=== PATIENT | female | born 1945 | race Caucasian/White ===

== ENCOUNTER 2018-04-05 10:51 | Inpatient (IN) | payer MEDICARE ==
[2018-04-05] MEDS ORDERED: IPRATROPIUM 0.5 MG/2.5 ML NEBU INHALATION STA (11:11)
[2018-04-05] MEDS ORDERED: ALBUTEROL NEBULIZED 2.5 MG/3 ML INHALATION STA (11:11)
[2018-04-05] MEDS ORDERED: LORazepam 2 MG/ML INJ IV STA (12:04)
--- NOTE | 2018-04-05 12:05 | ED ---
General Adult HPI - General Chief complaint: Shortness of Breath Stated complaint: fluid on lungs Time Seen by Provider: 04/05/18 11:11 Source: patient, RN notes reviewed, old records reviewed Mode of arrival: wheelchair Limitations: no limitations - History of Present Illness Initial comments: This is a 72-year-old female to the ER for evaluation. This patient does say for evaluation regards to shortness of breath cough and congestion. Patient does have history of COPD mild heart failure. Patient was sent in by family doctor for evaluation of outpatient chest x-ray, per patient she does have fluid on lungs. Patient does admit to being unable to lie flat with significant shortness of breath with activity. No fevers or chest pain - Related Data Home Medications Medication Instructions Recorded Confirmed ALPRAZolam [Xanax] 0.5 mg PO TID PRN 11/04/17 04/05/18 Albuterol Sulfate [Proventil Hfa] 1 - 2 puff INHALATION RT-Q4H PRN 11/04/1709/13 Potassium Chloride [Klor-Con 10] 10 meq PO TID 11/04/17 04/05/18 Tiotropium 18 Mcg/Puff [Spiriva] 1 cap INHALATION RT-DAILY 11/04/17 04/05/18 glyBURIDE/METFORMIN HCL 1 tab PO BID 11/04/17 04/05/18 [glyBURIDE/METFORMIN HCL 5-500 mg] sitaGLIPtin [Januvia] 100 mg PO DAILY 11/04/17 04/05/18 Atenolol/Chlorthalidone 1 tab PO DAILY 04/05/18 04/05/18 [Atenolol-Chlorthalidone 50-25] Atorvastatin [Lipitor] 10 mg PO HS 04/05/18 04/05/18 Ipratropium-Albuterol Nebulize 3 ml INHALATION RT-TID 04/05/18 04/05/18 [Duoneb 0.5 mg-3 mg/3 ml Soln] Previous Rx's Medication Instructions Recorded Apixaban [Eliquis] 5 mg PO BID tab 11/10/17 Diltiazem Oral [Cardizem*] 30 mg PO TID #90 tab 11/10/17 Atenolol [Tenormin] 50 mg PO DAILY #30 tab 11/22/17 FLUoxetine HCL 10 mg PO DAILY #30 tablet 11/22/17 Allergies Allergy/AdvReac Type Severity Reaction Status Date / Time egg Allergy Itching Verified 04/05/18 11:21 Review of Systems ROS Statement: Those systems with pertinent positive or pertinent negative responses have been documented in the HPI. ROS Other: All systems not noted in ROS Statement are negative. Past Medical History Past Medical History: Atrial Fibrillation, Asthma, COPD, Diabetes Mellitus, Eye Disorder, Hypertension, Osteoarthritis (OA), Vascular Disorder Additional Past Medical History / Comment(s): PT RECENTLY ADMITTED 11/07/17 WITH COPD/PURULENT TRACHEOBRONCHITIS. 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, NIDDM type II, past severe shingles, chronic constipation, degenerative arthritis History of Any Multi-Drug Resistant Organisms: None Reported Past Surgical History: Hysterectomy, Orthopedic Surgery, Tonsillectomy Additional Past Surgical History / Comment(s): Right knee arthroplasty, bilateral cataract surgery, hysterectomy, tonsillectomy Past Anesthesia/Blood Transfusion Reactions: No Reported Reaction Past Psychological History: Anxiety Smoking Status: Former smoker Past Alcohol Use History: None Reported Past Drug Use History: None Reported - Past Family History Mother Family Medical History: Dementia Additional Family Medical History / Comment(s): AGE 99 Father Family Medical History: No Reported History Additional Family Medical History / Comment(s): WAS HEALTHY AT ALMOST AGE 99 General Exam Limitations: no limitations General appearance: alert, in no apparent distress, in distress, cachectic Head exam: Present: atraumatic, normocephalic, normal inspection Eye exam: Present: normal appearance, PERRL, EOMI. Absent: scleral icterus, conjunctival injection, periorbital swelling ENT exam: Present: normal exam, mucous membranes moist Neck exam: Present: normal inspection. Absent: tenderness, meningismus, lymphadenopathy Respiratory exam: Present: respiratory distress, wheezes, accessory muscle use, decreased breath sounds, prolonged expiratory. Absent: rales, rhonchi, stridor Cardiovascular Exam: Present: regular rate, normal rhythm, normal heart sounds. Absent: systolic murmur, diastolic murmur, rubs, gallop, clicks GI/Abdominal exam: Present: soft, normal bowel sounds. Absent: distended, tenderness, guarding, rebound, rigid Extremities exam: Present: normal inspection, full ROM, normal capillary refill. Absent: tenderness, pedal edema, joint swelling, calf tenderness Back exam: Present: normal inspection Neurological exam: Present: alert, oriented X3, CN II-XII intact Psychiatric exam: Present: normal affect, normal mood Skin exam: Present: warm, dry, intact, normal color. Absent: rash Course Vital Signs 04/05/18 04/05/18 10:56 10:58 Temperature 98.4 F Pulse Rate 104 H 93 Respiratory 20 18 Rate Blood Pressure 148/63 176/63 O2 Sat by Pulse 96 95 Oximetry - Reevaluation(s) Reevaluation #1: 04/05/18 12:34 Mild improvement with prolonged breathing treatment, still short of breath EKG Findings - EKG Comments: EKG Findings:: EKG shows sinus rhythm rate of 89, ME 160, QRS 128, QTC 508 Medical Decision Making - Medical Decision Making 72 female the ER was significant shortness of breath, COPD exacerbation, with mild heart failure pleural effusions, patient be admitted for mild diuresis, breathing treatments, steroid treatments. Pulmonology evaluation - Lab Data Result diagrams: 04/05/18 12:05 Lab Results 04/05/18 Range/Units 12:05 WBC 7.6 (3.8-10.6) k/uL RBC 4.70 (3.80-5.40) m/uL Hgb 13.4 (11.4-16.0) gm/dL Hct 40.7 (34.0-46.0) % MCV 86.6 (80.0-100.0) fL MCH 28.6 (25.0-35.0) pg MCHC 33.0 (31.0-37.0) g/dL RDW 13.8 (11.5-15.5) % Plt Count 232 (150-450) k/uL Neutrophils % 74 % Lymphocytes % 18 % Monocytes % 4 % Eosinophils % 3 % Basophils % 0 % Neutrophils # 5.6 (1.3-7.7) k/uL Lymphocytes # 1.4 (1.0-4.8) k/uL Monocytes # 0.3 (0-1.0) k/uL Eosinophils # 0.2 (0-0.7) k/uL Basophils # 0.0 (0-0.2) k/uL - Radiology Data Radiology results: report reviewed (Chest x-ray positive for pleural effusion), image reviewed Disposition Clinical Impression: Acute exacerbation of chronic obstructive airways disease, Congestive heart failure Disposition: ADMITTED IP TO THIS HOSP Condition: Fair Is patient prescribed a controlled substance at d/c from ED?: No Referrals: Asa Kang DO [Primary Care Provider] - 1-2 days
[2018-04-05 12:31] LABS: Basophils % (A) 0 %; Eosinophils # (A) 0.2 k/uL (0-0.7); Eosinophils % (A) 3 %; HCT 40.7 % (34.0-46.0); HGB 13.4 gm/dL (11.4-16.0); Lymphocytes # (A) 1.4 k/uL (1.0-4.8); Lymphocytes % (A) 18 %; MCH 28.6 pg (25.0-35.0); MCV 86.6 fL (80.0-100.0); Mean Platelet Volume 6.9; Monocytes # (A) 0.3 k/uL (0-1.0); Monocytes % (A) 4 %; Neutrophils # (A) 5.6 k/uL (1.3-7.7); Neutrophils % (A) 74 %; Platelet Count 232 k/uL (150-450); RDW 13.8 % (11.5-15.5); WBC 7.6 k/uL (3.8-10.6)
[2018-04-05] MEDS ORDERED: methylPREDNISolone SOD SUCCI 125 MG/2 ML VIAL IV STA (12:33)
--- NOTE | 2018-04-05 12:33 | XR ---
EXAMINATION TYPE: XR chest 2V DATE OF EXAM: 04/05/2018 COMPARISON: 11/21/2017 INDICATION: Short of breath asthma TECHNIQUE: Frontal and lateral views of the chest are obtained. FINDINGS: The heart size is normal. The pulmonary vasculature is normal. Small bilateral pleural effusions are present.. IMPRESSION: 1. Small bilateral pleural effusions
[2018-04-05] MEDS ORDERED: FUROSEMIDE 10 MG/ML 4 ML VIAL IV STA (12:35)
[2018-04-05] MEDS ORDERED: LORazepam 2 MG/ML INJ IV PRN (12:35)
[2018-04-05 12:37] LABS: Albumin 4.2 g/dL (3.5-5.0); Calcium 9.7 mg/dL (8.4-10.2); Magnesium 1.3 mg/dL (1.6-2.3); Potassium 3.7 mmol/L (3.5-5.1); Total Bilirubin 0.8 mg/dL (0.2-1.3); Total Protein 6.7 g/dL (6.3-8.2)
[2018-04-05] MEDS: SODIUM CHLORIDE 0.9% 1,000 ML IV SCH (12:42)
[2018-04-05 12:53] LABS: INR 1.2 (<1.2); Partial Thromboplastin Time 25.3 sec (22.0-30.0); Prothrombin Time 11.3 sec (9.0-12.0)
[2018-04-05 13:05] LABS: Creatine Kinase MB 1.4 ng/mL (0.0-2.4)
[2018-04-05 13:09] LABS: Troponin I 0.046 ng/mL (0.000-0.034)
[2018-04-05] MEDS ORDERED: DILTIAZEM 5 MG/1 ML (25ML VIAL) IV STA (14:02)
[2018-04-05] MEDS ORDERED: DILTIAZEM 50 MG in SODIUM CHLORIDE 0.9% 40 ML IV ONE (14:03)
[2018-04-05] MEDS: IPRATROPIUM-ALBUTEROL 3 ML NEB INHALATION SCH ×2 (16:14→19:54)
--- NOTE | 2018-04-05 16:48 | P.CNPUL ---
History of Present Illness Consult date: 04/05/18 Reason for consult: dyspnea, COPD History of present illness: A 72-year-old female patient presented emergency department because of increased shortness of breath, cough and chest congestion. The patient is known to have COPD. The patient was seen by the primary care physician outpatient basis chest x-ray was done and there was a component of fluid overload in addition. For that reason the patient was referred to the emergency department and the patient was admitted for increased shortness of breath. No reported fever or chills. No cough or sputum production. Noted the patient also has history of chronic atrial fibrillation, diabetes mellitus and hypertension peripheral vascular disease. 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 She was recently admitted on 11/07/2017 for an acute COPD exacerbation check a bronchitis. The patient carries a [id number] smoking history and she quit smoking approximately 2 years ago. She is maintained on Spiriva regarding her COPD and she uses Ventolin rescue inhaler last is bases addition to a nebulizer with albuterol and mastoids basis. Typically she is short of breath upon climbing a flight of stairs. CAT scan of the chest that was done in October 2017 did not show any acute abnormalities. Note that her current chest x-ray showing some small better pleural effusion. No airspace disease or pneumonia. Echocardiogram from October 2017 showed a preserved LV function with an ejection fraction of 55-60%. Borderline concentric ventricular hypertrophy. PA pressure was 43. Mild pulmonary hypertension was noted and small pleural effusion was also seen. A recent pulmonary function test was done in the office and the patient has an FEV1 of 73 % of predicted which is consistent with mild obstructive airway limitation. Total lung capacity was already percent of predicted and diffusion capacity was 40% of predicted. Her BNP level is slightly elevated in the 5000 range and the patient also had some minor troponin leak with a 0.04 troponin level 3 and an EKG showing a sinus rhythm with premature atrial complexes and nonspecific intraventricular block. Q waves were seen in the anteroseptal area but wasn't Review of Systems Constitutional: Reports as per HPI Eyes: denies blurred vision, denies bulging eye, denies decreased vision Ears: deny: decreased hearing, ear discharge, earache Ears, nose, mouth and throat: Denies headache, Denies sore throat Cardiovascular: Reports decreased exercise tolerance, Reports dyspnea on exertion, Reports rapid heart beat, Reports shortness of breath Respiratory: Reports cough, Reports dyspnea Gastrointestinal: Reports as per HPI Menstruation: Reports as per HPI Musculoskeletal: absent: ankle pain, ankle stiffness, ankle swelling Integumentary: Denies pruritus, Denies rash Neurological: Denies numbness, Denies weakness Psychiatric: Denies anxiety, Denies depression Endocrine: Denies fatigue, Denies weight change Past Medical History Past Medical History: Atrial Fibrillation, Heart Failure, COPD, Diabetes Mellitus, Eye Disorder, Hypertension, Osteoarthritis (OA), Vascular Disorder Additional Past Medical History / Comment(s): COPD, previous CVA related to carotid artery disease and 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 History of Any Multi-Drug Resistant Organisms: None Reported Past Surgical History: Hysterectomy, Orthopedic Surgery, Tonsillectomy Additional Past Surgical History / Comment(s): Right knee arthroplasty, bilateral cataract surgery, hysterectomy, tonsillectomy Past Anesthesia/Blood Transfusion Reactions: No Reported Reaction Smoking Status: Former smoker - Past Family History Mother Family Medical History: Dementia Additional Family Medical History / Comment(s): AGE 99 Father Family Medical History: No Reported History Additional Family Medical History / Comment(s): WAS HEALTHY AT ALMOST AGE 99 Medications and Allergies Home Medications Medication Instructions Recorded Confirmed Type ALPRAZolam [Xanax] 0.5 mg PO TID PRN 11/04/17 04/05/18 History Albuterol Sulfate [Proventil Hfa] 1 - 2 puff INHALATION RT-Q4H PRN 11/04/1709/13 History Potassium Chloride [Klor-Con 10] 10 meq PO TID 11/04/17 04/05/18 History Tiotropium 18 Mcg/Puff [Spiriva] 1 cap INHALATION RT-DAILY 11/04/17 04/05/18 History glyBURIDE/METFORMIN HCL 1 tab PO BID 11/04/17 04/05/18 History [glyBURIDE/METFORMIN HCL 5-500 mg] sitaGLIPtin [Januvia] 100 mg PO DAILY 11/04/17 04/05/18 History Apixaban [Eliquis] 5 mg PO BID tab 11/10/17 04/05/18 Rx Diltiazem Oral [Cardizem*] 30 mg PO TID #90 tab 11/10/17 04/05/18 Rx Atenolol [Tenormin] 50 mg PO DAILY #30 tab 11/22/17 04/05/18 Rx FLUoxetine HCL 10 mg PO DAILY #30 tablet 11/22/17 04/05/18 Rx Atenolol/Chlorthalidone 1 tab PO DAILY 04/05/18 04/05/18 History [Atenolol-Chlorthalidone 50-25] Atorvastatin [Lipitor] 10 mg PO HS 04/05/18 04/05/18 History Ipratropium-Albuterol Nebulize 3 ml INHALATION RT-TID 04/05/18 04/05/18 History [Duoneb 0.5 mg-3 mg/3 ml Soln] Allergies Allergy/AdvReac Type Severity Reaction Status Date / Time egg Allergy Itching Verified 04/05/18 11:21 Influenza Virus Vaccines Allergy Unknown Verified 04/05/18 15:30 Physical Exam Vitals: Vital Signs Temp Pulse Resp BP Pulse Ox 04/05/18 15:24 108 H 16 125/61 91 L 04/05/18 13:51 122 H 28 H 178/107 95 04/05/18 13:46 124 H 28 H 197/122 04/05/18 13:42 88 04/05/18 13:04 95 04/05/18 12:51 76 04/05/18 12:46 78 16 163/78 99 04/05/18 10:58 93 18 176/63 95 04/05/18 10:56 98.4 F 104 H 20 148/63 96 Intake and Output 04/05/18 04/05/18 04/05/18 06:59 14:59 22:59 Other: Weight 53.524 kg Head exam was generally normal. There was no scleral icterus or corneal arcus. Mucous membranes were moist.Neck was supple and without jugular venous distension, thyromegaly, or carotid bruits. Carotids were easily palpable bilaterally. There was no adenopathy. Lung sounds are diminished bilaterally otherwise clear. No wheezes or rhonchi or any crackles. Minimal amount of external wheezes upon forceful expiratory maneuvers. Heart sounds are irregular , positive S1-S2. Overall heart sounds are distant. No significant murmurs appreciated.Abdominal exam revealed normal bowel sounds. The abdomen was soft, non-tender, and without masses, organomegaly, or appreciable enlargement of the abdominal aorta.Examination of the extremities revealed easily palpable radial, femoral and pedal pulses. There was no cyanosis, clubbing or edema.Examination of the skin revealed no evidence of significant rashes, suspicious appearing nevi or other concerning lesions. Neurologically the patient is awake and alert and there is no focal neurological deficit. Psychiatric to the patient has adequate effect and mood. Results - Laboratory Findings CBC and BMP: 04/05/18 12:05 04/05/18 12:05 PT/INR, D-dimer PT 11.3 sec (9.0-12.0) 04/05/18 12:05 INR 1.2 (<1.2) H 04/05/18 12:05 Abnormal lab findings: Abnormal Labs 04/05/18 04/05/18 04/05/18 12:05 12:05 12:05 INR 1.2 H Carbon Dioxide 21 L Creatinine 1.08 H Glucose 208 H Magnesium 1.3 L Troponin I 0.046 H* - Diagnostic Findings Chest x-ray: image reviewed Assessment and Plan Plan: Assessment 1 dyspnea. The patient has a mild COPD at baseline with an FEV1 of 73% of predicted and the patient has been maintained on Spiriva monotherapy. Her last hospital admission for shortness of breath was in October 2017. It is not clear to me that the patient is having acute COPD exacerbation. I think her shortness of breath is related to A. fib RVR which probably is causing shortness of breath and is putting this patient to a component of CHF. The chest x-ray shows COPD yet there is small bilateral pleural effusion contributing to her shortness of breath. As such I think her shortness of breath essentially related to episodes of A. fib RVR with possibly component of CHF. 2 paroxysmal nature fibrillation atrial fibrillation with rapid ventricular response, treated with Cardizem drip and currently she is back to normal and her shortness of breath has recovered. She is on long-term anticoagulation with Eliquis. 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 On Xanax. 10 nonobstructive right renal calculus 11 troponin leak 12 hypertensive heart disease with a component of diastolic dysfunction and previous echocardiogram from October 2017 13 small better pleural effusion. Plan We'll she continue DuoNeb about treatments around the clock, stop the IV Solu- Medrol. IV Lasix 20 mg every 12 hours. Long-term medical condition with Eliquis will be resumed. We'll consult cardiology. Her COPD is mild at baseline with an FEV1 of 73% of predicted and will continue the patient on Spiriva once ablation a day on outpatient basis. May consider also cardiac catheterization especially with an underlying troponin leak. We'll leave the final decision up to cardiology.
[2018-04-05 16:58] LABS: Glucose,Whole Blood 275 mg/dL (75-99)
[2018-04-05] MEDS ORDERED: methylPREDNISolone SOD SUCCI 125 MG/2 ML VIAL IV SCH (18:00)
[2018-04-05] MEDS: INSULIN ASPART 100 UNIT/ML 1 ML 10 ML VIAL SQ SCH ×2 (18:08→23:26)
[2018-04-05] MEDS: DILTIAZEM ORAL 60 MG TAB PO SCH ×2 (18:47→23:14)
[2018-04-05 21:04] LABS: Glucose,Whole Blood 299 mg/dL (75-99)
[2018-04-05] MEDS: FUROSEMIDE 10 MG/ML 2 ML VIAL IV SCH (21:30)
[2018-04-05] MEDS: ATORVASTATIN 10 MG TAB PO SCH (23:14)
[2018-04-05] MEDS: POTASSIUM CHLORIDE ER 10 MEQ TAB.ER.PRT PO SCH (23:15)
[2018-04-05] MEDS: APIXABAN 5 MG TAB PO SCH (23:15)
--- NOTE | 2018-04-05 23:53 | HP ---
HISTORY AND PHYSICAL DATE OF SERVICE: 04/05/2018 CHIEF COMPLAINT: Shortness of breath. HISTORY OF PRESENT ILLNESS: This 72-year-old woman with a past medical history of atrial ablation, CHF, COPD , diabetes type 2, DJD, history of hysterectomy and anxiety being followed by Dr. Kang in the outpatient setting was complaining of shortness of breath over the past several days. The patient had increasing shortness of breath. The patient also complaining of some cough and congestion also. The outpatient chest x-ray was done, which is suggestive of fluid overload. There is no history of any fever, rigors or chills. No headache, loss of consciousness, seizures at this time. The proBNP is 5500 and troponin 0.046. PAST MEDICAL HISTORY: History of atrial fibrillation, CHF, COPD, diabetes type 2, hypertension, DJD, history of vascular disorder, COPD. MEDICATIONS: Prior to admission include home medications are: 1. Albuterol 1-2 puffs q.4h p.r.n. 2. Januvia 100 mg p.o. daily. 3. Spiriva 1 puff daily. 4. Lipitor 10 mg q.h.s. 5. Xanax 0.5 t.i.d. p.r.n. 6. _ metformin 1 tab p.o. b.i.d. 7. Klor-Con 10 mg p.o. t.i.d. 8. DuoNeb p.o. t.i.d. 9. Fluoxetine 10 mg p.o. daily. 10.Atenolol chlorthalidone 50/25 p.o. daily. 11.Eliquis 5 mg p.o. b.i.d. 12.Tenormin 50 mg p.o. daily. 13.Cardizem 30 mg p.o. t.i.d. ALLERGIES: EGG and INFLUENZA VACCINE. FAMILY HISTORY: History of dementia. SOCIAL HISTORY: No history of smoking. Occasional alcohol intake. REVIEW OF SYSTEMS: ENT: No diminished vision or hearing. CARDIOVASCULAR: No angina. RESPIRATORY: As mentioned earlier. GI: No nausea. : No dysuria. NERVOUS SYSTEM: No numbness or weakness. ALLERGY/IMMUNOLOGY: No asthma. MUSCULOSKELETAL: As mentioned earlier. HEMATOLOGY/ONCOLOGY: No history of anemia. ENDOCRINE: Negative. CONSTITUTIONAL: As mentioned earlier. DERMATOLOGY: Negative. RHEUMATOLOGY: Negative. PSYCHIATRY: As mentioned earlier. PHYSICAL EXAMINATION: Alert and oriented x3. Pulse 103, blood pressure 123/80, respirations 20, temperature 97.2, pulse ox 97% on 2 L. HEENT: Conjunctivae normal. Oral mucosa moist. Neck is no jugular venous distention. No lymph node enlargement. CARDIOVASCULAR: S1 and S2, muffled. RESPIRATORY: Breath sounds diminished at the bases, bilateral scattered rhonchi and expiratory wheezing. ABDOMEN: Soft, nontender. LEGS: No edema, no swelling. NERVOUS SYSTEM: Higher functions as mentioned earlier, moves all 4 limbs. No focal motor deficits. LYMPHATICS: No lymphadenopathy in the neck, axillae, groin. SKIN: No ulcer, rash or bleeding. LAB STUDIES: CBC within normal limits and creatinine is 1.08 and glucose 208. Magnesium 1.3. ASSESSMENT: 1. Shortness of breath, possibly multifactorial, chronic obstructive pulmonary disease acute exacerbation, congestive heart failure acute exacerbation. 2. Troponin 0.046, indeterminate. 3. Diabetes type 2. 4. History of atrial fibrillation. 5. History of hypertension. 6. History of degenerative joint disease. 7. History of vascular disorder. 8. History of carotid artery disease. 9. History of anxiety. 10.Remote history of nicotine dependence. RECOMMENDATION AND DISCUSSION: This 72-year-old woman who presented with multiple complex medical issues, we will monitor the patient closely. Continue the current management and continue symptomatic treatment. Otherwise at this time Cardiology and pulmonology has been consulted. As far as the medications were concerned, we will treat the patient with small dose of diuretics cautiously and mostly with bronchodilators and steroids. Otherwise prognosis guarded because of multiple complex medical problems. We will follow the patient closely with Dr. Tomas. NICK / MESFINN: [id number] / HAILEY
[2018-04-06] MEDS: ALPRAZolam 0.5 MG TAB PO PRN ×2 (06:05→15:16)
[2018-04-06 06:35] LABS: Glucose,Whole Blood 207 mg/dL (75-99)
[2018-04-06 07:02] LABS: Calcium 9.4 mg/dL (8.4-10.2); Potassium 3.4 mmol/L (3.5-5.1)
[2018-04-06] MEDS: INSULIN ASPART 100 UNIT/ML 1 ML 10 ML VIAL SQ SCH ×4 (07:05→21:18)
[2018-04-06] MEDS: APIXABAN 5 MG TAB PO SCH ×2 (08:43→20:41)
[2018-04-06] MEDS: FUROSEMIDE 10 MG/ML 2 ML VIAL IV SCH ×2 (08:43→20:42)
[2018-04-06] MEDS: POTASSIUM CHLORIDE ER 10 MEQ TAB.ER.PRT PO SCH ×3 (08:43→21:19)
[2018-04-06] MEDS: FLUoxetine HCL 10 MG CAP PO SCH (08:43)
[2018-04-06] MEDS: LINAGLIPTIN 5 MG TABLET PO SCH (08:43)
[2018-04-06] MEDS: DILTIAZEM ORAL 60 MG TAB PO SCH ×3 (08:43→21:18)
[2018-04-06] MEDS: ATENOLOL 50 MG TAB PO SCH (08:43)
[2018-04-06] MEDS: IPRATROPIUM-ALBUTEROL 3 ML NEB INHALATION SCH ×4 (09:21→19:34)
[2018-04-06] MEDS ORDERED: SENNOSIDES 8.6 MG TAB PO SCH (11:00)
[2018-04-06] MEDS: LACTULOSE 20 GM/30 ML CUP PO SCH ×3 (11:55→21:19)
[2018-04-06 11:59] LABS: Glucose,Whole Blood 117 mg/dL (75-99)
[2018-04-06 13:26] LABS: Hemoglobin A1C 6.8 % (4.0-6.0)
--- NOTE | 2018-04-06 14:19 | P.PN ---
Subjective Progress Note Date: 04/06/18 A 72-year-old female patient presented emergency department because of increased shortness of breath, cough and chest congestion. The patient is known to have COPD. The patient was seen by the primary care physician outpatient basis chest x-ray was done and there was a component of fluid overload in addition. For that reason the patient was referred to the emergency department and the patient was admitted for increased shortness of breath. No reported fever or chills. No cough or sputum production. Noted the patient also has history of chronic atrial fibrillation, diabetes mellitus and hypertension peripheral vascular disease. 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 She was recently admitted on 11/07/2017 for an acute COPD exacerbation check a bronchitis. The patient carries a [id number] smoking history and she quit smoking approximately 2 years ago. She is maintained on Spiriva regarding her COPD and she uses Ventolin rescue inhaler last is bases addition to a nebulizer with albuterol and mastoids basis. Typically she is short of breath upon climbing a flight of stairs. CAT scan of the chest that was done in October 2017 did not show any acute abnormalities. Note that her current chest x-ray showing some small better pleural effusion. No airspace disease or pneumonia. Echocardiogram from October 2017 showed a preserved LV function with an ejection fraction of 55-60%. Borderline concentric ventricular hypertrophy. PA pressure was 43. Mild pulmonary hypertension was noted and small pleural effusion was also seen. A recent pulmonary function test was done in the office and the patient has an FEV1 of 73 % of predicted which is consistent with mild obstructive airway limitation. Total lung capacity was already percent of predicted and diffusion capacity was 40% of predicted. Her BNP level is slightly elevated in the 5000 range and the patient also had some minor troponin leak with a 0.04 troponin level 3 and an EKG showing a sinus rhythm with premature atrial complexes and nonspecific intraventricular block. Q waves were seen in the anteroseptal area but wasn't On today's evaluation of 04/06/2018, the patient is doing well and the patient has no specific complaints. Cardiac rhythm is sinus. She has been placed on atenolol 50 mg by mouth daily. She is also on Eliquis for long-term anticoagulation. I took the patient off Solu-Medrol as there was no clear-cut exacerbation of her COPD. She is on IV fluids at 20 mL an hour. She is also being diuresed with Lasix regarding a component of CHF and she is currently on 20 mg IV push Lasix every 12 hours. No fever. No chills. No chest pain. Objective - Vital Signs Vital signs: Vital Signs Temp 96.8 F L 04/06/18 11:58 Pulse 64 04/06/18 13:42 Resp 18 04/06/18 11:58 BP 99/47 04/06/18 11:58 Pulse Ox 97 04/06/18 11:58 Intake & Output 04/05/18 04/06/18 04/06/18 18:59 06:59 18:59 Intake Total 222 460 Balance 222 460 Weight 51.7 kg 50.7 kg Intake: Intake, IV Titration 100 Amount Sodium Chloride 0.9% 1, 100 000 ml @ 20 mls/hr IV . Q24H [facility] Rx#:[id number] Oral 222 360 Other: Voiding Method Bedpan Bedpan Bedpan # Voids 1 4 - Exam Head exam was generally normal. There was no scleral icterus or corneal arcus. Mucous membranes were moist.Neck was supple and without jugular venous distension, thyromegaly, or carotid bruits. Carotids were easily palpable bilaterally. There was no adenopathy. Lung sounds are diminished bilaterally otherwise clear. No wheezes or rhonchi or any crackles. Minimal amount of external wheezes upon forceful expiratory maneuvers. Heart sounds are irregular , positive S1-S2. Overall heart sounds are distant. No significant murmurs appreciated.Abdominal exam revealed normal bowel sounds. The abdomen was soft, non-tender, and without masses, organomegaly, or appreciable enlargement of the abdominal aorta.Examination of the extremities revealed easily palpable radial, femoral and pedal pulses. There was no cyanosis, clubbing or edema.Examination of the skin revealed no evidence of significant rashes, suspicious appearing nevi or other concerning lesions. Neurologically the patient is awake and alert and there is no focal neurological deficit. Psychiatric to the patient has adequate effect and mood. - Labs CBC & Chem 7: 04/05/18 12:05 04/06/18 06:08 Labs: Abnormal Lab Results - Last 24 Hours (Table) 04/05/18 04/05/18 04/06/18 Range/Units 16:34 21:02 06:08 Potassium (3.5-5.1) mmol/L BUN (7-17) mg/dL Creatinine (0.52-1.04) mg/dL Glucose (74-99) mg/dL POC Glucose (mg/dL) 275 H 299 H (75-99) mg/dL Hemoglobin A1c 6.8 H (4.0-6.0) % 04/06/18 04/06/18 04/06/18 Range/Units 06:08 06:33 11:22 Potassium 3.4 L (3.5-5.1) mmol/L BUN 22 H (7-17) mg/dL Creatinine 1.10 H (0.52-1.04) mg/dL Glucose 212 H (74-99) mg/dL POC Glucose (mg/dL) 207 H 117 H (75-99) mg/dL Hemoglobin A1c (4.0-6.0) % Assessment and Plan Plan: Assessment 1 dyspnea. The patient has a mild COPD at baseline with an FEV1 of 73% of predicted and the patient has been maintained on Spiriva monotherapy. Her last hospital admission for shortness of breath was in October 2017. It is not clear to me that the patient is having acute COPD exacerbation. I think her shortness of breath is related to A. fib RVR which probably is causing shortness of breath and is putting this patient to a component of CHF. The chest x-ray shows COPD yet there is small bilateral pleural effusion contributing to her shortness of breath. As such I think her shortness of breath essentially related to episodes of A. fib RVR with possibly component of CHF. 2 paroxysmal nature fibrillation atrial fibrillation with rapid ventricular response, treated with Cardizem drip and currently she is back to normal and her shortness of breath has recovered. She is on long-term anticoagulation with Eliquis. 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 On Xanax. 10 nonobstructive right renal calculus 11 troponin leak 12 hypertensive heart disease with a component of diastolic dysfunction and previous echocardiogram from October 2017 13 small better pleural effusion. Plan The patient continues to improve. Continue diuretics. Atenolol dose has been increased up to 50 mg by mouth daily. Continue Eliquis for anticoagulation. Cardiology on the case. We'll continue to follow. No need for systemic steroids. Her COPD is mildly currently inactive and stable.
[2018-04-06] MEDS: SODIUM CHLORIDE 0.9% 1,000 ML IV SCH (14:35)
--- NOTE | 2018-04-06 15:38 | P.CRDCN ---
History of Present Illness Consult date: 04/06/18 Requesting physician: Carol Bassett Consult reason: atrial fibrillation, shortness of breath Chief complaint: Shortness of breath History of present illness: This is a 72-year-old female with history of COPD, diabetes, hypertension, chronic persistent atrial fibrillation, who presented to the hospital with symptoms of progressively worsening shortness of breath. BNP level 5500, troponin 0.046, BUN 22, creatinine 1.0, potassium 3.4. CBC normal. EKG on arrival here showed atrial fibrillation with a heart rate in the 80s to 90s. No clear-cut evidence of any congestive heart failure this admission. Patient denies having any chest discomfort. Chest x-ray did not reveal any evidence of congestive cardiac failure. Let pressure 100/50 with a heart rate in the 70s to 80s. The patient is on Eliquis for anticoagulation. 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 History of Any Multi-Drug Resistant Organisms: None Reported Past Surgical History: Hysterectomy, Orthopedic Surgery, Tonsillectomy Additional Past Surgical History / Comment(s): Right knee arthroplasty, bilateral cataract surgery, hysterectomy, tonsillectomy Past Anesthesia/Blood Transfusion Reactions: No Reported Reaction Smoking Status: Former smoker - Past Family History Mother Family Medical History: Dementia Additional Family Medical History / Comment(s): AGE 99 Father Family Medical History: No Reported History Additional Family Medical History / Comment(s): WAS HEALTHY AT ALMOST AGE 99 Medications and Allergies Home Medications Medication Instructions Recorded Confirmed Type ALPRAZolam [Xanax] 0.5 mg PO TID PRN 11/04/17 04/05/18 History Albuterol Sulfate [Proventil Hfa] 1 - 2 puff INHALATION RT-Q4H PRN 11/04/1709/13 History Potassium Chloride [Klor-Con 10] 10 meq PO TID 11/04/17 04/05/18 History Tiotropium 18 Mcg/Puff [Spiriva] 1 cap INHALATION RT-DAILY 11/04/17 04/05/18 History glyBURIDE/METFORMIN HCL 1 tab PO BID 11/04/17 04/05/18 History [glyBURIDE/METFORMIN HCL 5-500 mg] sitaGLIPtin [Januvia] 100 mg PO DAILY 11/04/17 04/05/18 History Apixaban [Eliquis] 5 mg PO BID tab 11/10/17 04/05/18 Rx Diltiazem Oral [Cardizem*] 30 mg PO TID #90 tab 11/10/17 04/05/18 Rx Atenolol [Tenormin] 50 mg PO DAILY #30 tab 11/22/17 04/05/18 Rx FLUoxetine HCL 10 mg PO DAILY #30 tablet 11/22/17 04/05/18 Rx Atenolol/Chlorthalidone 1 tab PO DAILY 04/05/18 04/05/18 History [Atenolol-Chlorthalidone 50-25] Atorvastatin [Lipitor] 10 mg PO HS 04/05/18 04/05/18 History Ipratropium-Albuterol Nebulize 3 ml INHALATION RT-TID 04/05/18 04/05/18 History [Duoneb 0.5 mg-3 mg/3 ml Soln] Allergies Allergy/AdvReac Type Severity Reaction Status Date / Time egg Allergy Itching Verified 04/05/18 11:21 Influenza Virus Vaccines Allergy Unknown Verified 04/05/18 15:30 Physical Exam Vitals: Vital Signs Temp Pulse Pulse Resp BP Pulse Ox 04/06/18 13:42 64 04/06/18 13:29 64 04/06/18 11:58 96.8 F L 67 18 99/47 97 04/06/18 09:40 88 04/06/18 09:21 88 04/06/18 08:00 97.4 F L 92 18 125/76 96 04/06/18 04:00 98.0 F 94 16 90/55 93 L 04/06/18 00:00 98.0 F 94 16 90/55 93 L 04/05/18 19:59 97.2 F L 91 16 119/59 96 04/05/18 16:52 97.1 F L 103 H 20 123/83 97 Intake and Output 04/06/18 04/06/18 04/06/18 06:59 14:59 22:59 Intake Total 460 Balance 460 Intake: Intake, IV Titration 100 Amount Sodium Chloride 0.9% 1, 100 000 ml @ 20 mls/hr IV . Q24H [facility] Rx#:[id number] Oral 360 Other: Voiding Method Bedpan Bedpan # Voids 1 4 Weight 50.7 kg PHYSICAL EXAMINATION: HEENT: Head is atraumatic, normocephalic. Pupils equal, round. Neck is supple. There is no elevated jugular venous pressure. HEART EXAMINATION: Heart S1 and S2 irregularly irregular CHEST EXAMINATION: Lungs are clear to auscultation and precussion. No chest wall tenderness is noted on palpation or with deep breathing. ABDOMEN: Soft, nontender. Bowel sounds are heard. No organomegaly noted. EXTREMITIES: 2+ peripheral pulses with no evidence of peripheral edema and no calf tenderness noted. NEUROLOGIC patient is awake, alert and oriented -3. . Results 04/05/18 12:05 04/06/18 06:08 Comprehensive Metabolic Panel 04/06/18 Range/Units 06:08 Sodium 137 (137-145) mmol/L Potassium 3.4 L (3.5-5.1) mmol/L Chloride 99 (98-107) mmol/L Carbon Dioxide 23 (22-30) mmol/L BUN 22 H (7-17) mg/dL Creatinine 1.10 H (0.52-1.04) mg/dL Glucose 212 H (74-99) mg/dL Calcium 9.4 (8.4-10.2) mg/dL Current Medications Generic Name Dose Route Start Last Admin Trade Name Freq PRN Reason Stop Dose Admin Albuterol/Ipratropium 3 ml 04/05/18 16:00 04/06/18 13:29 Duoneb 0.5 Mg-3 Mg/3 Ml Soln INHALATION 3 ml RT-QID [facility] Administration Alprazolam 0.5 mg 04/05/18 17:41 04/06/18 15:16 Xanax PO 0.5 mg TID PRN Administration Anxiety Apixaban 5 mg 04/05/18 21:00 04/06/18 08:43 Eliquis PO 5 mg BID [facility] Administration Atenolol 50 mg 04/06/18 09:00 04/06/18 08:43 Tenormin PO 50 mg DAILY [facility] Administration Atorvastatin Calcium 10 mg 04/05/18 21:00 04/05/18 23:14 Lipitor PO 10 mg HS [facility] Administration Diltiazem HCl 60 mg 04/05/18 18:00 04/06/18 15:16 Cardizem Oral PO 60 mg TID [facility] Administration Dorzolamide/Timolol 1 drops 04/06/18 21:00 Cosopt RIGHT EYE BID [facility] Fluoxetine HCl 10 mg 04/06/18 09:00 04/06/18 08:43 Prozac PO 10 mg DAILY [facility] Administration Furosemide 20 mg 04/05/18 21:00 04/06/18 08:43 Lasix IV 20 mg Q12HR [facility] Administration Sodium Chloride 1,000 mls @ 20 mls/hr 04/05/18 12:45 04/06/18 14:35 Saline 0.9% IV Not Given .Q24H [facility] Insulin Aspart 0 unit 04/05/18 17:30 04/06/18 11:41 Novolog SQ Not Given ACHS [facility] Protocol Lactulose 30 gm 04/06/18 13:00 04/06/18 11:55 Cephulac PO 30 gm QID [facility] Administration Linagliptin 5 mg 04/06/18 09:00 04/06/18 08:43 Tradjenta PO 5 mg DAILY [facility] Administration Lorazepam 1 mg 04/05/18 12:35 Ativan IV Q6HR PRN Anxiety Potassium Chloride 10 meq 04/05/18 22:00 04/06/18 15:16 K-Dur 10 PO 10 meq TID [facility] Administration Intake and Output 04/06/18 04/06/18 04/06/18 06:59 14:59 22:59 Intake Total 460 Balance 460 Intake: Intake, IV Titration 100 Amount Sodium Chloride 0.9% 1, 100 000 ml @ 20 mls/hr IV . Q24H [facility] Rx#:[id number] Oral 360 Other: Voiding Method Bedpan Bedpan # Voids 1 4 Weight 50.7 kg 04/05/18 12:05 04/06/18 06:08 EKG Interpretations (text) EKG shows atrial fibrillation with a moderately rapid ventricular response. Assessment and Plan Plan: Assessment and plan #1 Shortness of breath, likely exacerbation of COPD. No evidence of congestive heart failure. #2 chronic persistent atrial fibrillation, rate under good control. Patient on Eliquis for anticoagulation. #3 history of CVA #4 nicotine dependence #5 diabetes #6 abnormal troponin #7 hypertension Plan We will repeat an echocardiogram with Doppler study the most recent one was performed in October which revealed a normal left ventricular systolic function. We will also obtain 2 subsequent troponins. No clear-cut evidence of any congestive heart failure. Troponin abnormality likely secondary to supply and demand mismatch. DNP note has been reviewed, I agree with a documented findings and plan of care. Patient was seen and examined.
[2018-04-06 16:53] LABS: Glucose,Whole Blood 254 mg/dL (75-99)
--- NOTE | 2018-04-06 17:57 | PN ---
PROGRESS NOTE DATE OF SERVICE: 04/06/2018 This 72-year-old woman who was admitted with shortness of breath had mostly COPD. An element of CHF was also suspected. Cardiology and Pulmonology are following the patient closely. No chest pain. No palpitations. No fever. On exam, alert, and oriented x3. Pulse is 68, blood pressure 99/47, respiration 18, temperature 96.8, pulse ox 97% on room air. HEENT: Conjunctivae normal. NECK: No jugular venous distention. CARDIOVASCULAR SYSTEM: S1, S2 muffled. RESPIRATORY SYSTEM: Breath sounds diminished at the bases. A few scattered rhonchi and crackles. ABDOMEN: Soft, non-tender. LEGS: No edema. No swelling. NERVOUS SYSTEM: No focal deficit. LABS: Sodium 137, potassium 3.4. CBC within normal limits. ASSESSMENT: 1. Shortness of breath, possibly multifactorial, with chronic obstructive pulmonary disease, acute exacerbation, as well as congestive heart failure, acute exacerbation. 2. Troponin 0.046, indeterminate. 3. Diabetes mellitus, type 2. 4. History of atrial fibrillation. 5. History of hypertension. 6. History of degenerative joint disease. 7. History of vascular disorder. 8. History of coronary artery disease. 9. History of anxiety. 10.Remote history of nicotine dependence. RECOMMENDATIONS AND DISCUSSION: I recommend to continue current medication, continue symptomatic treatment. Otherwise, patient is currently on a small dose of Lasix and bronchodilators. Continue to monitor. Closely follow with Dr. Tomas. Guarded prognosis. Further recommendations to follow. MMODL / IJN: [id number] /
[2018-04-06] MEDS: DORZOLAMIDE-TIMOLOL 2-0.5% DROPS 10 ML BTL RIGHT EYE SCH (20:41)
[2018-04-06] MEDS: ATORVASTATIN 10 MG TAB PO SCH (20:41)
[2018-04-06 21:13] LABS: Glucose,Whole Blood 176 mg/dL (75-99)
[2018-04-07 04:01] LABS: Calcium 8.6 mg/dL (8.4-10.2); Potassium 3.6 mmol/L (3.5-5.1)
[2018-04-07 05:54] LABS: Glucose,Whole Blood 257 mg/dL (75-99)
[2018-04-07] MEDS: INSULIN ASPART 100 UNIT/ML 1 ML 10 ML VIAL SQ SCH ×2 (06:43→12:11)
[2018-04-07] MEDS: ALPRAZolam 0.5 MG TAB PO PRN ×2 (06:45→12:15)
[2018-04-07] MEDS: LACTULOSE 20 GM/30 ML CUP PO SCH ×2 (07:53→12:21)
[2018-04-07] MEDS: FUROSEMIDE 10 MG/ML 2 ML VIAL IV SCH (07:57)
[2018-04-07] MEDS: FLUoxetine HCL 10 MG CAP PO SCH (07:57)
[2018-04-07] MEDS: ATENOLOL 50 MG TAB PO SCH (07:57)
[2018-04-07] MEDS: DORZOLAMIDE-TIMOLOL 2-0.5% DROPS 10 ML BTL RIGHT EYE SCH (07:57)
[2018-04-07] MEDS: LINAGLIPTIN 5 MG TABLET PO SCH (07:58)
[2018-04-07] MEDS: DILTIAZEM ORAL 60 MG TAB PO SCH (07:58)
[2018-04-07] MEDS: POTASSIUM CHLORIDE ER 10 MEQ TAB.ER.PRT PO SCH (07:58)
[2018-04-07] MEDS: APIXABAN 5 MG TAB PO SCH (07:58)
[2018-04-07] MEDS: IPRATROPIUM-ALBUTEROL 3 ML NEB INHALATION SCH ×2 (09:31→13:24)
[2018-04-07 11:45] VITALS: BP 126/73; PULSE 60; RESP 16; TEMP 96
[2018-04-07 11:55] LABS: Glucose,Whole Blood 217 mg/dL (75-99)
[2018-04-07] MEDS: SODIUM CHLORIDE 0.9% 1,000 ML IV SCH (12:21)
--- NOTE | 2018-04-07 12:50 | P.PN ---
Subjective Progress Note Date: 04/07/18 This is a 72-year-old female with history of COPD, diabetes, hypertension, chronic persistent atrial fibrillation, who presented to the hospital with symptoms of progressively worsening shortness of breath. BNP level 5500, troponin 0.046, BUN 22, creatinine 1.0, potassium 3.4. CBC normal. EKG on arrival here showed atrial fibrillation with a heart rate in the 80s to 90s. No clear-cut evidence of any congestive heart failure this admission. Patient denies having any chest discomfort. Chest x-ray did not reveal any evidence of congestive cardiac failure. Let pressure 100/50 with a heart rate in the 70s to 80s. The patient is on Eliquis for anticoagulation. 04/07/2018 Patient was seen and examined this morning, she's been up ambulating without any difficulty, breathing over all has been stable. Troponins 0.04, 0.03, 0.03 , 0.02. Echocardiogram with Doppler study has been performed but as yet pending. Objective - Vital Signs Vital signs: Vital Signs Temp 96.0 F L 04/07/18 11:43 Pulse 60 04/07/18 11:43 Resp 16 04/07/18 11:43 BP 126/73 04/07/18 11:43 Pulse Ox 95 04/07/18 11:43 Intake & Output 04/06/18 04/07/18 04/07/18 18:59 06:59 18:59 Intake Total 820 160 400 Balance 820 160 400 Weight 49.3 kg Intake: Intake, IV Titration 100 160 160 Amount Sodium Chloride 0.9% 1, 100 160 160 000 ml @ 20 mls/hr IV . Q24H [facility] Rx#:[id number] Oral 720 240 Other: Voiding Method Bedpan Toilet Bedside Commode # Voids 4 1 - Exam PHYSICAL EXAMINATION: HEENT: Head is atraumatic, normocephalic. Pupils equal, round. Neck is supple. There is no elevated jugular venous pressure. HEART EXAMINATION: Heart S1 and S2 irregularly irregular CHEST EXAMINATION: Lungs are clear to auscultation and precussion. No chest wall tenderness is noted on palpation or with deep breathing. ABDOMEN: Soft, nontender. Bowel sounds are heard. No organomegaly noted. EXTREMITIES: 2+ peripheral pulses with no evidence of peripheral edema and no calf tenderness noted. NEUROLOGIC patient is awake, alert and oriented -3. . - Labs CBC & Chem 7: 04/05/18 12:05 04/07/18 03:36 Labs: Abnormal Lab Results - Last 24 Hours (Table) 04/06/18 04/06/18 04/06/18 Range/Units 06:08 16:29 21:12 BUN (7-17) mg/dL Creatinine (0.52-1.04) mg/dL Glucose (74-99) mg/dL POC Glucose (mg/dL) 254 H 176 H (75-99) mg/dL Hemoglobin A1c 6.8 H (4.0-6.0) % 04/07/18 04/07/18 04/07/18 Range/Units 03:36 05:51 11:53 BUN 18 H (7-17) mg/dL Creatinine 1.10 H (0.52-1.04) mg/dL Glucose 230 H (74-99) mg/dL POC Glucose (mg/dL) 257 H 217 H (75-99) mg/dL Hemoglobin A1c (4.0-6.0) % Microbiology - Last 24 Hours (Table) 04/05/18 12:05 Blood Culture - Preliminary Blood No Growth after 24 hours Assessment and Plan Plan: Assessment and plan #1 Shortness of breath, likely exacerbation of COPD. No evidence of congestive heart failure. #2 chronic persistent atrial fibrillation, rate under good control. Patient on Eliquis for anticoagulation. #3 history of CVA #4 nicotine dependence #5 diabetes #6 abnormal troponin #7 hypertension Plan We did obtain subsequent troponins, not suggestive of acute coronary syndrome. Echocardiogram with Doppler study remains pending. Most recent echo performed in October revealed normal left ventricular systolic function. From cardiology 's perspective we will continue at this time with the patient's current medications. DNP note has been reviewed, I agree with a documented findings and plan of care. Patient was seen and examined.
--- NOTE | 2018-04-07 13:17 | P.PN ---
Subjective Progress Note Date: 04/07/18 A 72-year-old female patient presented emergency department because of increased shortness of breath, cough and chest congestion. The patient is known to have COPD. The patient was seen by the primary care physician outpatient basis chest x-ray was done and there was a component of fluid overload in addition. For that reason the patient was referred to the emergency department and the patient was admitted for increased shortness of breath. No reported fever or chills. No cough or sputum production. Noted the patient also has history of chronic atrial fibrillation, diabetes mellitus and hypertension peripheral vascular disease. 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 She was recently admitted on 11/07/2017 for an acute COPD exacerbation check a bronchitis. The patient carries a [id number] smoking history and she quit smoking approximately 2 years ago. She is maintained on Spiriva regarding her COPD and she uses Ventolin rescue inhaler last is bases addition to a nebulizer with albuterol and mastoids basis. Typically she is short of breath upon climbing a flight of stairs. CAT scan of the chest that was done in October 2017 did not show any acute abnormalities. Note that her current chest x-ray showing some small better pleural effusion. No airspace disease or pneumonia. Echocardiogram from October 2017 showed a preserved LV function with an ejection fraction of 55-60%. Borderline concentric ventricular hypertrophy. PA pressure was 43. Mild pulmonary hypertension was noted and small pleural effusion was also seen. A recent pulmonary function test was done in the office and the patient has an FEV1 of 73 % of predicted which is consistent with mild obstructive airway limitation. Total lung capacity was already percent of predicted and diffusion capacity was 40% of predicted. Her BNP level is slightly elevated in the 5000 range and the patient also had some minor troponin leak with a 0.04 troponin level 3 and an EKG showing a sinus rhythm with premature atrial complexes and nonspecific intraventricular block. Q waves were seen in the anteroseptal area but wasn't On today's evaluation of 04/06/2018, the patient is doing well and the patient has no specific complaints. Cardiac rhythm is sinus. She has been placed on atenolol 50 mg by mouth daily. She is also on Eliquis for long-term anticoagulation. I took the patient off Solu-Medrol as there was no clear-cut exacerbation of her COPD. She is on IV fluids at 20 mL an hour. She is also being diuresed with Lasix regarding a component of CHF and she is currently on 20 mg IV push Lasix every 12 hours. No fever. No chills. No chest pain. On 04/07/2018, patient is doing well and she is calm and comfortable without any significant respiratory distress. Creatinine normal sinus rhythm for now. She is anticoagulated. No specific complaints. She is on atenolol 50 mg by mouth daily. She is on Lasix 20 mg IV push every 12 hours which will be switched to oral Lasix 40 mg daily basis. No other significant events over the past 24 hours. Cardiology is already seen the patient. Objective - Vital Signs Vital signs: Vital Signs Temp 96.0 F L 04/07/18 11:43 Pulse 60 04/07/18 11:43 Resp 16 04/07/18 11:43 BP 126/73 04/07/18 11:43 Pulse Ox 95 04/07/18 11:43 Intake & Output 04/06/18 04/07/18 04/07/18 18:59 06:59 18:59 Intake Total 820 160 400 Balance 820 160 400 Weight 49.3 kg Intake: Intake, IV Titration 100 160 160 Amount Sodium Chloride 0.9% 1, 100 160 160 000 ml @ 20 mls/hr IV . Q24H [facility] Rx#:[id number] Oral 720 240 Other: Voiding Method Bedpan Toilet Bedside Commode # Voids 4 1 - Exam Head exam was generally normal. There was no scleral icterus or corneal arcus. Mucous membranes were moist.Neck was supple and without jugular venous distension, thyromegaly, or carotid bruits. Carotids were easily palpable bilaterally. There was no adenopathy. Lung sounds are diminished bilaterally otherwise clear. No wheezes or rhonchi or any crackles. Minimal amount of external wheezes upon forceful expiratory maneuvers. Heart sounds are irregular , positive S1-S2. Overall heart sounds are distant. No significant murmurs appreciated.Abdominal exam revealed normal bowel sounds. The abdomen was soft, non-tender, and without masses, organomegaly, or appreciable enlargement of the abdominal aorta.Examination of the extremities revealed easily palpable radial, femoral and pedal pulses. There was no cyanosis, clubbing or edema.Examination of the skin revealed no evidence of significant rashes, suspicious appearing nevi or other concerning lesions. Neurologically the patient is awake and alert and there is no focal neurological deficit. Psychiatric to the patient has adequate effect and mood. - Labs CBC & Chem 7: 04/05/18 12:05 04/07/18 03:36 Labs: Abnormal Lab Results - Last 24 Hours (Table) 04/06/18 04/06/18 04/06/18 Range/Units 06:08 16:29 21:12 BUN (7-17) mg/dL Creatinine (0.52-1.04) mg/dL Glucose (74-99) mg/dL POC Glucose (mg/dL) 254 H 176 H (75-99) mg/dL Hemoglobin A1c 6.8 H (4.0-6.0) % 04/07/18 04/07/18 04/07/18 Range/Units 03:36 05:51 11:53 BUN 18 H (7-17) mg/dL Creatinine 1.10 H (0.52-1.04) mg/dL Glucose 230 H (74-99) mg/dL POC Glucose (mg/dL) 257 H 217 H (75-99) mg/dL Hemoglobin A1c (4.0-6.0) % Microbiology - Last 24 Hours (Table) 04/05/18 12:05 Blood Culture - Preliminary Blood No Growth after 24 hours Assessment and Plan Plan: Assessment 1 dyspnea. The patient has a mild COPD at baseline with an FEV1 of 73% of predicted and the patient has been maintained on Spiriva monotherapy. Her last hospital admission for shortness of breath was in October 2017. It is not clear to me that the patient is having acute COPD exacerbation. I think her shortness of breath is related to A. fib RVR which probably is causing shortness of breath and is putting this patient to a component of CHF. The chest x-ray shows COPD yet there is small bilateral pleural effusion contributing to her shortness of breath. As such I think her shortness of breath essentially related to episodes of A. fib RVR with possibly component of CHF. 2 paroxysmal nature fibrillation atrial fibrillation with rapid ventricular response, treated with Cardizem drip and currently she is back to normal and her shortness of breath has recovered. She is on long-term anticoagulation with Eliquis. 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 On Xanax. 10 nonobstructive right renal calculus 11 troponin leak 12 hypertensive heart disease with a component of diastolic dysfunction and previous echocardiogram from October 2017 13 small better pleural effusion. Plan Patient is clinically stable. Stop IV Lasix and put the patient on oral Lasix 40 mg by mouth daily. The medication will be kept unchanged. Outpatient Spiriva for COPD. Proventil rescue inhaler. We'll continue to follow up in our office.
[2018-04-07] MEDS ORDERED: FUROSEMIDE 40 MG TAB PO SCH (13:30)
--- NOTE | 2018-04-07 20:37 | DS ---
DISCHARGE SUMMARY DATE OF SERVICE: 04/07/2018. FINAL DIAGNOSES: 1. Shortness of breath with possible multifactorial chronic obstructive pulmonary disease acute exacerbation of the congestive heart failure acute exacerbation. 2. Troponin 0.046, indeterminate. 3. Diabetes mellitus type 2. 4. History of atrial fibrillation. 5. History of hypertension. 6. History of degenerative joint disease. 7. History of vascular disorder. 8. History of coronary artery disease. 9. Anxiety. 10.Remote history of nicotine dependence. DISCHARGE DISPOSITION: The patient is being discharged in stable condition with guarded prognosis. HISTORY OF PRESENT ILLNESS: This patient is a 72 -year-old woman with past medical history of multiple medical problems including shortness of breath which is felt to be a combination of COPD and CHF treated in conjunction with Cardiology and Pulmonology. The creatinine is elevated up to 1.10 and the patient improved significantly. The troponins are negative at this time. On exam, vital signs are stable. Cardiovascular: S1, S2 muffled. Abdomen soft. No focal deficits. DISCHARGE ADVICE AND MEDICATIONS: 1. Discharge diet is cardiac. 2. Activity limited until follow up. 3. Follow up with Dr. Kang in 2-3 days. 4. Follow up with Cardiology and Pulmonology as recommended. MEDICATIONS ARE: 1. Proventil 1 p.r.n. 2. Ativan 0.5 t.i.d. 3. Eliquis 5 mg p.o. b.i.d. 4. Tenormin 50 mg p.o. daily. 5. Atenolol chlorthalidone 1 tab p.o. daily. 6. Lipitor 10 mg q.h.s. 7. Cardizem 60 mg p.o. t.i.d. 8. Dorzolamide timolol eye drops. 9. Fluoxetine 10 mg p.o. daily. 10.Glyburide. 11.Metformin 1 tab p.o. b.i.d. 12.DuoNeb q.i.d. and p.r.n. 13.Lactulose 30 b.i.d. p.r.n. 14.Klor-Con 20 mEq p.o. t.i.d. 15.Januvia 100 mg p.o. daily. 16.Spiriva 1 puff daily. Once again, the patient is being discharged in stable condition with guarded prognosis. MMODL / IJN: [id number] / MTDD
--- NOTE | 2018-04-08 13:27 | ECHOF ---
Referral Reason:afib MEASUREMENTS -------- HEIGHT: 162.6 cm WEIGHT: 50.3 kg BP: 99/47 RVIDd: 1.6 cm (< 3.3) IVSd: 1.0 cm (0.6 - 1.1) LVIDd: 5.5 cm (3.9 - 5.3) LVPWd: 1.0 cm (0.6 - 1.1) IVSs: 1.3 cm LVIDs: 4.3 cm LVPWs: 1.3 cm LAESV Index (A-L): 36.28 ml/m Ao Diam: 2.4 cm (2.0 - 3.7) AV Cusp: 1.3 cm (1.5 - 2.6) LA Diam: 4.2 cm (2.7 - 3.8) EPSS: 1.0 cm MV E Stu: 1.38 m/s MV DecT: 275 ms MV A Stu: 0.69 m/s MV E/A Ratio: 2.01 RAP: 5.00 mmHg RVSP: 35.50 mmHg MV EF SLOPE: 100.60 mm/s (70 - 150) MV EXCURSION: 1.32 cm (> 18.000) FINDINGS -------- Atrial fibrillation. This was a technically adequate study. The left ventricular size is normal. Left ventricular wall thickness is normal. There is moderate global hypokinesis of LV . Overall left ventricular systolic function is moderately impaired with, an EF between 35 - 40 %. The right ventricle is normal in size and function. LA is moderately dilated 34-39 ml/m2 The right atrium is normal in size. There is mild aortic valve sclerosis. There is no evidence of aortic regurgitation. There is no e vidence of aortic stenosis. The mitral valve leaflets are moderately thickened. Moderate mitral annular calcification present. Wcyffrix-re-wbxjod mitral regurgitation is present. Mild tricuspid regurgitation present. There is borderline pulmonary hypertension. The right ventr icular systolic pressure, as measured by Doppler, is 35.50mmHg. The pulmonic valve was not well visualized. The aortic root size is normal. Normal inferior vena cava with normal inspiratory collapse consistent with estimated right atrial pre ssure of 5 mmHg. There is no pericardial effusion. Pleural Effusion present.. CONCLUSIONS -------- 1. Atrial fibrillation. 2. This was a technically adequate study. 3. The left ventricular size is normal. 4. Left ventricular wall thickness is normal. 5. There is moderate global hypokinesis of LV . 6. Overall left ventricular systolic function is moderately impaired with, an EF between 35 - 40 %. 7. LA is moderately dilated 34-39 ml/m2 8. There is mild aortic valve sclerosis. 9. The mitral valve leaflets are moderately thickened. 10. Moderate mitral annular calcification present. 11. Hfcsivgw-ao-vsdhqd mitral regurgitation is present. 12. Mild tricuspid regurgitation present. 13. There is borderline pulmonary hypertension. 14. The right ventricular systolic pressure, as measured by Doppler, is 35.50mmHg. 15. The pulmonic valve was not well visualized. 16. The aortic root size is normal. 17. There is no pericardial effusion. 18. Pleural Effusion present.. THERAPEUTIC PROGRAM WORKER: Eduardo Clifford RDCS
== END 2018-04-07 14:40 | disposition home or self-care (01) | DRG 190 ==
LOC: EC 10:51 → 6SEL 12:46
PROVIDERS: ADMIT Hospitalist; ATTEND Hospitalist
DX: J44.1 Chronic obstructive pulmonary disease with (acute) exacerbation (principal); I50.33 Acute on chronic diastolic (congestive) heart failure; R64 Cachexia; Z68.1 Body mass index [BMI] 19.9 or less, adult; I27.20 Pulmonary hypertension, unspecified; E11.51 Type 2 diabetes mellitus with diabetic peripheral angiopathy without gangrene; I48.2 Chronic atrial fibrillation; I69.398 Other sequelae of cerebral infarction; I11.0 Hypertensive heart disease with heart failure; Z66 Do not resuscitate; H54.61 Unqualified visual loss, right eye, normal vision left eye; R40.2363 Coma scale, best motor response, obeys commands, at hospital admission; R40.2143 Coma scale, eyes open, spontaneous, at hospital admission; N20.0 Calculus of kidney; I25.10 Atherosclerotic heart disease of native coronary artery without angina pectoris; F41.1 Generalized anxiety disorder; R40.2253 Coma scale, best verbal response, oriented, at hospital admission; K59.09 Other constipation; R77.9 Abnormality of plasma protein, unspecified; M19.91 Primary osteoarthritis, unspecified site; Z79.01 Long term (current) use of anticoagulants; Z79.84 Long term (current) use of oral hypoglycemic drugs; Z79.899 Other long term (current) drug therapy; Z86.19 Personal history of other infectious and parasitic diseases; Z86.79 Personal history of other diseases of the circulatory system; Z87.891 Personal history of nicotine dependence; Z87.442 Personal history of urinary calculi; Z96.653 Presence of artificial knee joint, bilateral; Z90.710 Acquired absence of both cervix and uterus; Z98.42 Cataract extraction status, left eye; Z98.41 Cataract extraction status, right eye; Z88.7 Allergy status to serum and vaccine; Z91.012 Allergy to eggs; Z81.8 Family history of other mental and behavioral disorders
CPT/HCPCS: 36415; 71046; 80048; 80053; 82150; 82550; 82553; 83036; 83735; 83880; 84484; 85025; 85610; 85730; 87040; 93005; 93306; 94640; 94644; 96361; 96374; 96375; 99285

== ENCOUNTER 2018-04-13 17:31 | Inpatient (IN) | payer MEDICARE ==
[2018-04-13] MEDS ORDERED: IPRATROPIUM-ALBUTEROL 3 ML NEB INHALATION STA (18:08)
--- NOTE | 2018-04-13 18:12 | ED ---
SOB HPI - General Chief Complaint: Shortness of Breath Stated Complaint: DANIELLE Time Seen by Provider: 04/13/18 18:02 Source: patient Mode of arrival: EMS Limitations: no limitations - History of Present Illness Initial Comments: This 72-year-old white female presents with a complaint of shortness of breath. She states that it started this morning. She has had a slight dry nonproductive cough. She states that the shortness of breath is worse with any exertion. She does have a long-standing history of COPD. She did try multiple breathing treatments and her inhalers this morning without any significant relief. She was just in the hospital approximately 6 days ago after having CHF , COPD, and atrial fibrillation. She denies any fevers or chills, chest pain, leg pain or swelling. No other complaints or modifying factors. She does present via EMS and received a breathing treatment as well as 125 mg of Solu- Medrol per EMS and states that she had significant relief. She is feeling much improved currently. She denies any degree of anxiety today. - Related Data Home Medications Medication Instructions Recorded Confirmed ALPRAZolam [Xanax] 0.5 mg PO TID PRN 11/04/17 04/13/18 Albuterol Sulfate [Proventil Hfa] 1 - 2 puff INHALATION RT-Q4H PRN 11/04/17 Potassium Chloride [Klor-Con 10] 10 meq PO TID 11/04/17 04/13/18 Tiotropium 18 Mcg/Puff [Spiriva] 1 cap INHALATION RT-DAILY 11/04/17 04/13/18 glyBURIDE/METFORMIN HCL 1 tab PO BID 11/04/17 04/13/18 [glyBURIDE/METFORMIN HCL 5-500 mg] sitaGLIPtin [Januvia] 100 mg PO DAILY 11/04/17 04/13/18 Atorvastatin [Lipitor] 10 mg PO HS 04/05/18 04/13/18 Ipratropium-Albuterol Nebulize 3 ml INHALATION RT-TID 04/05/18 04/13/18 [Duoneb 0.5 mg-3 mg/3 ml Soln] Previous Rx's Medication Instructions Recorded Apixaban [Eliquis] 5 mg PO BID tab 11/10/17 Atenolol [Tenormin] 50 mg PO DAILY #30 tab 11/22/17 FLUoxetine HCL 10 mg PO DAILY #30 tablet 11/22/17 Diltiazem Oral [Cardizem*] 60 mg PO TID #90 tab 04/07/18 Dorzolamide-Timolol 2%/0.5% 1 drops RIGHT EYE BID ml 04/07/18 [dorzolamide-Timolol 2%/0.5%] Lactulose [Cephulac] 30 gm PO BID PRN #200 ml 04/07/18 Allergies Allergy/AdvReac Type Severity Reaction Status Date / Time egg Allergy Itching Verified 04/13/18 18:02 Influenza Virus Vaccines Allergy Unknown Verified 04/13/18 18:02 Review of Systems ROS Statement: Those systems with pertinent positive or pertinent negative responses have been documented in the HPI. ROS Other: All systems not noted in ROS Statement are negative. 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 History of Any Multi-Drug Resistant Organisms: None Reported Past Surgical History: Hysterectomy, Orthopedic Surgery, Tonsillectomy Additional Past Surgical History / Comment(s): Right knee arthroplasty, bilateral cataract surgery, hysterectomy, tonsillectomy Past Anesthesia/Blood Transfusion Reactions: No Reported Reaction Past Psychological History: Anxiety Smoking Status: Former smoker Past Alcohol Use History: None Reported Past Drug Use History: None Reported - Past Family History Mother Family Medical History: Dementia Additional Family Medical History / Comment(s): AGE 99 Father Family Medical History: No Reported History Additional Family Medical History / Comment(s): WAS HEALTHY AT ALMOST AGE 99 General Exam - General Exam Comments Initial Comments: GENERAL: The patient is well nourished and well hydrated. VITAL SIGNS: Heart rate, blood pressure, respiratory rate reviewed as recorded in nurse's notes. EYES: Pupils are round and reactive. Extraocular movements are intact. No conjunctival / lid redness or swelling. ENT: No external evidence of injury, swelling, or ecchymosis. Airway is patent. Throat is clear. NECK: Nontender. No swelling or evidence of injury. No subcutaneous emphysema. Trachea is midline. No thyroid mass. HEART: Regular rate and rhythm. Good peripheral pulses. LUNGS/CHEST: Breath sounds clear and equal bilaterally. No rales, rhonchi, or wheezes. No ecchymosis, subcutaneous emphysema, or tenderness. ABDOMEN: Abdomen soft without tenderness. No palpable masses or organomegaly. No peritoneal signs. No abdominal wall swelling or ecchymosis. EXTREMITIES: No extremity tenderness. Normal muscle tone and function. No thoracolumbar tenderness. NEUROLOGIC: Sensation is grossly intact. Cranial nerve exam reveals face is symmetrical, tongue is midline, speech is clear. SKIN: No abrasions or ecchymosis is noted. No induration or masses noted. PSYCHIATRIC: Alert and oriented. Appropriate behavior and judgment. Limitations: no limitations Course Vital Signs 04/13/18 04/13/18 04/13/18 17:36 17:49 18:15 Temperature 98.9 F Pulse Rate 87 84 Respiratory 22 22 24 Rate Blood Pressure 141/59 114/64 O2 Sat by Pulse 95 96 Oximetry 04/13/18 04/13/18 04/13/18 18:44 18:55 19:10 Temperature Pulse Rate 80 78 83 Respiratory 18 Rate Blood Pressure 95/50 O2 Sat by Pulse 97 Oximetry Medical Decision Making - Medical Decision Making The patient was seen and examined. All diagnostics were reviewed. The EKG shows a normal sinus rhythm at a rate of 83. There is occasional PVC noted. The patient does have a left bundle branch block as well. The EKG also shows some nonspecific ST T-wave changes noted in the lateral leads. The DC intervals 146, QRS duration is 124, and the QTC intervals 495. The laboratory is reviewed and does show slight decrease in the CO2. The BNP is also significantly elevated. The chest x-ray shows signs of COPD and congestive heart failure. She is given a DuoNeb breathing treatment. She received Solu- Medrol already via EMS. She also is given aspirin, Nitropaste, and Lasix. It is felt as though she would benefit from readmission. The case is discussed with internal medicine and they're agreeable with admission as well. - Lab Data Result diagrams: 04/13/18 18:15 05/18/18 18:15 Lab Results 04/13/18 04/13/18 04/13/18 Range/Units 18:15 18:15 18:15 WBC 6.2 (3.8-10.6) k/uL RBC 3.98 (3.80-5.40) m/uL Hgb 11.8 (11.4-16.0) gm/dL Hct 35.2 (34.0-46.0) % MCV 88.6 (80.0-100.0) fL MCH 29.6 (25.0-35.0) pg MCHC 33.4 (31.0-37.0) g/dL RDW 13.8 (11.5-15.5) % Plt Count 181 (150-450) k/uL Neutrophils % 75 % Lymphocytes % 15 % Monocytes % 5 % Eosinophils % 5 % Basophils % 0 % Neutrophils # 4.6 (1.3-7.7) k/uL Lymphocytes # 0.9 L (1.0-4.8) k/uL Monocytes # 0.3 (0-1.0) k/uL Eosinophils # 0.3 (0-0.7) k/uL Basophils # 0.0 (0-0.2) k/uL PT (9.0-12.0) sec INR (<1.2) APTT (22.0-30.0) sec Sodium 142 (137-145) mmol/L Potassium 3.8 (3.5-5.1) mmol/L Chloride 108 H (98-107) mmol/L Carbon Dioxide 20 L (22-30) mmol/L Anion Gap 14 mmol/L BUN 11 (7-17) mg/dL Creatinine 0.92 (0.52-1.04) mg/dL Est GFR (CKD-EPI)AfAm 71 (>60 ml/min/1.73 sqM) Est GFR (CKD-EPI)NonAf 62 (>60 ml/min/1.73 sqM) Glucose 134 H (74-99) mg/dL Calcium 9.4 (8.4-10.2) mg/dL Total Bilirubin 0.6 (0.2-1.3) mg/dL AST 43 H (14-36) U/L ALT 60 H (9-52) U/L Alkaline Phosphatase 67 (38-126) U/L Total Creatine Kinase 46 (30-135) U/L CK-MB (CK-2) 0.8 (0.0-2.4) ng/mL CK-MB (CK-2) Rel Index 1.7 Troponin I <0.012 (0.000-0.034) ng/mL NT-Pro-B Natriuret Pep pg/mL Total Protein 6.0 L (6.3-8.2) g/dL Albumin 3.5 (3.5-5.0) g/dL 04/13/18 04/13/18 Range/Units 18:15 18:15 WBC (3.8-10.6) k/uL RBC (3.80-5.40) m/uL Hgb (11.4-16.0) gm/dL Hct (34.0-46.0) % MCV (80.0-100.0) fL MCH (25.0-35.0) pg MCHC (31.0-37.0) g/dL RDW (11.5-15.5) % Plt Count (150-450) k/uL Neutrophils % % Lymphocytes % % Monocytes % % Eosinophils % % Basophils % % Neutrophils # (1.3-7.7) k/uL Lymphocytes # (1.0-4.8) k/uL Monocytes # (0-1.0) k/uL Eosinophils # (0-0.7) k/uL Basophils # (0-0.2) k/uL PT 10.7 (9.0-12.0) sec INR 1.1 (<1.2) APTT 25.7 (22.0-30.0) sec Sodium (137-145) mmol/L Potassium (3.5-5.1) mmol/L Chloride (98-107) mmol/L Carbon Dioxide (22-30) mmol/L Anion Gap mmol/L BUN (7-17) mg/dL Creatinine (0.52-1.04) mg/dL Est GFR (CKD-EPI)AfAm (>60 ml/min/1.73 sqM) Est GFR (CKD-EPI)NonAf (>60 ml/min/1.73 sqM) Glucose (74-99) mg/dL Calcium (8.4-10.2) mg/dL Total Bilirubin (0.2-1.3) mg/dL AST (14-36) U/L ALT (9-52) U/L Alkaline Phosphatase (38-126) U/L Total Creatine Kinase (30-135) U/L CK-MB (CK-2) (0.0-2.4) ng/mL CK-MB (CK-2) Rel Index Troponin I (0.000-0.034) ng/mL NT-Pro-B Natriuret Pep 5510 pg/mL Total Protein (6.3-8.2) g/dL Albumin (3.5-5.0) g/dL Disposition Clinical Impression: Acute exacerbation of chronic obstructive airways disease, Dyspnea, Hypertension, Congestive heart failure Disposition: ADMITTED IP TO THIS HOSP Condition: Fair Is patient prescribed a controlled substance at d/c from ED?: No Time of Disposition: 20:39 Decision Date: 04/13/18 Decision Time: 20:39
[2018-04-13 18:34] LABS: Basophils % (A) 0 %; Eosinophils # (A) 0.3 k/uL (0-0.7); Eosinophils % (A) 5 %; HCT 35.2 % (34.0-46.0); HGB 11.8 gm/dL (11.4-16.0); Lymphocytes # (A) 0.9 k/uL (1.0-4.8); Lymphocytes % (A) 15 %; MCH 29.6 pg (25.0-35.0); MCHC 33.4 g/dL (31.0-37.0); MCV 88.6 fL (80.0-100.0); Monocytes # (A) 0.3 k/uL (0-1.0); Monocytes % (A) 5 %; Neutrophils # (A) 4.6 k/uL (1.3-7.7); Neutrophils % (A) 75 %; Platelet Count 181 k/uL (150-450); RBC 3.98 m/uL (3.80-5.40); RDW 13.8 % (11.5-15.5); WBC 6.2 k/uL (3.8-10.6)
[2018-04-13 18:42] LABS: INR 1.1 (<1.2); Partial Thromboplastin Time 25.7 sec (22.0-30.0); Prothrombin Time 10.7 sec (9.0-12.0)
[2018-04-13 18:45] LABS: Albumin 3.5 g/dL (3.5-5.0); Calcium 9.4 mg/dL (8.4-10.2); Potassium 3.8 mmol/L (3.5-5.1); Total Bilirubin 0.6 mg/dL (0.2-1.3)
--- NOTE | 2018-04-13 18:49 | XR ---
EXAMINATION TYPE: XR chest 2V DATE OF EXAM: 04/13/2018 COMPARISON: 04/05/18 HISTORY: 72 year old female with difficulty breathing TECHNIQUE: Frontal and lateral views FINDINGS: Heart upper limits of normal in size. Mild elongation thoracic aorta. Mild diffuse interstitial promi nence. Mild hyperinflation. Small pleural effusions are present with some patchy opacity at the left base. Findings are new from prior exam. IMPRESSION: 1. Correlate for mild CHF on a background of COPD. 2. New small pleural effusions. Adjacent atelectasis and/or consolidation especially at the left base .
[2018-04-13 19:05] LABS: Creatine Kinase 46 U/L (30-135)
[2018-04-13 19:19] LABS: Creatine Kinase MB 0.8 ng/mL (0.0-2.4); Troponin I <0.012 ng/mL (0.000-0.034)
[2018-04-13] MEDS ORDERED: ASPIRIN 81 MG PO STA (20:37)
[2018-04-13] MEDS ORDERED: FUROSEMIDE 10 MG/ML 10 ML VIAL IV STA (20:37)
[2018-04-13] MEDS ORDERED: NITROGLYCERIN OINT 1 INCH/GM PACKET TOPICAL STA (20:37)
[2018-04-13] MEDS ORDERED: LACTULOSE 20 GM/30 ML CUP PO PRN (20:41)
[2018-04-13 21:55] VITALS: BMI 23.8
[2018-04-13 21:57] LABS: Glucose,Whole Blood 311 mg/dL (75-99)
[2018-04-13] MEDS: ALPRAZolam 0.5 MG TAB PO PRN (22:05)
[2018-04-13] MEDS: POTASSIUM CHLORIDE ER 10 MEQ TAB.ER.PRT PO SCH (22:05)
[2018-04-13] MEDS: ATORVASTATIN 10 MG TAB PO SCH (22:06)
[2018-04-13] MEDS: glipiZIDE 10 MG TAB PO SCH (22:06)
[2018-04-13] MEDS: DORZOLAMIDE-TIMOLOL 2-0.5% DROPS 10 ML BTL RIGHT EYE SCH (22:06)
[2018-04-13] MEDS: metFORMIN 500 MG TAB PO SCH (22:06)
[2018-04-13] MEDS: methylPREDNISolone SOD SUCCI 125 MG/2 ML VIAL IV SCH (22:06)
[2018-04-13] MEDS: APIXABAN 5 MG TAB PO SCH (22:06)
[2018-04-13] MEDS: DILTIAZEM ORAL 60 MG TAB PO SCH (22:07)
[2018-04-13] MEDS: INSULIN ASPART 100 UNIT/ML 1 ML 10 ML VIAL SQ SCH (22:41)
[2018-04-13] MEDS: IPRATROPIUM-ALBUTEROL 3 ML NEB INHALATION SCH (23:39)
[2018-04-14 01:13] LABS: Troponin I <0.012 ng/mL (0.000-0.034)
[2018-04-14] MEDS: IPRATROPIUM-ALBUTEROL 3 ML NEB INHALATION SCH ×6 (03:33→23:46)
[2018-04-14] MEDS: FUROSEMIDE 10 MG/ML 4 ML VIAL IV SCH ×2 (06:05→17:18)
[2018-04-14] MEDS ORDERED: INSULIN ASPART 100 UNIT/ML 1 ML 10 ML VIAL SQ SCH ×2 (07:30→12:30)
[2018-04-14 07:42] LABS: Glucose,Whole Blood 365 mg/dL (75-99)
[2018-04-14 07:44] LABS: Troponin I <0.012 ng/mL (0.000-0.034)
[2018-04-14] MEDS: methylPREDNISolone SOD SUCCI 125 MG/2 ML VIAL IV SCH (07:59)
[2018-04-14] MEDS: glipiZIDE 10 MG TAB PO SCH ×2 (07:59→17:17)
[2018-04-14] MEDS: NITROGLYCERIN OINT 1 INCH/GM PACKET TOPICAL SCH ×4 (07:59→21:29)
[2018-04-14] MEDS: ATENOLOL 50 MG TAB PO SCH (07:59)
[2018-04-14] MEDS: metFORMIN 500 MG TAB PO SCH ×2 (07:59→17:18)
[2018-04-14] MEDS: APIXABAN 5 MG TAB PO SCH ×2 (07:59→21:33)
[2018-04-14] MEDS: DORZOLAMIDE-TIMOLOL 2-0.5% DROPS 10 ML BTL RIGHT EYE SCH ×2 (07:59→21:34)
[2018-04-14] MEDS: LINAGLIPTIN 5 MG TABLET PO SCH (07:59)
[2018-04-14] MEDS: POTASSIUM CHLORIDE ER 10 MEQ TAB.ER.PRT PO SCH ×3 (07:59→21:33)
[2018-04-14] MEDS: DILTIAZEM ORAL 60 MG TAB PO SCH ×3 (07:59→21:29)
[2018-04-14] MEDS: ASPIRIN 325 MG TAB PO SCH (07:59)
[2018-04-14] MEDS ORDERED: NON-FORMULARY DRUG (Tiotropium 18 Mcg/Puff 1 CAP) INHALATION SCH (08:00)
[2018-04-14] MEDS: ALPRAZolam 0.5 MG TAB PO PRN ×3 (08:09→21:33)
[2018-04-14] MEDS: FLUoxetine HCL 10 MG CAP PO SCH (08:37)
[2018-04-14] MEDS: INSULIN ASPART 100 UNIT/ML 1 ML 10 ML VIAL SQ SCH ×5 (08:37→21:34)
--- NOTE | 2018-04-14 10:55 | XR ---
EXAMINATION TYPE: XR chest 2V DATE OF EXAM: 04/14/2018 COMPARISON: Prior chest x-ray 04/13/2018 HISTORY: Follow-up congestive heart failure, pleural effusion TECHNIQUE: Frontal and lateral views of the chest are obtained. FINDINGS: Cardiac mediastinal silhouette, pulmonary vascularity and stephie are stable. Interstitium is improved. Persistent blunting of the costophrenic angles noted. Prominent lung volumes compatible wi th underlying COPD. There are overlying cardiac leads. IMPRESSION: There is improvement in aeration, volume status.
--- NOTE | 2018-04-14 11:26 | P.CNPUL ---
History of Present Illness Consult date: 04/14/18 Requesting physician: Man Amaro Reason for consult: dyspnea, cough, COPD, abnormal CXR/CT Chief complaint: Shortness of breath, chest heaviness History of present illness: Mrs. Yo is a 72-year-old white female patient of Dr. Kang, who presented to the emergency department on 04/13/2018 at 1731 per EMS, for complaints of an acute episode of a respiratory distress at home. Patient noted increasing shortness of breath since morning on 04/13/2018, however by early afternoon her symptoms became very severe, patient describes being barely able to talk on the phone to the fire fighters dispatcher. Patient did her nebulized treatments 3 times a day, which did not bring any relief. She describes having exertional precordial chest heaviness radiating down her abdomen with exertion such as walking in her house, and this would be relieved by rest. Denied any fever or chills, has a dry cough, denied any chest wall tenderness. Denied any peripheral edema or weight gain. She had a recent hospitalization for an acute systolic congestive heart failure and was released home 6 days ago. 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 Patient is also known to have COPD with an FEV1 of 73% of predicted, consistent with mild obstructive airway limitation. Her maintenance medications for COPD include Spiriva, Ventolin rescue inhaler and DuoNeb nebulized treatments. Patient had a CT of the chest in October 2017 which did not show any acute abnormalities. EKG showed sinus rhythm with occasional PVCs with left bundle branch block. Chest x-ray showed mild hyperinflation, mild diffuse interstitial prominence, small pleural effusions and adjacent atelectasis at the left base, consistent with mild CHF on a background of COPD. En route to the hospital patient received a breathing treatment in the EMS, and 125 mg of Solu-Medrol with subsequent relief of dyspnea. Patient was started on IV steroids at 60 mg 4 times a day, nebulized bronchodilators, she was given one-time dose of IV Lasix 60 mg in the emergency room, and was started on maintenance dose of Lasix of 40 mg IV every 12 hours and was admitted for further management. Labs revealed no evidence of leukocytosis, renal profile was within normal limits, sodium is 142, potassium is 3.8, chloride is 108, carbon dioxide was 20, troponins were negative 3, proBNP was elevated at 5510. We are seeing this patient in consultation for her dyspnea. Review of Systems All systems: negative Constitutional: Denies chills, Denies fever Eyes: denies blurred vision, denies pain Ears, nose, mouth and throat: Denies headache, Denies sore throat Cardiovascular: Reports chest pain, Denies shortness of breath Respiratory: Reports dyspnea, Denies cough Gastrointestinal: Denies abdominal pain, Denies diarrhea, Denies nausea, Denies vomiting Genitourinary: Denies dysuria, Denies hematuria Musculoskeletal: Denies myalgias Integumentary: Denies pruritus, Denies rash Neurological: Denies numbness, Denies weakness Psychiatric: Denies anxiety, Denies depression Endocrine: Denies fatigue, Denies weight change Past Medical History Past Medical History: Atrial Fibrillation, Heart Failure, COPD, Diabetes Mellitus, Eye Disorder, Hypertension, Osteoarthritis (OA), Vascular Disorder Additional Past Medical History / Comment(s): COPD, previous CVA related to carotid artery disease and 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 History of Any Multi-Drug Resistant Organisms: None Reported Past Surgical History: Hysterectomy, Orthopedic Surgery, Tonsillectomy Additional Past Surgical History / Comment(s): Right knee arthroplasty, bilateral cataract surgery, hysterectomy, tonsillectomy Past Anesthesia/Blood Transfusion Reactions: No Reported Reaction Past Psychological History: Anxiety Additional Psychological History / Comment(s): [place] IN [place] HAS 1 PET CAT.HAS NEBULIZER and cane. DOES'NT DRIVES ANYMORE D/T VISION. NEIGHBOR HELPS HER OUT. Smoking Status: Former smoker Past Alcohol Use History: None Reported Additional Past Alcohol Use History / Comment(s): started smoking 1956 and quit 2014 smoked 1ppd Past Drug Use History: None Reported - Past Family History Mother Family Medical History: Dementia Additional Family Medical History / Comment(s): AGE 99 Father Family Medical History: No Reported History Additional Family Medical History / Comment(s): WAS HEALTHY AT ALMOST AGE 99 Medications and Allergies Home Medications Medication Instructions Recorded Confirmed Type ALPRAZolam [Xanax] 0.5 mg PO TID PRN 11/04/17 04/13/18 History Albuterol Sulfate [Proventil Hfa] 1 - 2 puff INHALATION RT-Q4H PRN 11/04/17 History Potassium Chloride [Klor-Con 10] 10 meq PO TID 11/04/17 04/13/18 History Tiotropium 18 Mcg/Puff [Spiriva] 1 cap INHALATION RT-DAILY 11/04/17 04/13/18 History glyBURIDE/METFORMIN HCL 1 tab PO BID 11/04/17 04/13/18 History [glyBURIDE/METFORMIN HCL 5-500 mg] sitaGLIPtin [Januvia] 100 mg PO DAILY 11/04/17 04/13/18 History Apixaban [Eliquis] 5 mg PO BID tab 11/10/17 04/13/18 Rx Atenolol [Tenormin] 50 mg PO DAILY #30 tab 11/22/17 04/13/18 Rx FLUoxetine HCL 10 mg PO DAILY #30 tablet 11/22/17 04/13/18 Rx Atorvastatin [Lipitor] 10 mg PO HS 04/05/18 04/13/18 History Ipratropium-Albuterol Nebulize 3 ml INHALATION RT-TID 04/05/18 04/13/18 History [Duoneb 0.5 mg-3 mg/3 ml Soln] Diltiazem Oral [Cardizem*] 60 mg PO TID #90 tab 04/07/18 04/13/18 Rx Dorzolamide-Timolol 2%/0.5% 1 drops RIGHT EYE BID ml 04/07/18 04/13/18 Rx [dorzolamide-Timolol 2%/0.5%] Lactulose [Cephulac] 30 gm PO BID PRN #200 ml 04/07/18 04/13/18 Rx Allergies Allergy/AdvReac Type Severity Reaction Status Date / Time egg Allergy Itching Verified 04/13/18 18:02 Influenza Virus Vaccines Allergy Unknown Verified 04/13/18 18:02 Physical Exam Vitals: Vital Signs Temp Pulse Pulse Resp BP BP Pulse Ox 04/14/18 08:52 74 04/14/18 08:39 74 95 04/14/18 07:00 98.5 F 73 20 113/61 97 04/14/18 03:45 76 04/14/18 03:33 72 04/13/18 23:54 76 04/13/18 23:40 69 96 04/13/18 21:45 97.4 F L 80 20 103/52 95 04/13/18 21:02 97.3 F L 04/13/18 20:42 81 18 129/87 96 04/13/18 19:10 83 18 95/50 97 04/13/18 18:55 78 04/13/18 18:44 80 04/13/18 18:15 24 04/13/18 17:49 84 22 114/64 96 04/13/18 17:36 98.9 F 87 22 141/59 95 Intake and Output 04/13/18 04/14/18 04/14/18 22:59 06:59 14:59 Intake Total 300 100 Balance 300 100 Intake: Oral 300 100 Other: # Voids 2 1 Weight 53.524 kg 53.524 kg GENERAL EXAM: Alert, pleasant, thin elderly white female, comfortable in no apparent distress. HEAD: Normocephalic/atraumatic. EYES: Normal reaction of pupils, equal size. Conjunctiva pink, sclera white. NOSE: Clear with pink turbinates. THROAT: No erythema or exudates. NECK: No masses, no JVD, no thyroid enlargement, no adenopathy. CHEST: No chest wall deformity. Symmetrical expansion. LUNGS: Equal air entry with diminished breath sounds at the bilateral bases, with a few crackles over left posterior base CVS: Regular rate and rhythm, normal S1 and S2, no gallops, no murmurs, no rubs ABDOMEN: Soft, nontender. No hepatosplenomegaly, normal bowel sounds, no guarding or rigidity. EXTREMITIES: No clubbing, no edema, no cyanosis, 2+ pulses and upper and lower extremities. MUSCULOSKELETAL: Muscle strength and tone normal. SPINE: No scoliosis or deformity SKIN: No rashes, small healing abrasion on the left lower park CENTRAL NERVOUS SYSTEM: Alert and oriented -3. No focal deficits, tone is normal in all 4 extremities. PSYCHIATRIC: Alert and oriented -3. Appropriate affect. Intact judgment and insight. Results - Laboratory Findings CBC and BMP: 04/13/18 18:15 04/13/18 18:15 PT/INR, D-dimer PT 10.7 sec (9.0-12.0) 04/13/18 18:15 INR 1.1 (<1.2) 04/13/18 18:15 Abnormal lab findings: Abnormal Labs 04/13/18 04/13/18 04/13/18 18:15 18:15 21:42 Lymphocytes # 0.9 L Chloride 108 H Carbon Dioxide 20 L Glucose 134 H POC Glucose (mg/dL) 311 H AST 43 H ALT 60 H Total Protein 6.0 L 04/14/18 07:32 Lymphocytes # Chloride Carbon Dioxide Glucose POC Glucose (mg/dL) 365 H AST ALT Total Protein - Diagnostic Findings Chest x-ray: report reviewed, image reviewed Additional studies: EKG reviewed Assessment and Plan Plan: Assessment: #1. Acute dyspnea related to acute on chronic systolic congestive heart failure. Chest x-ray is positive for increased interstitial markings, and small pleural effusions. ProBNP is elevated at 5510, patient has a known history of impaired left ventricular function with an EF of 35-40% and chronic A. fib #2. Moderate COPD, with an FEV1 of 73% of predicted, GOLD stage II, currently stable #3. Chronic and persistent atrial fibrillation, currently in sinus rhythm, on oral Cardizem and Eliquis #4. Cardiomyopathy with an EF of 35-40% #5. Diabetes mellitus #6. Steroid-induced hyperglycemia #7. 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 Generalized anxiety disorder on Xanax #9. Carotid artery disease #10. Nicotine dependence, currently in remission, patient quit smoking 2 years ago #11. Hypertension #12. Small bilateral pleural effusions Plan: Continue IV diuresis, continue nebulized bronchodilators, continue home dose Cardizem and Eliquis. Daily weights, accurate I nose, we'll repeat chest x-ray today to evaluate the response to diuretics. We will discontinue the Solu- Medrol, patient's COPD is currently stable, no wheezing, no coughing, no sputum production or chest congestion. Patient has developed significant steroid- induced hyperglycemia. Patient's dyspnea is thought to be related to congestive heart failure. Cardiology has been consulted. I performed a history & physical examination of the patient and discussed their management with my nurse practitioner, Indiana Gray. I reviewed the nurse practitioner's note and agree with the documented findings and plan of care. Lung sounds are positive for diminished breath sounds at the bases with a few crackles on the left. The findings and the impression was discussed with the patient. I attest to the documentation by the nurse practitioner. Time with Patient: Greater than 30
[2018-04-14 12:14] LABS: Glucose,Whole Blood 304 mg/dL (75-99)
[2018-04-14 14:26] LABS: Glucose,Whole Blood 256 mg/dL (75-99)
[2018-04-14] MEDS ORDERED: methylPREDNISolone SOD SUCCI 40 MG/ML 1 ML VIAL IV SCH (16:00)
--- NOTE | 2018-04-14 16:53 | P.CRDCN ---
History of Present Illness Consult date: 04/14/18 History of present illness: This is a 72-year-old female with history of emphysema and also recurrent persistent atrial fibrillation, who was admitted in October to this hospital and again early part of this march. In October patient was found to be in atrial fibrillation with rapid ventricular response. He was having some atypical chest pains at the time. In March, patient was admitted again with shortness of breath. Patient was in atrial fibrillation but it was felt there was no gross CHF. Patient had an echocardiogram done in October which showed normal LV function. The echocardiogram done in March showed impaired LV function with an ejection fraction of 45-50% and also moderate to severe mitral regurgitation. Patient is now readmitted with sudden onset of shortness of breath and chest x-ray was reported as showing mild CHF. Her pro BNP is high. Patient was given IV Lasix with some reasonable response. Patient has some cough with mild expectoration. No fevers. I'm going to repeat the echocardiogram to assess the LV function and mitral regurgitation. If mitral regurgitation seems to be significant, we may do a TOMAS examination for further evaluation. I will also had some ELIAZAR inhibitor. 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 History of Any Multi-Drug Resistant Organisms: None Reported Past Surgical History: Hysterectomy, Orthopedic Surgery, Tonsillectomy Additional Past Surgical History / Comment(s): Right knee arthroplasty, bilateral cataract surgery, hysterectomy, tonsillectomy Past Anesthesia/Blood Transfusion Reactions: No Reported Reaction Past Psychological History: Anxiety Additional Psychological History / Comment(s): [place] IN [place] HAS 1 PET CAT.HAS NEBULIZER and cane. DOES'NT DRIVES ANYMORE D/T VISION. NEIGHBOR HELPS HER OUT. Smoking Status: Former smoker Past Alcohol Use History: None Reported Additional Past Alcohol Use History / Comment(s): started smoking 7 and quit 2014 smoked 1ppd Past Drug Use History: None Reported - Past Family History Mother Family Medical History: Dementia Additional Family Medical History / Comment(s): AGE 99 Father Family Medical History: No Reported History Additional Family Medical History / Comment(s): WAS HEALTHY AT ALMOST AGE 99 Medications and Allergies Home Medications Medication Instructions Recorded Confirmed Type ALPRAZolam [Xanax] 0.5 mg PO TID PRN 11/04/17 04/13/18 History Albuterol Sulfate [Proventil Hfa] 1 - 2 puff INHALATION RT-Q4H PRN 11/04/17 History Potassium Chloride [Klor-Con 10] 10 meq PO TID 11/04/17 04/13/18 History Tiotropium 18 Mcg/Puff [Spiriva] 1 cap INHALATION RT-DAILY 11/04/17 04/13/18 History glyBURIDE/METFORMIN HCL 1 tab PO BID 11/04/17 04/13/18 History [glyBURIDE/METFORMIN HCL 5-500 mg] sitaGLIPtin [Januvia] 100 mg PO DAILY 11/04/17 04/13/18 History Apixaban [Eliquis] 5 mg PO BID tab 11/10/17 04/13/18 Rx Atenolol [Tenormin] 50 mg PO DAILY #30 tab 11/22/17 04/13/18 Rx FLUoxetine HCL 10 mg PO DAILY #30 tablet 11/22/17 04/13/18 Rx Atorvastatin [Lipitor] 10 mg PO HS 04/05/18 04/13/18 History Ipratropium-Albuterol Nebulize 3 ml INHALATION RT-TID 04/05/18 04/13/18 History [Duoneb 0.5 mg-3 mg/3 ml Soln] Diltiazem Oral [Cardizem*] 60 mg PO TID #90 tab 04/07/18 04/13/18 Rx Dorzolamide-Timolol 2%/0.5% 1 drops RIGHT EYE BID ml 04/07/18 04/13/18 Rx [dorzolamide-Timolol 2%/0.5%] Lactulose [Cephulac] 30 gm PO BID PRN #200 ml 04/07/18 04/13/18 Rx Allergies Allergy/AdvReac Type Severity Reaction Status Date / Time egg Allergy Itching Verified 04/13/18 18:02 Influenza Virus Vaccines Allergy Unknown Verified 04/13/18 18:02 Physical Exam Vitals: Vital Signs Temp Pulse Pulse Resp BP BP Pulse Ox 04/14/18 16:12 70 04/14/18 16:01 68 04/14/18 15:00 98.1 F 61 20 85/49 95 04/14/18 12:12 74 04/14/18 12:01 72 04/14/18 08:52 74 04/14/18 08:39 74 95 04/14/18 08:37 20 04/14/18 07:00 98.5 F 73 20 113/61 97 04/14/18 03:45 76 04/14/18 03:33 72 04/13/18 23:54 76 04/13/18 23:40 69 96 04/13/18 21:45 97.4 F L 80 20 103/52 95 04/13/18 21:02 97.3 F L 04/13/18 20:42 81 18 129/87 96 04/13/18 19:10 83 18 95/50 97 04/13/18 18:55 78 04/13/18 18:44 80 04/13/18 18:15 24 04/13/18 17:49 84 22 114/64 96 04/13/18 17:36 98.9 F 87 22 141/59 95 Intake and Output 04/14/18 04/14/18 04/14/18 06:59 14:59 22:59 Intake Total 100 Balance 100 Intake: Oral 100 Other: Voiding Method Toilet # Voids 1 3 Weight 53.524 kg 53.524 kg GENERAL EXAM: Patient is alert and oriented and doesn't appear to be in any acute distress HEENT: Normocephalic. Normal reaction of pupils, equal size, normal range of extraocular motion. No erythema or exudates in the throat. NECK: No masses, no nuchal rigidity. CHEST: No chest wall deformity. LUNGS: Diminished air exchange. HEART: Distant heart sounds difficult to appreciate any murmurs ABDOMEN: No hepatosplenomegaly, normal bowel sounds, no guarding or rigidity. SKIN: No rashes CENTRAL NERVOUS SYSTEM: No focal deficits. EXTREMITIES: No cyanosis, clubbing or edema. Results 04/13/18 18:15 05/18/18 18:15 Cardiac Enzymes 04/13/1818 04/14/18 Range/Units 18:15 18:15 00:00 AST 43 H (14-36) U/L CK-MB (CK-2) 0.8 1.0 (0.0-2.4) ng/mL Troponin I <0.012 <0.012 (0.000-0.034) ng/mL 04/14/18 Range/Units 06:52 AST (14-36) U/L CK-MB (CK-2) 1.0 (0.0-2.4) ng/mL Troponin I <0.012 (0.000-0.034) ng/mL Coagulation 04/13/18 Range/Units 18:15 PT 10.7 (9.0-12.0) sec APTT 25.7 (22.0-30.0) sec CBC 04/13/18 Range/Units 18:15 WBC 6.2 (3.8-10.6) k/uL RBC 3.98 (3.80-5.40) m/uL Hgb 11.8 (11.4-16.0) gm/dL Hct 35.2 (34.0-46.0) % Plt Count 181 (150-450) k/uL Comprehensive Metabolic Panel 04/13/18 Range/Units 18:15 Sodium 142 (137-145) mmol/L Potassium 3.8 (3.5-5.1) mmol/L Chloride 108 H (98-107) mmol/L Carbon Dioxide 20 L (22-30) mmol/L BUN 11 (7-17) mg/dL Creatinine 0.92 (0.52-1.04) mg/dL Glucose 134 H (74-99) mg/dL Calcium 9.4 (8.4-10.2) mg/dL AST 43 H (14-36) U/L ALT 60 H (9-52) U/L Alkaline Phosphatase 67 (38-126) U/L Total Protein 6.0 L (6.3-8.2) g/dL Albumin 3.5 (3.5-5.0) g/dL Current Medications Generic Name Dose Route Start Last Admin Trade Name Freq PRN Reason Stop Dose Admin Albuterol/Ipratropium 3 ml 04/14/18 00:00 04/14/18 16:01 Duoneb 0.5 Mg-3 Mg/3 Ml Soln INHALATION 3 ml RT-Q4H [facility] Administration Alprazolam 0.5 mg 04/13/18 20:41 04/14/18 08:09 Xanax PO 0.5 mg TID PRN Administration Anxiety Apixaban 5 mg 04/13/18 21:00 04/14/18 07:59 Eliquis PO 5 mg BID RUDY Administration Aspirin 325 mg 04/14/18 09:00 04/14/18 07:59 Aspirin PO 325 mg DAILY [facility] Administration Atenolol 50 mg 04/14/18 09:00 04/14/18 07:59 Tenormin PO 50 mg DAILY [facility] Administration Atorvastatin Calcium 10 mg 04/13/18 21:00 04/13/18 22:06 Lipitor PO 10 mg HS [facility] Administration Diltiazem HCl 60 mg 04/13/18 22:00 04/14/18 15:30 Cardizem Oral PO Not Given TID [facility] Dorzolamide/Timolol 1 drops 04/13/18 21:00 04/14/18 07:59 Cosopt RIGHT EYE 1 drops BID [facility] Administration Fluoxetine HCl 10 mg 04/14/18 09:00 04/14/18 08:37 Prozac PO 10 mg DAILY [facility] Administration Furosemide 40 mg 04/14/18 06:00 04/14/18 06:05 Lasix IV 40 mg Q12H [facility] Administration Glipizide 10 mg 04/13/18 21:00 04/14/18 07:59 Glucotrol PO 10 mg BID-W/MEALS [facility] Administration Insulin Aspart 0 unit 04/14/18 08:04 04/14/18 12:36 Novolog SQ 5 unit ACHS [facility] Administration Protocol Lactulose 30 gm 04/13/18 20:41 Cephulac PO BID PRN Constipation Linagliptin 5 mg 04/14/18 09:00 04/14/18 07:59 Tradjenta PO 5 mg DAILY [facility] Administration Metformin HCl 500 mg 04/13/18 21:00 04/14/18 07:59 Glucophage PO 500 mg BID-W/MEALS [facility] Administration Nitroglycerin 1 inch 04/14/18 09:00 04/14/18 12:37 Nitro-Bid Oint TOPICAL Not Given QID [facility] Potassium Chloride 10 meq 04/13/18 22:00 04/14/18 15:31 K-Dur 10 PO 10 meq TID RUDY Administration Intake and Output 04/14/18 04/14/18 04/14/18 06:59 14:59 22:59 Intake Total 100 Balance 100 Intake: Oral 100 Other: Voiding Method Toilet # Voids 1 3 Weight 53.524 kg 53.524 kg Patient Weight 04/15/18 06:59 Weight 53.524 kg 04/13/18 18:15 04/13/18 18:15 EKG Interpretations (text) Sinus rhythm with APCs Assessment and Plan (1) Mitral regurgitation Current Visit: Yes Status: Acute Code(s): I34.0 - NONRHEUMATIC MITRAL (VALVE ) INSUFFICIENCY SNOMED Code(s): 48154988 (2) Acute exacerbation of chronic obstructive airways disease Current Visit: Yes Status: Acute Code(s): J44.1 - CHRONIC OBSTRUCTIVE PULMONARY DISEASE W (ACUTE) EXACERBATION SNOMED Code(s): 270006089 (3) Congestive heart failure Current Visit: Yes Status: Acute Code(s): I50.9 - HEART FAILURE, UNSPECIFIED SNOMED Code(s): 34059629 (4) Hypertension Current Visit: Yes Status: Acute Code(s): I10 - ESSENTIAL (PRIMARY) HYPERTENSION SNOMED Code(s): 28498040 (5) CVA (cerebral vascular accident) Current Visit: No Status: Acute Code(s): I63.9 - CEREBRAL INFARCTION, UNSPECIFIED SNOMED Code(s): 959099933 (6) Diabetes Current Visit: No Status: Acute Code(s): E11.9 - TYPE 2 DIABETES MELLITUS WITHOUT COMPLICATIONS SNOMED Code(s): 14236247 (7) History of atrial fibrillation Current Visit: Yes Status: Acute Code(s): Z86.79 - PERSONAL HISTORY OF OTHER DISEASES OF THE CIRCULATORY SYSTEM SNOMED Code(s): 351351491 Plan: This patient is admitted with increasing shortness of breath and evidence of CHF. Previous echo showed impaired LV function with moderate to severe mitral regurgitation. From going to repeat the echocardiogram with Doppler. If mitral regurgitation is reconfirmed, we'll may be a TOMAS examination for further evaluation. He well. We'll continue with diuretics, ELIAZAR inhibitor R's and nitrates.
[2018-04-14 17:19] LABS: Glucose,Whole Blood 208 mg/dL (75-99)
[2018-04-14 21:02] LABS: Glucose,Whole Blood 186 mg/dL (75-99)
[2018-04-14] MEDS: ATORVASTATIN 10 MG TAB PO SCH (21:34)
--- NOTE | 2018-04-14 22:21 | P.HPIM ---
History of Present Illness H&P Date: 04/14/18 Chief Complaint: SOB Mrs. Yo is a 72-year-old white female with the PMH of COPD, CHF , A. 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 Patient noted increasing shortness of breath since morning and by early afternoon her symptoms became very severe, patient describes being barely able to talk on the phone to the production dispatcher. Patient did try her nebulized treatments 3 times a day, which did not bring any relief. She describes having exertional precordial chest heaviness radiating down her abdomen with exertion such as walking in her house, and this would be relieved by rest. Denied any fever or chills, has a dry cough, denied any chest wall tenderness. Denied any peripheral edema or weight gain. She had a recent hospitalization for an acute systolic congestive heart failure and was discharged home last week. Patient has an underlying history of chronic atrial fibrillation currently on oral Cardizem and Eliquis, cardiomyopathy with an EF of 35-40% shown on the echo done in . Patient is also known to have COPD with an FEV1 of 73% of predicted, consistent with mild obstructive airway limitation. Her maintenance medications for COPD include Spiriva, Ventolin rescue inhaler and DuoNeb nebulized treatments. Chest x-ray showed mild hyperinflation, mild diffuse interstitial prominence, small pleural effusions and adjacent atelectasis at the left base, consistent with mild CHF on a background of COPD. She was given IV steroids, breathing treatments along with Lasix that relived her symptoms. Her labs show BNP in 5000s. She states that she was able to cough up a good amount of sputum after getting her breathing treatment this afternoon. Review of Systems REVIEW OF SYSTEMS: PSYCH: has ADRIANA, no depression. NEURO:h/o CVA VASCULAR: no LE swelling HEMATOLOGIC: No history of easy bleeding and bruising . No recent infections . RESPIRATORY: As per HPI IMMUNE: No infections INTEGUMENT: no rashes : No dysuria or hematuria ELECTRICAL MAINTENANCE SUPERVISOR: No bleeding PV CARDIAC: No chest pain or paroxysmal nocturnal dyspnea MUSCULOSKELETAL : No Aches or pains in the joints or muscles. GI: No abdominal pain, Nausea or vomiting. No constipation or diarrhea. 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 History of Any Multi-Drug Resistant Organisms: None Reported Past Surgical History: Hysterectomy, Orthopedic Surgery, Tonsillectomy Additional Past Surgical History / Comment(s): Right knee arthroplasty, bilateral cataract surgery, hysterectomy, tonsillectomy Past Anesthesia/Blood Transfusion Reactions: No Reported Reaction Past Psychological History: Anxiety Additional Psychological History / Comment(s): [facility] 1 PET CAT.HAS NEBULIZER and cane. DOES'NT DRIVES ANYMORE D/T VISION. NEIGHBOR HELPS HER OUT. Smoking Status: Former smoker Past Alcohol Use History: None Reported Additional Past Alcohol Use History / Comment(s): started smoking 1956 and quit 2014 smoked 1ppd Past Drug Use History: None Reported - Past Family History Mother Family Medical History: Dementia Additional Family Medical History / Comment(s): AGE 99 Father Family Medical History: No Reported History Additional Family Medical History / Comment(s): WAS HEALTHY AT ALMOST AGE 99 Medications and Allergies Home Medications Medication Instructions Recorded Confirmed Type ALPRAZolam [Xanax] 0.5 mg PO TID PRN 11/04/17 04/13/18 History Albuterol Sulfate [Proventil Hfa] 1 - 2 puff INHALATION RT-Q4H PRN 11/04/17 History Potassium Chloride [Klor-Con 10] 10 meq PO TID 11/04/17 04/13/18 History Tiotropium 18 Mcg/Puff [Spiriva] 1 cap INHALATION RT-DAILY 11/04/17 04/13/18 History glyBURIDE/METFORMIN HCL 1 tab PO BID 11/04/17 04/13/18 History [glyBURIDE/METFORMIN HCL 5-500 mg] sitaGLIPtin [Januvia] 100 mg PO DAILY 11/04/17 04/13/18 History Apixaban [Eliquis] 5 mg PO BID tab 11/10/17 04/13/18 Rx Atenolol [Tenormin] 50 mg PO DAILY #30 tab 11/22/17 04/13/18 Rx FLUoxetine HCL 10 mg PO DAILY #30 tablet 11/22/17 04/13/18 Rx Atorvastatin [Lipitor] 10 mg PO HS 04/05/18 04/13/18 History Ipratropium-Albuterol Nebulize 3 ml INHALATION RT-TID 04/05/18 04/13/18 History [Duoneb 0.5 mg-3 mg/3 ml Soln] Diltiazem Oral [Cardizem*] 60 mg PO TID #90 tab 04/07/18 04/13/18 Rx Dorzolamide-Timolol 2%/0.5% 1 drops RIGHT EYE BID ml 04/07/18 04/13/18 Rx [dorzolamide-Timolol 2%/0.5%] Lactulose [Cephulac] 30 gm PO BID PRN #200 ml 04/07/18 04/13/18 Rx Allergies Allergy/AdvReac Type Severity Reaction Status Date / Time egg Allergy Itching Verified 04/13/18 18:02 Influenza Virus Vaccines Allergy Unknown Verified 04/13/18 18:02 Physical Exam Vitals: Vital Signs Temp Pulse Pulse Resp BP BP Pulse Ox 04/14/18 16:12 70 04/14/18 16:01 68 04/14/18 15:00 98.1 F 61 20 85/49 95 04/14/18 12:12 74 04/14/18 12:01 72 04/14/18 08:52 74 04/14/18 08:39 74 95 04/14/18 08:37 20 04/14/18 07:00 98.5 F 73 20 113/61 97 04/14/18 03:45 76 04/14/18 03:33 72 04/13/18 23:54 76 04/13/18 23:40 69 96 04/13/18 21:45 97.4 F L 80 20 103/52 95 04/13/18 21:02 97.3 F L 04/13/18 20:42 81 18 129/87 96 04/13/18 19:10 83 18 95/50 97 04/13/18 18:55 78 04/13/18 18:44 80 04/13/18 18:15 24 04/13/18 17:49 84 22 114/64 96 04/13/18 17:36 98.9 F 87 22 141/59 95 Intake and Output 04/14/18 04/14/18 04/14/18 06:59 14:59 22:59 Intake Total 100 Balance 100 Intake: Oral 100 Other: Voiding Method Toilet # Voids 1 3 Weight 53.524 kg 53.524 kg GENERAL EXAM GEN. APPEARANCE: alert, in no apparent distress HEAD EXAM: atraumatic, normocephalic, normal inspection ENT EXAM: normal exam, mucous membranes moist NECK EXAM: normal inspection. No JVD. RESPIRATORY EXAM: Decreased bilateral air entry. No wheezing, few crackles at the lower lung bases bilaterally. CARDIOVASCULAR EXAM: regular rate, normal rhythm, normal heart sounds. systolic murmur, diastolic murmur, rubs, gallop, clicks GI/ABDOMINAL EXAM: soft, normal bowel sounds. Absent: distended, tenderness, guarding, rebound, rigid EXTREMITIES EXAM: normal inspection, full ROM, normal capillary refill. Absent : tenderness, pedal edema, joint swelling, calf tenderness NEUROLOGICAL EXAM: alert, oriented X3, no foal deficits PSYCHIATRIC EXAM: normal affect, normal mood SKIN EXAM: warm, dry, intact, normal color. Absent: rash Results CBC & Chem 7: 04/13/18 18:15 04/13/18 18:15 Labs: Abnormal Lab Results - Last 24 Hours (Table) 04/13/18 04/13/18 04/13/18 Range/Units 18:15 18:15 21:42 Lymphocytes # 0.9 L (1.0-4.8) k/uL Chloride 108 H (98-107) mmol/L Carbon Dioxide 20 L (22-30) mmol/L Glucose 134 H (74-99) mg/dL POC Glucose (mg/dL) 311 H (75-99) mg/dL AST 43 H (14-36) U/L ALT 60 H (9-52) U/L Total Protein 6.0 L (6.3-8.2) g/dL 04/14/18 04/14/18 04/14/18 Range/Units 07:32 11:51 14:24 Lymphocytes # (1.0-4.8) k/uL Chloride (98-107) mmol/L Carbon Dioxide (22-30) mmol/L Glucose (74-99) mg/dL POC Glucose (mg/dL) 365 H 304 H 256 H (75-99) mg/dL AST (14-36) U/L ALT (9-52) U/L Total Protein (6.3-8.2) g/dL 04/14/18 Range/Units 17:07 Lymphocytes # (1.0-4.8) k/uL Chloride (98-107) mmol/L Carbon Dioxide (22-30) mmol/L Glucose (74-99) mg/dL POC Glucose (mg/dL) 208 H (75-99) mg/dL AST (14-36) U/L ALT (9-52) U/L Total Protein (6.3-8.2) g/dL Thrombosis Risk Factor Assmnt - Choose All That Apply Any of the Below Risk Factors Present?: Yes Other Risk Factors: Yes Each Risk Factor Represents 2 Points: Age 61-74 years Thrombosis Risk Factor Assessment Total Risk Factor Score: 2 Thrombosis Risk Factor Assessment Level: Low Risk Assessment and Plan Assessment: ASSESSMENT Dyspnea.- Acute exacerbation of Systlic heart failure - improved with IV Lasix Moderate COPD -not in exacerbation Mitral valve regurgitation Paroxysmal Atrial fibrillation CVA, history of carotid artery disease 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 On Xanax. Nonobstructive right renal calculus Hypertensive heart disease with a component of diastolic dysfunction and previous echocardiogram from October 2017 PLAN - C/w Diuresis. Will repeat Echo . Resume all home medications. Overall prognosis is guarded.
[2018-04-15] MEDS: IPRATROPIUM-ALBUTEROL 3 ML NEB INHALATION SCH ×6 (03:30→20:02)
[2018-04-15] MEDS: FUROSEMIDE 10 MG/ML 4 ML VIAL IV SCH ×2 (05:49→17:44)
[2018-04-15 07:39] LABS: Glucose,Whole Blood 204 mg/dL (75-99)
[2018-04-15] MEDS: NITROGLYCERIN OINT 1 INCH/GM PACKET TOPICAL SCH ×4 (07:52→21:02)
[2018-04-15] MEDS: ASPIRIN 325 MG TAB PO SCH (07:53)
[2018-04-15] MEDS: LINAGLIPTIN 5 MG TABLET PO SCH (07:53)
[2018-04-15] MEDS: glipiZIDE 10 MG TAB PO SCH ×2 (07:53→17:44)
[2018-04-15] MEDS: ALPRAZolam 0.5 MG TAB PO PRN ×2 (07:53→17:48)
[2018-04-15] MEDS: APIXABAN 5 MG TAB PO SCH ×2 (07:53→21:07)
[2018-04-15] MEDS: metFORMIN 500 MG TAB PO SCH ×2 (07:53→17:44)
[2018-04-15] MEDS: DILTIAZEM ORAL 60 MG TAB PO SCH ×3 (07:53→21:02)
[2018-04-15] MEDS: ATENOLOL 50 MG TAB PO SCH (07:53)
[2018-04-15] MEDS: POTASSIUM CHLORIDE ER 10 MEQ TAB.ER.PRT PO SCH ×3 (07:53→21:07)
[2018-04-15] MEDS: INSULIN ASPART 100 UNIT/ML 1 ML 10 ML VIAL SQ SCH ×4 (07:53→21:07)
[2018-04-15] MEDS: DORZOLAMIDE-TIMOLOL 2-0.5% DROPS 10 ML BTL RIGHT EYE SCH ×2 (07:54→21:07)
[2018-04-15] MEDS: FLUoxetine HCL 10 MG CAP PO SCH (07:56)
[2018-04-15 11:38] LABS: Basophils % (A) 0 %; Eosinophils # (A) 0.1 k/uL (0-0.7); Eosinophils % (A) 1 %; HCT 37.9 % (34.0-46.0); HGB 12.3 gm/dL (11.4-16.0); Lymphocytes # (A) 1.8 k/uL (1.0-4.8); Lymphocytes % (A) 17 %; MCH 28.5 pg (25.0-35.0); MCHC 32.5 g/dL (31.0-37.0); MCV 87.8 fL (80.0-100.0); Mean Platelet Volume 7.1; Monocytes # (A) 0.5 k/uL (0-1.0); Monocytes % (A) 5 %; Neutrophils # (A) 7.8 k/uL (1.3-7.7); Neutrophils % (A) 77 %; Platelet Count 264 k/uL (150-450); RBC 4.32 m/uL (3.80-5.40); RDW 13.7 % (11.5-15.5); WBC 10.2 k/uL (3.8-10.6)
[2018-04-15 11:56] LABS: Calcium 9.3 mg/dL (8.4-10.2); Potassium 3.6 mmol/L (3.5-5.1)
[2018-04-15 12:09] LABS: Glucose,Whole Blood 187 mg/dL (75-99)
[2018-04-15 17:32] LABS: Glucose,Whole Blood 120 mg/dL (75-99)
--- NOTE | 2018-04-15 17:52 | P.PN ---
Subjective Progress Note Date: 04/15/18 Principal diagnosis: Acute systolic congestive heart failure Mrs. Yo is a 72-year-old white female patient of Dr. Kang, who presented to the emergency department on 04/13/2018 at 1731 per EMS, for complaints of an acute episode of a respiratory distress at home. Patient noted increasing shortness of breath since morning on 04/13/2018, however by early afternoon her symptoms became very severe, patient describes being barely able to talk on the phone to the drying machine receiver. Patient did her nebulized treatments 3 times a day, which did not bring any relief. She describes having exertional precordial chest heaviness radiating down her abdomen with exertion such as walking in her house, and this would be relieved by rest. Denied any fever or chills, has a dry cough, denied any chest wall tenderness. Denied any peripheral edema or weight gain. She had a recent hospitalization for an acute systolic congestive heart failure and was released home 6 days ago. 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 Patient is also known to have COPD with an FEV1 of 73% of predicted, consistent with mild obstructive airway limitation. Her maintenance medications for COPD include Spiriva, Ventolin rescue inhaler and DuoNeb nebulized treatments. Patient had a CT of the chest in October 2017 which did not show any acute abnormalities. EKG showed sinus rhythm with occasional PVCs with left bundle branch block. Chest x-ray showed mild hyperinflation, mild diffuse interstitial prominence, small pleural effusions and adjacent atelectasis at the left base, consistent with mild CHF on a background of COPD. En route to the hospital patient received a breathing treatment in the EMS, and 125 mg of Solu-Medrol with subsequent relief of dyspnea. Patient was started on IV steroids at 60 mg 4 times a day, nebulized bronchodilators, she was given one-time dose of IV Lasix 60 mg in the emergency room, and was started on maintenance dose of Lasix of 40 mg IV every 12 hours and was admitted for further management. Labs revealed no evidence of leukocytosis, renal profile was within normal limits, sodium is 142, potassium is 3.8, chloride is 108, carbon dioxide was 20, troponins were negative 3, proBNP was elevated at 5510. We are seeing this patient in consultation for her dyspnea. Reevaluated today on 04/15/2018, patient is basically about the same, continues to have shortness of breath at rest, and with any exertion. Chest x-ray is basically about the same consistent with mild congestive heart failure changes. Patient remains on diuretics, and her renal functioning is getting a bit worse creatinine is up to 1.36. Hence may have to consider cutting down on diuresis. Objective - Vital Signs Vital signs: Vital Signs Temp 97.9 F 04/15/18 15:00 Pulse 65 04/15/18 15:54 Resp 16 04/15/18 15:00 BP 87/51 04/15/18 15:00 Pulse Ox 97 04/15/18 15:42 Intake & Output 04/14/18 04/15/18 04/15/18 18:59 06:59 18:59 Intake Total 500 200 Balance 500 200 Weight 53.524 kg 51 kg Intake: Oral 500 200 Other: Voiding Method Toilet Toilet Toilet # Voids 3 1 2 - Exam GENERAL EXAM: Alert, pleasant, thin elderly white female, comfortable in no apparent distress. HEAD: Normocephalic/atraumatic. EYES: Normal reaction of pupils, equal size. Conjunctiva pink, sclera white. NOSE: Clear with pink turbinates. THROAT: No erythema or exudates. NECK: No masses, no JVD, no thyroid enlargement, no adenopathy. CHEST: No chest wall deformity. Symmetrical expansion. LUNGS: Equal air entry with diminished breath sounds at the bilateral bases, with a few crackles over left posterior base CVS: Regular rate and rhythm, normal S1 and S2, no gallops, no murmurs, no rubs ABDOMEN: Soft, nontender. No hepatosplenomegaly, normal bowel sounds, no guarding or rigidity. EXTREMITIES: No clubbing, no edema, no cyanosis, 2+ pulses and upper and lower extremities. MUSCULOSKELETAL: Muscle strength and tone normal. SPINE: No scoliosis or deformity SKIN: No rashes, small healing abrasion on the left lower park CENTRAL NERVOUS SYSTEM: Alert and oriented -3. No focal deficits, tone is normal in all 4 extremities. PSYCHIATRIC: Alert and oriented -3. Appropriate affect. Intact judgment and insight. - Labs CBC & Chem 7: 04/15/18 11:16 04/15/18 11:16 Labs: Abnormal Lab Results - Last 24 Hours (Table) 04/14/18 04/14/18 04/15/18 Range/Units 00:00 20:56 07:10 Neutrophils # (1.3-7.7) k/uL BUN (7-17) mg/dL Creatinine (0.52-1.04) mg/dL Glucose (74-99) mg/dL POC Glucose (mg/dL) 186 H 204 H (75-99) mg/dL Hemoglobin A1c 7.0 H (4.0-6.0) % 04/15/18 04/15/18 04/15/18 Range/Units 11:16 11:16 11:51 Neutrophils # 7.8 H (1.3-7.7) k/uL BUN 28 H (7-17) mg/dL Creatinine 1.36 H (0.52-1.04) mg/dL Glucose 178 H (74-99) mg/dL POC Glucose (mg/dL) 187 H (75-99) mg/dL Hemoglobin A1c (4.0-6.0) % 04/15/18 Range/Units 17:27 Neutrophils # (1.3-7.7) k/uL BUN (7-17) mg/dL Creatinine (0.52-1.04) mg/dL Glucose (74-99) mg/dL POC Glucose (mg/dL) 120 H (75-99) mg/dL Hemoglobin A1c (4.0-6.0) % Microbiology - Last 24 Hours (Table) 04/13/18 18:15 Blood Culture - Preliminary Blood No Growth after 24 hours Assessment and Plan Assessment: #1. Acute dyspnea related to acute on chronic systolic congestive heart failure. Chest x-ray is positive for increased interstitial markings, and small pleural effusions. ProBNP is elevated at 5510, patient has a known history of impaired left ventricular function with an EF of 35-40% and chronic A. fib #2. Moderate COPD, with an FEV1 of 73% of predicted, GOLD stage II, currently stable #3. Chronic and persistent atrial fibrillation, currently in sinus rhythm, on oral Cardizem and Eliquis #4. Cardiomyopathy with an EF of 35-40% #5. Diabetes mellitus #6. Steroid-induced hyperglycemia #7. 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 Generalized anxiety disorder on Xanax #9. Carotid artery disease #10. Nicotine dependence, currently in remission, patient quit smoking 2 years ago #11. Hypertension #12. Small bilateral pleural effusions Recommendation: Continue but cut down the dose of diuretics, and I did cut it down to 40 mg once daily, continue bronchodilators, Cardizem, and Eliquis, follow-up chest x-ray in a.m., Solu-Medrol was discontinued, I believe the presentation is mostly a cardiac presentation more so than pulmonary presentation. Time with Patient: Less than 30
[2018-04-15] MEDS ORDERED: IPRATROPIUM-ALBUTEROL 3 ML NEB INHALATION PRN (19:58)
[2018-04-15 20:45] LABS: Glucose,Whole Blood 164 mg/dL (75-99)
[2018-04-15] MEDS: ATORVASTATIN 10 MG TAB PO SCH (21:07)
--- NOTE | 2018-04-15 22:50 | P.PN ---
Subjective Progress Note Date: 04/15/18 Principal diagnosis: CHF Exacerbation Mrs. Yo is a 72-year-old white female with the PMH of COPD, CHF , A. 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 Patient noted increasing shortness of breath since morning and by early afternoon her symptoms became very severe, patient describes being barely able to talk on the phone to the security dispatcher. Patient did try her nebulized treatments 3 times a day, which did not bring any relief. She describes having exertional precordial chest heaviness radiating down her abdomen with exertion such as walking in her house, and this would be relieved by rest. Denied any fever or chills, has a dry cough, denied any chest wall tenderness. Denied any peripheral edema or weight gain. She had a recent hospitalization for an acute systolic congestive heart failure and was discharged home last week. Patient has an underlying history of chronic atrial fibrillation currently on oral Cardizem and Eliquis, cardiomyopathy with an EF of 35-40% shown on the echo done in . Patient is also known to have COPD with an FEV1 of 73% of predicted, consistent with mild obstructive airway limitation. Her maintenance medications for COPD include Spiriva, Ventolin rescue inhaler and DuoNeb nebulized treatments. Chest x-ray showed mild hyperinflation, mild diffuse interstitial prominence, small pleural effusions and adjacent atelectasis at the left base, consistent with mild CHF on a background of COPD. She was given IV steroids, breathing treatments along with Lasix that relived her symptoms. Her labs show BNP in 5000s. on 04/15/18 - Her symptoms has improved comapred to yesterday. No new complains. Her Creatinine has worsened today. : No dysuria or hematuria CARDIAC: No chest pain or paroxysmal nocturnal dyspnea MUSCULOSKELETAL : No Aches or pains in the joints or muscles. GI: No abdominal pain, Nausea or vomiting. No constipation or diarrhea. Objective - Vital Signs Vital signs: Vital Signs Temp 97.9 F 04/15/18 15:00 Pulse 67 04/15/18 15:00 Resp 16 04/15/18 15:00 BP 87/51 04/15/18 15:00 Pulse Ox 97 04/15/18 15:00 Intake & Output 04/14/18 04/15/18 04/15/18 18:59 06:59 18:59 Intake Total 500 200 Balance 500 200 Weight 53.524 kg 51 kg Intake: Oral 500 200 Other: Voiding Method Toilet Toilet Toilet # Voids 3 1 2 - Exam GEN. APPEARANCE: alert, in no apparent distress HEAD EXAM: atraumatic, normocephalic, normal inspection ENT EXAM: normal exam, mucous membranes moist NECK EXAM: normal inspection. No JVD. RESPIRATORY EXAM: Decreased bilateral air entry. No wheezing, few crackles at the lower lung bases bilaterally. CARDIOVASCULAR EXAM: regular rate, normal rhythm, normal heart sounds. systolic murmur, diastolic murmur, rubs, gallop, clicks GI/ABDOMINAL EXAM: soft, normal bowel sounds. Absent: distended, tenderness, guarding, rebound, rigid EXTREMITIES EXAM: normal inspection, full ROM, normal capillary refill. Absent : tenderness, pedal edema, joint swelling, calf tenderness NEUROLOGICAL EXAM: alert, oriented X3, no foal deficits PSYCHIATRIC EXAM: normal affect, normal mood SKIN EXAM: warm, dry, intact, normal color. Absent: rash - Labs CBC & Chem 7: 04/15/18 11:16 04/15/18 11:16 Labs: Abnormal Lab Results - Last 24 Hours (Table) 04/14/18 04/14/18 04/14/18 Range/Units 00:00 17:07 20:56 Neutrophils # (1.3-7.7) k/uL BUN (7-17) mg/dL Creatinine (0.52-1.04) mg/dL Glucose (74-99) mg/dL POC Glucose (mg/dL) 208 H 186 H (75-99) mg/dL Hemoglobin A1c 7.0 H (4.0-6.0) % 04/15/18 04/15/18 04/15/18 Range/Units 07:10 11:16 11:16 Neutrophils # 7.8 H (1.3-7.7) k/uL BUN 28 H (7-17) mg/dL Creatinine 1.36 H (0.52-1.04) mg/dL Glucose 178 H (74-99) mg/dL POC Glucose (mg/dL) 204 H (75-99) mg/dL Hemoglobin A1c (4.0-6.0) % 04/15/18 Range/Units 11:51 Neutrophils # (1.3-7.7) k/uL BUN (7-17) mg/dL Creatinine (0.52-1.04) mg/dL Glucose (74-99) mg/dL POC Glucose (mg/dL) 187 H (75-99) mg/dL Hemoglobin A1c (4.0-6.0) % Microbiology - Last 24 Hours (Table) 04/13/18 18:15 Blood Culture - Preliminary Blood No Growth after 24 hours Assessment and Plan Assessment: ASSESSMENT Dyspnea.- Acute exacerbation of Systlic heart failure - improved with IV Lasix Elevated Creatinine -most likely overt Diuresis Moderate COPD -not in exacerbation Mitral valve regurgitation Paroxysmal Atrial fibrillation CVA, history of carotid artery disease 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 On Xanax. Nonobstructive right renal calculus Hypertensive heart disease with a component of diastolic dysfunction and previous echocardiogram from October 2017 PLAN - The dose of Lasix has been decreased today as creatinine has worsened. Repeat Echo- still pending . Resume all home medications. Overall prognosis is guarded.
[2018-04-16 07:15] LABS: Glucose,Whole Blood 158 mg/dL (75-99)
[2018-04-16] MEDS: IPRATROPIUM-ALBUTEROL 3 ML NEB INHALATION SCH ×4 (07:17→20:53)
[2018-04-16] MEDS: APIXABAN 5 MG TAB PO SCH (07:32)
[2018-04-16] MEDS: ALPRAZolam 0.5 MG TAB PO PRN ×3 (07:32→21:52)
[2018-04-16] MEDS: glipiZIDE 10 MG TAB PO SCH ×2 (07:32→17:45)
[2018-04-16] MEDS: metFORMIN 500 MG TAB PO SCH ×2 (07:32→17:45)
[2018-04-16] MEDS: INSULIN ASPART 100 UNIT/ML 1 ML 10 ML VIAL SQ SCH ×4 (07:32→21:52)
[2018-04-16] MEDS: ASPIRIN 325 MG TAB PO SCH (07:33)
[2018-04-16] MEDS: ATENOLOL 50 MG TAB PO SCH (07:33)
[2018-04-16] MEDS: FLUoxetine HCL 10 MG CAP PO SCH (07:34)
[2018-04-16] MEDS: DORZOLAMIDE-TIMOLOL 2-0.5% DROPS 10 ML BTL RIGHT EYE SCH ×2 (07:34→21:47)
[2018-04-16] MEDS: POTASSIUM CHLORIDE ER 10 MEQ TAB.ER.PRT PO SCH ×3 (07:35→21:47)
[2018-04-16] MEDS: LINAGLIPTIN 5 MG TABLET PO SCH (07:35)
[2018-04-16] MEDS: NITROGLYCERIN OINT 1 INCH/GM PACKET TOPICAL SCH ×2 (07:38→13:42)
[2018-04-16] MEDS: DILTIAZEM ORAL 60 MG TAB PO SCH ×3 (07:48→21:47)
[2018-04-16 08:56] LABS: Calcium 9.4 mg/dL (8.4-10.2); Potassium 4.4 mmol/L (3.5-5.1)
[2018-04-16] MEDS ORDERED: FUROSEMIDE 10 MG/ML 4 ML VIAL IV SCH (09:00)
--- NOTE | 2018-04-16 09:45 | XR ---
EXAMINATION TYPE: XR chest 1V portable DATE OF EXAM: 04/16/2018 COMPARISON: 04/14/2018 HISTORY: Shortness of breath TECHNIQUE: Single view of the chest is submitted for evaluation. FINDINGS: Scattered senescent parenchymal changes noted. Hyperinflation compatible with COPD. No evidence for infiltrate. No evidence for atelectasis. Heart size is stable. Mediastinal structures are stable and grossly unremarkable. No evidence for hilar prominence. Degenerative changes dorsal spine. IMPRESSION: 1. No evidence for acute pulmonary disease.
[2018-04-16 12:16] LABS: Glucose,Whole Blood 147 mg/dL (75-99)
--- NOTE | 2018-04-16 13:20 | P.PN ---
Subjective Progress Note Date: 04/16/18 Principal diagnosis: Heart failure, COPD Progress note dated 04/16/2018 This is a 72-year-old female with history of shortness of breath. Her shortness of breath was related to acute on chronic systolic congestive heart failure. The patient had an N-terminal proBNP which is elevated at 5500. The patient's ejection fraction is 35-40%. In addition, she has stage II COPD with an FEV1 at 73% of predicted chronic and persistent atrial fibrillation cardiomyopathy diabetes hypoglycemia caused by steroid CVA generalized anxiety disorder carotid artery disease nicotine dependence hypertension and small bilateral pleural effusions. All in all, the patient's doing relatively well. Feeling well. Not vertically short of breath. Not requiring any oxygen therapy. A chest x-ray done today showed no acute pulmonary disease present. Objective - Vital Signs Vital signs: Vital Signs Temp 96.9 F L 04/16/18 07:00 Pulse 68 04/16/18 10:48 Resp 16 04/16/18 07:00 BP 96/42 04/16/18 07:00 Pulse Ox 93 L 04/16/18 07:00 Intake & Output 04/15/18 04/16/18 04/16/18 18:59 06:59 18:59 Intake Total 200 200 Balance 200 200 Weight 50.5 kg Intake: Oral 200 200 Other: Voiding Method Toilet Toilet # Voids 2 2 # Bowel Movements 0 - Exam No acute distress, oriented 3. The patient is not on any supplemental oxygen. HEENT examination is grossly unremarkable. Mucous membranes are moist. No oral lesions. Neck supple. Full range of motion. No adenopathy thyromegaly or neck vein distention. Cardiovascular examination reveals regular rhythm rate. S1-S2 normal. No S3 or S4. No discernible murmur noted. Lungs reveal minimal basilar crackles. Breath sounds equal bilaterally. No wheezes or rhonchi appreciated. Abdomen soft bowel sounds are heard. No masses or tenderness. Extremities are intact. No cyanosis clubbing or edema. Skin is without rash or lesion. Neurologic examination is brief but nonfocal. - Labs CBC & Chem 7: 04/15/18 11:16 04/16/18 08:08 Labs: Abnormal Lab Results - Last 24 Hours (Table) 04/15/18 04/15/18 04/16/18 Range/Units 17:27 20:44 07:09 BUN (7-17) mg/dL Creatinine (0.52-1.04) mg/dL Glucose (74-99) mg/dL POC Glucose (mg/dL) 120 H 164 H 158 H (75-99) mg/dL 04/16/18 04/16/18 Range/Units 08:08 12:08 BUN 32 H (7-17) mg/dL Creatinine 1.40 H (0.52-1.04) mg/dL Glucose 253 H (74-99) mg/dL POC Glucose (mg/dL) 147 H (75-99) mg/dL Microbiology - Last 24 Hours (Table) 04/13/18 18:15 Blood Culture - Preliminary Blood No Growth after 48 hours Assessment and Plan Assessment: Assessment Acute on chronic systolic congestive heart failure, with an ejection fraction of 35-40% Moderate COPD, Gold stage II, FEV1 73% of predicted Persistent atrial fibrillation Cardiomyopathy with ejection fraction 35-40% Diabetes mellitus Steroid-induced hyperglycemia 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 Will likely be not compared to her old echocardiogram. From the pulmonary standpoint she seems relatively stable. Her COPD is only moderate in size severity with no FEV1 at 73% predicted. The patient is not requiring any oxygen therapy this time. We' ll continue to follow. Medications labs are all reviewed. Time with Patient: Less than 30
--- NOTE | 2018-04-16 13:34 | ECHOF ---
Referral Reason:Chest pain and cardiomyopathy MEASUREMENTS -------- HEIGHT: 149.9 cm WEIGHT: 50.3 kg BP: 110/46 RVIDd: 3.3 cm (< 3.3) IVSd: 1.2 cm (0.6 - 1.1) LVIDd: 4.9 cm (3.9 - 5.3) LVPWd: 1.1 cm (0.6 - 1.1) IVSs: 1.4 cm LVIDs: 4.1 cm LVPWs: 1.5 cm LA Diam: 3.3 cm (2.7 - 3.8) LAESV Index (A-L): 32.58 ml/m Ao Diam: 2.9 cm (2.0 - 3.7) AV Cusp: 1.8 cm (1.5 - 2.6) MV EXCURSION: 18.547 mm (> 18.000) MV EF SLOPE: 76 mm/s (70 - 150) EPSS: 2.5 cm AV maxP.29 mmHg AV meanP.76 mmHg FINDINGS -------- This was a technically adequate study. The left ventricular size is normal. There is borderline concentric left ventricular hypertrophy. Overall left ventricular systolic function is moderate-severely impaired with, an EF between 30 - 35 %. The right ventricle is mildly enlarged. LA is midly dilated 29-33ml/m2. The right atrium is normal in size. There is mild aortic valve sclerosis. The mitral valve leaflets are mildly thickened. Mild mitral annular calcification present. Modera te mitral regurgitation is present. Mild tricuspid regurgitation present. The pulmonic valve was not well visualized. The aortic root size is normal. Normal inferior vena cava with normal inspiratory collapse consistent with estimated right atrial pre ssure of 5 mmHg. There is no pericardial effusion. CONCLUSIONS -------- 1. This was a technically adequate study. 2. The left ventricular size is normal. 3. There is borderline concentric left ventricular hypertrophy. 4. Overall left ventricular systolic function is moderate-severely impaired with, an EF between 30 - 35 %. 5. The right ventricle is mildly enlarged. 6. LA is midly dilated 29-33ml/m2. 7. The right atrium is normal in size. 8. There is mild aortic valve sclerosis. 9. The mitral valve leaflets are mildly thickened. 10. Mild mitral annular calcification present. 11. Moderate mitral regurgitation is present. 12. Mild tricuspid regurgitation present. 13. The pulmonic valve was not well visualized. 14. The aortic root size is normal. 15. Normal inferior vena cava with normal inspiratory collapse consistent with estimated right atrial pressure of 5 mmHg. 16. There is no pericardial effusion. CENA: Maria Teresa Pelaez RDCS
[2018-04-16] MEDS ORDERED: NITROGLYCERIN SL TABS 0.4 MG TAB SUBLINGUAL PRN (14:52)
[2018-04-16] MEDS ORDERED: SODIUM CHLORIDE 0.9% 1,000 ML in EMPTY BAG 1 BAG IV ONE (14:52)
--- NOTE | 2018-04-16 15:05 | P.PN ---
Subjective is a pleasant 72-year-old female past medical history significant for COPD, recurrent persistent atrial fibrillation on long-term anticoagulation, diabetes mellitus, hypertension and systolic heart failure. We 're following her on this admission secondary to complaints of sudden onset of shortness of breath. Chest x-ray reveals mild congestive heart failure with pro -BNP 5510. Repeat echocardiogram reveals decreased systolic LV function with ejection fraction 30-35%, mildly dilated left atrium, mild aortic valve sclerosis with no stenosis, mild TR and moderate mitral regurgitation. Repeat chest x-ray today shows no evidence of infiltrate, no pleural effusion with scattered parenchymal changes and hyperinflation compatible with COPD. She is receiving Lasix 40 mg IV daily and she verbalizes not much change in shortness of breath. Blood pressure 83/48 heart rate 69 afebrile maintaining oxygen saturation on room air. Objective - Vital Signs Vital signs: Vital Signs Temp 96.9 F L 04/16/18 07:00 Pulse 69 04/16/18 13:43 Resp 16 04/16/18 07:00 BP 83/48 04/16/18 13:43 Pulse Ox 93 L 04/16/18 07:00 Intake & Output 04/15/18 04/16/18 04/16/18 18:59 06:59 18:59 Intake Total 200 200 Balance 200 200 Weight 50.5 kg Intake: Oral 200 200 Other: Voiding Method Toilet Toilet # Voids 2 2 # Bowel Movements 0 - Exam GENERAL: Well-appearing, well-nourished and in no acute distress. NECK: Supple without JVD or thyromegaly. LUNGS: Breath sounds clear to auscultation bilaterally. Respiration equal and unlabored. No wheezes, rales or rhonchi. Diminished bilaterally. HEART: Very distant heart sounds. Unable to discern murmur. EXTREMITIES: Normal range of motion, no edema. No clubbing or cyanosis. Peripheral pulses intact and strong. - Labs CBC & Chem 7: 04/15/18 11:16 04/16/18 08:08 Labs: Abnormal Lab Results - Last 24 Hours (Table) 04/15/18 04/15/18 04/16/18 Range/Units 17:27 20:44 07:09 BUN (7-17) mg/dL Creatinine (0.52-1.04) mg/dL Glucose (74-99) mg/dL POC Glucose (mg/dL) 120 H 164 H 158 H (75-99) mg/dL 04/16/18 04/16/18 Range/Units 08:08 12:08 BUN 32 H (7-17) mg/dL Creatinine 1.40 H (0.52-1.04) mg/dL Glucose 253 H (74-99) mg/dL POC Glucose (mg/dL) 147 H (75-99) mg/dL Microbiology - Last 24 Hours (Table) 04/13/18 18:15 Blood Culture - Preliminary Blood No Growth after 48 hours Assessment and Plan Assessment: ASSESSMENT 1. Mitral regurgitation 2. Acute systolic heart failure 3. Acute exacerbation of COPD 4. Hypertension, currently hypotensive 5. Diabetes mellitus 6. Paroxysmal atrial fibrillation on long-term anticoagulation, maintaining sinus mechanism. PLAN Discontinue Nitropaste and IV Lasix secondary to hypotension. Recommend proceeding with cardiac catheterization to assess coronary arteries. I have discussed the risks, benefits and alternative therapies for the above- mentioned procedure and for both sedation/analgesia as well as necessary blood product administration, if indicated, as they pertain to this patient. The patient has indicated understanding and acceptance of the risks and procedures discussed. Questions have been answered properly and she is agreeable to move forward with the above stated procedure. She will be gently hydrated with repeat kidney function in the morning. Eliquis to be held tonight and tomorrow morning. If she continues to have ongoing hypotension, consider decreasing the dose of atenolol and Cardizem. Small dose of ELIAZAR inhibitor should be added secondary to systolic heart failure. This will be held at this time secondary to hypotension. Further recommendations based upon clinical course. Nurse Practitioner note has been reviewed, I agree with a documented findings and plan of care. Patient was seen and examined.
[2018-04-16 17:06] LABS: Glucose,Whole Blood 158 mg/dL (75-99)
--- NOTE | 2018-04-16 17:45 | P.PN ---
<Irais Kelsey - Last Filed: 04/16/18 17:32> Subjective Progress Note Date: 04/16/18 Progress note being dictated for Dr. Singleton Interval history:CHF Exacerbation Mrs. Yo is a 72-year-old white female with the PMH of COPD, CHF , A. 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 Patient noted increasing shortness of breath since morning and by early afternoon her symptoms became very severe, patient describes being barely able to talk on the phone to the emt dispatcher. Patient did try her nebulized treatments 3 times a day, which did not bring any relief. She describes having exertional precordial chest heaviness radiating down her abdomen with exertion such as walking in her house, and this would be relieved by rest. Denied any fever or chills, has a dry cough, denied any chest wall tenderness. Denied any peripheral edema or weight gain. She had a recent hospitalization for an acute systolic congestive heart failure and was discharged home last week. Patient has an underlying history of chronic atrial fibrillation currently on oral Cardizem and Eliquis, cardiomyopathy with an EF of 35-40% shown on the echo done in . Patient is also known to have COPD with an FEV1 of 73% of predicted, consistent with mild obstructive airway limitation. Her maintenance medications for COPD include Spiriva, Ventolin rescue inhaler and DuoNeb nebulized treatments. Chest x-ray showed mild hyperinflation, mild diffuse interstitial prominence, small pleural effusions and adjacent atelectasis at the left base, consistent with mild CHF on a background of COPD. She was given IV steroids, breathing treatments along with Lasix that relived her symptoms. Her labs show BNP in 5000s. on 04/15/18 - Her symptoms has improved comapred to yesterday. No new complains. Her Creatinine has worsened today. : No dysuria or hematuria CARDIAC: No chest pain or paroxysmal nocturnal dyspnea MUSCULOSKELETAL : No Aches or pains in the joints or muscles. GI: No abdominal pain, Nausea or vomiting. No constipation or diarrhea. 04/16/2018 Yesterday creatinine worsened, Lasix dose decreased. Creatinine relatively unchanged, 1.4. Hypotensive today , Lasix and nitro paste discontinued. Echo reporting borderline concentric left ventricular hypertrophy , moderately-severely impaired LV function, EF between 30 and 35%, moderate mitral regurgitation. Evaluated by cardiology and cardiac catheterization recommended. Follow-up chest x-ray nonacute. Objective - Vital Signs Vital signs: Vital Signs Temp 98.5 F 04/16/18 15:00 Pulse 68 04/16/18 16:37 Resp 16 04/16/18 15:00 BP 83/55 04/16/18 15:00 Pulse Ox 97 04/16/18 16:18 Intake & Output 04/15/18 04/16/18 04/16/18 18:59 06:59 18:59 Intake Total 200 400 Balance 200 400 Weight 50.5 kg Intake: Oral 200 400 Other: Voiding Method Toilet Toilet # Voids 2 2 2 # Bowel Movements 0 0 - Exam GEN. APPEARANCE: alert, in no apparent distress HEAD EXAM: atraumatic, normocephalic, normal inspection ENT EXAM: normal exam, mucous membranes moist NECK EXAM: normal inspection. No JVD. RESPIRATORY EXAM: Decreased bilateral air entry. No wheezing, few bibasilar crackles CARDIOVASCULAR EXAM: regular rate, normal rhythm, normal heart sounds. No discernible murmur noted, no rubs, gallop, clicks GI/ABDOMINAL EXAM: soft, normal bowel sounds. Absent: distended, tenderness, guarding, rebound, rigid EXTREMITIES EXAM: normal inspection, full ROM, normal capillary refill. Absent : tenderness, pedal edema, joint swelling, calf tenderness NEUROLOGICAL EXAM: alert, oriented X3, no foal deficits PSYCHIATRIC EXAM: normal affect, normal mood SKIN EXAM: warm, dry, intact, normal color. Absent: rash - Labs CBC & Chem 7: 04/15/18 11:16 04/16/18 08:08 Labs: Abnormal Lab Results - Last 24 Hours (Table) 04/15/18 04/15/18 04/16/18 Range/Units 17:27 20:44 07:09 BUN (7-17) mg/dL Creatinine (0.52-1.04) mg/dL Glucose (74-99) mg/dL POC Glucose (mg/dL) 120 H 164 H 158 H (75-99) mg/dL 04/16/18 04/16/18 04/16/18 Range/Units 08:08 12:08 17:03 BUN 32 H (7-17) mg/dL Creatinine 1.40 H (0.52-1.04) mg/dL Glucose 253 H (74-99) mg/dL POC Glucose (mg/dL) 147 H 158 H (75-99) mg/dL Microbiology - Last 24 Hours (Table) 04/13/18 18:15 Blood Culture - Preliminary Blood No Growth after 48 hours Assessment and Plan Assessment: Dyspnea.- Acute on chronic exacerbation of Systolic heart failure, EF 30-35%, cardiomyopathy - improved with IV Lasix Elevated Creatinine -most likely overt Diuresis Moderate COPD -not in exacerbation Mitral valve regurgitation Paroxysmal Atrial fibrillation CVA, history of carotid artery disease 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 On Xanax. Nonobstructive right renal calculus Hypertensive heart disease with a component of diastolic dysfunction and previous echocardiogram from October 2017 Plan: Continue on current medication regime ,monitoring and symptomatic treatment. Scheduled for cardiac catheterization tomorrow. Hold Eliquis. Close monitoring of renal function with repeat labs ordered for a.m. The impression and plan of care has been dictated as directed. : I performed a history and examination of this patient, discussed the same with the dictator. I agree with the dictator's note ,documented as a scribe. Any additional findings or plans will be noted. <Cherri Singleton - Last Filed: 04/16/18 23:46> Objective - Vital Signs Vital signs: Vital Signs Temp 97.9 F 04/16/18 22:35 Pulse 73 04/16/18 22:35 Resp 16 04/16/18 22:35 BP 106/64 04/16/18 22:35 Pulse Ox 96 04/16/18 22:35 Intake & Output 04/16/18 04/16/18 04/17/18 06:59 18:59 06:59 Intake Total 400 Balance 400 Weight 50.5 kg Intake: Oral 400 Other: Voiding Method Toilet # Voids 2 2 1 # Bowel Movements 0 0 - Labs CBC & Chem 7: 04/15/18 11:16 04/16/18 08:08 Labs: Abnormal Lab Results - Last 24 Hours (Table) 04/16/18 04/16/18 04/16/18 Range/Units 07:09 08:08 12:08 BUN 32 H (7-17) mg/dL Creatinine 1.40 H (0.52-1.04) mg/dL Glucose 253 H (74-99) mg/dL POC Glucose (mg/dL) 158 H 147 H (75-99) mg/dL 04/16/18 04/16/18 Range/Units 17:03 20:43 BUN (7-17) mg/dL Creatinine (0.52-1.04) mg/dL Glucose (74-99) mg/dL POC Glucose (mg/dL) 158 H 142 H (75-99) mg/dL Microbiology - Last 24 Hours (Table) 04/13/18 18:15 Blood Culture - Preliminary Blood No Growth after 72 hours
[2018-04-16 20:44] LABS: Glucose,Whole Blood 142 mg/dL (75-99)
[2018-04-16] MEDS: ATORVASTATIN 10 MG TAB PO SCH (21:47)
[2018-04-17] MEDS: ALPRAZolam 0.5 MG TAB PO PRN ×3 (06:30→17:43)
[2018-04-17] MEDS: IPRATROPIUM-ALBUTEROL 3 ML NEB INHALATION SCH ×4 (07:06→20:12)
[2018-04-17 07:30] LABS: Glucose,Whole Blood 139 mg/dL (75-99)
[2018-04-17] MEDS: INSULIN ASPART 100 UNIT/ML 1 ML 10 ML VIAL SQ SCH ×4 (07:49→21:16)
[2018-04-17] MEDS: metFORMIN 500 MG TAB PO SCH ×2 (07:49→17:38)
[2018-04-17] MEDS: glipiZIDE 10 MG TAB PO SCH ×2 (07:49→17:38)
[2018-04-17] MEDS: ATENOLOL 50 MG TAB PO SCH (07:50)
[2018-04-17] MEDS: DILTIAZEM ORAL 60 MG TAB PO SCH ×3 (07:50→19:53)
[2018-04-17] MEDS: LINAGLIPTIN 5 MG TABLET PO SCH (07:50)
[2018-04-17] MEDS: DORZOLAMIDE-TIMOLOL 2-0.5% DROPS 10 ML BTL RIGHT EYE SCH ×2 (07:53→19:52)
[2018-04-17] MEDS: POTASSIUM CHLORIDE ER 10 MEQ TAB.ER.PRT PO SCH ×3 (07:53→19:52)
[2018-04-17] MEDS: ASPIRIN 325 MG TAB PO SCH (07:54)
[2018-04-17] MEDS: FLUoxetine HCL 10 MG CAP PO SCH (07:54)
[2018-04-17 09:58] LABS: Basophils % (A) 0 %; Eosinophils # (A) 0.2 k/uL (0-0.7); Eosinophils % (A) 4 %; HCT 37.8 % (34.0-46.0); HGB 12.8 gm/dL (11.4-16.0); Lymphocytes # (A) 1.2 k/uL (1.0-4.8); Lymphocytes % (A) 21 %; MCH 29.8 pg (25.0-35.0); MCHC 33.7 g/dL (31.0-37.0); MCV 88.4 fL (80.0-100.0); Mean Platelet Volume 6.8; Monocytes # (A) 0.3 k/uL (0-1.0); Monocytes % (A) 6 %; Neutrophils # (A) 3.8 k/uL (1.3-7.7); Neutrophils % (A) 68 %; Platelet Count 240 k/uL (150-450); RBC 4.28 m/uL (3.80-5.40); RDW 13.6 % (11.5-15.5); WBC 5.6 k/uL (3.8-10.6)
[2018-04-17 10:22] LABS: Calcium 8.9 mg/dL (8.4-10.2)
--- NOTE | 2018-04-17 10:22 | P.PN ---
Subjective Progress Note Date: 04/17/18 Principal diagnosis: Acute on chronic systolic congestive heart failure Progress note dated 04/16/2018 This is a 72-year-old female with history of shortness of breath. Her shortness of breath was related to acute on chronic systolic congestive heart failure. The patient had an N-terminal proBNP which is elevated at 5500. The patient's ejection fraction is 35-40%. In addition, she has stage II COPD with an FEV1 at 73% of predicted chronic and persistent atrial fibrillation cardiomyopathy diabetes hypoglycemia caused by steroid CVA generalized anxiety disorder carotid artery disease nicotine dependence hypertension and small bilateral pleural effusions. All in all, the patient's doing relatively well. Feeling well. Not vertically short of breath. Not requiring any oxygen therapy. A chest x-ray done today showed no acute pulmonary disease present. On 04/17/2018 patient seen in follow-up area denies any dyspnea, she is calm and comfortable at rest, lung sounds are clear, no rhonchi no wheezes noted on today's exam. Patient is awaiting heart catheterization. Continue current medical treatment Objective - Vital Signs Vital signs: Vital Signs Temp 97.9 F 04/16/18 22:35 Pulse 73 04/16/18 22:35 Resp 16 04/16/18 22:35 BP 106/64 04/16/18 22:35 Pulse Ox 96 04/16/18 22:35 Intake & Output 04/16/18 04/17/18 04/17/18 18:59 06:59 18:59 Intake Total 400 Balance 400 Weight 51.5 kg Intake: Oral 400 Other: # Voids 2 2 # Bowel Movements 0 - Exam GENERAL EXAM: Alert, thin, 72-year-old white female comfortable in no apparent distress. HEAD: Normocephalic/atraumatic. EYES: Normal reaction of pupils, equal size. Conjunctiva pink, sclera white. NOSE: Clear with pink turbinates. THROAT: No erythema or exudates. NECK: No masses, no JVD, no thyroid enlargement, no adenopathy. CHEST: No chest wall deformity. Symmetrical expansion. LUNGS: Equal air entry with no crackles, wheeze, rhonchi or dullness. CVS: Regular rate and rhythm, normal S1 and S2, no gallops, no murmurs, no rubs ABDOMEN: Soft, nontender. No hepatosplenomegaly, normal bowel sounds, no guarding or rigidity. EXTREMITIES: No clubbing, no edema, no cyanosis, 2+ pulses and upper and lower extremities. MUSCULOSKELETAL: Muscle strength and tone normal. SPINE: No scoliosis or deformity SKIN: No rashes CENTRAL NERVOUS SYSTEM: Alert and oriented -3. No focal deficits, tone is normal in all 4 extremities. PSYCHIATRIC: Alert and oriented -3. Appropriate affect. Intact judgment and insight. - Labs CBC & Chem 7: 04/17/18 09:09 04/16/18 08:08 Labs: Abnormal Lab Results - Last 24 Hours (Table) 04/16/18 04/16/18 04/16/18 Range/Units 12:08 17:03 20:43 POC Glucose (mg/dL) 147 H 158 H 142 H (75-99) mg/dL 04/17/18 Range/Units 07:28 POC Glucose (mg/dL) 139 H (75-99) mg/dL Microbiology - Last 24 Hours (Table) 04/13/18 18:15 Blood Culture - Preliminary Blood No Growth after 72 hours Assessment and Plan Plan: Assessment: #1. Acute dyspnea related to acute on chronic systolic congestive heart failure. Chest x-ray is positive for increased interstitial markings, and small pleural effusions. ProBNP is elevated at 5510, patient has a known history of impaired left ventricular function with an EF of 35-40% and chronic A. fib #2. Moderate COPD, with an FEV1 of 73% of predicted, GOLD stage II, currently stable #3. Chronic and persistent atrial fibrillation, currently in sinus rhythm, on oral Cardizem and Eliquis #4. Cardiomyopathy with an EF of 35-40% #5. Diabetes mellitus #6. Steroid-induced hyperglycemia #7. 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 Generalized anxiety disorder on Xanax #9. Carotid artery disease #10. Nicotine dependence, currently in remission, patient quit smoking 2 years ago #11. Hypertension #12. Small bilateral pleural effusions Plan: Patient denies any acute complaints, denies any chest pain or dyspnea on today' s exam. Current medical treatment, await the results of her heart catheterization today. Diuretics have been discontinued, patient is on room air , stable oxygenation above 92%. I performed a history & physical examination of the patient and discussed their management with my nurse practitioner, [place] Gray. I reviewed the nurse practitioner's note and agree with the documented findings and plan of care. Lung sounds are positive for clear lung sounds. The findings and the impression was discussed with the patient. I attest to the documentation by the nurse practitioner. Time with Patient: Less than 30
[2018-04-17] MEDS ORDERED: SODIUM CHLORIDE 0.9% 1,000 ML IV ONE (11:07)
[2018-04-17] MEDS ORDERED: IV FLUID CONTINUATION 500 ML IV ONE (11:07)
[2018-04-17] MEDS ORDERED: fentaNYL (PF) 50 MCG/ML 2 ML AMP IVP ONE (11:14)
[2018-04-17] MEDS ORDERED: MIDAZOLAM 2 MG/2 ML VIAL IVP ONE (11:14)
[2018-04-17] MEDS ORDERED: LIDOCAINE 2% INJ 20 MG/ML SQ ONE ×2 (11:22)
[2018-04-17] MEDS ORDERED: IOPAMIDOL-370 125ML BTL INJ ONE (11:46)
[2018-04-17] MEDS ORDERED: RX INFO: IV CONTRAST WAS GIVEN 1 EACH MISC MISCELLANE PRN (11:54)
[2018-04-17 12:40] LABS: Glucose,Whole Blood 161 mg/dL (75-99)
[2018-04-17] MEDS: SODIUM CHLORIDE 0.9% 1,000 ML IV SCH ×2 (12:42→22:51)
--- NOTE | 2018-04-17 14:26 | P.PN ---
Subjective Progress Note Date: 04/17/18 Progress note being dictated for Dr. Singleton Interval history:CHF Exacerbation Mrs. Yo is a 72-year-old white female with the PMH of COPD, CHF , A. 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 Patient noted increasing shortness of breath since morning and by early afternoon her symptoms became very severe, patient describes being barely able to talk on the phone to the radioactive waste disposal dispatcher. Patient did try her nebulized treatments 3 times a day, which did not bring any relief. She describes having exertional precordial chest heaviness radiating down her abdomen with exertion such as walking in her house, and this would be relieved by rest. Denied any fever or chills, has a dry cough, denied any chest wall tenderness. Denied any peripheral edema or weight gain. She had a recent hospitalization for an acute systolic congestive heart failure and was discharged home last week. Patient has an underlying history of chronic atrial fibrillation currently on oral Cardizem and Eliquis, cardiomyopathy with an EF of 35-40% shown on the echo done in . Patient is also known to have COPD with an FEV1 of 73% of predicted, consistent with mild obstructive airway limitation. Her maintenance medications for COPD include Spiriva, Ventolin rescue inhaler and DuoNeb nebulized treatments. Chest x-ray showed mild hyperinflation, mild diffuse interstitial prominence, small pleural effusions and adjacent atelectasis at the left base, consistent with mild CHF on a background of COPD. She was given IV steroids, breathing treatments along with Lasix that relived her symptoms. Her labs show BNP in 5000s. on 04/15/18 - Her symptoms has improved comapred to yesterday. No new complains. Her Creatinine has worsened today. : No dysuria or hematuria CARDIAC: No chest pain or paroxysmal nocturnal dyspnea MUSCULOSKELETAL : No Aches or pains in the joints or muscles. GI: No abdominal pain, Nausea or vomiting. No constipation or diarrhea. 04/16/2018 Yesterday creatinine worsened, Lasix dose decreased. Creatinine relatively unchanged, 1.4. Hypotensive today , Lasix and nitro paste discontinued. Echo reporting borderline concentric left ventricular hypertrophy , moderately-severely impaired LV function, EF between 30 and 35%, moderate mitral regurgitation. Evaluated by cardiology and cardiac catheterization recommended. Follow-up chest x-ray nonacute. 04/17/2018 NPO, Awaiting Cardiac catheterization today. Denies chest pain, palpitations or increased shortness of breath. Maintaining O2 sats in the low 90s on room air. Diuretics discontinued yesterday, renal function improving. Objective - Vital Signs Vital signs: Vital Signs Temp 97.9 F 04/16/18 22:35 Pulse 73 04/16/18 22:35 Resp 16 04/16/18 22:35 BP 106/64 04/16/18 22:35 Pulse Ox 96 04/16/18 22:35 Intake & Output 04/16/18 04/17/18 04/17/18 18:59 06:59 18:59 Intake Total 400 Balance 400 Weight 51.5 kg Intake: Oral 400 Other: # Voids 2 2 # Bowel Movements 0 - Exam GEN. APPEARANCE: alert, in no apparent distress, laying flat in bed HEAD EXAM: atraumatic, normocephalic, normal inspection ENT EXAM: normal exam, mucous membranes moist NECK EXAM: normal inspection. No JVD. RESPIRATORY EXAM: Decreased bilateral air entry. No wheezing, few bibasilar crackles CARDIOVASCULAR EXAM: regular rate, normal rhythm, normal heart sounds. No discernible murmur noted, no rubs, gallop, clicks GI/ABDOMINAL EXAM: soft, normal bowel sounds. Absent: distended, tenderness, guarding, rebound, rigid EXTREMITIES EXAM: normal inspection, full ROM, normal capillary refill. Absent : tenderness, pedal edema, joint swelling, calf tenderness NEUROLOGICAL EXAM: alert, oriented X3, no foal deficits PSYCHIATRIC EXAM: normal affect, normal mood SKIN EXAM: warm, dry, intact, normal color. Absent: rash - Labs CBC & Chem 7: 04/17/18 09:09 04/17/18 09:09 Labs: Abnormal Lab Results - Last 24 Hours (Table) 04/16/18 04/16/18 04/16/18 Range/Units 12:08 17:03 20:43 POC Glucose (mg/dL) 147 H 158 H 142 H (75-99) mg/dL 04/17/18 Range/Units 07:28 POC Glucose (mg/dL) 139 H (75-99) mg/dL Microbiology - Last 24 Hours (Table) 04/13/18 18:15 Blood Culture - Preliminary Blood No Growth after 72 hours Assessment and Plan Assessment: Dyspnea.- Acute on chronic exacerbation of Systolic heart failure, EF 30-35%, cardiomyopathy - improved with IV Lasix. 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 On Xanax. Nonobstructive right renal calculus Hypertensive heart disease with a component of diastolic dysfunction and previous echocardiogram from October 2017 Plan: Continue on current medication regime ,monitoring and symptomatic treatment. Awaiting cardiac catheterization today,Eliquis currently on hold. Renal function improving with close monitoring of renal function -repeat labs ordered for a.m. The impression and plan of care has been dictated as directed. : I performed a history and examination of this patient, discussed the same with the dictator. I agree with the dictator's note ,documented as a scribe. Any additional findings or plans will be noted.
[2018-04-17 17:30] LABS: Glucose,Whole Blood 301 mg/dL (75-99)
[2018-04-17] MEDS: CARVEDILOL 3.125 MG TAB PO SCH (17:38)
[2018-04-17] MEDS: ATORVASTATIN 10 MG TAB PO SCH (19:52)
[2018-04-17 21:11] LABS: Glucose,Whole Blood 165 mg/dL (75-99)
[2018-04-18 06:16] LABS: Basophils % (A) 0 %; Eosinophils # (A) 0.3 k/uL (0-0.7); Eosinophils % (A) 6 %; HCT 30.9 % (34.0-46.0); HGB 10.1 gm/dL (11.4-16.0); Lymphocytes # (A) 1.3 k/uL (1.0-4.8); Lymphocytes % (A) 28 %; MCH 28.8 pg (25.0-35.0); MCHC 32.7 g/dL (31.0-37.0); MCV 88.1 fL (80.0-100.0); Mean Platelet Volume 6.8; Monocytes # (A) 0.3 k/uL (0-1.0); Monocytes % (A) 6 %; Neutrophils # (A) 2.8 k/uL (1.3-7.7); Neutrophils % (A) 59 %; Platelet Count 202 k/uL (150-450); RDW 13.5 % (11.5-15.5); WBC 4.7 k/uL (3.8-10.6)
[2018-04-18 06:23] LABS: Calcium 8.6 mg/dL (8.4-10.2); Potassium 4.1 mmol/L (3.5-5.1)
[2018-04-18] MEDS: glipiZIDE 10 MG TAB PO SCH (06:30)
[2018-04-18] MEDS: metFORMIN 500 MG TAB PO SCH (06:30)
[2018-04-18 06:42] LABS: Glucose,Whole Blood 169 mg/dL (75-99)
[2018-04-18] MEDS: INSULIN ASPART 100 UNIT/ML 1 ML 10 ML VIAL SQ SCH ×2 (06:50→12:51)
[2018-04-18] MEDS: IPRATROPIUM-ALBUTEROL 3 ML NEB INHALATION SCH ×2 (08:42→11:20)
[2018-04-18] MEDS: CARVEDILOL 3.125 MG TAB PO SCH (08:55)
[2018-04-18] MEDS: ASPIRIN 325 MG TAB PO SCH (08:56)
[2018-04-18] MEDS: LINAGLIPTIN 5 MG TABLET PO SCH (08:56)
[2018-04-18] MEDS: FLUoxetine HCL 10 MG CAP PO SCH (08:56)
[2018-04-18] MEDS: DILTIAZEM ORAL 60 MG TAB PO SCH ×2 (08:56→14:55)
[2018-04-18] MEDS: DORZOLAMIDE-TIMOLOL 2-0.5% DROPS 10 ML BTL RIGHT EYE SCH (08:56)
[2018-04-18] MEDS: POTASSIUM CHLORIDE ER 10 MEQ TAB.ER.PRT PO SCH (08:56)
[2018-04-18] MEDS: ALPRAZolam 0.5 MG TAB PO PRN ×2 (08:58→13:11)
[2018-04-18] MEDS ORDERED: LISINOPRIL 2.5 MG TAB PO SCH (09:00)
[2018-04-18] MEDS ORDERED: FUROSEMIDE 20 MG TAB PO SCH (09:00)
[2018-04-18 09:03] VITALS: BP 93/52; PULSE 66; RESP 18; TEMP 97.3
--- NOTE | 2018-04-18 13:08 | P.PN ---
Subjective Progress Note Date: 04/18/18 Principal diagnosis: Acute on chronic systolic congestive heart failure Progress note dated 04/16/2018 This is a 72-year-old female with history of shortness of breath. Her shortness of breath was related to acute on chronic systolic congestive heart failure. The patient had an N-terminal proBNP which is elevated at 5500. The patient's ejection fraction is 35-40%. In addition, she has stage II COPD with an FEV1 at 73% of predicted chronic and persistent atrial fibrillation cardiomyopathy diabetes hypoglycemia caused by steroid CVA generalized anxiety disorder carotid artery disease nicotine dependence hypertension and small bilateral pleural effusions. All in all, the patient's doing relatively well. Feeling well. Not vertically short of breath. Not requiring any oxygen therapy. A chest x-ray done today showed no acute pulmonary disease present. On 04/17/2018 patient seen in follow-up area denies any dyspnea, she is calm and comfortable at rest, lung sounds are clear, no rhonchi no wheezes noted on today's exam. Patient is awaiting heart catheterization. Continue current medical treatment. On 04/18/2018 patient seen in follow-up on selective care unit. She had her heart catheterization yesterday which showed minimal occlusive coronary artery disease. From pulmonary standpoint she continues to improve, denies any dyspnea , lung sounds are clear, no rhonchi or wheezes noted on today's exam. No wheezing, no chest congestion. Vital signs are stable, patient is on room air, with O2 sat 96%. No fever no chills. Blood culture showed no growth at the 96 hour tom. Objective - Vital Signs Vital signs: Vital Signs Temp 97.3 F L 04/18/18 08:00 Pulse 66 04/18/18 08:00 Resp 18 04/18/18 12:00 BP 93/52 04/18/18 08:00 Pulse Ox 96 04/18/18 08:00 Intake & Output 04/17/18 04/18/18 04/18/18 18:59 06:59 18:59 Intake Total 450 480 Output Total 225 0 Balance 225 480 Weight 51.5 kg Intake: IV 150 Sodium Chloride 0.9% 1, 75 000 ml @ 75 mls/hr IV . [id number] [facility] Rx#:[id number] Intake, IV Titration 75 Amount Sodium Chloride 0.9% 1, 75 000 ml @ 75 mls/hr IV . [id number] [facility] Rx#:[id number] Oral 225 480 Output: Urine 225 0 Other: Voiding Method Toilet # Voids 2 # Bowel Movements 0 - Exam GENERAL EXAM: Alert, thin, 72-year-old white female comfortable in no apparent distress. HEAD: Normocephalic/atraumatic. EYES: Normal reaction of pupils, equal size. Conjunctiva pink, sclera white. NOSE: Clear with pink turbinates. THROAT: No erythema or exudates. NECK: No masses, no JVD, no thyroid enlargement, no adenopathy. CHEST: No chest wall deformity. Symmetrical expansion. LUNGS: Equal air entry with no crackles, wheeze, rhonchi or dullness. CVS: Regular rate and rhythm, normal S1 and S2, no gallops, no murmurs, no rubs ABDOMEN: Soft, nontender. No hepatosplenomegaly, normal bowel sounds, no guarding or rigidity. EXTREMITIES: No clubbing, no edema, no cyanosis, 2+ pulses and upper and lower extremities. MUSCULOSKELETAL: Muscle strength and tone normal. SPINE: No scoliosis or deformity SKIN: No rashes CENTRAL NERVOUS SYSTEM: Alert and oriented -3. No focal deficits, tone is normal in all 4 extremities. PSYCHIATRIC: Alert and oriented -3. Appropriate affect. Intact judgment and insight. - Labs CBC & Chem 7: 04/18/18 05:46 04/18/18 05:46 Labs: Abnormal Lab Results - Last 24 Hours (Table) 04/17/18 04/17/18 04/18/18 Range/Units 17:28 21:09 05:46 RBC 3.50 L (3.80-5.40) m/uL Hgb 10.1 L (11.4-16.0) gm/dL Hct 30.9 L (34.0-46.0) % BUN (7-17) mg/dL Creatinine (0.52-1.04) mg/dL Glucose (74-99) mg/dL POC Glucose (mg/dL) 301 H 165 H (75-99) mg/dL 04/18/18 04/18/18 Range/Units 05:46 06:41 RBC (3.80-5.40) m/uL Hgb (11.4-16.0) gm/dL Hct (34.0-46.0) % BUN 29 H (7-17) mg/dL Creatinine 1.20 H (0.52-1.04) mg/dL Glucose 165 H (74-99) mg/dL POC Glucose (mg/dL) 169 H (75-99) mg/dL Microbiology - Last 24 Hours (Table) 04/13/18 18:15 Blood Culture - Preliminary Blood No Growth after 96 hours Assessment and Plan Plan: Assessment: #1. Acute dyspnea related to acute on chronic systolic congestive heart failure. Chest x-ray is positive for increased interstitial markings, and small pleural effusions. ProBNP is elevated at 5510, patient has a known history of impaired left ventricular function with an EF of 35-40% and chronic A. fib #2. Moderate COPD, with an FEV1 of 73% of predicted, GOLD stage II, currently stable #3. Chronic and persistent atrial fibrillation, currently in sinus rhythm, on oral Cardizem and Eliquis #4. Cardiomyopathy with an EF of 35-40% #5. Diabetes mellitus #6. Steroid-induced hyperglycemia #7. 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 Generalized anxiety disorder on Xanax #9. Carotid artery disease #10. Nicotine dependence, currently in remission, patient quit smoking 2 years ago #11. Hypertension #12. Small bilateral pleural effusions Plan: Patient continues to improve, denies any dyspnea, denies any chest pain. Heart catheterization showed minimal coronary artery disease. Patient has been treated with nebulized bronchodilators, her COPD is currently stable. is stable for discharge home today from pulmonary standpoint. Follow-up with Dr. Tomas in the office in 7-10 days. I performed a history & physical examination of the patient and discussed their management with my nurse practitioner, Indiana Gray. I reviewed the nurse practitioner's note and agree with the documented findings and plan of care. Lung sounds are positive for clear lung sounds. The findings and the impression was discussed with the patient. I attest to the documentation by the nurse practitioner. Time with Patient: Less than 30
--- NOTE | 2018-04-18 15:05 | P.PN ---
Subjective Progress Note Date: 04/18/18 is a pleasant 72-year-old female past medical history significant for COPD, recurrent persistent atrial fibrillation on long-term anticoagulation, diabetes mellitus, hypertension and systolic heart failure. We 're following her on this admission secondary to complaints of sudden onset of shortness of breath. Chest x-ray reveals mild congestive heart failure with pro -BNP 5510. Repeat echocardiogram reveals decreased systolic LV function with ejection fraction 30-35%, mildly dilated left atrium, mild aortic valve sclerosis with no stenosis, mild TR and moderate mitral regurgitation. Repeat chest x-ray today shows no evidence of infiltrate, no pleural effusion with scattered parenchymal changes and hyperinflation compatible with COPD. She is receiving Lasix 40 mg IV daily and she verbalizes not much change in shortness of breath. Blood pressure 83/48 heart rate 69 afebrile maintaining oxygen saturation on room air. 04/18/2018 Patient underwent a cardiac catheterization yesterday by Dr. Aparicio that did not reveal any significant obstructive coronary artery disease. She was seen and examined this morning, feels well, denies any chest discomfort or difficulty in breathing. Her groin is quite ecchymotic however there is no evidence of hematoma and no bruit. Objective - Vital Signs Vital signs: Vital Signs Temp 97.3 F L 04/18/18 08:00 Pulse 66 04/18/18 08:00 Resp 18 04/18/18 12:00 BP 93/52 04/18/18 08:00 Pulse Ox 96 04/18/18 08:00 Intake & Output 04/17/18 04/18/18 04/18/18 18:59 06:59 18:59 Intake Total 450 480 Output Total 225 0 Balance 225 480 Weight 51.5 kg Intake: IV 150 Sodium Chloride 0.9% 1, 75 000 ml @ 75 mls/hr IV . [id number] [facility] Rx#:[id number] Intake, IV Titration 75 Amount Sodium Chloride 0.9% 1, 75 000 ml @ 75 mls/hr IV . [id number] [facility] Rx#:[id number] Oral 225 480 Output: Urine 225 0 Other: Voiding Method Toilet # Voids 2 # Bowel Movements 0 - Exam PHYSICAL EXAMINATION: HEENT: Head is atraumatic, normocephalic. Pupils equal, round. Neck is supple. There is no elevated jugular venous pressure. HEART EXAMINATION: Heart S1, S2 normal. No murmur or gallop heard. CHEST EXAMINATION: Lungs are clear to auscultation and precussion. No chest wall tenderness is noted on palpation or with deep breathing. ABDOMEN: Soft, nontender. Bowel sounds are heard. No organomegaly noted. EXTREMITIES: 2+ peripheral pulses with no evidence of peripheral edema and no calf tenderness noted. Left groin is ecchymotic, no hematoma, no bruit. NEUROLOGIC patient is awake, alert and oriented -3. . - Labs CBC & Chem 7: 04/18/18 05:46 04/18/18 05:46 Labs: Abnormal Lab Results - Last 24 Hours (Table) 04/17/18 04/17/18 04/18/18 Range/Units 17:28 21:09 05:46 RBC 3.50 L (3.80-5.40) m/uL Hgb 10.1 L (11.4-16.0) gm/dL Hct 30.9 L (34.0-46.0) % BUN (7-17) mg/dL Creatinine (0.52-1.04) mg/dL Glucose (74-99) mg/dL POC Glucose (mg/dL) 301 H 165 H (75-99) mg/dL 04/18/18 04/18/18 Range/Units 05:46 06:41 RBC (3.80-5.40) m/uL Hgb (11.4-16.0) gm/dL Hct (34.0-46.0) % BUN 29 H (7-17) mg/dL Creatinine 1.20 H (0.52-1.04) mg/dL Glucose 165 H (74-99) mg/dL POC Glucose (mg/dL) 169 H (75-99) mg/dL Microbiology - Last 24 Hours (Table) 04/13/18 18:15 Blood Culture - Preliminary Blood No Growth after 96 hours Assessment and Plan Plan: Assessment and plan #1 systolic congestive heart failure acute on chronic #2 COPD exacerbation #3 hypertension #4 diabetes Number 5 hyperlipidemia #6 paroxysmal atrial fibrillation #7 status post cardiac catheterization that did not reveal any significant obstructive coronary artery disease Plan From cardiology's perspective, patient may be able to be discharged home today. We will make her a follow-up appointment in the office post discharge. Eliquis will be resumed. We will discontinue the Cardizem as the patient has cardiomyopathy, continue Eliquis, Lipitor, Coreg, lisinopril, Lasix, and add Aldactone to the medication regime. DNP note has been reviewed, I agree with a documented findings and plan of care. Patient was seen and examined.
[2018-04-18] MEDS ORDERED: SPIRONOLACTONE 25 MG TAB PO SCH (15:30)
--- NOTE | 2018-04-18 21:19 | DS ---
DISCHARGE SUMMARY FINAL DIAGNOSES: 1. Shortness of breath with possibly congestive heart failure acute exacerbation , acute on chronic systolic dysfunction, ejection fraction 30-35% with cardiomyopathy, improved with Lasix. 2. Status post cardiac catheterization showing no coronary artery disease. 3. Possible cardiomyopathy, nonischemic. 4. Acute renal failure. Possible diuretic induced, improved with discontinue diuretics. 5. Chronic obstructive pulmonary disease, moderate. 6. Mitral valve regurgitation. 7. Paroxysmal atrial ablation. 8. Cerebrovascular incident. 9. History of carotid artery disease. 10.Right eye blindness secondary to cerebrovascular incident. 11.History of nicotine dependence. 12.Diabetes type 2. 13.History of anxiety, generalized anxiety disorder. 14.Nonobstructive right renal calculus. 15.Hypertension. DISCHARGE DISPOSITION: The patient is being discharged in stable condition. Guarded prognosis. Total time taken: 35 minutes. HISTORY OF PRESENT ILLNESS: This is a 72 -year-old woman with multiple medical illness, was admitted with shortness of breath. The patient treated with diuretics. Patient improved significantly. The patient also had mild renal failure. Patient also had a cardiac cath which showed normal coronary arteries. Multiple consultants saw the patient. The patient improved significantly. On exam, vitals are stable. Cardiovascular: S1, S2. Abdomen soft. Nervous system: No focal deficits. DISCHARGE ADVICE AND MEDICATIONS: 1. Diet is cardiac otherwise no added salt. 2. Fluid restriction 1500 mL. 3. Activity limited until followup. 4. Follow up with Dr. Kang in 2-3 days. 5. CBC, BMP. 6. Follow with Dr. Ley and Dr. Tomas as recommended. MEDICATIONS: 1. Albuterol 1 p.o. every 6 hours p.r.n. 2. Xanax 0.5 t.i.d. p.r.n. 3. Eliquis 5 mg p.o. b.i.d. 4. Lipitor 10 mg q.h.s. 5. Coreg 3.125 mg p.o. b.i.d. 6. Cardizem 60 mg p.o. t.i.d. 7. Dorzolamide timolol eye drops 10 mL 1 drop right eye. 8. Fluoxetine 10 mg p.o. daily. 9. Lasix 20 mg p.o. daily to be adjusted in the outpatient setting. 10.Glyburide metformin 1 tab p.o. b.i.d. 11.Albuterol and Atrovent updraft q.i.d. and p.r.n. 12.Cephulac p.r.n. 13.Zestril 2.5 mg p.o. daily. 14.Klor-Con 10 mEq p.o. t.i.d. 15.Januvia 100 mg p.o. daily. 16.Spiriva 1 puff daily. Once again the patient is being discharged in stable condition with guarded prognosis. MMODL / IJN: [id number] / MTDD
[2018-04-19] MEDS ORDERED: metFORMIN 500 MG TAB PO SCH (17:30)
== END 2018-04-18 15:39 | disposition home or self-care (01) | DRG 292 ==
LOC: EC 17:31 → 4MS4W 20:39 → 6SEL 04-17 15:30
PROVIDERS: ADMIT Internal Medicine; ATTEND Internal Medicine
DX: I11.0 Hypertensive heart disease with heart failure (principal); J44.1 Chronic obstructive pulmonary disease with (acute) exacerbation; J98.11 Atelectasis; N17.9 Acute kidney failure, unspecified; I50.23 Acute on chronic systolic (congestive) heart failure; E11.65 Type 2 diabetes mellitus with hyperglycemia; E78.5 Hyperlipidemia, unspecified; F17.200 Nicotine dependence, unspecified, uncomplicated; F41.1 Generalized anxiety disorder; I69.398 Other sequelae of cerebral infarction; H54.61 Unqualified visual loss, right eye, normal vision left eye; I08.3 Combined rheumatic disorders of mitral, aortic and tricuspid valves; I42.9 Cardiomyopathy, unspecified; I44.7 Left bundle-branch block, unspecified; I48.2 Chronic atrial fibrillation; N20.0 Calculus of kidney; T38.0X5A Adverse effect of glucocorticoids and synthetic analogues, initial encounter; T50.2X5A Adverse effect of carbonic-anhydrase inhibitors, benzothiadiazides and other diuretics, initial encounter; Z79.01 Long term (current) use of anticoagulants; Z79.84 Long term (current) use of oral hypoglycemic drugs; Z79.899 Other long term (current) drug therapy; Z87.442 Personal history of urinary calculi; Z90.710 Acquired absence of both cervix and uterus; Z96.653 Presence of artificial knee joint, bilateral; Z98.42 Cataract extraction status, left eye; Z98.41 Cataract extraction status, right eye
CPT/HCPCS: 36415; 71045; 71046; 80048; 80053; 82550; 82553; 83036; 83880; 84484; 85025; 85610; 85730; 87040; 93005; 93306; 93458; 94640; 94760; 96374; 99285

== ENCOUNTER 2020-06-04 05:53 | Inpatient (IN) | payer MEDICARE ==
[2020-06-04] MEDS ORDERED: SODIUM CHLORIDE 0.9% 500 ML 500 ML IV SCH (06:15)
--- NOTE | 2020-06-04 06:15 | ED ---
SOB HPI - General Stated Complaint: DANIELLE Time Seen by Provider: 06/04/20 06:02 Source: patient, EMS Mode of arrival: EMS - History of Present Illness Initial Comments: Patient is a 74-year-old female with known cardiac history history of COPD not on oxygen at home. Patient is brought to the ER today by ambulance for evaluation of a sudden onset of shortness of breath and wheezing. According to the EMS the patient had performed 3 DuoNeb treatments within the 30 minutes prior to their arrival, upon their arrival the patient was tachypneic tachycardic hypoxic. She was given 2 additional DuoNeb's in route to the hospital with some improvement in her breathing. Patient denies any chest pain, she reports palpitations. She is uncertain if she has a history of atrial fibrillation. - Related Data Home Medications Medication Instructions Recorded Confirmed ALPRAZolam [Xanax] 0.5 mg PO TID PRN 11/04/17 04/13/18 Albuterol Sulfate [Proventil Hfa] 1 - 2 puff INHALATION RT-Q4H PRN 11/04/17 04/13/18 Potassium Chloride [Klor-Con 10] 10 meq PO TID 11/04/17 04/13/18 Tiotropium 18 Mcg/Puff [Spiriva] 1 cap INHALATION RT-DAILY 11/04/17 04/13/18 glyBURIDE/METFORMIN HCL 1 tab PO BID 11/04/17 04/13/18 [Glucovance 5-500 mg] sitaGLIPtin [Januvia] 100 mg PO DAILY 11/04/17 04/13/18 Atorvastatin [Lipitor] 10 mg PO HS 04/05/18 04/13/18 Ipratropium-Albuterol Nebulize 3 ml INHALATION RT-TID 04/05/18 04/13/18 [Duoneb 0.5 mg-3 mg/3 ml Soln] Previous Rx's Medication Instructions Recorded Apixaban [Eliquis] 5 mg PO BID tab 11/10/17 FLUoxetine HCL 10 mg PO DAILY #30 tablet 11/22/17 Dorzolamide-Timol 2.23%/0.68% 1 drops RIGHT EYE BID ml 04/07/18 [Cosopt] Lactulose [Cephulac] 30 gm PO BID PRN #200 ml 04/07/18 Carvedilol [Coreg] 3.125 mg PO BID-W/MEALS #60 tab 04/18/18 Furosemide [Lasix] 20 mg PO DAILY #30 tab 04/18/18 Lisinopril [Zestril] 2.5 mg PO DAILY #30 tab 04/18/18 Spironolactone [Aldactone] 25 mg PO DAILY #30 tab 04/18/18 Allergies Allergy/AdvReac Type Severity Reaction Status Date / Time egg Allergy Itching Verified 04/13/18 18:02 Influenza Virus Vaccines Allergy Unknown Verified 04/13/18 18:02 Review of Systems ROS Statement: Those systems with pertinent positive or pertinent negative responses have been documented in the HPI. ROS Other: All systems not noted in ROS Statement are negative. 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 History of Any Multi-Drug Resistant Organisms: None Reported Past Surgical History: Hysterectomy, Orthopedic Surgery, Tonsillectomy Additional Past Surgical History / Comment(s): Right knee arthroplasty, bilateral cataract surgery, hysterectomy, tonsillectomy Past Anesthesia/Blood Transfusion Reactions: No Reported Reaction Past Psychological History: Anxiety Smoking Status: Former smoker Past Alcohol Use History: None Reported Past Drug Use History: None Reported - Past Family History Mother Family Medical History: Dementia Additional Family Medical History / Comment(s): AGE 99 Father Family Medical History: No Reported History Additional Family Medical History / Comment(s): WAS HEALTHY AT ALMOST AGE 99 General Exam - General Exam Comments Initial Comments: Physical Exam GENERAL: Chronically ill-appearing very thin elderly female in acute respiratory distress HENT: Normocephalic, Atraumatic. EYES: PERRL, EOMI PULMONARY: Tachypnea CARDIOVASCULAR: Irregularly irregular tachycardic ABDOMEN: Soft and nontender with normal bowel sounds. SKIN: Pale, cool, diaphoretic : Deferred NEUROLOGIC: Patient is alert and oriented x3. Moving all extremities spontaneously MUSCULOSKELETAL: Normal extremities with adequate strength and full range of motion. No lower extremity swelling or edema. No calf tenderness. PSYCHIATRIC: Appropriate situational anxiety Course Vital Signs 06/04/20 06/04/20 06/04/20 06:01 06:11 06:53 Pulse Rate 170 H 120 H Respiratory 24 20 23 Rate Blood Pressure 140/90 127/99 O2 Sat by Pulse 87 L 99 Oximetry Medical Decision Making - Medical Decision Making Patient was seen and evaluated immediately upon arrival the emergency department, patient arrived in extremist, she is hypoxic tachycardic to the 170s agitated Patient was moved from exam room to resuscitation bay, IVs were established respiratory therapy was notified patient was placed on BiPAP Initial EKG was obtained which is a wide complex tachycardia with a rate of 172 Previous EKG was reviewed patient does have a history of left bundle-branch block Once on BiPAP patient's heart rate improving oxygenation improving, patient much more comfortable repeat EKG was obtained and was A. fib with RVR which is new for this patient Labs were obtained results of multiple abnormalities including a lactic acid of 5.1, this is likely reactive to the significant amount of albuterol the patient received prior to arrival as well as the rate related hypoperfusion due to profound tachycardia Patient much more comfortable on BiPAP chest x-ray does show some interstitial opacities this is likely a component of flash pulmonary edema again related to the tachycardia Patient care was discussed with Gloria the mid-level provider for the [facility] team who agrees with the plan for admission for new onset A. fib with RVR, specifically failure requiring BiPAP, lactic acidosis Plan for admission was discussed with patient and son at bedside. Patient's son confirm the patient is DO NOT RESUSCITATE would not want intubation or CPR is agreeable to continuing BiPAP and receiving medications - Lab Data Result diagrams: 06/04/20 06:08 06/04/20 06:08 Lab Results 06/04/20 06/04/20 06/04/20 Range/Units 06:08 06:08 06:08 WBC 9.7 (3.8-10.6) k/uL RBC 4.85 (3.80-5.40) m/uL Hgb 14.9 (11.4-16.0) gm/dL Hct 46.2 H (34.0-46.0) % MCV 95.1 (80.0-100.0) fL MCH 30.7 (25.0-35.0) pg MCHC 32.3 (31.0-37.0) g/dL RDW 13.7 (11.5-15.5) % Plt Count 226 (150-450) k/uL Neutrophils % 54 % Lymphocytes % 36 % Monocytes % 3 % Eosinophils % 6 % Basophils % 1 % Neutrophils # 5.3 (1.3-7.7) k/uL Lymphocytes # 3.5 (1.0-4.8) k/uL Monocytes # 0.2 (0-1.0) k/uL Eosinophils # 0.5 (0-0.7) k/uL Basophils # 0.1 (0-0.2) k/uL Hypochromasia Slight PT 11.7 (9.0-12.0) sec INR 1.2 H (<1.2) APTT 24.5 (22.0-30.0) sec Sodium 134 L (137-145) mmol/L Potassium 4.6 (3.5-5.1) mmol/L Chloride 104 (98-107) mmol/L Carbon Dioxide 16 L (22-30) mmol/L Anion Gap 14 mmol/L BUN 20 H (7-17) mg/dL Creatinine 1.24 H (0.52-1.04) mg/dL Est GFR (CKD-EPI)AfAm 49 (>60 ml/min/1.73 sqM) Est GFR (CKD-EPI)NonAf 42 (>60 ml/min/1.73 sqM) Glucose 294 H (74-99) mg/dL Plasma Lactic Acid Eloy (0.7-2.0) mmol/L Calcium 8.9 (8.4-10.2) mg/dL Magnesium 1.5 L (1.6-2.3) mg/dL Total Bilirubin 0.7 (0.2-1.3) mg/dL AST 62 H (14-36) U/L ALT 44 H (4-34) U/L Alkaline Phosphatase 65 (38-126) U/L Troponin I (0.000-0.034) ng/mL Total Protein 6.2 L (6.3-8.2) g/dL Albumin 3.7 (3.5-5.0) g/dL 06/04/20 06/04/20 Range/Units 06:08 06:08 WBC (3.8-10.6) k/uL RBC (3.80-5.40) m/uL Hgb (11.4-16.0) gm/dL Hct (34.0-46.0) % MCV (80.0-100.0) fL MCH (25.0-35.0) pg MCHC (31.0-37.0) g/dL RDW (11.5-15.5) % Plt Count (150-450) k/uL Neutrophils % % Lymphocytes % % Monocytes % % Eosinophils % % Basophils % % Neutrophils # (1.3-7.7) k/uL Lymphocytes # (1.0-4.8) k/uL Monocytes # (0-1.0) k/uL Eosinophils # (0-0.7) k/uL Basophils # (0-0.2) k/uL Hypochromasia PT (9.0-12.0) sec INR (<1.2) APTT (22.0-30.0) sec Sodium (137-145) mmol/L Potassium (3.5-5.1) mmol/L Chloride (98-107) mmol/L Carbon Dioxide (22-30) mmol/L Anion Gap mmol/L BUN (7-17) mg/dL Creatinine (0.52-1.04) mg/dL Est GFR (CKD-EPI)AfAm (>60 ml/min/1.73 sqM) Est GFR (CKD-EPI)NonAf (>60 ml/min/1.73 sqM) Glucose (74-99) mg/dL Plasma Lactic Acid Eloy 5.1 H* (0.7-2.0) mmol/L Calcium (8.4-10.2) mg/dL Magnesium (1.6-2.3) mg/dL Total Bilirubin (0.2-1.3) mg/dL AST (14-36) U/L ALT (4-34) U/L Alkaline Phosphatase (38-126) U/L Troponin I 0.014 (0.000-0.034) ng/mL Total Protein (6.3-8.2) g/dL Albumin (3.5-5.0) g/dL - EKG Data -: EKG Interpreted by Me EKG Comments: Initial EKG was obtained due to profound tachycardia, initial EKG obtained at 6 AM, rate is 172 rhythm is a wide complex irregular tachycardia QRS is 126, QTC is 427 no obvious ischemia. A repeat EKG was obtained when the patient's heart rate decreased, repeat EKG was obtained at 6:09 AM, rate is 123 rhythm is a wide-complex irregularly irregular rhythm consistent with an atrial fibrillation with RVR and a left bundle branch block again no ST elevations or depressions EKGs were compared to previous from 2018 patient does have a existing left bundle branch block Critical Care Time Critical Care Time: Yes Total Critical Care Time: 30 Critical Care Time: Critical care time was exclusive of separately billable procedures and treating other patients and teaching time. Critical care was necessary to treat or prevent imminent or life-threatening deterioration. Given the critical condition in which the patient arrived, the patient was immediately assessed by myself and the nurse, and cardiac monitoring initiated due to the potential for rapid decompensation of the patient's clinical condition. During the course of the patients stay, I spent a considerable amount of time at the bedside performing serial re-evaluations of the patient's hemodynamic and clinical status because of the recognized potential threat to life or limb in this condition. I then had a chance to review not only all of the available current laboratory and radiographic studies obtained today, but I also reviewed old records available to me at the time. Additionally, any ancillary information available including adult secondary education instructor records were reviewed. Sequential vital signs were obtained. Disposition Clinical Impression: Acute exacerbation of chronic obstructive airways disease, Dyspnea, Congestive heart failure, Atrial fibrillation with RVR, Lactic acid acidosis, Flash pulmonary edema Disposition: ADMITTED IP TO THIS HOSP Condition: Serious Referrals: Asa Kang DO [Primary Care Provider] - 1-2 days
[2020-06-04 06:18] LABS: Basophils # (A) 0.1 k/uL (0-0.2); Basophils % (A) 1 %; Eosinophils # (A) 0.5 k/uL (0-0.7); Eosinophils % (A) 6 %; HCT 46.2 % (34.0-46.0); HGB 14.9 gm/dL (11.4-16.0); Hypochromasia Slight; Lymphocytes # (A) 3.5 k/uL (1.0-4.8); Lymphocytes % (A) 36 %; MCH 30.7 pg (25.0-35.0); MCHC 32.3 g/dL (31.0-37.0); MCV 95.1 fL (80.0-100.0); Mean Platelet Volume 7.5; Monocytes # (A) 0.2 k/uL (0-1.0); Monocytes % (A) 3 %; Neutrophils # (A) 5.3 k/uL (1.3-7.7); Neutrophils % (A) 54 %; Platelet Count 226 k/uL (150-450); RBC 4.85 m/uL (3.80-5.40); RDW 13.7 % (11.5-15.5); WBC 9.7 k/uL (3.8-10.6)
[2020-06-04 06:27] LABS: Albumin 3.7 g/dL (3.5-5.0); Calcium 8.9 mg/dL (8.4-10.2); Magnesium 1.5 mg/dL (1.6-2.3); Potassium 4.6 mmol/L (3.5-5.1); Total Bilirubin 0.7 mg/dL (0.2-1.3); Total Protein 6.2 g/dL (6.3-8.2)
[2020-06-04 06:28] LABS: INR 1.2 (<1.2)
[2020-06-04 06:29] LABS: Partial Thromboplastin Time 24.5 sec (22.0-30.0); Prothrombin Time 11.7 sec (9.0-12.0)
[2020-06-04] MEDS ORDERED: SODIUM CHLORIDE 0.9% 1,000 ML IV SCH (06:30)
--- NOTE | 2020-06-04 06:35 | XR ---
EXAM: XR Chest, 1 View CLINICAL HISTORY: ITS.REASON XR Reason: Fever TECHNIQUE: Frontal view of the chest. COMPARISON: 05/09/2018 FINDINGS: Lungs: No consolidation or mass. Increased interstitial opacities. Pleural space: Mild bilateral pleural effusions. Heart: No cardiomegaly. Bones/joints: No acute findings. IMPRESSION: Increased interstitial opacities, correlate with infection versus edema. Mild bilateral pleural effusions.
[2020-06-04] MEDS ORDERED: HEPARIN SODIUM,PORCINE 5,000 UNIT/ML 1 ML VIAL IV PRN (06:50)
[2020-06-04] MEDS ORDERED: HEPARIN SODIUM,PORCINE 5,000 UNIT/ML 1 ML VIAL IV ONE (06:50)
[2020-06-04] MEDS ORDERED: FUROSEMIDE 10 MG/ML 4 ML VIAL IV SCH (07:00)
[2020-06-04] MEDS ORDERED: HEPARIN SOD,PORK IN 0.45% NACL 25,000 UNIT in 0.45% NACL 1 250ML.BAG IV SCH (07:00)
[2020-06-04 07:08] LABS: VBG PH 7.19 (7.31-7.41)
[2020-06-04 08:54] LABS: Appearance,Urine Clear (Clear); Bilirubin,Urine Negative (Negative); Blood,Urine Negative (Negative); Color,Urine Colorless; Glucose,Urine (UA) Negative (Negative); Ketones,Urine Negative (Negative); Leukocyte Esterase,Urine Negative (Negative); Nitrite,Urine Negative (Negative); PH, Urine 5.5 (5.0-8.0); Protein,Urine Negative (Negative); Specific Gravity,Urine 1.006 (1.001-1.035); Urobilinogen,Urine <2.0 mg/dL (<2.0)
[2020-06-04] MEDS ORDERED: Magnesium Replacement Protocol 1 EACH MISC MISCELLANE PRN (15:19)
[2020-06-04] MEDS ORDERED: IPRATROPIUM-ALBUTEROL 3 ML NEB INHALATION PRN (15:32)
--- NOTE | 2020-06-04 15:35 | P.PN ---
Objective - Vital Signs Vital signs: Vital Signs Temp 97.1 F L 06/04/20 11:35 Pulse 96 06/04/20 13:33 Resp 18 06/04/20 13:33 BP 131/78 06/04/20 13:33 Pulse Ox 94 L 06/04/20 13:33 Intake & Output 06/03/20 06/04/20 06/04/20 18:59 06:59 18:59 Weight 49.895 kg 49.895 kg - Labs CBC & Chem 7: 06/04/20 06:08 06/04/20 06:08 Labs: Abnormal Lab Results - Last 24 Hours (Table) 06/04/20 06/04/20 06/04/20 Range/Units 06:07 06:08 06:08 Hct 46.2 H (34.0-46.0) % INR 1.2 H (<1.2) APTT (22.0-30.0) sec VBG pH 7.19 L* (7.31-7.41) VBG HCO3 18 L (24-28) mmol/L Sodium (137-145) mmol/L Carbon Dioxide (22-30) mmol/L BUN (7-17) mg/dL Creatinine (0.52-1.04) mg/dL Glucose (74-99) mg/dL Plasma Lactic Acid Eloy (0.7-2.0) mmol/L Magnesium (1.6-2.3) mg/dL AST (14-36) U/L ALT (4-34) U/L Troponin I (0.000-0.034) ng/mL Total Protein (6.3-8.2) g/dL 06/04/20 06/04/20 06/04/20 Range/Units 06:08 06:08 08:58 Hct (34.0-46.0) % INR (<1.2) APTT (22.0-30.0) sec VBG pH (7.31-7.41) VBG HCO3 (24-28) mmol/L Sodium 134 L (137-145) mmol/L Carbon Dioxide 16 L (22-30) mmol/L BUN 20 H (7-17) mg/dL Creatinine 1.24 H (0.52-1.04) mg/dL Glucose 294 H (74-99) mg/dL Plasma Lactic Acid Eloy 5.1 H* (0.7-2.0) mmol/L Magnesium 1.5 L (1.6-2.3) mg/dL AST 62 H (14-36) U/L ALT 44 H (4-34) U/L Troponin I 0.070 H* (0.000-0.034) ng/mL Total Protein 6.2 L (6.3-8.2) g/dL 06/04/20 06/04/20 Range/Units 13:10 13:10 Hct (34.0-46.0) % INR (<1.2) APTT 57.9 H (22.0-30.0) sec VBG pH (7.31-7.41) VBG HCO3 (24-28) mmol/L Sodium (137-145) mmol/L Carbon Dioxide (22-30) mmol/L BUN (7-17) mg/dL Creatinine (0.52-1.04) mg/dL Glucose (74-99) mg/dL Plasma Lactic Acid Eloy (0.7-2.0) mmol/L Magnesium (1.6-2.3) mg/dL AST (14-36) U/L ALT (4-34) U/L Troponin I 0.101 H* (0.000-0.034) ng/mL Total Protein (6.3-8.2) g/dL
--- NOTE | 2020-06-04 15:46 | P.HPIM ---
History of Present Illness Patient is a very pleasant 74-year-old female came in with compensative shortness of breath patient does have history of COPD patient has a significant wheezing on exam yesterday patient was started on bilevel ventilation because of respiratory acidosis with highly elevated pCO2 of 50 and the pH of 7.1. Patient denied orthopnea paroxysmal nocturnal dyspnea but. Chest x-ray is concerning for pulmonary edema patient has very minimally elevated JVD patient had EF of around 30-35% in the past in 2018 will obtain repeat echocardiogram I'll also obtain a BNP patient doesn't have any significant pedal edema patient came in with atrial fibrillation with rapid and regular rate which improved with the improvement of hypoxemia. Patient uses Coreg at home which will be resumed patient is on anti-correlation with Eliquis which will be resumed. Patient has minimally elevated troponin which may be related to hypoxemia although it went up from normal to 0.07-0.1. Cardiology was consulted patient is admitted with pulmonary will be consulted as well. Patient is comparing of cough with scant sputum production patient has some tracheal bronchitis for which patient was started on doxycycline patient does have elevated lactic acid which is a secondary to metformin she was on rather than sepsis which I do not believe she has at this time. No evidence of typical pneumonia on the chest x-ray, no fever no leukocytosis. Review of Systems REVIEW OF SYSTEMS: CONSTITUTIONAL: No fever, no malaise, no fatigue. HEENT: No recent visual problems or hearing problems. Denied any sore throat. CARDIOVASCULAR: No chest pain, orthopnea, PND, no palpitations, no syncope. PULMONARY: no hemoptysis. GASTROINTESTINAL: No diarrhea, no nausea, no vomiting, no abdominal pain. NEUROLOGICAL: No headaches, no weakness, no numbness. HEMATOLOGICAL: Denies any bleeding or petechiae. GENITOURINARY: Denies any burning micturition, frequency, or urgency. MUSCULOSKELETAL/RHEUMATOLOGICAL: Denies any joint pain, swelling, or any muscle pain. ENDOCRINE: Denies any polyuria or polydipsia. The rest of the 14-point review of systems is negative. Past Medical History Past Medical History: Atrial Fibrillation, Asthma, Cancer, Heart Failure, COPD, CVA/TIA, Diabetes Mellitus, Eye Disorder, Hyperlipidemia, Hypertension, Osteoarthritis (OA), Renal Disease, Respiratory Disorder, Vascular Disorder Additional Past Medical History / Comment(s): Paroxysmal Afib, cardiomyopathy, mitral valve regurgitation, NIDDM type II, neuropathy bilateral hands/feet, CVA with R eye blindness, severe shingelles 2009 which affected L arm/back of neck, skin cancer with removal, R sided nephrolithiasis-nonobstructing per past medical record/pt unaware, chronic constipation, degenerative joint disease. History of Any Multi-Drug Resistant Organisms: None Reported Past Surgical History: Heart Catheterization, Hysterectomy, Orthopedic Surgery, Tonsillectomy Additional Past Surgical History / Comment(s): Right knee arthroplasty, bilateral cataract/lens implant surgery, skin cancer removed under R eye. Past Anesthesia/Blood Transfusion Reactions: No Reported Reaction Smoking Status: Former smoker - Past Family History Mother Family Medical History: Dementia Additional Family Medical History / Comment(s): AGE 99 Father Family Medical History: No Reported History Additional Family Medical History / Comment(s): WAS HEALTHY AT ALMOST AGE 99 Medications and Allergies Home Medications Medication Instructions Recorded Confirmed Type ALPRAZolam [Xanax] 0.5 mg PO TID PRN 11/04/17 06/04/20 History Albuterol Sulfate [Proventil Hfa] 1 - 2 puff INHALATION RT-Q4H PRN 11/04/17 06/04/20 History Potassium Chloride [Klor-Con 10] 10 meq PO TID 11/04/17 06/04/20 History Tiotropium 18 Mcg/Puff [Spiriva] 1 cap INHALATION RT-DAILY 11/04/17 06/04/20 History glyBURIDE/METFORMIN HCL 2 tab PO QAM 11/04/17 06/04/20 History [Glucovance 5-500 mg] sitaGLIPtin [Januvia] 100 mg PO DAILY 11/04/17 06/04/20 History Apixaban [Eliquis] 5 mg PO BID tab 11/10/17 06/04/20 Rx FLUoxetine HCL 10 mg PO DAILY #30 tablet 11/22/17 06/04/20 Rx Carvedilol [Coreg] 3.125 mg PO BID-W/MEALS #60 tab 04/18/18 06/04/20 Rx Furosemide [Lasix] 20 mg PO DAILY #30 tab 04/18/18 06/04/20 Rx Lisinopril [Zestril] 2.5 mg PO DAILY #30 tab 04/18/18 06/04/20 Rx Spironolactone [Aldactone] 25 mg PO DAILY #30 tab 04/18/18 06/04/20 Rx Atorvastatin [Lipitor] 20 mg PO HS 06/04/20 06/04/20 History Dorzolamide-Timol 2.23%/0.68% 1 drop RIGHT EYE BID 06/04/20 06/04/20 History [Cosopt] glyBURIDE/METFORMIN HCL 1 tab PO HS 06/04/20 06/04/20 History [glyBURIDE/METFORMIN HCL 5-500 mg] Allergies Allergy/AdvReac Type Severity Reaction Status Date / Time egg Allergy Itching Verified 06/04/20 08:59 Physical Exam Vitals: Vital Signs Temp Pulse Resp BP Pulse Ox 06/04/20 13:33 96 18 131/78 94 L 06/04/20 11:35 97.1 F L 93 18 120/76 99 06/04/20 11:19 101 H 18 123/81 99 06/04/20 10:48 101 H 18 123/81 99 06/04/20 08:43 101 H 19 108/71 99 06/04/20 06:58 96.7 F L 109 H 26 H 134/90 99 06/04/20 06:53 23 06/04/20 06:11 120 H 20 127/99 99 06/04/20 06:01 170 H 24 140/90 87 L Intake and Output 06/04/20 06/04/20 06/04/20 06:59 14:59 22:59 Other: Weight 49.895 kg 49.895 kg PHYSICAL EXAMINATION: GENERAL: The patient is alert and oriented x3, not in any acute distress. Well developed, well nourished. HEENT: Pupils are round and equally reacting to light. EOMI. No scleral icterus. No conjunctival pallor. Normocephalic, atraumatic. No pharyngeal erythema. No thyromegaly. CARDIOVASCULAR: S1 and S2 present. No murmurs, rubs, or gallops. Very minimal elevation of JVD just 1 cm above the clavicle PULMONARY: Significantly decreased air entry into bilateral lung lanza no wheezing was appreciated ABDOMEN: Soft, nontender, nondistended, normoactive bowel sounds. No palpable organomegaly. MUSCULOSKELETAL: No joint swelling or deformity. EXTREMITIES: No cyanosis, clubbing, or pedal edema. NEUROLOGICAL: Gross neurological examination did not reveal any focal deficits. SKIN: No rashes. Results CBC & Chem 7: 06/04/20 06:08 06/04/20 06:08 Labs: Abnormal Lab Results - Last 24 Hours (Table) 06/04/20 06/04/20 06/04/20 Range/Units 06:07 06:08 06:08 Hct 46.2 H (34.0-46.0) % INR 1.2 H (<1.2) APTT (22.0-30.0) sec VBG pH 7.19 L* (7.31-7.41) VBG HCO3 18 L (24-28) mmol/L Sodium (137-145) mmol/L Carbon Dioxide (22-30) mmol/L BUN (7-17) mg/dL Creatinine (0.52-1.04) mg/dL Glucose (74-99) mg/dL Plasma Lactic Acid Eloy (0.7-2.0) mmol/L Magnesium (1.6-2.3) mg/dL AST (14-36) U/L ALT (4-34) U/L Troponin I (0.000-0.034) ng/mL Total Protein (6.3-8.2) g/dL 06/04/20 06/04/20 06/04/20 Range/Units 06:08 06:08 08:58 Hct (34.0-46.0) % INR (<1.2) APTT (22.0-30.0) sec VBG pH (7.31-7.41) VBG HCO3 (24-28) mmol/L Sodium 134 L (137-145) mmol/L Carbon Dioxide 16 L (22-30) mmol/L BUN 20 H (7-17) mg/dL Creatinine 1.24 H (0.52-1.04) mg/dL Glucose 294 H (74-99) mg/dL Plasma Lactic Acid Eloy 5.1 H* (0.7-2.0) mmol/L Magnesium 1.5 L (1.6-2.3) mg/dL AST 62 H (14-36) U/L ALT 44 H (4-34) U/L Troponin I 0.070 H* (0.000-0.034) ng/mL Total Protein 6.2 L (6.3-8.2) g/dL 06/04/20 06/04/20 Range/Units 13:10 13:10 Hct (34.0-46.0) % INR (<1.2) APTT 57.9 H (22.0-30.0) sec VBG pH (7.31-7.41) VBG HCO3 (24-28) mmol/L Sodium (137-145) mmol/L Carbon Dioxide (22-30) mmol/L BUN (7-17) mg/dL Creatinine (0.52-1.04) mg/dL Glucose (74-99) mg/dL Plasma Lactic Acid Eloy (0.7-2.0) mmol/L Magnesium (1.6-2.3) mg/dL AST (14-36) U/L ALT (4-34) U/L Troponin I 0.101 H* (0.000-0.034) ng/mL Total Protein (6.3-8.2) g/dL Thrombosis Risk Factor Assmnt - Choose All That Apply Any of the Below Risk Factors Present?: Yes Each Factor Represents 1 point: Abnormal pulmonary function (COPD), Heart failure (<1month), Serious lung disease incl. pneumonia (< 1month) Other Risk Factors: Yes Each Risk Factor Represents 2 Points: Malignancy Each Risk Factor Represents 3 Points: Age 75 years or older Other congenital or acquired thrombophilia - If yes, enter type in comment: No Thrombosis Risk Factor Assessment Total Risk Factor Score: 8 Thrombosis Risk Factor Assessment Level: High Risk Assessment and Plan Plan: -Acute hypercapnic respiratory failure. Requiring bilevel ventilation noninvasive ventilation presently on 4 L of oxygen secondary to COPD exacerbation patient was started on systemic steroids inhalational treatments. There may be a competent of CHF as well for which I'll start her on Lasix. -Congestive heart failure chronic systolic dysfunction with EF of around 30-35% with acute exacerbation -COPD with acute exacerbation -Atrial fibrillation presently rate controlled rapid unclear rate on admission patient resumed on her home regimen of beta [place] and atrial fibrillation is presently precipitated by hypoxemia -Mildly elevated troponin: Secondary to hypoxemia and atrial fibrillation cardiology will evaluate the patient patient is on Eliquis which will be continued although acute non-ST elevation myocardial infarction cannot be ruled out -Hyponatremia probably hypervolemic hyponatremia expected to improve with Lasix -Chronic kidney disease stage III probably because of diabetes with us -Lactic acidosis secondary to metformin which will be held patient will be continued on Januvia and patient will be started on sliding scale insulin -Type 2 diabetes mellitus blood sugars are expected to go because of systemic steroids -GI prophylaxis with Pepcid -Acute respiratory acidosis and metabolic acidosis: Respiratory acidosis secondary to COPD metabolic acidosis secondary to lactic acidosis.
[2020-06-04] MEDS: IPRATROPIUM-ALBUTEROL 3 ML NEB INHALATION SCH ×2 (15:49→19:51)
[2020-06-04] MEDS: MAGNESIUM SULFATE-D5W PMX 1 GM in DEXTROSE/WATER 1 100ML.BAG IVPB SCH ×2 (16:11→17:18)
[2020-06-04] MEDS: predniSONE 20 MG TAB PO SCH (17:15)
[2020-06-04] MEDS: INSULIN ASPART (NovoLOG) 100 UNIT/ML VIAL SQ SCH ×2 (17:16→21:31)
[2020-06-04] MEDS: APIXABAN 5 MG TAB PO SCH (17:16)
[2020-06-04] MEDS: CARVEDILOL 3.125 MG TAB PO SCH (17:16)
[2020-06-04] MEDS: ALPRAZolam 0.5 MG TAB PO PRN (18:38)
[2020-06-04] MEDS: SYMBICORT 160-4.5 MCG INHALER INHALATION SCH (19:51)
[2020-06-04] MEDS ORDERED: FUROSEMIDE 10 MG/ML 2 ML VIAL IV SCH (21:00)
[2020-06-04] MEDS: ATORVASTATIN 20 MG TAB PO SCH (21:30)
[2020-06-04] MEDS: FAMOTIDINE 20 MG TAB PO SCH (21:30)
[2020-06-04] MEDS: FUROSEMIDE 10 MG/ML 4 ML VIAL IV SCH (21:31)
[2020-06-04] MEDS: DORZOLAMIDE-TIMOLOL 2.23%/0.68 10ML BTL RIGHT EYE SCH (21:31)
[2020-06-04] MEDS: DOXYCYCLINE 100 MG CAP PO SCH (21:31)
[2020-06-05 06:17] LABS: Glucose,Whole Blood 205 mg/dL (75-99)
[2020-06-05] MEDS: INSULIN ASPART (NovoLOG) 100 UNIT/ML VIAL SQ SCH ×4 (06:34→21:47)
[2020-06-05] MEDS: CARVEDILOL 3.125 MG TAB PO SCH ×2 (06:34→16:42)
[2020-06-05 07:24] LABS: Basophils % (A) 0 %; Eosinophils % (A) 0 %; HCT 41.6 % (34.0-46.0); HGB 13.7 gm/dL (11.4-16.0); Lymphocytes # (A) 1.3 k/uL (1.0-4.8); Lymphocytes % (A) 14 %; MCHC 32.9 g/dL (31.0-37.0); MCV 91.1 fL (80.0-100.0); Mean Platelet Volume 7.3; Monocytes # (A) 0.4 k/uL (0-1.0); Monocytes % (A) 5 %; Neutrophils # (A) 7.4 k/uL (1.3-7.7); Neutrophils % (A) 81 %; Platelet Count 189 k/uL (150-450); RBC 4.57 m/uL (3.80-5.40); RDW 13.8 % (11.5-15.5); WBC 9.2 k/uL (3.8-10.6)
[2020-06-05 07:35] LABS: Calcium 9.1 mg/dL (8.4-10.2); Magnesium 1.8 mg/dL (1.6-2.3)
[2020-06-05] MEDS: SYMBICORT 160-4.5 MCG INHALER INHALATION SCH ×2 (08:21→19:10)
[2020-06-05] MEDS: IPRATROPIUM-ALBUTEROL 3 ML NEB INHALATION SCH ×4 (08:21→19:26)
--- NOTE | 2020-06-05 09:00 | ECHOF ---
Referral Reason:CHF MEASUREMENTS -------- HEIGHT: 165.1 cm WEIGHT: 49.9 kg BP: RVIDd: 2.7 cm (< 3.3) IVSd: 0.8 cm (0.6 - 1.1) LVIDd: 4.7 cm (3.9 - 5.3) LVPWd: 0.8 cm (0.6 - 1.1) IVSs: 1.0 cm LVIDs: 4.1 cm LVPWs: 1.1 cm LA Diam: 0.9 cm (2.7 - 3.8) LAESV Index (A-L): 32.16 ml/m RAP: 5.00 mmHg RVSP: 10.02 mmHg FINDINGS -------- Atrial fibrillation. This was a technically difficult study with suboptimal views. The left ventricular size is normal. Left ventricular wall thickness is normal. There is severe g lobal hypokinesis of LV . Overall left ventricular systolic function is severely impaired with, an EF between 20 - 25 %. The right ventricle is normal in size. LA is midly dilated 29-33ml/m2. The right atrial size is normal. xx ml of Lumason was utilized for enhancement of images. The aortic valve is trileaflet, and appears structurally normal. No aortic stenosis or regurgitation. Mild mitral annular calcification present. Severe mitral regurgitation is present. The tricuspid valve appears structurally normal. Mild tricuspid regurgitation present. Right vent ricular systolic pressure is normal at < 35 mmHg. There is no pulmonic regurgitation present. The aortic root size is normal. IVC Not well visulized. There is a trivial pericardial effusion present. CONCLUSIONS -------- 1. This was a technically difficult study with suboptimal views. 2. There is severe global hypokinesis of LV . 3. Overall left ventricular systolic function is severely impaired with, an EF between 20 - 25 %. 4. LA is midly dilated 29-33ml/m2. 5. xx ml of Lumason was utilized for enhancement of images. 6. The aortic valve is trileaflet, and appears structurally normal. No aortic stenosis or regurgitati on. 7. Mild mitral annular calcification present. 8. Severe mitral regurgitation is present. 9. The tricuspid valve appears structurally normal. 10. Mild tricuspid regurgitation present. 11. There is no pulmonic regurgitation present. 12. The aortic root size is normal. 13. There is a trivial pericardial effusion present. BUDGET SPECIALIST: Clarita Dominguez RDCS
[2020-06-05] MEDS: SPIRONOLACTONE 25 MG TAB PO SCH (09:15)
[2020-06-05] MEDS: FAMOTIDINE 20 MG TAB PO SCH (09:15)
[2020-06-05] MEDS: LINAGLIPTIN 5 MG TABLET PO SCH (09:15)
[2020-06-05] MEDS: APIXABAN 5 MG TAB PO SCH ×2 (09:15→20:58)
[2020-06-05] MEDS: FUROSEMIDE 10 MG/ML 4 ML VIAL IV SCH (09:23)
[2020-06-05] MEDS: predniSONE 20 MG TAB PO SCH (09:24)
[2020-06-05] MEDS: FLUoxetine HCL 10 MG CAP PO SCH (09:25)
[2020-06-05] MEDS: DOXYCYCLINE 100 MG CAP PO SCH ×2 (09:25→20:58)
[2020-06-05] MEDS: DORZOLAMIDE-TIMOLOL 2.23%/0.68 10ML BTL RIGHT EYE SCH ×2 (09:43→20:58)
[2020-06-05] MEDS: ALPRAZolam 0.5 MG TAB PO PRN ×3 (09:58→22:51)
[2020-06-05 11:49] LABS: Glucose,Whole Blood 298 mg/dL (75-99)
--- NOTE | 2020-06-05 12:24 | P.PN ---
Subjective patient admitted for acute respiratory failure etiology being both COPD and CHF exacerbation both of which are improving patient is on aspirin on sym ptomatically does not even require that. patient was switched to oral steroids and oral Lasix will monitor her one more night possibility of discharge tomorrow. Patient had any of around 20-25% the repeat echocardiogram. Patient had elevated troponins etiology evaluated the patient patient is on Eliquis which is a resumed and continued. was on the bilevel ventilation yesterday Constitutional: Denied any fatigue denied any fever. Cardio vascular: denied any chest pain, palpitations Gastrointestinal denied any nausea vomiting Pulmonary: Denied any shortness of breath cough Neurologic denied any new focal deficits All inpatient medications were reviewed and appropriate changes in these medications as dictated in the interval history and assessment and plan. Objective - Vital Signs Vital signs: Vital Signs Temp 97.8 F 06/05/20 08:00 Pulse 88 06/05/20 12:10 Resp 18 06/05/20 08:00 BP 161/70 06/05/20 08:00 Pulse Ox 95 06/05/20 08:00 Intake & Output 06/04/20 06/05/20 06/05/20 18:59 06:59 18:59 Intake Total 200 240 Output Total 250 1600 275 Balance -50 -1360 -275 Weight 49.895 kg 54 kg Intake: IV 200 Magnesium Sulfate-D5w Pmx 200 1 gm In Dextrose/Water 1 100ml.bag @ 100 mls/hr IVPB Q1H [facility] Rx#: [id number] Oral 240 Output: Urine 250 1600 275 Other: Voiding Method Bedside Commode - Exam PHYSICAL EXAMINATION: GENERAL: The patient is alert and oriented x3, not in any acute distress. Well developed, well nourished. HEENT: Pupils are round and equally reacting to light. EOMI. No scleral icterus. No conjunctival pallor. Normocephalic, atraumatic. No pharyngeal erythema. No thyromegaly. CARDIOVASCULAR: S1 and S2 present. No murmurs, rubs, or gallops. PULMONARY: fairly good air entry into bilateral lung lanza. ABDOMEN: Soft, nontender, nondistended, normoactive bowel sounds. No palpable organomegaly. MUSCULOSKELETAL: No joint swelling or deformity. EXTREMITIES: No cyanosis, clubbing, or pedal edema. NEUROLOGICAL: Gross neurological examination did not reveal any focal deficits. SKIN: No rashes. - Labs CBC & Chem 7: 06/05/20 06:37 06/05/20 06:37 Labs: Abnormal Lab Results - Last 24 Hours (Table) 06/04/20 06/04/20 06/05/20 Range/Units 13:10 13:10 06:15 APTT 57.9 H (22.0-30.0) sec Sodium (137-145) mmol/L BUN (7-17) mg/dL Creatinine (0.52-1.04) mg/dL Glucose (74-99) mg/dL POC Glucose (mg/dL) 205 H (75-99) mg/dL Troponin I 0.101 H* (0.000-0.034) ng/mL 06/05/20 06/05/20 Range/Units 06:37 11:47 APTT (22.0-30.0) sec Sodium 135 L (137-145) mmol/L BUN 21 H (7-17) mg/dL Creatinine 1.09 H (0.52-1.04) mg/dL Glucose 201 H (74-99) mg/dL POC Glucose (mg/dL) 298 H (75-99) mg/dL Troponin I (0.000-0.034) ng/mL Microbiology - Last 24 Hours (Table) 06/04/20 06:46 Blood Culture - Preliminary Blood No Growth after 24 hours Assessment and Plan Plan: -Acute hypercapnic respiratory failure. Requiring bilevel ventilation noninvasive ventilation presently on 4 L of oxygen secondary to COPD exacerbation, patient is presently intubated his Parkinson continue on oral systemic steroids inhalational treatments. patient was treated for CHF exacerbation as well. -Congestive heart failure chronic systolic dysfunction with EF of around 20-25% previously of was 30-35% with acute exacerbation -COPD with acute exacerbation -Atrial fibrillation presently rate controlled rapid unclear rate on admission patient resumed on her home regimen of beta [place] and atrial fibrillation is presently precipitated by hypoxemia -Mildly elevated troponin: Secondary to hypoxemia and atrial fibrillation cardiology will evaluate the patient patient is on Eliquis which will be continued although acute non-ST elevation myocardial infarction cannot be ruled out -Hyponatremia probably hypervolemic hyponatremia improved with Lasix -Chronic kidney disease stage III 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
[2020-06-05 13:36] VITALS: BMI 19.8
--- NOTE | 2020-06-05 13:40 | P.CRDCN ---
History of Present Illness Consult date: 06/05/20 Requesting physician: Carol Bassett Consult reason: atrial fibrillation Chief complaint: Shortness of breath History of present illness: This is a 74-year-old female with history of emphysema, persistent atrial fibrillation, diabetes, COPD, prior CVA, chronic kidney disease, coronary artery disease, underwent cardiac catheterization in March 2018 which revealed mild to moderate coronary artery disease with 2+ mitral regurgitation. She follows with Dr. Aparicio in the office. She presented to the hospital on this admission with symptoms of progressively worsening shortness of breath. Her chest x-ray showed increased interstitial [place] with infection versus edema, mild bilateral effusions noted. Her first EKG on presentation here showed atrial fibrillation with a rapid ventricular response, subsequent EKG continued to show A. fib rate under better control in the low 100s. Echocardiogram with Doppler study revealed an ejection fraction of 20-25%, severe mitral regurgitation. White blood cell count 9.2, hemoglobin 13.7, platelet count 189. ABGs on arrival here pH 7.1, pCO2 50, HCO3 18. Troponin 0.014, 0.070, 0.101. Sodium 135, potassium 4.0, BUN 21, creatinine 1.0. Magnesium 1.5 on admission, 1.8 this morning. AST 62, ALT 44, BNP 4740. Past Medical History Past Medical History: Atrial Fibrillation, Asthma, Cancer, Heart Failure, COPD, CVA/TIA, Diabetes Mellitus, Eye Disorder, Hyperlipidemia, Hypertension, Ost eoarthritis (OA), Renal Disease, Respiratory Disorder, Vascular Disorder Additional Past Medical History / Comment(s): Paroxysmal Afib, cardiomyopathy, mitral valve regurgitation, NIDDM type II, neuropathy bilateral hands/feet, CVA with R eye blindness, severe shingelles 2010 which affected L arm/back of neck, skin cancer with removal, R sided nephrolithiasis-nonobstructing per past medical record/pt unaware, chronic constipation, degenerative joint disease. History of Any Multi-Drug Resistant Organisms: None Reported Past Surgical History: Heart Catheterization, Hysterectomy, Orthopedic Surgery, Tonsillectomy Additional Past Surgical History / Comment(s): Right knee arthroplasty, bilateral cataract/lens implant surgery, skin cancer removed under R eye. Past Anesthesia/Blood Transfusion Reactions: No Reported Reaction Smoking Status: Former smoker - Past Family History Mother Family Medical History: Dementia Additional Family Medical History / Comment(s): AGE 99 Father Family Medical History: No Reported History Additional Family Medical History / Comment(s): WAS HEALTHY AT ALMOST AGE 9 9 Medications and Allergies Home Medications Medication Instructions Recorded Confirmed Type ALPRAZolam [Xanax] 0.5 mg PO TID PRN 11/04/17 06/04/20 History Albuterol Sulfate [Proventil Hfa] 1 - 2 puff INHALATION RT-Q4H PRN 11/04/17 06/04/20 History Potassium Chloride [Klor-Con 10] 10 meq PO TID 11/04/17 06/04/20 History Tiotropium 18 Mcg/Puff [Spiriva] 1 cap INHALATION RT-DAILY 11/04/17 06/04/20 History glyBURIDE/METFORMIN HCL 2 tab PO QAM 11/04/17 06/04/20 History [Glucovance 5-500 mg] sitaGLIPtin [Januvia] 100 mg PO DAILY 11/04/17 06/04/20 History Apixaban [Eliquis] 5 mg PO BID tab 11/10/17 06/04/20 Rx FLUoxetine HCL 10 mg PO DAILY #30 tablet 11/22/17 06/04/20 Rx Carvedilol [Coreg] 3.125 mg PO BID-W/MEALS #60 tab 04/18/18 06/04/20 Rx Furosemide [Lasix] 20 mg PO DAILY #30 tab 04/18/18 06/04/20 Rx Lisinopril [Zestril] 2.5 mg PO DAILY #30 tab 04/18/18 06/04/20 Rx Spironolactone [Aldactone] 25 mg PO DAILY #30 tab 04/18/18 06/04/20 Rx Atorvastatin [Lipitor] 20 mg PO HS 06/04/20 06/04/20 History Dorzolamide-Timol 2.23%/0.68% 1 drop RIGHT EYE BID 06/04/20 06/04/20 History [Cosopt] glyBURIDE/METFORMIN HCL 1 tab PO HS 06/04/20 06/04/20 History [glyBURIDE/METFORMIN HCL 5-500 mg] Allergies Allergy/AdvReac Type Severity Reaction Status Date / Time egg Allergy Itching Verified 06/04/20 08:59 Physical Exam Vitals: Vital Signs Temp Pulse Pulse Resp BP BP Pulse Ox 06/05/20 12:10 88 06/05/20 12:00 85 18 115/56 06/05/20 11:57 88 06/05/20 08:34 92 06/05/20 08:23 88 06/05/20 08:00 97.8 F 89 18 161/70 95 06/05/20 04:00 97.6 F 90 18 116/64 98 06/05/20 00:00 98.1 F 85 18 109/62 97 06/04/20 20:02 89 18 06/04/20 20:00 97.9 F 86 20 99/58 98 06/04/20 19:54 80 18 06/04/20 15:32 97.3 F L 91 20 105/58 99 06/04/20 13:33 96 18 131/78 94 L Intake and Output 06/04/20 06/05/20 06/05/20 22:59 06:59 14:59 Intake Total 440 Output Total 650 1200 275 Balance -210 -1200 -275 Intake: IV 200 Magnesium Sulfate-D5w Pmx 200 1 gm In Dextrose/Water 1 100ml.bag @ 100 mls/hr IVPB Q1H [facility] Rx#: [id number] Oral 240 Output: Urine 650 1200 275 Other: Voiding Method Bedside Commode Weight 54 kg ENERAL: The patient is alert and oriented x3, not in any acute distress. Well developed, well nourished. HEENT: Pupils are round and equally reacting to light. EOMI. No scleral icterus. No conjunctival pallor. Normocephalic, atraumatic. No pharyngeal erythema. No thyromegaly. CARDIOVASCULAR: S1 and S2 present. Systolic ejection murmur is heard . Very minimal elevation of JVD just 1 cm above the clavicle PULMONARY: Significantly decreased air entry into bilateral lung lanza no wheezing was appreciated ABDOMEN: Soft, nontender, nondistended, normoactive bowel sounds. No palpable organomegaly. MUSCULOSKELETAL: No joint swelling or deformity. EXTREMITIES: No cyanosis, clubbing, or pedal edema. NEUROLOGICAL: Gross neurological examination did not reveal any focal deficits. SKIN: No rashes. Results 06/05/20 06:37 06/05/20 06:37 Cardiac Enzymes 06/04/20 Range/Units 13:10 Troponin I 0.101 H* (0.000-0.034) ng/mL Coagulation 06/04/20 Range/Units 13:10 APTT 57.9 H (22.0-30.0) sec CBC 06/05/20 Range/Units 06:37 WBC 9.2 (3.8-10.6) k/uL RBC 4.57 (3.80-5.40) m/uL Hgb 13.7 (11.4-16.0) gm/dL Hct 41.6 (34.0-46.0) % Plt Count 189 (150-450) k/uL Comprehensive Metabolic Panel 06/05/20 Range/Units 06:37 Sodium 135 L (137-145) mmol/L Potassium 4.0 (3.5-5.1) mmol/L Chloride 99 (98-107) mmol/L Carbon Dioxide 25 (22-30) mmol/L BUN 21 H (7-17) mg/dL Creatinine 1.09 H (0.52-1.04) mg/dL Glucose 201 H (74-99) mg/dL Calcium 9.1 (8.4-10.2) mg/dL Current Medications Generic Name Dose Route Start Last Admin Trade Name Freq PRN Reason Stop Dose Admin Albuterol/Ipratropium 3 ml 06/04/20 15:32 Duoneb 0.5 Mg-3 Mg/3 Ml Soln INHALATION RT-QID PRN Shortness Of Breath Or Wheezing Albuterol/Ipratropium 3 ml 06/04/20 16:00 06/05/20 11:55 Duoneb 0.5 Mg-3 Mg/3 Ml Soln INHALATION 3 ml RT-QID RUDY Administration Alprazolam 0.5 mg 06/04/20 15:34 06/05/20 09:58 Xanax PO 0.5 mg TID PRN Administration Anxiety Apixaban 5 mg 06/04/20 21:00 06/05/20 09:15 Eliquis PO 5 mg BID RUDY Administration Atorvastatin Calcium 20 mg 06/04/20 21:00 06/04/20 21:30 Lipitor PO 20 mg HS RUDY Administration Budesonide/Formoterol Fumarate 2 puff 06/04/20 20:00 06/05/20 08:21 Symbicort 160-4.5 Mcg Inhaler INHALATION 2 puff RT-BID RUDY Administration Carvedilol 3.125 mg 06/04/20 17:30 06/05/20 06:34 Coreg PO 3.125 mg BID-W/MEALS RUDY Administration Dorzolamide/Timolol 1 drops 06/04/20 21:00 06/05/20 09:43 Cosopt RIGHT EYE 1 drops BID RUDY Administration Doxycycline Monohydrate 100 mg 06/04/20 21:00 06/05/20 09:25 Vibramycin PO 100 mg BID RUDY Administration Famotidine 20 mg 06/06/20 09:00 Pepcid PO DAILY RUDY Fluoxetine HCl 10 mg 06/05/20 09:00 06/05/20 09:25 Prozac PO 10 mg DAILY RUDY Administration Furosemide 40 mg 06/05/20 16:00 Lasix PO BID@0900,1600 RUDY Insulin Aspart 0 unit 06/05/20 07:30 06/05/20 12:43 Novolog SQ 5 unit ACHS RUDY Administration Protocol Linagliptin 5 mg 06/05/20 09:00 06/05/20 09:15 Tradjenta PO 5 mg DAILY RUDY Administration Miscellaneous Information 1 each 06/04/20 15:19 Magnesium Per Protocol MISCELLANE DAILY PRN Per Protocol Protocol Prednisone 20 mg 06/06/20 09:00 PO DAILY RUDY Spironolactone 25 mg 06/05/20 09:00 06/05/20 09:15 Aldactone PO 25 mg DAILY RUDY Administration Intake and Output 06/04/20 06/05/20 06/05/20 22:59 06:59 14:59 Intake Total 440 Output Total 650 1200 275 Balance -210 -1200 -275 Intake: IV 200 Magnesium Sulfate-D5w Pmx 200 1 gm In Dextrose/Water 1 100ml.bag @ 100 mls/hr IVPB Q1H [facility] Rx#: [id number] Oral 240 Output: Urine 650 1200 275 Other: Voiding Method Bedside Commode Weight 54 kg 06/05/20 06:37 06/05/20 06:37 EKG Interpretations (text) EKG shows A. fib with RVR Assessment and Plan Plan: Assessment and plan #1 respiratory failure, likely a combination of congestive heart failure, systolic acute on chronic and COPD exacerbation #2 atrial fibrillation with rapid ventricular response, persistent #3 COPD #4 prior CVA #5 abnormality in troponin, not consistent with acute coronary syndrome, likely secondary to hypoxia. #6 history of CVA #7 diabetes #8 hypertension #9 hyperlipidemia #10 severe mitral regurgitation with nonischemic cardio myopathy Plan Patient's most recent echo shows an ejection fraction of 30-35%, this was performed in March 2018. Current echo shows an ejection fraction of 20-25%. Severe mitral regurgitation. We will continue with diuretics, Aldactone, Coreg, add a small dose of ELIAZAR inhibitor. Further recommendations to follow. DNP note has been reviewed, I agree with a documented findings and plan of care. Patient was seen and examined.
[2020-06-05 14:09] LABS: Glucose,Whole Blood 207 mg/dL (75-99)
[2020-06-05 14:09] LABS: Glucose,Whole Blood 197 mg/dL (75-99)
[2020-06-05 14:10] LABS: Glucose,Whole Blood 169 mg/dL (75-99)
--- NOTE | 2020-06-05 15:10 | P.CNPUL ---
History of Present Illness Consult date: 06/05/20 Reason for consult: dyspnea, cough, COPD Chief complaint: Acute onset of shortness of breath History of present illness: This is a 74-year-old female with extensive history of smoking and nicotine use in the past, patient has severe COPD has been on home nebulizer treatment, pain patient came into the hospital with one to 2 day history of increasing shortness of breath, on arrival patient was noted to have a acute [place] hypoxic respiratory failure with pH of 7.1 and CO2 of 450, patient initially supported with BiPAP, review of the records revealed that patient ejection fraction around 30% to years ago, review of the data also revealed that patient has elevated tropes and has been on anticoagulation as well cardiovascular services following, patient has ongoing cough with a scant sputum production overall appe ars to have a exacerbation of COPD along with possible pneumonia, chest x-ray prominent gestation was seen with small bilateral pleural effusion Review of Systems All systems: negative Past Medical History Past Medical History: Atrial Fibrillation, Asthma, Cancer, Heart Failure, COPD, CVA/TIA, Diabetes Mellitus, Eye Disorder, Hyperlipidemia, Hypertension, Osteoarthritis (OA), Renal Disease, Respiratory Disorder, Vascular Disorder Additional Past Medical History / Comment(s): Paroxysmal Afib, cardiomyopathy, mitral valve regurgitation, NIDDM type II, neuropathy bilateral hands/feet, CVA with R eye blindness, severe shingelles 2010 which affected L arm/back of neck, skin cancer with removal, R sided nephrolithiasis-nonobstructing per past medical record/pt unaware, chronic constipation, degenerative joint disease. History of Any Multi-Drug Resistant Organisms: None Reported Past Surgical History: Heart Catheterization, Hysterectomy, Orthopedic Surgery, Tonsillectomy Additional Past Surgical History / Comment(s): Right knee arthroplasty, bilateral cataract/lens implant surgery, skin cancer removed under R eye. Past Anesthesia/Blood Transfusion Reactions: No Reported Reaction Smoking Status: Former smoker - Past Family History Mother Family Medical History: Dementia Additional Family Medical History / Comment(s): AGE 99 Father Family Medical History: No Reported History Additional Family Medical History / Comment(s): WAS HEALTHY AT ALMOST AGE 99 Medications and Allergies Home Medications Medication Instructions Recorded Confirmed Type ALPRAZolam [Xanax] 0.5 mg PO TID PRN 11/04/17 06/04/20 History Albuterol Sulfate [Proventil Hfa] 1 - 2 puff INHALATION RT-Q4H PRN 11/04/17 06/04/20 History Potassium Chloride [Klor-Con 10] 10 meq PO TID 11/04/17 06/04/20 History Tiotropium 18 Mcg/Puff [Spiriva] 1 cap INHALATION RT-DAILY 11/04/17 06/04/20 His tory glyBURIDE/METFORMIN HCL 2 tab PO QAM 11/04/17 06/04/20 History [Glucovance 5-500 mg] sitaGLIPtin [Januvia] 100 mg PO DAILY 11/04/17 06/04/20 History Apixaban [Eliquis] 5 mg PO BID tab 11/10/17 06/04/20 Rx FLUoxetine HCL 10 mg PO DAILY #30 tablet 11/22/17 06/04/20 Rx Carvedilol [Coreg] 3.125 mg PO BID-W/MEALS #60 tab 04/18/18 06/04/20 Rx Furosemide [Lasix] 20 mg PO DAILY #30 tab 04/18/18 06/04/20 Rx Lisinopril [Zestril] 2.5 mg PO DAILY #30 tab 04/18/18 06/04/20 Rx Spironolactone [Aldactone] 25 mg PO DAILY #30 tab 04/18/18 06/04/20 Rx Atorvastatin [Lipitor] 20 mg PO HS 06/04/20 06/04/20 History Dorzolamide-Timol 2.23%/0.68% 1 drop RIGHT EYE BID 06/04/20 06/04/20 History [Cosopt] glyBURIDE/METFORMIN HCL 1 tab PO HS 06/04/20 06/04/20 History [glyBURIDE/METFORMIN HCL 5-500 mg] Allergies Allergy/AdvReac Type Severity Reaction Status Date / Time egg Allergy Itching Verified 06/04/20 08:59 Physical Exam Vitals: Vital Signs Temp Pulse Pulse Resp BP Pulse Ox 06/05/20 12:10 88 06/05/20 12:00 85 18 115/56 06/05/20 11:57 88 06/05/20 08:34 92 06/05/20 08:23 88 06/05/20 08:00 97.8 F 89 18 161/70 95 06/05/20 04:00 97.6 F 90 18 116/64 98 06/05/20 00:00 98.1 F 85 18 109/62 97 06/04/20 20:02 89 18 06/04/20 20:00 97.9 F 86 20 99/58 98 06/04/20 19:54 80 18 06/04/20 15:32 97.3 F L 91 20 105/58 99 Intake and Output 06/05/20 06/05/20 06/05/20 06:59 14:59 22:59 Output Total 1200 275 Balance -1200 -275 Output: Urine 1200 275 Other: Voiding Method Bedside Commode Weight 54 kg 54 kg - Constitutional General appearance: average body habitus, disheveled, thin - EENT Eyes: EOMI, PERRLA ENT: normal oropharynx Ears: bilateral: normal - Neck Carotids: bilateral: upstroke normal Thyroid: bilateral: normal size - Respiratory Respiratory: bilateral: diminished - Cardiovascular Rhythm: regular Heart sounds: normal: S1, S2 - Gastrointestinal General gastrointestinal: normal bowel sounds - Neurologic Neurologic: CNII-XII intact - Musculoskeletal Musculoskeletal: gait normal, generalized weakness, strength equal bilaterally - Psychiatric Psychiatric: A&O x's 3, appropriate affect, intact judgment & insight Results - Laboratory Findings CBC and BMP: 06/05/20 06:37 06/05/20 06:37 PT/INR, D-dimer PT 11.7 sec (9.0-12.0) 06/04/20 06:08 INR 1.2 (<1.2) H 06/04/20 06:08 Abnormal lab findings: Abnormal Labs 06/04/20 06/04/20 06/04/20 06:07 06:08 06:08 Hct 46.2 H INR 1.2 H APTT VBG pH 7.19 L* VBG HCO3 18 L Sodium Carbon Dioxide BUN Creatinine Glucose POC Glucose (mg/dL) Plasma Lactic Acid [place]oy Magnesium AST ALT Troponin I Total Protein 06/04/20 06/04/20 06/04/20 06:08 06:08 08:58 Hct INR APTT VBG pH VBG HCO3 Sodium 134 L Carbon Dioxide 16 L BUN 20 H Creatinine 1.24 H Glucose 294 H POC Glucose (mg/dL) Plasma Lactic Acid Eloy 5.1 H* Magnesium 1.5 L AST 62 H ALT 44 H Troponin I 0.070 H* Total Protein 6.2 L 06/04/20 06/04/20 06/04/20 13:10 13:10 16:17 Hct INR APTT 57.9 H VBG pH VBG HCO3 Sodium Carbon Dioxide BUN Creatinine Glucose POC Glucose (mg/dL) 169 H Plasma Lactic Acid [place]oy Magnesium AST ALT Troponin I 0.101 H* Total Protein 06/04/20 06/04/20 06/05/20 19:43 20:20 06:15 Hct INR APTT VBG pH VBG HCO3 Sodium Carbon Dioxide BUN Creatinine Glucose POC Glucose (mg/dL) 197 H 207 H 205 H Plasma Lactic Acid [place]oy Magnesium AST ALT Troponin I Total Protein 06/05/20 06/05/20 06:37 11:47 Hct INR APTT VBG pH VBG HCO3 Sodium 135 L Carbon Dioxide BUN 21 H Creatinine 1.09 H Glucose 201 H POC Glucose (mg/dL) 298 H Plasma Lactic Acid [place]oy Magnesium AST ALT Troponin I Total Protein - Diagnostic Findings Chest x-ray: report reviewed, image reviewed (Finding as noted above) Assessment and Plan Assessment: Acute COPD exacerbation Acute on chronic hypoxic and hypercapnic respiratory failure Acute on chronic systolic heart failure with baseline ejection fraction of 30%, Chronic atrial fibrillation chronic kidney disease stage III Electrolyte imbalance with hyponatremia Type 2 diabetes mellitus Lactic acidosis Plan: Continue breathing treatments IV steroids Broad-spectrum antibiotics BiPAP support as needed Cardiovascular services following for elevated troponin Continue supportive care further recommendations pending plan of care as per clinical response of patient Time with Patient: Greater than 30
[2020-06-05 16:37] LABS: Glucose,Whole Blood 360 mg/dL (75-99)
[2020-06-05] MEDS: FUROSEMIDE 40 MG TAB PO SCH (16:42)
[2020-06-05 20:44] LABS: Glucose,Whole Blood 429 mg/dL (75-99)
[2020-06-05] MEDS: ATORVASTATIN 20 MG TAB PO SCH (20:58)
[2020-06-05] MEDS ORDERED: INSULIN ASPART (NovoLOG) 100 UNIT/ML VIAL SQ ONE (21:27)
[2020-06-05] MEDS: KETOROLAC 0.5% OPHTH DROPS 5 ML BTL RIGHT EYE SCH (21:46)
[2020-06-06 06:05] LABS: Glucose,Whole Blood 224 mg/dL (75-99)
[2020-06-06] MEDS: CARVEDILOL 3.125 MG TAB PO SCH ×2 (06:35→17:54)
[2020-06-06] MEDS: INSULIN ASPART (NovoLOG) 100 UNIT/ML VIAL SQ SCH ×4 (06:35→21:17)
[2020-06-06 06:49] LABS: Basophils % (A) 0 %; Eosinophils # (A) 0.1 k/uL (0-0.7); Eosinophils % (A) 1 %; HCT 39.7 % (34.0-46.0); HGB 13.4 gm/dL (11.4-16.0); Lymphocytes # (A) 1.6 k/uL (1.0-4.8); Lymphocytes % (A) 18 %; MCH 30.9 pg (25.0-35.0); MCHC 33.8 g/dL (31.0-37.0); MCV 91.4 fL (80.0-100.0); Mean Platelet Volume 7.1; Monocytes # (A) 0.6 k/uL (0-1.0); Monocytes % (A) 6 %; Neutrophils # (A) 6.9 k/uL (1.3-7.7); Neutrophils % (A) 74 %; Platelet Count 179 k/uL (150-450); RBC 4.34 m/uL (3.80-5.40); RDW 13.9 % (11.5-15.5); WBC 9.3 k/uL (3.8-10.6)
[2020-06-06 06:57] LABS: Calcium 9.4 mg/dL (8.4-10.2); Potassium 3.5 mmol/L (3.5-5.1)
[2020-06-06] MEDS: APIXABAN 5 MG TAB PO SCH ×2 (08:27→21:17)
[2020-06-06] MEDS: LINAGLIPTIN 5 MG TABLET PO SCH (08:27)
[2020-06-06] MEDS: SPIRONOLACTONE 25 MG TAB PO SCH (08:27)
[2020-06-06] MEDS: FUROSEMIDE 40 MG TAB PO SCH (08:28)
[2020-06-06] MEDS: FAMOTIDINE 20 MG TAB PO SCH (08:28)
[2020-06-06] MEDS: KETOROLAC 0.5% OPHTH DROPS 5 ML BTL RIGHT EYE SCH ×4 (08:29→21:17)
[2020-06-06] MEDS: DOXYCYCLINE 100 MG CAP PO SCH ×2 (08:29→21:17)
[2020-06-06] MEDS: DORZOLAMIDE-TIMOLOL 2.23%/0.68 10ML BTL RIGHT EYE SCH ×2 (08:30→21:17)
[2020-06-06] MEDS: FLUoxetine HCL 10 MG CAP PO SCH (08:36)
[2020-06-06] MEDS: ALPRAZolam 0.5 MG TAB PO PRN ×2 (08:36→21:21)
[2020-06-06] MEDS ORDERED: predniSONE 20 MG TAB PO SCH (09:00)
[2020-06-06] MEDS: IPRATROPIUM-ALBUTEROL 3 ML NEB INHALATION SCH ×4 (09:02→20:10)
[2020-06-06] MEDS: SYMBICORT 160-4.5 MCG INHALER INHALATION SCH ×2 (09:02→20:10)
--- NOTE | 2020-06-06 10:39 | P.PN ---
Subjective Progress Note Date: 06/06/20 Principal diagnosis: Hemoptysis Bilateral interstitial pneumonia Acute COPD exacerbation Acute on chronic hypoxic and hypercapnic respiratory failure Acute on chronic systolic heart failure with baseline ejection fraction of 30%, Chronic atrial fibrillation chronic kidney disease stage III Electrolyte imbalance with hyponatremia Type 2 diabetes mellitus Lactic acidosis 06/06/2020, patient seen eval examined during the rounds labs reviewed medications reviewed, patient has been having more cough congestion and wheezing, ongoing cough is present with his sputum production makes with streaks of blood, not feeling very well today compared to yesterday, patient has been on oral antibiotics doxycycline along with low-dose prednisone will change it to IV we'll send a sputum for Gram stain and culture we'll order a computed tomography scan of the chest as well without IV contrast This is a 74-year-old female with extensive history of smoking and nicotine use in the past, patient has severe COPD has been on home nebulizer treatment, pain patient came into the hospital with one to 2 day history of increasing shortness of breath, on arrival patient was noted to have a acute Far[place] hypoxic respiratory failure with pH of 7.1 and CO2 of 450, patient initially supported with BiPAP, review of the records revealed that patient ejection fraction around 30% to years ago, review of the data also revealed that patient has elevated tropes and has been on anticoagulation as well cardiovascular services following, patient has ongoing cough with a scant sputum production overall appears to have a exacerbation of COPD along with possible pneumonia, chest x- ray prominent gestation was seen with small bilateral pleural effusion Objective - Vital Signs Vital signs: Vital Signs Temp 97.9 F 06/06/20 03:53 Pulse 88 06/06/20 09:14 Resp 18 06/06/20 08:00 BP 120/56 06/06/20 08:00 Pulse Ox 98 06/06/20 08:00 Intake & Output 06/05/20 06/06/20 06/06/20 18:59 06:59 18:59 Intake Total 240 Output Total 525 750 Balance -525 240 -750 Weight 54 kg 51.3 kg Intake: Oral 240 Output: Urine 525 750 Other: Voiding Method Bedside Commode Bedside Commode # Voids 2 - Exam - Constitutional General appearance: average body habitus, disheveled, thin - EENT Eyes: EOMI, PERRLA ENT: normal oropharynx Ears: bilateral: normal - Neck Carotids: bilateral: upstroke normal Thyroid: bilateral: normal size - Respiratory Respiratory: bilateral: diminished, and expiratory rhonchi with wheezing - Cardiovascular Rhythm: regular Heart sounds: normal: S1, S2 - Gastrointestinal General gastrointestinal: normal bowel sounds - Neurologic Neurologic: CNII-XII intact - Musculoskeletal Musculoskeletal: gait normal, generalized weakness, strength equal bilaterally - Psychiatric Psychiatric: A&O x's 3, appropriate affect, intact judgment & insight - Labs CBC & Chem 7: 06/06/20 06:10 06/06/20 06:10 Labs: Abnormal Lab Results - Last 24 Hours (Table) 06/04/20 06/04/20 06/04/20 Range/Units 16:17 19:43 20:20 Sodium (137-145) mmol/L Chloride (98-107) mmol/L BUN (7-17) mg/dL Creatinine (0.52-1.04) mg/dL Glucose (74-99) mg/dL POC Glucose (mg/dL) 169 H 197 H 207 H (75-99) mg/dL 06/05/20 06/05/20 06/05/20 Range/Units 11:47 16:35 20:43 Sodium (137-145) mmol/L Chloride (98-107) mmol/L BUN (7-17) mg/dL Creatinine (0.52-1.04) mg/dL Glucose (74-99) mg/dL POC Glucose (mg/dL) 298 H 360 H 429 H (75-99) mg/dL 06/06/20 06/06/20 Range/Units 06:04 06:10 Sodium 133 L (137-145) mmol/L Chloride 94 L (98-107) mmol/L BUN 29 H (7-17) mg/dL Creatinine 1.24 H (0.52-1.04) mg/dL Glucose 224 H (74-99) mg/dL POC Glucose (mg/dL) 224 H (75-99) mg/dL Microbiology - Last 24 Hours (Table) 06/04/20 06:46 Blood Culture - Preliminary Blood No Growth after 48 hours Assessment and Plan Assessment: Bilateral interstitial infiltrate pneumonia versus related to hemoptysis Hemoptysis may be related to airway inflammation Acute COPD exacerbation Acute on chronic hypoxic and hypercapnic respiratory failure Acute on chronic systolic heart failure with baseline ejection fraction of 30%, Chronic atrial fibrillation chronic kidney disease stage III Electrolyte imbalance with hyponatremia Type 2 diabetes mellitus Plan: Continue breathing treatments IV steroids and antibiotics continue doxycycline we will add IV Rocephin Computed tomography scan of the chest Broad-spectrum antibiotics BiPAP support as needed Cardiovascular services following for elevated troponin Continue supportive care further recommendations pending plan of care as per clinical response of patient Time with Patient: Greater than 30
[2020-06-06] MEDS ORDERED: methylPREDNISolone SOD SUCCI 40 MG/ML 1 ML VIAL IV SCH (10:45)
--- NOTE | 2020-06-06 11:08 | P.PN ---
Subjective patient admitted for acute respiratory failure etiology being both COPD and CHF exacerbation both of which are improving patient is on aspirin on sym ptomatically does not even require that. patient was switched to oral steroids and oral Lasix will monitor her one more night possibility of discharge tomorrow. Patient had any of around 20-25% the repeat echocardiogram. Patient had elevated troponins etiology evaluated the patient patient is on Eliquis which is a resumed and continued. was on the bilevel ventilation yesterday 06/06/2020 Patient is still coughing quite a bit of greenish phlegm analogy believes patient may have atypical pneumonia patient is also being treated for heart failure. Patient serum sodium has gone down and the serum creatinine went up because of that reason I'm holding off on Lasix temporally Aldactone although will be continued. Recheck basic volley profile tomorrow patient is presently on doxazosin and Rocephin Constitutional: Denied any fatigue denied any fever. Cardio vascular: denied any chest pain, palpitations Gastrointestinal denied any nausea vomiting Pulmonary: Denied any shortness of breath cough Neurologic denied any new focal deficits All inpatient medications were reviewed and appropriate changes in these medications as dictated in the interval history and assessment and plan. Objective - Vital Signs Vital signs: Vital Signs Temp 97.9 F 06/06/20 03:53 Pulse 88 06/06/20 09:14 Resp 18 06/06/20 08:00 BP 120/56 06/06/20 08:00 Pulse Ox 98 06/06/20 08:00 Intake & Output 06/05/20 06/06/20 06/06/20 18:59 06:59 18:59 Intake Total 240 Output Total 525 750 Balance -525 240 -750 Weight 54 kg 51.3 kg Intake: Oral 240 Output: Urine 525 750 Other: Voiding Method Bedside Commode Bedside Commode # Voids 2 - Exam PHYSICAL EXAMINATION: GENERAL: The patient is alert and oriented x3, not in any acute distress. Well developed, well nourished. HEENT: Pupils are round and equally reacting to light. EOMI. No scleral icterus. No conjunctival pallor. Normocephalic, atraumatic. No pharyngeal erythema. No t hyromegaly. CARDIOVASCULAR: S1 and S2 present. No murmurs, rubs, or gallops. PULMONARY: fairly good air entry into bilateral lung lanza. ABDOMEN: Soft, nontender, nondistended, normoactive bowel sounds. No palpable organomegaly. MUSCULOSKELETAL: No joint swelling or deformity. EXTREMITIES: No cyanosis, clubbing, or pedal edema. NEUROLOGICAL: Gross neurological examination did not reveal any focal deficits. SKIN: No rashes. - Labs CBC & Chem 7: 06/06/20 06:10 06/06/20 06:10 Labs: Abnormal Lab Results - Last 24 Hours (Table) 06/04/20 06/04/20 06/04/20 Range/Units 16:17 19:43 20:20 Sodium (137-145) mmol/L Chloride (98-107) mmol/L BUN (7-17) mg/dL Creatinine (0.52-1.04) mg/dL Glucose (74-99) mg/dL POC Glucose (mg/dL) 169 H 197 H 207 H (75-99) mg/dL 06/05/20 06/05/20 06/05/20 Range/Units 11:47 16:35 20:43 Sodium (137-145) mmol/L Chloride (98-107) mmol/L BUN (7-17) mg/dL Creatinine (0.52-1.04) mg/dL Glucose (74-99) mg/dL POC Glucose (mg/dL) 298 H 360 H 429 H (75-99) mg/dL 06/06/20 06/06/20 Range/Units 06:04 06:10 Sodium 133 L (137-145) mmol/L Chloride 94 L (98-107) mmol/L BUN 29 H (7-17) mg/dL Creatinine 1.24 H (0.52-1.04) mg/dL Glucose 224 H (74-99) mg/dL POC Glucose (mg/dL) 224 H (75-99) mg/dL Microbiology - Last 24 Hours (Table) 06/04/20 06:46 Blood Culture - Preliminary Blood No Growth after 48 hours Assessment and Plan Plan: -Acute hypercapnic respiratory failure. Requiring bilevel ventilation noninvasive ventilation presently on 2 L of oxygen secondary to COPD exa cerbation, patient is being treated for heart failure, interstitial pneumonia patient is on Rocephin and oxygen -Congestive heart failure chronic systolic dysfunction with EF of around 20-25% previously of was 30-35% admitted with exacerbation but very fairly euvolemic at this time we'll hold Lasix because of hyponatremia and acute renal failure -COPD with acute exacerbation -Atrial fibrillation presently rate controlled rapid unclear rate on admission patient resumed on her home regimen of beta sy[place] and atrial fibrillation is presently precipitated by hypoxemia -Mildly elevated troponin: Secondary to hypoxemia and atrial fibrillation cardiology will evaluate the patient patient is on Eliquis which will be continued although acute non-ST elevation myocardial infarction cannot be ruled out, cardiology is following the patient -Hyponatremia probably hypervolemic hyponatremia on admission now hyponatremia secondary to Lasix which is being held -Chronic kidney disease stage III 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
--- NOTE | 2020-06-06 12:11 | CT ---
EXAMINATION TYPE: CT chest wo con DATE OF EXAM: 06/06/2020 COMPARISON: 11/04/2017 HISTORY: hemoptysis CT DLP: 266.[address] of the chest was performed with lung and mediastinal window settings submitted. The la ck of contrast limits evaluation of the vascular, mediastinal and parenchymal structures including th e upper abdomen. LUNGS: Small bilateral pleural effusions are noted on the right measuring 1.8 cm AP dimension on the left 1 cm AP dimension. Minimal basilar compressive atelectasis. There is mild pulmonary venous engor gement. Doubt overt failure at this time. Emphysematous bulla right upper lobe. No focal consolidatio n or airspace disease at this time. MEDIASTINUM/JOHAN: Thoracic aorta is of normal caliber with limited evaluation given lack of contrast . The heart is mildly enlarged. No evidence for mediastinal mass. No lymph nodes greater than 1cm . UPPER ABDOMEN: No significant abnormality is seen. OTHER: No significant other abnormality. IMPRESSION: 1. Bilateral pleural effusion small in size and pulmonary venous congestion. No overt failure at thi s time. 2. Emphysematous bulla right upper lobe.
[2020-06-06 12:16] LABS: Glucose,Whole Blood 254 mg/dL (75-99)
--- NOTE | 2020-06-06 14:47 | P.PN ---
Subjective Progress Note Date: 06/06/20 History of present illness: This is a 74-year-old female with history of emphysema, persistent atrial fibrillation, diabetes, COPD, prior CVA, chronic kidney disease, coronary artery disease, underwent cardiac catheterization in March 2018 which revealed mild to moderate coronary artery disease with 2+ mitral regurgitation. She follows with Dr. Aparicio in the office. She presented to the hospital on this admission with symptoms of progressively worsening shortness of breath. Her chest x-ray showed increased interstitial [place] with infection versus edema, mild bilateral effusions noted. Her first EKG on presentation here showed atrial fibrillation with a rapid ventricular response, subsequent EKG continued to show A. fib rate under better control in the low 100s. Echocardiogram with Doppler study revealed an ejection fraction of 20-25%, severe mitral regurgitation. White blood cell count 9.2, hemoglobin 13.7, platelet count 189. ABGs on arrival here pH 7.1, pCO2 50, HCO3 18. Troponin 0.014, 0.070, 0.101. Sodium 135, potassium 4.0, BUN 21, creatinine 1.0. Magnesium 1.5 on admission, 1.8 this morning. AST 62, ALT 44, BNP 4740. 06/06: Patient states she continues to have significant difficulty breathing and bringing up brown sputum. CAT scan of the chest revealed bilateral pleural effusion small in size and pulmonary venous congestion. No overt failure at this time. Emphysematous bulla right upper lobe. Diuretics have been dis continued by primary team. Patient is continued on Aldactone and Coreg. Lisinopril will be resumed from home. She has been afebrile, heart rate 94, blood pressure 120/56, pulse ox 90% on 3 L nasal cannula. Weight is down 2.7 kg from yesterday. Physical examination GENERAL: The patient is alert and oriented x3, not in any acute distress. Patient is thin and cachectic appearing. HEENT: Pupils are round and equally reacting to light. EOMI. No scleral icterus. No conjunctival pallor. Normocephalic, atraumatic. No pharyngeal erythema. No thyromegaly. CARDIOVASCULAR: S1 and S2 present. Systolic ejection murmur is heard . PULMONARY: Significantly decreased air entry into bilateral lung lanza, positive expiratory wheeze, productive cough noted with brown sputum ABDOMEN: Soft, nontender, nondistended, normoactive bowel sounds. No palpable organomegaly. MUSCULOSKELETAL: No joint swelling or deformity. EXTREMITIES: No cyanosis, clubbing, or pedal edema. NEUROLOGICAL: Gross neurological examination did not reveal any focal deficits. SKIN: No rashes. Assessment #1 respiratory failure, likely a combination of congestive heart failure, systolic acute on chronic and COPD exacerbation #2 atrial fibrillation with rapid ventricular response, persistent #3 COPD exacerbation #4 prior CVA #5 abnormality in troponin, not consistent with acute coronary syndrome, likely secondary to hypoxia. #6 history of CVA #7 diabetes #8 hypertension #9 hyperlipidemia #10 severe mitral regurgitation with nonischemic cardio myopathy Plan Patient's most recent echo shows an ejection fraction of 30-35%, this was performed in March 2018. Current echo shows an ejection fraction of 20-25%. Severe mitral regurgitation. IV Lasix has been discontinued. Continue Aldactone, Coreg, and resume lisinopril from home. Continue to monitor I&O and daily weights. Further recommendations to follow. Nurse practitioner note has been reviewed, I agree with documented findings and plan of care. Patient was seen and examined. Objective - Vital Signs Vital signs: Vital Signs Temp 97.9 F 06/06/20 03:53 Pulse 88 06/06/20 09:14 Resp 18 06/06/20 08:00 BP 120/56 06/06/20 08:00 Pulse Ox 98 06/06/20 08:00 Intake & Output 06/05/20 06/06/20 06/06/20 18:59 06:59 18:59 Intake Total 240 Output Total 525 750 Balance -525 240 -750 Weight 54 kg 51.3 kg Intake: Oral 240 Output: Urine 525 750 Other: Voiding Method Bedside Commode Bedside Commode # Voids 2 - Labs CBC & Chem 7: 06/06/20 06:10 06/06/20 06:10 Labs: Abnormal Lab Results - Last 24 Hours (Table) 06/04/20 06/04/20 06/04/20 Range/Units 16:17 19:43 20:20 Sodium (137-145) mmol/L Chloride (98-107) mmol/L BUN (7-17) mg/dL Creatinine (0.52-1.04) mg/dL Glucose (74-99) mg/dL POC Glucose (mg/dL) 169 H 197 H 207 H (75-99) mg/dL 06/05/20 06/05/20 06/06/20 Range/Units 16:35 20:43 06:04 Sodium (137-145) mmol/L Chloride (98-107) mmol/L BUN (7-17) mg/dL Creatinine (0.52-1.04) mg/dL Glucose (74-99) mg/dL POC Glucose (mg/dL) 360 H 429 H 224 H (75-99) mg/dL 06/06/20 Range/Units 06:10 Sodium 133 L (137-145) mmol/L Chloride 94 L (98-107) mmol/L BUN 29 H (7-17) mg/dL Creatinine 1.24 H (0.52-1.04) mg/dL Glucose 224 H (74-99) mg/dL POC Glucose (mg/dL) (75-99) mg/dL Microbiology - Last 24 Hours (Table) 06/04/20 06:46 Blood Culture - Preliminary Blood No Growth after 48 hours
[2020-06-06 14:49] LABS: Hemoglobin A1C 7.4 % (4.0-6.0)
[2020-06-06 17:55] LABS: Glucose,Whole Blood 285 mg/dL (75-99)
[2020-06-06 20:46] LABS: Glucose,Whole Blood 423 mg/dL (75-99)
[2020-06-06] MEDS ORDERED: INSULIN ASPART (NovoLOG) 100 UNIT/ML VIAL SQ ONE (21:04)
[2020-06-06] MEDS: ATORVASTATIN 20 MG TAB PO SCH (21:17)
[2020-06-07 06:04] LABS: Glucose,Whole Blood 115 mg/dL (75-99)
[2020-06-07] MEDS: INSULIN ASPART (NovoLOG) 100 UNIT/ML VIAL SQ SCH ×4 (06:18→21:20)
[2020-06-07] MEDS: CARVEDILOL 3.125 MG TAB PO SCH ×2 (06:28→17:56)
[2020-06-07] MEDS: ALPRAZolam 0.5 MG TAB PO PRN ×3 (06:28→23:02)
[2020-06-07 06:29] LABS: Basophils % (A) 0 %; Eosinophils # (A) 0.1 k/uL (0-0.7); Eosinophils % (A) 1 %; HCT 40.5 % (34.0-46.0); HGB 12.9 gm/dL (11.4-16.0); Lymphocytes # (A) 2.3 k/uL (1.0-4.8); Lymphocytes % (A) 26 %; MCH 29.1 pg (25.0-35.0); MCHC 31.9 g/dL (31.0-37.0); MCV 91.1 fL (80.0-100.0); Mean Platelet Volume 7.3; Monocytes # (A) 0.6 k/uL (0-1.0); Monocytes % (A) 7 %; Neutrophils # (A) 5.9 k/uL (1.3-7.7); Neutrophils % (A) 65 %; Platelet Count 190 k/uL (150-450); RBC 4.45 m/uL (3.80-5.40); RDW 13.9 % (11.5-15.5); WBC 9.2 k/uL (3.8-10.6)
[2020-06-07 07:15] LABS: Calcium 9.4 mg/dL (8.4-10.2); Potassium 3.9 mmol/L (3.5-5.1)
[2020-06-07] MEDS: IPRATROPIUM-ALBUTEROL 3 ML NEB INHALATION SCH ×4 (07:58→20:47)
[2020-06-07] MEDS: SYMBICORT 160-4.5 MCG INHALER INHALATION SCH ×2 (07:58→20:47)
[2020-06-07] MEDS: KETOROLAC 0.5% OPHTH DROPS 5 ML BTL RIGHT EYE SCH ×4 (09:40→21:20)
[2020-06-07] MEDS: DORZOLAMIDE-TIMOLOL 2.23%/0.68 10ML BTL RIGHT EYE SCH ×2 (09:40→21:19)
[2020-06-07] MEDS: FLUoxetine HCL 10 MG CAP PO SCH (09:41)
[2020-06-07] MEDS: FAMOTIDINE 20 MG TAB PO SCH (09:41)
[2020-06-07] MEDS: LISINOPRIL 2.5 MG TAB PO SCH (09:41)
[2020-06-07] MEDS: APIXABAN 5 MG TAB PO SCH ×2 (09:41→21:20)
[2020-06-07] MEDS: DOXYCYCLINE 100 MG CAP PO SCH ×2 (09:41→23:02)
[2020-06-07] MEDS: LINAGLIPTIN 5 MG TABLET PO SCH (09:41)
[2020-06-07] MEDS: predniSONE 20 MG TAB PO SCH (09:42)
[2020-06-07] MEDS: SPIRONOLACTONE 25 MG TAB PO SCH (09:42)
[2020-06-07 11:35] LABS: Glucose,Whole Blood 308 mg/dL (75-99)
--- NOTE | 2020-06-07 13:47 | P.PN ---
Subjective patient admitted for acute respiratory failure etiology being both COPD and CHF exacerbation both of which are improving patient is on aspirin on sym ptomatically does not even require that. patient was switched to oral steroids and oral Lasix will monitor her one more night possibility of discharge tomorrow. Patient had any of around 20-25% the repeat echocardiogram. Patient had elevated troponins etiology evaluated the patient patient is on Eliquis which is a resumed and continued. was on the bilevel ventilation yesterday 06/06/2020 Patient is still coughing quite a bit of greenish phlegm analogy believes patient may have atypical pneumonia patient is also being treated for heart failure. Patient serum sodium has gone down and the serum creatinine went up because of that reason I'm holding off on Lasix temporally Aldactone although will be continued. Recheck basic volley profile tomorrow patient is presently on doxazosin and Rocephin 06/07/2020 Patient's creatinine is to let 1.[address] of the chest showing groundglass pasty but didn't show any pulmonary embolism because of the groundglass pasty started back on Lasix and will see held if she'll improve. We'll recheck the creatinine tomorrow Constitutional: Denied any fatigue denied any fever. Cardio vascular: denied any chest pain, palpitations Gastrointestinal denied any nausea vomiting Pulmonary: Denied any shortness of breath cough Neurologic denied any new focal deficits All inpatient medications were reviewed and appropriate changes in these medications as dictated in the interval history and assessment and plan. Objective - Vital Signs Vital signs: Vital Signs Temp 97.8 F 06/07/20 04:00 Pulse 88 06/07/20 12:08 Resp 16 06/07/20 04:00 BP 150/72 06/07/20 04:00 Pulse Ox 99 06/07/20 04:00 Intake & Output 06/06/20 06/07/20 06/07/20 18:59 06:59 18:59 Intake Total 540 180 Output Total 750 Balance -750 540 180 Weight 51.6 kg Intake: Oral 540 180 Output: Urine 750 Other: # Voids 2 - Exam PHYSICAL EXAMINATION: GENERAL: The patient is alert and oriented x3, not in any acute distress. Well developed, well nourished. HEENT: Pupils are round and equally reacting to light. EOMI. No scleral icterus. No conjunctival pallor. Normocephalic, atraumatic. No pharyngeal erythema. No thyromegaly. CARDIOVASCULAR: S1 and S2 present. No murmurs, rubs, or gallops. PULMONARY: fairly good air entry into bilateral lung lanza. ABDOMEN: Soft, nontender, nondistended, normoactive bowel sounds. No palpable organomegaly. MUSCULOSKELETAL: No joint swelling or deformity. EXTREMITIES: No cyanosis, clubbing, or pedal edema. NEUROLOGICAL: Gross neurological examination did not reveal any focal deficits. SKIN: No rashes. - Labs CBC & Chem 7: 06/07/20 05:51 06/07/20 05:51 Labs: Abnormal Lab Results - Last 24 Hours (Table) 06/06/20 06/06/20 06/06/20 Range/Units 06:10 17:38 20:45 Sodium (137-145) mmol/L Chloride (98-107) mmol/L BUN (7-17) mg/dL Creatinine (0.52-1.04) mg/dL Glucose (74-99) mg/dL POC Glucose (mg/dL) 285 H 423 H (75-99) mg/dL Hemoglobin A1c 7.4 H (4.0-6.0) % 06/07/20 06/07/20 06/07/20 Range/Units 05:51 06:03 11:26 Sodium 134 L (137-145) mmol/L Chloride 96 L (98-107) mmol/L BUN 32 H (7-17) mg/dL Creatinine 1.23 H (0.52-1.04) mg/dL Glucose 116 H (74-99) mg/dL POC Glucose (mg/dL) 115 H 308 H (75-99) mg/dL Hemoglobin A1c (4.0-6.0) % Microbiology - Last 24 Hours (Table) 06/04/20 06:46 Blood Culture - Preliminary Blood No Growth after 72 hours Assessment and Plan Plan: -Acute hypercapnic respiratory failure. Requiring bilevel ventilation noninvasive ventilation presently on room air secondary to COPD exacerbation, patient is being treated for heart failure, interstitial pneumonia patient is on Rocephin and oxygen -Congestive heart failure chronic systolic dysfunction with EF of around 20-25% previously of was 30-35% admitted with exacerbation patient will be started back on Lasix -COPD with acute exacerbation -Atrial fibrillation presently rate controlled rapid unclear rate on admission patient resumed on her home regimen of beta [place] and atrial fibrillation is presently precipitated by hypoxemia -Mildly elevated troponin: Secondary to hypoxemia and atrial fibrillation card iology will evaluate the patient patient is on Eliquis which will be continued although acute non-ST elevation myocardial infarction cannot be ruled out, cardiology is following the patient -Hyponatremia probably hypervolemic hyponatremia continue with Lasix -Chronic kidney disease stage III 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 Acidosis improved.
--- NOTE | 2020-06-07 13:54 | P.PN ---
Subjective Progress Note Date: 06/07/20 History of present illness: This is a 74-year-old female with history of emphysema, persistent atrial fibrillation, diabetes, COPD, prior CVA, chronic kidney disease, coronary artery disease, underwent cardiac catheterization in March 2018 which revealed mild to moderate coronary artery disease with 2+ mitral regurgitation. She follows with Dr. Aparicio in the office. She presented to the hospital on this admission with symptoms of progressively worsening shortness of breath. Her chest x-ray showed increased interstitial [place] with infection versus edema, mild bilateral effusions noted. Her first EKG on presentation here showed atrial fibrillation with a rapid ventricular response, subsequent EKG continued to show A. fib rate under better control in the low 100s. Echocardiogram with Doppler study revealed an ejection fraction of 20-25%, severe mitral regurgitation. White blood cell count 9.2, hemoglobin 13.7, platelet count 189. ABGs on arrival here pH 7.1, pCO2 50, HCO3 18. Troponin 0.014, 0.070, 0.101. Sodium 135, potassium 4.0, BUN 21, creatinine 1.0. Magnesium 1.5 on admission, 1.8 this morning. AST 62, ALT 44, BNP 4740. 06/06: Patient states she continues to have significant difficulty breathing and bringing up brown sputum. CAT scan of the chest revealed bilateral pleural effusion small in size and pulmonary venous congestion. No overt failure at this time. Emphysematous bulla right upper lobe. Diuretics have been dis continued by primary team. Patient is continued on Aldactone and Coreg. Lisinopril will be resumed from home. She has been afebrile, heart rate 94, blood pressure 120/56, pulse ox 90% on 3 L nasal cannula. Weight is down 2.7 kg from yesterday. 06/07: Patient states that she continues to have significant sputum production she feels like it's in her but she has difficulty coughing it up and has hacking continuously. Mucinex will be ordered. Otherwise at this time, no signs of heart failure. No lower extremity edema. She has been off Lasix. Patient is afebrile, heart rate 85, blood pressure 150/72, pulse ox 99% on 1-1/2 L nasal cannula. A repeat blood work reveals sodium 134, potassium 3.9, chloride 96, CO2 28, BUN 32 and creatinine 1.23. Physical examination GENERAL: The patient is alert and oriented x3, not in any acute distress. Patient is thin and cachectic appearing. HEENT: Pupils are round and equally reacting to light. EOMI. No scleral icterus. No conjunctival pallor. Normocephalic, atraumatic. No pharyngeal erythema. No thyromegaly. CARDIOVASCULAR: S1 and S2 present. Systolic ejection murmur is heard . PULMONARY: Significantly decreased air entry into bilateral lung lanza, positive expiratory wheeze, productive cough noted with brown sputum ABDOMEN: Soft, nontender, nondistended, normoactive bowel sounds. No palpable organomegaly. MUSCULOSKELETAL: No joint swelling or deformity. EXTREMITIES: No cyanosis, clubbing, or pedal edema. NEUROLOGICAL: Gross neurological examination did not reveal any focal deficits. SKIN: No rashes. Assessment #1 respiratory failure, likely a combination of congestive heart failure, systolic acute on chronic and COPD exacerbation #2 atrial fibrillation with rapid ventricular response, persistent #3 COPD exacerbation #4 prior CVA #5 abnormality in troponin, not consistent with acute coronary syndrome, likely secondary to hypoxia. #6 history of CVA #7 diabetes #8 hypertension #9 hyperlipidemia #10 severe mitral regurgitation with nonischemic cardio myopathy Plan Patient's most recent echo shows an ejection fraction of 30-35%, this was p erformed in March 2018. Current echo shows an ejection fraction of 20-25%. Severe mitral regurgitation. IV Lasix has been discontinued. Continue Aldactone, Coreg, and resume lisinopril from home. Continue to monitor I&O and daily weights. Continue treatment for COPD Cardiology will sign off and follow on an as-needed basis. Please reconsult for any concerns. Nurse practitioner note has been reviewed, I agree with documented findings and plan of care. Patient was seen and examined. Objective - Vital Signs Vital signs: Vital Signs Temp 97.8 F 06/07/20 04:00 Pulse 80 06/07/20 08:11 Resp 16 06/07/20 04:00 BP 150/72 06/07/20 04:00 Pulse Ox 99 06/07/20 04:00 Intake & Output 06/06/20 06/07/20 06/07/20 18:59 06:59 18:59 Intake Total 540 180 Output Total 750 Balance -750 540 180 Weight 51.6 kg Intake: Oral 540 180 Output: Urine 750 Other: # Voids 2 - Labs CBC & Chem 7: 06/07/20 05:51 06/07/20 05:51 Labs: Abnormal Lab Results - Last 24 Hours (Table) 06/06/20 06/06/20 06/06/20 Range/Units 06:10 12:09 17:38 Sodium (137-145) mmol/L Chloride (98-107) mmol/L BUN (7-17) mg/dL Creatinine (0.52-1.04) mg/dL Glucose (74-99) mg/dL POC Glucose (mg/dL) 254 H 285 H (75-99) mg/dL Hemoglobin A1c 7.4 H (4.0-6.0) % 06/06/20 06/07/20 06/07/20 Range/Units 20:45 05:51 06:03 Sodium 134 L (137-145) mmol/L Chloride 96 L (98-107) mmol/L BUN 32 H (7-17) mg/dL Creatinine 1.23 H (0.52-1.04) mg/dL Glucose 116 H (74-99) mg/dL POC Glucose (mg/dL) 423 H 115 H (75-99) mg/dL Hemoglobin A1c (4.0-6.0) % 06/07/20 Range/Units 11:26 Sodium (137-145) mmol/L Chloride (98-107) mmol/L BUN (7-17) mg/dL Creatinine (0.52-1.04) mg/dL Glucose (74-99) mg/dL POC Glucose (mg/dL) 308 H (75-99) mg/dL Hemoglobin A1c (4.0-6.0) % Microbiology - Last 24 Hours (Table) 06/04/20 06:46 Blood Culture - Preliminary Blood No Growth after 72 hours
[2020-06-07] MEDS: guaiFENesin 600 MG TABLET.ER PO SCH ×2 (14:07→23:02)
[2020-06-07] MEDS: CEFDINIR 300 MG CAP PO SCH ×2 (14:07→21:22)
[2020-06-07 16:50] LABS: Glucose,Whole Blood 405 mg/dL (75-99)
[2020-06-07 19:54] LABS: Glucose,Whole Blood 495 mg/dL (75-99)
[2020-06-07] MEDS: ATORVASTATIN 20 MG TAB PO SCH (21:20)
[2020-06-07] MEDS: FUROSEMIDE 10 MG/ML 2 ML VIAL IV SCH (21:21)
[2020-06-08 06:07] LABS: Glucose,Whole Blood 269 mg/dL (75-99)
[2020-06-08] MEDS: INSULIN ASPART (NovoLOG) 100 UNIT/ML VIAL SQ SCH ×4 (06:29→21:16)
[2020-06-08 07:03] LABS: Potassium 3.6 mmol/L (3.5-5.1)
[2020-06-08] MEDS: LISINOPRIL 2.5 MG TAB PO SCH (08:17)
[2020-06-08] MEDS: CARVEDILOL 3.125 MG TAB PO SCH ×2 (08:17→17:33)
[2020-06-08] MEDS: SPIRONOLACTONE 25 MG TAB PO SCH (08:17)
[2020-06-08] MEDS: predniSONE 20 MG TAB PO SCH (08:17)
[2020-06-08] MEDS: APIXABAN 5 MG TAB PO SCH ×2 (08:17→21:15)
[2020-06-08] MEDS: ALPRAZolam 0.5 MG TAB PO PRN ×2 (08:17→21:26)
[2020-06-08] MEDS: guaiFENesin 600 MG TABLET.ER PO SCH ×2 (08:17→21:15)
[2020-06-08] MEDS: FAMOTIDINE 20 MG TAB PO SCH (08:18)
[2020-06-08] MEDS: FLUoxetine HCL 10 MG CAP PO SCH (08:18)
[2020-06-08] MEDS: CEFDINIR 300 MG CAP PO SCH ×2 (08:18→21:15)
[2020-06-08] MEDS: FUROSEMIDE 10 MG/ML 2 ML VIAL IV SCH ×2 (08:18→21:25)
[2020-06-08] MEDS: LINAGLIPTIN 5 MG TABLET PO SCH (08:18)
[2020-06-08] MEDS: DORZOLAMIDE-TIMOLOL 2.23%/0.68 10ML BTL RIGHT EYE SCH ×2 (08:19→21:19)
[2020-06-08] MEDS: KETOROLAC 0.5% OPHTH DROPS 5 ML BTL RIGHT EYE SCH ×4 (08:19→21:19)
[2020-06-08] MEDS: DOXYCYCLINE 100 MG CAP PO SCH ×2 (08:19→21:15)
[2020-06-08] MEDS: SYMBICORT 160-4.5 MCG INHALER INHALATION SCH ×2 (08:43→19:05)
[2020-06-08] MEDS: IPRATROPIUM-ALBUTEROL 3 ML NEB INHALATION SCH ×4 (08:43→19:05)
--- NOTE | 2020-06-08 09:43 | P.NPCON ---
History of Present Illness - Reason for Consult acute renal failure, chronic renal failure - History of Present Illness Reason for consultation: Chronic kidney disease History of present illness: Patient is a 74-year-old female seen in renal consultation for chronic kidney disease. Patient appears to have chronic kidney disease stage III with baseline creatinine near 1.2. GFR is currently near baseline. Patient presented to the hospital on 06/14/2020 shortness of breath. She denies any edema. Patient states she developed sudden onset of shortness of breath and wheezing and states she has history of COPD. She denies wearing oxygen at home. Currently she is doing well. States dyspnea has resolved with breathing treatments. She is also maintained on IV Lasix 20 mg twice daily. Admits to good urine output. No hematuria or dysuria. Denies use of nonsteroidals. Denies family history of renal disease. She does have history of diabetes and is maintained on oral hypoglycemics at home including metformin. Patient does take Lasix 20 mg orally once daily at home. Chest CT revealed bilateral pleural effusions that are small along with pulmonary venous congestion. Echocardiogram revealed ejection fraction of 20-25% with severe mitral regurgitation. No dizziness or syncopal episodes. No vomiting or diarrhea. Oral intake is good. Vital signs are stable. General: The patient appeared well nourished and normally developed. HEENT: Head exam is unremarkable. Neck is without jugular venous distension. LUNGS: Lungs are clear to auscultation and percussion. Breath sounds decreased. HEART: Rate and Rhythm are regular. ABDOMEN: Soft, nontender. EXTREMITITES: No clubbing, cyanosis, or edema. Past Medical History Past Medical History: Atrial Fibrillation, Asthma, Cancer, Heart Failure, COPD, CVA/TIA, Diabetes Mellitus, Eye Disorder, Hyperlipidemia, Hypertension, Osteoarthritis (OA), Renal Disease, Respiratory Disorder, Vascular Disorder Additional Past Medical History / Comment(s): Paroxysmal Afib, cardiomyopathy, mitral valve regurgitation, NIDDM type II, neuropathy bilateral hands/feet, CVA with R eye blindness, severe shingelles 2010 which affected L arm/back of neck, skin cancer with removal, R sided nephrolithiasis-nonobstructing per past medical record/pt unaware, chronic constipation, degenerative joint disease. History of Any Multi-Drug Resistant Organisms: None Reported Past Surgical History: Heart Catheterization, Hysterectomy, Orthopedic Surgery, Tonsillectomy Additional Past Surgical History / Comment(s): Right knee arthroplasty, bilateral cataract/lens implant surgery, skin cancer removed under R eye. Past Anesthesia/Blood Transfusion Reactions: No Reported Reaction Smoking Status: Former smoker - Past Family History Mother Family Medical History: Dementia Additional Family Medical History / Comment(s): AGE 99 Father Family Medical History: No Reported History Additional Family Medical History / Comment(s): WAS HEALTHY AT ALMOST AGE 99 Medications and Allergies Home Medications Medication Instructions Recorded Confirmed Type ALPRAZolam [Xanax] 0.5 mg PO TID PRN 11/04/17 06/04/20 History Albuterol Sulfate [Proventil Hfa] 1 - 2 puff INHALATION RT-Q4H PRN 11/04/17 06/04/20 History Potassium Chloride [Klor-Con 10] 10 meq PO TID 11/04/17 06/04/20 History Tiotropium 18 Mcg/Puff [Spiriva] 1 cap INHALATION RT-DAILY 11/04/17 06/04/20 History glyBURIDE/METFORMIN HCL 2 tab PO QAM 11/04/17 06/04/20 History [Glucovance 5-500 mg] sitaGLIPtin [Januvia] 100 mg PO DAILY 11/04/17 06/04/20 History Apixaban [Eliquis] 5 mg PO BID tab 11/10/17 06/04/20 Rx FLUoxetine HCL 10 mg PO DAILY #30 tablet 11/22/17 06/04/20 Rx Carvedilol [Coreg] 3.125 mg PO BID-W/MEALS #60 tab 04/18/18 06/04/20 Rx Furosemide [Lasix] 20 mg PO DAILY #30 tab 04/18/18 06/04/20 Rx Lisinopril [Zestril] 2.5 mg PO DAILY #30 tab 04/18/18 06/04/20 Rx Spironolactone [Aldactone] 25 mg PO DAILY #30 tab 04/18/18 06/04/20 Rx Atorvastatin [Lipitor] 20 mg PO HS 06/04/20 06/04/20 History Dorzolamide-Timol 2.23%/0.68% 1 drop RIGHT EYE BID 06/04/20 06/04/20 History [Cosopt] glyBURIDE/METFORMIN HCL 1 tab PO HS 06/04/20 06/04/20 History [glyBURIDE/METFORMIN HCL 5-500 mg] Allergies Allergy/AdvReac Type Severity Reaction Status Date / Time egg Allergy Itching Verified 06/04/20 08:59 Physical Exam Vitals: Vital Signs Temp Pulse Pulse Resp BP Pulse Ox 06/08/20 09:00 80 06/08/20 08:43 80 06/08/20 04:00 97.9 F 83 16 85/61 96 06/07/20 23:02 71 16 108/51 97 06/07/20 21:11 97.9 F 73 18 91/51 97 06/07/20 20:57 82 06/07/20 20:47 82 06/07/20 15:45 97.5 F L 71 16 82/49 97 06/07/20 15:43 80 06/07/20 15:27 76 06/07/20 12:08 88 06/07/20 11:57 84 06/07/20 11:10 98.1 F 92 16 168/77 97 Intake and Output 06/07/20 06/08/20 06/08/20 22:59 06:59 14:59 Intake Total 300 Output Total 220 Balance -220 300 Intake: Oral 300 Output: Urine 220 Other: Voiding Method Bedside Commode # Voids 2 1 Weight 55 kg Results - Lab Results Most recent lab results Calcium 9.0 mg/dL (8.4-10.2) 06/08/20 06:00 Magnesium 1.8 mg/dL (1.6-2.3) 06/05/20 06:37 06/07/20 05:51 06/08/20 06:00 Assessment and Plan Plan: Assessment: 1. Chronic kidney disease stage III Baseline creatinine near 1.2 secondary to cardiorenal syndrome. UA benign. GFR near baseline. 2. Acute on chronic systolic CHF with ejection fraction of 20-25% with severe mitral regurgitation. 3. Mild fluid overload. 4. COPD exacerbation. 5. Diabetes mellitus. 6. Hypertonic hyponatremia secondary to hyperglycemia. Plan: Maintain Lasix 20 mg IV twice daily. Can be changed to 20 mg orally twice daily upon discharge. Avoid nephrotoxins. Tight blood sugar control. Patient will need to follow-up outpatient in about 2 weeks post discharge. Thank you for the consultation. I will continue to follow the patient with you during her hospital stay.
[2020-06-08 11:34] LABS: Glucose,Whole Blood 189 mg/dL (75-99)
--- NOTE | 2020-06-08 12:12 | P.PN ---
Subjective patient admitted for acute respiratory failure etiology being both COPD and CHF exacerbation both of which are improving patient is on aspirin on sym ptomatically does not even require that. patient was switched to oral steroids and oral Lasix will monitor her one more night possibility of discharge tomorrow. Patient had any of around 20-25% the repeat echocardiogram. Patient had elevated troponins etiology evaluated the patient patient is on Eliquis which is a resumed and continued. was on the bilevel ventilation yesterday 06/06/2020 Patient is still coughing quite a bit of greenish phlegm analogy believes patient may have atypical pneumonia patient is also being treated for heart failure. Patient serum sodium has gone down and the serum creatinine went up because of that reason I'm holding off on Lasix temporally Aldactone although will be continued. Recheck basic volley profile tomorrow patient is presently on doxazosin and Rocephin 06/07/2020 Patient's creatinine is to let 1.[address] of the chest showing groundglass pasty but didn't show any pulmonary embolism because of the groundglass pasty started back on Lasix and will see held if she'll improve. We'll recheck the creatinine tomorrow 06/08/2020 Patient respiratory status improved but she patient has rhonchi patient is still coughing quite a bit. Patient is bit hyponatremic secondary to hyperglycemia which is pseudohyponatremia from hyperglycemia. Nephrology valid the patient patient remains on IV Lasix. Patient's serum creatinine although elevated rem ains stable compared to yesterday Constitutional: Denied any fatigue denied any fever. Cardio vascular: denied any chest pain, palpitations Gastrointestinal denied any nausea vomiting Pulmonary: Denied any shortness of breath cough Neurologic denied any new focal deficits All inpatient medications were reviewed and appropriate changes in these medications as dictated in the interval history and assessment and plan. Objective - Vital Signs Vital signs: Vital Signs Temp 97.9 F 06/08/20 08:00 Pulse 80 06/08/20 09:00 Resp 18 06/08/20 08:00 BP 121/64 06/08/20 08:00 Pulse Ox 97 06/08/20 08:00 Intake & Output 06/07/20 06/08/20 06/08/20 18:59 06:59 18:59 Intake Total 180 300 Output Total 220 Balance 180 -220 300 Weight 55 kg Intake: Oral 180 300 Output: Urine 220 Other: Voiding Method Bedside Commode Bedside Commode Bedside Commode # Voids 2 1 1 - Exam PHYSICAL EXAMINATION: GENERAL: The patient is alert and oriented x3, not in any acute distress. Well developed, well nourished. HEENT: Pupils are round and equally reacting to light. EOMI. No scleral icterus. No conjunctival pallor. Normocephalic, atraumatic. No pharyngeal erythema. No thyromegaly. CARDIOVASCULAR: S1 and S2 present. No murmurs, rubs, or gallops. PULMONARY: fairly good air entry into bilateral lung lanza. Mild bilateral rhonchi ABDOMEN: Soft, nontender, nondistended, normoactive bowel sounds. No palpable organomegaly. MUSCULOSKELETAL: No joint swelling or deformity. EXTREMITIES: No cyanosis, clubbing, or pedal edema. NEUROLOGICAL: Gross neurological examination did not reveal any focal deficits. SKIN: No rashes. - Labs CBC & Chem 7: 06/07/20 05:51 06/08/20 06:00 Labs: Abnormal Lab Results - Last 24 Hours (Table) 06/07/20 06/07/20 06/08/20 Range/Units 16:44 19:53 06:00 Sodium 131 L (137-145) mmol/L Chloride 96 L (98-107) mmol/L BUN 31 H (7-17) mg/dL Creatinine 1.23 H (0.52-1.04) mg/dL Glucose 273 H (74-99) mg/dL POC Glucose (mg/dL) 405 H 495 H (75-99) mg/dL 06/08/20 06/08/20 Range/Units 06:05 11:32 Sodium (137-145) mmol/L Chloride (98-107) mmol/L BUN (7-17) mg/dL Creatinine (0.52-1.04) mg/dL Glucose (74-99) mg/dL POC Glucose (mg/dL) 269 H 189 H (75-99) mg/dL Microbiology - Last 24 Hours (Table) 06/04/20 06:46 Blood Culture - Preliminary Blood No Growth after 96 hours Assessment and Plan Plan: -Acute hypercapnic respiratory failure. Requiring bilevel ventilation noninvasive ventilation presently on room air secondary to COPD exacerbation, patient is being treated for heart failure, interstitial pneumonia patient is on Rocephin and oxygen -Congestive heart failure chronic systolic dysfunction with EF of around 20-25% previously of was 30-35% admitted with exacerbation patient will be started back on Lasix -COPD with acute exacerbation -Atrial fibrillation presently rate controlled rapid unclear rate on admission patient resumed on her home regimen of beta [place] and atrial fibrillation is presently precipitated by hypoxemia -Mildly elevated troponin: Secondary to hypoxemia and atrial fibrillation cardiology will evaluate the patient patient is on Eliquis which will be continued although acute non-ST elevation myocardial infarction cannot be ruled out, cardiology is following the patient -Hyponatremia probably hypervolemic hyponatremia continue with Lasix -Chronic kidney disease stage III 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 Acidosis improved.
--- NOTE | 2020-06-08 15:05 | P.PN ---
Subjective Progress Note Date: 06/07/20 (Late entry note) Principal diagnosis: Hemoptysis Bilateral interstitial pneumonia Acute COPD exacerbation Acute on chronic hypoxic and hypercapnic respiratory failure Acute on chronic systolic heart failure with baseline ejection fraction of 30%, Chronic atrial fibrillation chronic kidney disease stage III Electrolyte imbalance with hyponatremia Type 2 diabetes mellitus Lactic acidosis 06/07/2020, patient seen eval examined during the rounds labs reviewed medications reviewed cough congestion is still there blood please sputum that was noted yesterday seems to be subsiding some blood streak-like fashion old - appearing present, computed tomography scan of chest reviewed performed without contrast, small bilateral pleural effusion noted, some compressive atelectasis due to pleural effusion has been noted, extensive bullous in the right upper lobe has been noted, no significant mass have been identified 06/06/2020, patient seen eval examined during the rounds labs reviewed medications reviewed, patient has been having more cough congestion and wheezing, ongoing cough is present with his sputum production makes with streaks of blood, not feeling very well today compared to yesterday, patient has been on oral antibiotics doxycycline along with low-dose prednisone will change it to IV we'll send a sputum for Gram stain and culture we'll order a computed tomography scan of the chest as well without IV contrast This is a 74-year-old female with extensive history of smoking and nicotine use in the past, patient has severe COPD has been on home nebulizer treatment, pain patient came into the hospital with one to 2 day history of increasing shortness of breath, on arrival patient was noted to have a acute [place] hypoxic respiratory failure with pH of 7.1 and CO2 of 450, patient initially supported with BiPAP, review of the records revealed that patient ejection fraction around 30% to years ago, review of the data also revealed that patient has elevated tropes and has been on anticoagulation as well cardiovascular services following, patient has ongoing cough with a scant sputum production overall appears to have a exacerbation of COPD along with possible pneumonia, chest x- ray prominent gestation was seen with small bilateral pleural effusion Objective - Vital Signs Vital signs: Blood pressure is 150/72, respiratory rate 16, pulse is 88, temperature 97.8, saturation 99% Intake & Output - Exam - Constitutional General appearance: average body habitus, disheveled, thin - EENT Eyes: EOMI, PERRLA ENT: normal oropharynx Ears: bilateral: normal - Neck Carotids: bilateral: upstroke normal Thyroid: bilateral: normal size - Respiratory Respiratory: bilateral: diminished, and expiratory rhonchi with wheezing - Cardiovascular Rhythm: regular Heart sounds: normal: S1, S2 - Gastrointestinal General gastrointestinal: normal bowel sounds - Neurologic Neurologic: CNII-XII intact - Musculoskeletal Musculoskeletal: gait normal, generalized weakness, strength equal bilaterally - Psychiatric Psychiatric: A&O x's 3, appropriate affect, intact judgment & insight - Labs CBC & Chem 7: 06/07/20 05:51 06/08/20 06:00 Labs: Abnormal Lab Results - Last 24 Hours (Table) 06/07/20 06/07/20 06/08/20 Range/Units 16:44 19:53 06:00 Sodium 131 L (137-145) mmol/L Chloride 96 L (98-107) mmol/L BUN 31 H (7-17) mg/dL Creatinine 1.23 H (0.52-1.04) mg/dL Glucose 273 H (74-99) mg/dL POC Glucose (mg/dL) 405 H 495 H (75-99) mg/dL 06/08/20 06/08/20 Range/Units 06:05 11:32 Sodium (137-145) mmol/L Chloride (98-107) mmol/L BUN (7-17) mg/dL Creatinine (0.52-1.04) mg/dL Glucose (74-99) mg/dL POC Glucose (mg/dL) 269 H 189 H (75-99) mg/dL Microbiology - Last 24 Hours (Table) 06/04/20 06:46 Blood Culture - Preliminary Blood No Growth after 96 hours Assessment and Plan Assessment: Bilateral small pleural effusion Bilateral interstitial infiltrate pneumonia versus related to hemoptysis Hemoptysis may be related to airway inflammation Acute COPD exacerbation Acute on chronic hypoxic and hypercapnic respiratory failure Acute on chronic systolic heart failure with baseline ejection fraction of 30%, Chronic atrial fibrillation chronic kidney disease stage III Electrolyte imbalance with hyponatremia Type 2 diabetes mellitus Plan: Continue breathing treatments IV steroids and antibiotics continue doxycycline we will add IV Rocephin Computed tomography scan of the chest reviewed no significant pathology identified towords hemoptysis this is likely inflammatory processes Broad-spectrum antibiotics BiPAP support as needed Cardiovascular services following for elevated troponin Continue supportive care further recommendations pending plan of care as per clinical response of patient Time with Patient: Greater than 30
--- NOTE | 2020-06-08 15:08 | P.PN ---
Subjective Progress Note Date: 06/08/20 Principal diagnosis: Hemoptysis Bilateral interstitial pneumonia Acute COPD exacerbation Acute on chronic hypoxic and hypercapnic respiratory failure Acute on chronic systolic heart failure with baseline ejection fraction of 30%, Chronic atrial fibrillation chronic kidney disease stage III Electrolyte imbalance with hyponatremia Type 2 diabetes mellitus Lactic acidosis 06/08/2020, patient seen eval reexamined during the rounds breathing status has significantly improved, hemoptysis resolved no more episodes have been seen, computed tomography scan finding have been reviewed with the patient, denies any chest pain, patient has been switched to oral antibiotics as well as oral steroids 06/07/2020, patient seen eval examined during the rounds labs reviewed medica tions reviewed cough congestion is still there blood please sputum that was noted yesterday seems to be subsiding some blood streak-like fashion old - appearing present, computed tomography scan of chest reviewed performed without contrast, small bilateral pleural effusion noted, some compressive atelectasis due to pleural effusion has been noted, extensive bullous in the right upper lobe has been noted, no significant mass have been identified 06/06/2020, patient seen eval examined during the rounds labs reviewed medications reviewed, patient has been having more cough congestion and wheezing , ongoing cough is present with his sputum production makes with streaks of blood, not feeling very well today compared to yesterday, patient has been on oral antibiotics doxycycline along with low-dose prednisone will change it to IV we'll send a sputum for Gram stain and culture we'll order a computed tomography scan of the chest as well without IV contrast This is a 74-year-old female with extensive history of smoking and nicotine use in the past, patient has severe COPD has been on home nebulizer treatment, pain patient came into the hospital with one to 2 day history of increasing shortness of breath, on arrival patient was noted to have a acute [place] hypoxic respiratory failure with pH of 7.1 and CO2 of 450, patient initially supported with BiPAP, review of the records revealed that patient ejection fraction around 30% to years ago, review of the data also revealed that patient has elevated tropes and has been on anticoagulation as well cardiovascular services following, patient has ongoing cough with a scant sputum production overall appears to have a exacerbation of COPD along with possible pneumonia, chest x- ray prominent gestation was seen with small bilateral pleural effusion Objective - Vital Signs Vital signs: Vital Signs Temp 98.0 F 06/08/20 12:05 Pulse 74 07/13/20 12:53 Resp 18 06/08/20 12:05 BP 103/64 06/08/20 12:05 Pulse Ox 96 06/08/20 12:05 Intake & Output 06/07/20 06/08/20 06/08/20 18:59 06:59 18:59 Intake Total 180 540 Output Total 220 Balance 180 -220 540 Weight 55 kg Intake: Oral 180 540 Output: Urine 220 Other: Voiding Method Bedside Commode Bedside Commode Bedside Commode # Voids 2 1 3 - Exam - Constitutional General appearance: average body habitus, disheveled, thin - EENT Eyes: EOMI, PERRLA ENT: normal oropharynx Ears: bilateral: normal - Neck Carotids: bilateral: upstroke normal Thyroid: bilateral: normal size - Respiratory Respiratory: bilateral: diminished, and expiratory rhonchi with wheezing - Cardiovascular Rhythm: regular Heart sounds: normal: S1, S2 - Gastrointestinal General gastrointestinal: normal bowel sounds - Neurologic Neurologic: CNII-XII intact - Musculoskeletal Musculoskeletal: gait normal, generalized weakness, strength equal bilaterally - Psychiatric Psychiatric: A&O x's 3, appropriate affect, intact judgment & insight - Labs CBC & Chem 7: 06/07/20 05:51 06/08/20 06:00 Labs: Abnormal Lab Results - Last 24 Hours (Table) 06/07/20 06/07/20 06/08/20 Range/Units 16:44 19:53 06:00 Sodium 131 L (137-145) mmol/L Chloride 96 L (98-107) mmol/L BUN 31 H (7-17) mg/dL Creatinine 1.23 H (0.52-1.04) mg/dL Glucose 273 H (74-99) mg/dL POC Glucose (mg/dL) 405 H 495 H (75-99) mg/dL 06/08/20 06/08/20 Range/Units 06:05 11:32 Sodium (137-145) mmol/L Chloride (98-107) mmol/L BUN (7-17) mg/dL Creatinine (0.52-1.04) mg/dL Glucose (74-99) mg/dL POC Glucose (mg/dL) 269 H 189 H (75-99) mg/dL Microbiology - Last 24 Hours (Table) 06/04/20 06:46 Blood Culture - Preliminary Blood No Growth after 96 hours Assessment and Plan Assessment: Bilateral small pleural effusion Bilateral interstitial infiltrate pneumonia versus related to hemoptysis significantly improved Hemoptysis may be related to airway inflammation significantly improved Acute COPD exacerbation Acute on chronic hypoxic and hypercapnic respiratory failure Acute on chronic systolic heart failure with baseline ejection fraction of 30%, Chronic atrial fibrillation chronic kidney disease stage III Electrolyte imbalance with hyponatremia Type 2 diabetes mellitus Plan: Continue breathing treatments Continue oral steroids and antibiotics Computed tomography scan of the chest reviewed no significant pathology identified towords hemoptysis this is likely inflammatory processes No aggressive intervention for pleural fluid evaluation being very small we will observe it for now BiPAP support as needed Cardiovascular services following for elevated troponin Continue supportive care further recommendations pending plan of care as per clinical response of patient Time with Patient: Greater than 30
[2020-06-08 16:30] LABS: Glucose,Whole Blood 387 mg/dL (75-99)
[2020-06-08 20:09] LABS: Glucose,Whole Blood 443 mg/dL (75-99)
[2020-06-08] MEDS ORDERED: INSULIN DETEMIR (LEVEMIR) 100 UNIT/ML SYR SQ SCH (21:15)
[2020-06-08] MEDS: ATORVASTATIN 20 MG TAB PO SCH (21:15)
[2020-06-09 06:08] LABS: Glucose,Whole Blood 165 mg/dL (75-99)
[2020-06-09] MEDS: ALPRAZolam 0.5 MG TAB PO PRN (06:40)
[2020-06-09] MEDS: INSULIN ASPART (NovoLOG) 100 UNIT/ML VIAL SQ SCH ×2 (06:41→13:54)
[2020-06-09] MEDS: CARVEDILOL 3.125 MG TAB PO SCH (06:41)
[2020-06-09] MEDS: FLUoxetine HCL 10 MG CAP PO SCH (08:09)
[2020-06-09] MEDS: FAMOTIDINE 20 MG TAB PO SCH (08:09)
[2020-06-09] MEDS: APIXABAN 5 MG TAB PO SCH (08:09)
[2020-06-09] MEDS: SPIRONOLACTONE 25 MG TAB PO SCH (08:09)
[2020-06-09] MEDS: CEFDINIR 300 MG CAP PO SCH (08:09)
[2020-06-09] MEDS: guaiFENesin 600 MG TABLET.ER PO SCH (08:10)
[2020-06-09] MEDS: FUROSEMIDE 10 MG/ML 2 ML VIAL IV SCH (08:10)
[2020-06-09] MEDS: LINAGLIPTIN 5 MG TABLET PO SCH (08:10)
[2020-06-09] MEDS: DOXYCYCLINE 100 MG CAP PO SCH (08:10)
[2020-06-09] MEDS: KETOROLAC 0.5% OPHTH DROPS 5 ML BTL RIGHT EYE SCH (08:11)
[2020-06-09] MEDS: DORZOLAMIDE-TIMOLOL 2.23%/0.68 10ML BTL RIGHT EYE SCH (08:11)
[2020-06-09 08:18] LABS: Calcium 9.2 mg/dL (8.4-10.2); Potassium 4.1 mmol/L (3.5-5.1)
[2020-06-09] MEDS: SYMBICORT 160-4.5 MCG INHALER INHALATION SCH (08:49)
[2020-06-09] MEDS: IPRATROPIUM-ALBUTEROL 3 ML NEB INHALATION SCH ×2 (08:49→12:06)
--- NOTE | 2020-06-09 08:58 | P.PN ---
Subjective Progress Note Date: 06/09/20 Principal diagnosis: Hemoptysis Bilateral interstitial pneumonia Acute COPD exacerbation Acute on chronic hypoxic and hypercapnic respiratory failure Acute on chronic systolic heart failure with baseline ejection fraction of 30%, Chronic atrial fibrillation chronic kidney disease stage III Electrolyte imbalance with hyponatremia Type 2 diabetes mellitus Lactic acidosis 06/09/2020, patient seen and evaluated examined during the rounds labs reviewed medications reviewed, care plan discussed with the respiratory therapist, patient is slightly more short of breath IES is up to 1500 down from yesterday 2 L, shortness of breath is present, no wheezing, no hemoptysis, no sputum production, denies any chest pain, does feel congested in the lungs, she is on room air 96%, 06/08/2020, patient seen eval reexamined during the rounds breathing status has significantly improved, hemoptysis resolved no more episodes have been seen, computed tomography scan finding have been reviewed with the patient, denies any chest pain, patient has been switched to oral antibiotics as well as oral steroids 06/07/2020, patient seen eval examined during the rounds labs reviewed medi cations reviewed cough congestion is still there blood please sputum that was noted yesterday seems to be subsiding some blood streak-like fashion old - appearing present, computed tomography scan of chest reviewed performed without contrast, small bilateral pleural effusion noted, some compressive atelectasis due to pleural effusion has been noted, extensive bullous in the right upper lobe has been noted, no significant mass have been identified 06/06/2020, patient seen eval examined during the rounds labs reviewed medications reviewed, patient has been having more cough congestion and wheezi ng, ongoing cough is present with his sputum production makes with streaks of blood, not feeling very well today compared to yesterday, patient has been on oral antibiotics doxycycline along with low-dose prednisone will change it to IV we'll send a sputum for Gram stain and culture we'll order a computed tomography scan of the chest as well without IV contrast This is a 74-year-old female with extensive history of smoking and nicotine use in the past, patient has severe COPD has been on home nebulizer treatment, pain patient came into the hospital with one to 2 day history of increasing shortness of breath, on arrival patient was noted to have a acute [place] hypoxic respiratory failure with pH of 7.1 and CO2 of 450, patient initially supported with BiPAP, review of the records revealed that patient ejection fraction around 30% to years ago, review of the data also revealed that patient has elevated tropes and has been on anticoagulation as well cardiovascular services following, patient has ongoing cough with a scant sputum production overall appears to have a exacerbation of COPD along with possible pneumonia, chest x- ray prominent gestation was seen with small bilateral pleural effusion Objective - Vital Signs Vital signs: Vital Signs Temp 97.6 F 06/09/20 04:00 Pulse 80 06/09/20 08:50 Resp 18 06/09/20 04:00 BP 131/65 06/09/20 04:00 Pulse Ox 96 06/09/20 04:00 Intake & Output 06/08/20 06/09/20 06/09/20 18:59 06:59 18:59 Intake Total 780 Balance 780 Weight 54.6 kg Intake: Oral 780 Other: Voiding Method Bedside Commode # Voids 4 1 - Exam - Constitutional General appearance: average body habitus, disheveled, thin - EENT Eyes: EOMI, PERRLA ENT: normal oropharynx Ears: bilateral: normal - Neck Carotids: bilateral: upstroke normal Thyroid: bilateral: normal size - Respiratory Respiratory: bilateral: diminished, and expiratory rhonchi with wheezing - Cardiovascular Rhythm: regular Heart sounds: normal: S1, S2 - Gastrointestinal General gastrointestinal: normal bowel sounds - Neurologic Neurologic: CNII-XII intact - Musculoskeletal Musculoskeletal: gait normal, generalized weakness, strength equal bilaterally - Psychiatric Psychiatric: A&O x's 3, appropriate affect, intact judgment & insight - Labs CBC & Chem 7: 06/07/20 05:51 06/09/20 06:50 Labs: Abnormal Lab Results - Last 24 Hours (Table) 06/08/20 06/08/20 06/08/20 Range/Units 11:32 16:26 20:08 Sodium (137-145) mmol/L BUN (7-17) mg/dL Creatinine (0.52-1.04) mg/dL Glucose (74-99) mg/dL POC Glucose (mg/dL) 189 H 387 H 443 H (75-99) mg/dL 06/09/20 06/09/20 Range/Units 06:06 06:50 Sodium 135 L (137-145) mmol/L BUN 36 H (7-17) mg/dL Creatinine 1.29 H (0.52-1.04) mg/dL Glucose 141 H (74-99) mg/dL POC Glucose (mg/dL) 165 H (75-99) mg/dL Microbiology - Last 24 Hours (Table) 06/04/20 06:46 Blood Culture - Preliminary Blood No Growth after 120 hours Assessment and Plan Assessment: Bilateral small pleural effusion Bilateral interstitial infiltrate pneumonia versus related to hemoptysis significantly improved Hemoptysis may be related to airway inflammation significantly improved and no noted in last 24-48 hours Acute COPD exacerbation Acute on chronic hypoxic and hypercapnic respiratory failure Acute on chronic systolic heart failure with baseline ejection fraction of 30%, Chronic atrial fibrillation chronic kidney disease stage III Electrolyte imbalance with hyponatremia Type 2 diabetes mellitus Plan: Continue current medications with gentle diuresis Continue breathing treatments Continue oral steroids and antibiotics Computed tomography scan of the chest reviewed no significant pathology identified towords hemoptysis this is likely inflammatory processes No aggressive intervention for pleural fluid evaluation being very small we will observe it for now BiPAP support as needed Cardiovascular services following for elevated troponin Continue supportive care further recommendations pending plan of care as per clinical response of patient Time with Patient: Greater than 30
[2020-06-09] MEDS ORDERED: predniSONE 20 MG TAB PO SCH (09:00)
[2020-06-09 11:12] VITALS: RESP 19
--- NOTE | 2020-06-09 11:31 | P.PN ---
Subjective Patient is seen in follow-up for chronic kidney disease. Patient has chronic kidney disease stage III with baseline creatinine near 1.2. Renal function fairly stable. Admits to a cough and is bringing up phlegm. No chest pain or shortness of breath. No edema. Good urine output. Vital signs are stable. General: The patient appeared well nourished and normally developed. HEENT: Head exam is unremarkable. Neck is without jugular venous distension. LUNGS: Lungs are clear to auscultation and percussion. Breath sounds decreased. HEART: Rate and Rhythm are regular. First and second heart sounds normal. No murmurs, rubs or gallops. ABDOMEN: Soft, nontender. EXTREMITITES: No clubbing, cyanosis, or edema. Objective - Vital Signs Vital signs: Vital Signs Temp 98.6 F 06/09/20 08:00 Pulse 80 06/09/20 08:50 Resp 19 06/09/20 08:00 BP 126/72 06/09/20 08:00 Pulse Ox 95 06/09/20 08:00 Intake & Output 06/08/20 06/09/20 06/09/20 18:59 06:59 18:59 Intake Total 780 Balance 780 Weight 54.6 kg Intake: Oral 780 Other: Voiding Method Bedside Commode Toilet # Voids 4 1 1 - Labs CBC & Chem 7: 06/07/20 05:51 06/09/20 06:50 Labs: Abnormal Lab Results - Last 24 Hours (Table) 06/08/20 06/08/20 06/08/20 Range/Units 11:32 16:26 20:08 Sodium (137-145) mmol/L BUN (7-17) mg/dL Creatinine (0.52-1.04) mg/dL Glucose (74-99) mg/dL POC Glucose (mg/dL) 189 H 387 H 443 H (75-99) mg/dL 06/09/20 06/09/20 Range/Units 06:06 06:50 Sodium 135 L (137-145) mmol/L BUN 36 H (7-17) mg/dL Creatinine 1.29 H (0.52-1.04) mg/dL Glucose 141 H (74-99) mg/dL POC Glucose (mg/dL) 165 H (75-99) mg/dL Microbiology - Last 24 Hours (Table) 06/04/20 06:46 Blood Culture - Preliminary Blood No Growth after 120 hours Assessment and Plan Plan: Assessment: 1. Chronic kidney disease stage III Baseline creatinine near 1.2 secondary to cardiorenal syndrome. UA benign. GFR near baseline. 2. Acute on chronic systolic CHF with ejection fraction of 20-25% with severe mitral regurgitation. 3. Mild fluid overload. 4. COPD exacerbation. 5. Diabetes mellitus. 6. Hypertonic hyponatremia secondary to hyperglycemia. Better. Plan: I will change Lasix to 20 mg orally twice daily. Avoid nephrotoxins. Tight blood sugar control. Patient will need to follow-up outpatient in about 2 weeks post discharge.
[2020-06-09 11:50] LABS: Glucose,Whole Blood 306 mg/dL (75-99)
--- NOTE | 2020-06-09 12:17 | P.DS ---
Providers Date of admission: 06/04/20 06:49 Attending physician: Carol Bassett Consults: 06/04/20 06:49 Consult Physician Routine Consulting Provider: [facility] Consult Reason/Comments: new afib Do you want consulting provider notified?: Yes, Notify in am 06/04/20 15:09 Consult Physician Urgent Consulting Provider: Evans Kaur Consult Reason/Comments: SOB Do you want consulting provider notified?: Yes 06/07/20 12:21 Consult Physician Routine Consulting Provider: Rory Ignacio Consult Reason/Comments: ARUN, Hyponatremia, CHF Do you want consulting provider notified?: Yes [facility] Course: patient admitted for acute respiratory failure etiology being both COPD and CHF exacerbation both of which are improving patient is on aspirin on sympt omatically does not even require that. patient was switched to oral steroids and oral Lasix will monitor her one more night possibility of discharge tomorrow. Patient had any of around 20-25% the repeat echocardiogram. Patient had elevated troponins etiology evaluated the patient patient is on Eliquis which is a resumed and continued. was on the bilevel ventilation yesterday 06/06/2020 Patient is still coughing quite a bit of greenish phlegm analogy believes patient may have atypical pneumonia patient is also being treated for heart failure. Patient serum sodium has gone down and the serum creatinine went up because of that reason I'm holding off on Lasix temporally Aldactone although will be continued. Recheck basic volley profile tomorrow patient is presently on doxazosin and Rocephin 06/07/2020 Patient's creatinine is to let 1.[address] of the chest showing groundglass pasty but didn't show any pulmonary embolism because of the groundglass pasty started back on Lasix and will see held if she'll improve. We'll recheck the creatinine tomorrow 06/08/2020 Patient respiratory status improved but she patient has rhonchi patient is still coughing quite a bit. Patient is bit hyponatremic secondary to hyperglycemia which is pseudohyponatremia from hyperglycemia. Nephrology valid the patient patient remains on IV Lasix. Patient's serum creatinine although elevated remai ns stable compared to yesterday 06/09/2020 Patient's creatinine went up but remained stable patient will be started on 20 mg twice a day of Lasix patient the blood sugars are fairly well-controlled and her blood sugars are high because of the systemic steroids unfortunately patient doesn't want to use insulin and patient cannot take metformin because of renal function patient will be discharged on increased dose of glyburide and patient is already in Januvia which will be continued patient blood sugars are expected to be higher at home as well but the expected to go down once her steroids were discontinued because of which I'm doing a quick taper. Patient was treated for atypical pneumonia patient apparently had mild hemoptysis which resolved at this time. Patient will be discharged on levofloxacin. Patient had EF of 20%. PHYSICAL EXAMINATION: GENERAL: The patient is alert and oriented x3, not in any acute distress. Well developed, well nourished. HEENT: Pupils are round and equally reacting to light. EOMI. No scleral icterus. No conjunctival pallor. Normocephalic, atraumatic. No pharyngeal erythema. No thyromegaly. CARDIOVASCULAR: S1 and S2 present. No murmurs, rubs, or gallops. PULMONARY: Mild wheezing and mild rhonchi bilaterally ABDOMEN: Soft, nontender, nondistended, normoactive bowel sounds. No palpable organomegaly. MUSCULOSKELETAL: No joint swelling or deformity. EXTREMITIES: No cyanosis, clubbing, or pedal edema. NEUROLOGICAL: Gross neurological examination did not reveal any focal deficits. SKIN: No rashes. Assessment and Plan Plan: -Acute hypercapnic respiratory failure. Secondary to severe exacerbation. Patient was also treated for atypical pneumonia. -Congestive heart failure chronic systolic dysfunction with EF of around 20-25% previously of was 30-35% admitted with exacerbation is being discharged on Lasix 20 mg twice a day -COPD with acute exacerbation -Atrial fibrillation presently rate controlled rapid ventricular rate on admission patient resumed on her home regimen of beta [place] and atrial fibrillation is presently precipitated by hypoxemia -Mildly elevated troponin: Secondary to hypoxemia and atrial fibrillation -Hyponatremia probably hypervolemic hyponatremia continue with Lasix -Chronic kidney disease stage III probably because of diabetic nephropathy and has some acute renal failure secondary to cardiorenal syndrome -Lactic acidosis secondary to metformin which will be held patient will be continued on Januvia and patient will be started on sliding scale insulin -Type 2 diabetes mellitus blood sugars are expected to go because of systemic steroids -GI prophylaxis with Pepcid -Acute respiratory acidosis and metabolic acidosis: Respiratory acidosis secondary to COPD metabolic acidosis secondary to lactic acidosis. Acidosis improved. Patient Condition at Discharge: Serious Plan - Discharge Summary Discharge Rx Participant: No New Discharge Prescriptions: New predniSONE 10 mg PO DAILY #10 tab Furosemide [Lasix] 20 mg PO BID@0900,1600 #60 tab Famotidine [Pepcid] 20 mg PO DAILY #30 tab Budesonide-Formot 160-4.5 Mcg [Symbicort 160-4.5 Mcg Inhaler] 2 puff INHALATION RT-BID #1 inhaler glyBURIDE [Diabeta] 10 mg PO AC-BID #60 tablet Levofloxacin [Levaquin] 500 mg PO DAILY 5 Days #5 tab Continue sitaGLIPtin [Januvia] 100 mg PO DAILY ALPRAZolam [Xanax] 0.5 mg PO TID PRN PRN Reason: Anxiety Potassium Chloride [Klor-Con 10] 10 meq PO TID Tiotropium 18 Mcg/Puff [Spiriva] 1 cap INHALATION RT-DAILY Albuterol Sulfate [Proventil Hfa] 1 - 2 puff INHALATION RT-Q4H PRN PRN Reason: Shortness Of Breath Apixaban [Eliquis] 5 mg PO BID tab FLUoxetine HCL 10 mg PO DAILY #30 tablet Carvedilol [Coreg] 3.125 mg PO BID-W/MEALS #60 tab Lisinopril [Zestril] 2.5 mg PO DAILY #30 tab Spironolactone [Aldactone] 25 mg PO DAILY #30 tab Atorvastatin [Lipitor] 20 mg PO HS Dorzolamide-Timol 2.23%/0.68% [Cosopt] 1 drop RIGHT EYE BID Discontinued glyBURIDE/METFORMIN HCL [Glucovance 5-500 mg] 2 tab PO QAM Furosemide [Lasix] 20 mg PO DAILY #30 tab glyBURIDE/METFORMIN HCL [glyBURIDE/METFORMIN HCL 5-500 mg] 1 tab PO HS Discharge Medication List ALPRAZolam [Xanax] 0.5 mg PO TID PRN 11/04/17 [History] Albuterol Sulfate [Proventil Hfa] 1 - 2 puff INHALATION RT-Q4H PRN 11/04/17 [History] Potassium Chloride [Klor-Con 10] 10 meq PO TID 11/04/17 [History] Tiotropium 18 Mcg/Puff [Spiriva] 1 cap INHALATION RT-DAILY 11/04/17 [History] sitaGLIPtin [Januvia] 100 mg PO DAILY 11/04/17 [History] Apixaban [Eliquis] 5 mg PO BID tab 11/10/17 [Rx] FLUoxetine HCL 10 mg PO DAILY #30 tablet 11/22/17 [Rx] Carvedilol [Coreg] 3.125 mg PO BID-W/MEALS #60 tab 04/18/18 [Rx] Lisinopril [Zestril] 2.5 mg PO DAILY #30 tab 04/18/18 [Rx] Spironolactone [Aldactone] 25 mg PO DAILY #30 tab 04/18/18 [Rx] Atorvastatin [Lipitor] 20 mg PO HS 06/04/20 [History] Dorzolamide-Timol 2.23%/0.68% [Cosopt] 1 drop RIGHT EYE BID 06/04/20 [History] Budesonide-Formot 160-4.5 Mcg [Symbicort 160-4.5 Mcg Inhaler] 2 puff INHALATION RT-BID #1 inhaler 06/09/20 [Rx] Famotidine [Pepcid] 20 mg PO DAILY #30 tab 06/09/20 [Rx] Furosemide [Lasix] 20 mg PO BID@0900,1600 #60 tab 06/09/20 [Rx] Levofloxacin [Levaquin] 500 mg PO DAILY 5 Days #5 tab 06/09/20 [Rx] glyBURIDE [Diabeta] 10 mg PO AC-BID #60 tablet 06/09/20 [Rx] predniSONE 10 mg PO DAILY #10 tab 06/09/20 [Rx] Follow up Appointment(s)/Referral(s): Evans Kaur MD [STAFF PHYSICIAN] - 1 Week Bebeto Aparicio MD [STAFF PHYSICIAN] - 2 Weeks (June 25, 2:30 in [facility]) Asa Kang DO [Primary Care Provider] - 3 Days (Monday, June 12 10:20 ) Patient Instructions/Handouts: A-fib (Atrial Fibrillation) (DC), COPD (Chronic Obstructive Pulmonary Disease) (DC) Activity/Diet/Wound Care/Special Instructions: activity as tolerated heart healthy diet Discharge Disposition: HOME SELF-CARE
[2020-06-09 13:48] VITALS: BP 129/76; PULSE 76; TEMP 98.8
[2020-06-09] MEDS ORDERED: FUROSEMIDE 20 MG TAB PO SCH (16:00)
--- NOTE | 2020-06-10 13:18 | CDI ---
Documentation Clarification Form Date: 06/10/20 From: Franca Cramer Phone: If you have a question about this query, please contact Payal Chambers, Plate Slitter And Inspector at [phone] between 8am and 5pm. Admit Date: 06/04/20 Discharge Date:06/09/20 Patient Name: Enrrique Yo Visit Number: [id number] ATTENTION: The Clinical Documentation Specialists (CDI) and [facility] Coding Staff appreciate your assistance in clarifying documentation. Please respond to the clarification below the line at the bottom and electronically sign. The CDI & [facility] Coding staff will review the response and follow-up if needed. Please note: Queries are made part of the Legal Health Record. If you have any questions, please contact the author of this message via ITS. Dear Dr. Amaro The diagnosis mildly elevated troponin: secondary to hypoxemia and atrial fibrillation cardiology will evaluate the patient, patient is on Eliquis which will be continued although acute non-ST elevation myocardial infarction cannont be ruled out, cardiology is following, was documented in the H&P and your progress notes, but is not noted in the discharge summary. History/Risk Factors: Hypertension, atrial fib, acute on chronic systolic heart failure, acute on chronic hypoxic respiratory failure Clinical Indicators: elevated troponin Lab: Troponin - 0.014, 0.070, 0.101 Consult: Cardiology - abnormality in troponin, not consistent with acute coronary syndrome, likely secondary to hypoxia Treatment: Eliquis 5 mg PO home med, lipitor 20 mg PO home med Please clarify if the non-ST elevated myocardial infarction was Present/active this admission Treated and resolved this admission Ruled out Other, please specify Clinically unable to determine Non-ST elevation FL ruled out MTDD
== END 2020-06-09 13:46 | disposition home or self-care (01) | DRG 291 ==
LOC: EC 05:53 → 3SCARD 06:49
PROVIDERS: ADMIT Hospitalist; ATTEND Hospitalist
PROC: 5A09357 Assistance with Respiratory Ventilation, Less than 24 Consecutive Hours, Continuous Positive Airway Pressure (ICD-10-PCS; principal; 2020-06-04)
DX: I13.0 Hypertensive heart and chronic kidney disease with heart failure and stage 1 through stage 4 chronic kidney disease, or unspecified chronic kidney disease (principal); I50.23 Acute on chronic systolic (congestive) heart failure; J18.9 Pneumonia, unspecified organism; J96.21 Acute and chronic respiratory failure with hypoxia; J96.22 Acute and chronic respiratory failure with hypercapnia; E87.4 Mixed disorder of acid-base balance; N17.9 Acute kidney failure, unspecified; J98.11 Atelectasis; R04.2 Hemoptysis; I48.20 Chronic atrial fibrillation, unspecified; E11.22 Type 2 diabetes mellitus with diabetic chronic kidney disease; I42.9 Cardiomyopathy, unspecified; N18.3 Chronic kidney disease, stage 3 (moderate); E11.42 Type 2 diabetes mellitus with diabetic polyneuropathy; J43.9 Emphysema, unspecified; E11.65 Type 2 diabetes mellitus with hyperglycemia; Z20.828 Contact with and (suspected) exposure to other viral communicable diseases; Z66 Do not resuscitate; E78.5 Hyperlipidemia, unspecified; F41.1 Generalized anxiety disorder; I25.10 Atherosclerotic heart disease of native coronary artery without angina pectoris; I34.0 Nonrheumatic mitral (valve) insufficiency; T38.3X5A Adverse effect of insulin and oral hypoglycemic [antidiabetic] drugs, initial encounter; K59.09 Other constipation; I69.998 Other sequelae following unspecified cerebrovascular disease; H54.61 Unqualified visual loss, right eye, normal vision left eye; M19.90 Unspecified osteoarthritis, unspecified site; I65.29 Occlusion and stenosis of unspecified carotid artery; R79.89 Other specified abnormal findings of blood chemistry; Z79.01 Long term (current) use of anticoagulants; Z79.84 Long term (current) use of oral hypoglycemic drugs; Z79.899 Other long term (current) drug therapy; Z88.7 Allergy status to serum and vaccine; Z91.012 Allergy to eggs; Z90.710 Acquired absence of both cervix and uterus; Z87.891 Personal history of nicotine dependence; Z87.442 Personal history of urinary calculi; Z85.828 Personal history of other malignant neoplasm of skin; Z86.19 Personal history of other infectious and parasitic diseases; Z98.42 Cataract extraction status, left eye; Z98.41 Cataract extraction status, right eye; Z96.1 Presence of intraocular lens; Z82.0 Family history of epilepsy and other diseases of the nervous system
CPT/HCPCS: 36415; 71045; 71250; 80048; 80053; 81003; 82803; 83036; 83605; 83735; 83880; 84484; 85025; 85610; 85730; 87040; 93005; 93306; 94640; 94660; 94760; 96361; 96365; 96366; 96375; 96376; 99291

== ENCOUNTER 2020-06-10 00:19 | Inpatient (IN) | payer MEDICARE ==
[2020-06-10] MEDS ORDERED: IPRATROPIUM-ALBUTEROL 3 ML NEB INHALATION STA ×2 (00:25→00:28)
[2020-06-10] MEDS ORDERED: LORazepam 2 MG/ML INJ IV STA ×2 (00:30→02:25)
[2020-06-10 00:32] LABS: Glucose,Whole Blood 513 mg/dL (75-99)
--- NOTE | 2020-06-10 00:33 | ED ---
SOB HPI - General Chief Complaint: Shortness of Breath Stated Complaint: DANIELLE Time Seen by Provider: 06/10/20 00:23 Source: EMS Mode of arrival: EMS Limitations: altered mental status - History of Present Illness Initial Comments: KIM is a 74-year-old female with extensive history of COPD, CHF, recent admission to the hospital for respiratory distress secondary to COPD exacerbation left lower lobe pneumonia. Patient was discharged from the hospital on June 09 around 2 PM she was doing well that time. She is prescribed oral steroids and antibiotics. This evening she developed respiratory distress. EMS reports they arrived to find her wheezing and tachycardic. In route to the hospital patient became cyanotic, tachypneic, tachycardic. She was placed on BiPAP with minimal improvement in her oxygen saturation. Other history is limited by the patient's respiratory distress. - Related Data Home Medications Medication Instructions Recorded Confirmed ALPRAZolam [Xanax] 0.5 mg PO TID PRN 11/04/17 06/04/20 Albuterol Sulfate [Proventil Hfa] 1 - 2 puff INHALATION RT-Q4H PRN 11/04/17 06/04/20 Potassium Chloride [Klor-Con 10] 10 meq PO TID 11/04/17 06/04/20 Tiotropium 18 Mcg/Puff [Spiriva] 1 cap INHALATION RT-DAILY 11/04/17 06/04/20 sitaGLIPtin [Januvia] 100 mg PO DAILY 11/04/17 06/04/20 Atorvastatin [Lipitor] 20 mg PO HS 06/04/20 06/04/20 Dorzolamide-Timol 2.23%/0.68% 1 drop RIGHT EYE BID 06/04/20 06/04/20 [Cosopt] Previous Rx's Medication Instructions Recorded Apixaban [Eliquis] 5 mg PO BID tab 11/10/17 FLUoxetine HCL 10 mg PO DAILY #30 tablet 11/22/17 Carvedilol [Coreg] 3.125 mg PO BID-W/MEALS #60 tab 04/18/18 Lisinopril [Zestril] 2.5 mg PO DAILY #30 tab 04/18/18 Spironolactone [Aldactone] 25 mg PO DAILY #30 tab 04/18/18 Budesonide-Formot 160-4.5 Mcg 2 puff INHALATION RT-BID #1 inhaler 06/09/20 [Symbicort 160-4.5 Mcg Inhaler] Famotidine [Pepcid] 20 mg PO DAILY #30 tab 06/09/20 Furosemide [Lasix] 20 mg PO BID@0900,1600 #60 tab 06/09/20 Levofloxacin [Levaquin] 500 mg PO DAILY 5 Days #5 tab 06/09/20 glyBURIDE [Diabeta] 10 mg PO AC-BID #60 tablet 06/09/20 predniSONE 10 mg PO DAILY #10 tab 06/09/20 Allergies Allergy/AdvReac Type Severity Reaction Status Date / Time egg Allergy Itching Verified 06/04/20 08:59 Review of Systems ROS Statement: Those systems with pertinent positive or pertinent negative responses have been documented in the HPI. ROS Other: All systems not noted in ROS Statement are negative. Past Medical History Past Medical History: Atrial Fibrillation, Asthma, Cancer, Heart Failure, COPD, CVA/TIA, Diabetes Mellitus, Eye Disorder, Hyperlipidemia, Hypertension, Osteoarthritis (OA), Renal Disease, Respiratory Disorder, Vascular Disorder Additional Past Medical History / Comment(s): Paroxysmal Afib, cardiomyopathy, mitral valve regurgitation, NIDDM type II, neuropathy bilateral hands/feet, CVA with R eye blindness, severe shingelles 2010 which affected L arm/back of neck, skin cancer with removal, R sided nephrolithiasis-nonobstructing per past medical record/pt unaware, chronic constipation, degenerative joint disease. History of Any Multi-Drug Resistant Organisms: None Reported Past Surgical History: Heart Catheterization, Hysterectomy, Orthopedic Surgery, Tonsillectomy Additional Past Surgical History / Comment(s): Right knee arthroplasty, bilateral cataract/lens implant surgery, skin cancer removed under R eye. Past Anesthesia/Blood Transfusion Reactions: No Reported Reaction Past Psychological History: Anxiety Additional Psychological History / Comment(s): Pt resides in a [facility] [place]. She has a nebulizer. She ambulates with a cane. She no longer drives, but states getting rides is not a problem. Past Alcohol Use History: None Reported Additional Past Alcohol Use History / Comment(s): started smoking 1956 and quit 2014 smoked 1ppd Past Drug Use History: None Reported - Past Family History Mother Family Medical History: Dementia Additional Family Medical History / Comment(s): AGE 99 Father Family Medical History: No Reported History Additional Family Medical History / Comment(s): WAS HEALTHY AT ALMOST AGE 99 General Exam - General Exam Comments Initial Comments: Physical Exam GENERAL: Elderly female in acute respiratory distress Underweight, chronically ill-appearing HENT: Normocephalic, Atraumatic. EYES: PERRL, EOMI PULMONARY: Wheezing and crackles in all lung lanza concerning for flash pulmonary edema CARDIOVASCULAR: Irregularly irregular tachycardic ABDOMEN: belly breathing noted SKIN: Pale cyanotic : Deferred NEUROLOGIC: Single word dyspnea limits neurologic exam Patient moving all extremities Answers yes and no appropriately MUSCULOSKELETAL: Generalized muscular atrophy No obvious injuries No lower extremity edema PSYCHIATRIC: Anxious appearing Limitations: altered mental status, physical limitation (Respiratory distress) Course Vital Signs 06/10/20 06/10/20 06/10/20 00:20 00:30 00:50 Temperature Pulse Rate 130 H 120 H 123 H Respiratory 38 H Rate Blood Pressure 150/111 O2 Sat by Pulse 94 L Oximetry 06/10/20 06/10/20 06/10/20 01:00 01:02 02:09 Temperature Pulse Rate 101 H Respiratory 28 H 30 H Rate Blood Pressure 152/102 O2 Sat by Pulse 97 95 Oximetry 06/10/20 06/10/20 02:24 02:41 Temperature 97.3 F L Pulse Rate 93 Respiratory 29 H Rate Blood Pressure 134/85 O2 Sat by Pulse 95 Oximetry Medical Decision Making - Medical Decision Making Patient was seen and evaluated immediately upon her emergency department accident 74-year-old female appears to be in flash pulmonary edema, noted to be tachycardic, hypertensive hypoxic Patient was placed on BiPAP immediately Labs and imaging were obtained Chest x-ray confirms a flash pulmonary edema Patient somewhat anxious with the BiPAP was given some Ativan Labs with multiple significant abnormalities including worsening leukocytosis, acute hyponatremia, transaminitis which is new, profound lactic acidosis Patient vital signs are improving on BiPAP, oxygen was able to be weaned down she satting well with less distress ABG was ordered however after multiple attempts was unable to be obtained, sensitive indicated the patient is DO NOT RESUSCITATE and they would like us to stop attempting arterial punctures, request will be honored Considering the patient's flash pulmonary edema but labs concerning for lactic acidosis acute kidney injury likely intravascular volume depletion I feel the patient will require very close monitoring for respiratory status and fluid rehydration, patient care was discussed with Dr. Tomas who agrees with plan for admission to the ICU - Lab Data Result diagrams: 06/10/20 00:29 06/10/20 00:29 Lab Results 06/10/20 06/10/20 06/10/20 Range/Units 00:29 00:29 00:29 WBC 15.3 H (3.8-10.6) k/uL RBC 5.28 (3.80-5.40) m/uL Hgb 15.6 (11.4-16.0) gm/dL Hct 50.7 H (34.0-46.0) % MCV 95.9 (80.0-100.0) fL MCH 29.4 (25.0-35.0) pg MCHC 30.7 L (31.0-37.0) g/dL RDW 13.9 (11.5-15.5) % Plt Count 276 (150-450) k/uL Neutrophils % 69 % Lymphocytes % 25 % Monocytes % 4 % Eosinophils % 1 % Basophils % 0 % Neutrophils # 10.5 H (1.3-7.7) k/uL Lymphocytes # 3.8 (1.0-4.8) k/uL Monocytes # 0.6 (0-1.0) k/uL Eosinophils # 0.2 (0-0.7) k/uL Basophils # 0.0 (0-0.2) k/uL Hypochromasia Slight PT 12.1 H (9.0-12.0) sec INR 1.2 H (<1.2) APTT 22.0 (22.0-30.0) sec Sodium 127 L (137-145) mmol/L Potassium 5.0 (3.5-5.1) mmol/L Chloride 95 L (98-107) mmol/L Carbon Dioxide 13 L (22-30) mmol/L Anion Gap 19 mmol/L BUN 34 H (7-17) mg/dL Creatinine 1.44 H (0.52-1.04) mg/dL Est GFR (CKD-EPI)AfAm 41 (>60 ml/min/1.73 sqM) Est GFR (CKD-EPI)NonAf 35 (>60 ml/min/1.73 sqM) Glucose 565 H* (74-99) mg/dL POC Glucose (mg/dL) (75-99) mg/dL POC Glu Plater Barrel ID Lactic Ac Sepsis Rflx Plasma Lactic Acid Eloy (0.7-2.0) mmol/L Calcium 9.1 (8.4-10.2) mg/dL Total Bilirubin 0.9 (0.2-1.3) mg/dL AST 166 H (14-36) U/L ALT 95 H (4-34) U/L Alkaline Phosphatase 76 (38-126) U/L Troponin I (0.000-0.034) ng/mL Total Protein 6.9 (6.3-8.2) g/dL Albumin 4.0 (3.5-5.0) g/dL 06/10/20 06/10/20 06/10/20 Range/Units 00:29 00:29 00:31 WBC (3.8-10.6) k/uL RBC (3.80-5.40) m/uL Hgb (11.4-16.0) gm/dL Hct (34.0-46.0) % MCV (80.0-100.0) fL MCH (25.0-35.0) pg MCHC (31.0-37.0) g/dL RDW (11.5-15.5) % Plt Count (150-450) k/uL Neutrophils % % Lymphocytes % % Monocytes % % Eosinophils % % Basophils % % Neutrophils # (1.3-7.7) k/uL Lymphocytes # (1.0-4.8) k/uL Monocytes # (0-1.0) k/uL Eosinophils # (0-0.7) k/uL Basophils # (0-0.2) k/uL Hypochromasia PT (9.0-12.0) sec INR (<1.2) APTT (22.0-30.0) sec Sodium (137-145) mmol/L Potassium (3.5-5.1) mmol/L Chloride (98-107) mmol/L Carbon Dioxide (22-30) mmol/L Anion Gap mmol/L BUN (7-17) mg/dL Creatinine (0.52-1.04) mg/dL Est GFR (CKD-EPI)AfAm (>60 ml/min/1.73 sqM) Est GFR (CKD-EPI)NonAf (>60 ml/min/1.73 sqM) Glucose (74-99) mg/dL POC Glucose (mg/dL) 513 H (75-99) mg/dL POC Glu Plater Barrel Lucrecia Turner Lactic Ac Sepsis Rflx Plasma Lactic Acid Eloy 6.1 H* (0.7-2.0) mmol/L Calcium (8.4-10.2) mg/dL Total Bilirubin (0.2-1.3) mg/dL AST (14-36) U/L ALT (4-34) U/L Alkaline Phosphatase (38-126) U/L Troponin I <0.012 (0.000-0.034) ng/mL Total Protein (6.3-8.2) g/dL Albumin (3.5-5.0) g/dL 06/10/20 06/10/20 Range/Units 00:33 00:45 WBC (3.8-10.6) k/uL RBC (3.80-5.40) m/uL Hgb (11.4-16.0) gm/dL Hct (34.0-46.0) % MCV (80.0-100.0) fL MCH (25.0-35.0) pg MCHC (31.0-37.0) g/dL RDW (11.5-15.5) % Plt Count (150-450) k/uL Neutrophils % % Lymphocytes % % Monocytes % % Eosinophils % % Basophils % % Neutrophils # (1.3-7.7) k/uL Lymphocytes # (1.0-4.8) k/uL Monocytes # (0-1.0) k/uL Eosinophils # (0-0.7) k/uL Basophils # (0-0.2) k/uL Hypochromasia PT (9.0-12.0) sec INR (<1.2) APTT (22.0-30.0) sec Sodium (137-145) mmol/L Potassium (3.5-5.1) mmol/L Chloride (98-107) mmol/L Carbon Dioxide (22-30) mmol/L Anion Gap mmol/L BUN (7-17) mg/dL Creatinine (0.52-1.04) mg/dL Est GFR (CKD-EPI)AfAm (>60 ml/min/1.73 sqM) Est GFR (CKD-EPI)NonAf (>60 ml/min/1.73 sqM) Glucose (74-99) mg/dL POC Glucose (mg/dL) 490 H (75-99) mg/dL POC Glu Plater Barrel ID Lucrecia Philip Lactic Ac Sepsis Rflx Y Plasma Lactic Acid Eloy (0.7-2.0) mmol/L Calcium (8.4-10.2) mg/dL Total Bilirubin (0.2-1.3) mg/dL AST (14-36) U/L ALT (4-34) U/L Alkaline Phosphatase (38-126) U/L Troponin I (0.000-0.034) ng/mL Total Protein (6.3-8.2) g/dL Albumin (3.5-5.0) g/dL - EKG Data -: EKG Interpreted by Me EKG Comments: EKG was obtained due to tachycardia and flash pulmonary edema, EKG was obtained at 12:27 AM, rate is 125 rhythm is a wide complex regular tachycardia consistent with a sinus tach with a bundle branch block, NC is 160 QRS is 138 QTC is 476. When this EKG was compared EKG obtained last week there is no significant change in morphology. Disposition Clinical Impression: Flash pulmonary edema, Respiratory failure with hypoxia, Acute pulmonary edema, Acute exacerbation of chronic obstructive pulmonary disease, History of atrial fibrillation, Lactic acid acidosis, Diabetes, Hypertension Disposition: ADMITTED IP TO THIS HOSP Condition: Critical Is patient prescribed a controlled substance at d/c from ED?: No
[2020-06-10 00:34] LABS: Basophils % (A) 0 %; Eosinophils # (A) 0.2 k/uL (0-0.7); Eosinophils % (A) 1 %; HCT 50.7 % (34.0-46.0); HGB 15.6 gm/dL (11.4-16.0); Hypochromasia Slight; Lymphocytes # (A) 3.8 k/uL (1.0-4.8); Lymphocytes % (A) 25 %; MCH 29.4 pg (25.0-35.0); MCHC 30.7 g/dL (31.0-37.0); MCV 95.9 fL (80.0-100.0); Mean Platelet Volume 7.8; Monocytes # (A) 0.6 k/uL (0-1.0); Monocytes % (A) 4 %; Neutrophils # (A) 10.5 k/uL (1.3-7.7); Neutrophils % (A) 69 %; Platelet Count 276 k/uL (150-450); RBC 5.28 m/uL (3.80-5.40); RDW 13.9 % (11.5-15.5); WBC 15.3 k/uL (3.8-10.6)
[2020-06-10 00:36] LABS: Glucose,Whole Blood 490 mg/dL (75-99)
--- NOTE | 2020-06-10 00:41 | XR ---
EXAMINATION TYPE: XR chest 1V portable DATE OF EXAM: 06/10/2020 COMPARISON: 06/04/2020 HISTORY: Difficulty breathing TECHNIQUE: Single view FINDINGS: There is pulmonary interstitial edema. There is blunting of the right costophrenic angle to mild degree. Heart size is normal. There are chest leads. IMPRESSION: Moderately severe pulmonary interstitial edema is the same or slightly worse than last ex am. I would consider both interstitial pneumonia and heart failure.
[2020-06-10 00:45] LABS: Calcium 9.1 mg/dL (8.4-10.2); Total Bilirubin 0.9 mg/dL (0.2-1.3); Total Protein 6.9 g/dL (6.3-8.2)
[2020-06-10 00:48] LABS: INR 1.2 (<1.2); Prothrombin Time 12.1 sec (9.0-12.0)
[2020-06-10] MEDS ORDERED: INSULIN REGULAR 100 UNIT/ML VIAL IV ONE (01:21)
[2020-06-10] MEDS ORDERED: NALOXONE 0.4 MG/ML 1 ML VIAL IV PRN (01:30)
[2020-06-10] MEDS ORDERED: ONDANSETRON 4 MG/2 ML VIAL IVP PRN (01:30)
[2020-06-10] MEDS ORDERED: LORazepam 2 MG/ML INJ IV PRN (01:30)
[2020-06-10] MEDS ORDERED: MORPHINE SULFATE 4 MG/ML SYRINGE IV PRN (01:30)
[2020-06-10] MEDS ORDERED: methylPREDNISolone SOD SUCCI 125 MG/2 ML VIAL IV STA (01:41)
[2020-06-10 03:56] LABS: Glucose,Whole Blood 371 mg/dL (75-99)
[2020-06-10] MEDS: IPRATROPIUM-ALBUTEROL 3 ML NEB INHALATION SCH ×6 (04:22→21:10)
[2020-06-10 04:57] LABS: INR 1.2 (<1.2)
[2020-06-10 04:58] LABS: Basophils % (A) 0 %; Eosinophils # (A) 0.1 k/uL (0-0.7); Eosinophils % (A) 1 %; HCT 44.3 % (34.0-46.0); HGB 14.8 gm/dL (11.4-16.0); Lymphocytes # (A) 0.7 k/uL (1.0-4.8); Lymphocytes % (A) 6 %; MCH 31.1 pg (25.0-35.0); MCHC 33.5 g/dL (31.0-37.0); MCV 92.7 fL (80.0-100.0); Mean Platelet Volume 7.6; Monocytes # (A) 0.6 k/uL (0-1.0); Monocytes % (A) 5 %; Neutrophils # (A) 10.5 k/uL (1.3-7.7); Neutrophils % (A) 88 %; Platelet Count 228 k/uL (150-450); RBC 4.78 m/uL (3.80-5.40); RDW 13.8 % (11.5-15.5); WBC 11.9 k/uL (3.8-10.6)
[2020-06-10 05:01] LABS: Albumin 3.9 g/dL (3.5-5.0); Calcium 9.1 mg/dL (8.4-10.2); Magnesium 1.9 mg/dL (1.6-2.3); Phosphorus 4.4 mg/dL (2.5-4.5); Potassium 4.4 mmol/L (3.5-5.1); Total Bilirubin 0.8 mg/dL (0.2-1.3); Total Protein 6.5 g/dL (6.3-8.2)
[2020-06-10] MEDS ORDERED: Magnesium Replacement Protocol 1 EACH MISC MISCELLANE PRN (06:18)
[2020-06-10] MEDS: MAGNESIUM SULFATE-D5W PMX 1 GM in DEXTROSE/WATER 1 100ML.BAG IVPB SCH ×2 (06:27→09:30)
[2020-06-10 06:38] LABS: Glucose,Whole Blood 353 mg/dL (75-99)
[2020-06-10] MEDS: INSULIN ASPART (NovoLOG) 100 UNIT/ML VIAL SQ SCH ×4 (06:40→20:43)
[2020-06-10] MEDS ORDERED: CARVEDILOL 3.125 MG TAB PO SCH (07:30)
[2020-06-10] MEDS ORDERED: LEVOFLOXACIN 500 MG TAB PO ONE (08:15)
[2020-06-10] MEDS ORDERED: SPIRONOLACTONE 25 MG TAB PO SCH (09:00)
[2020-06-10] MEDS: LISINOPRIL 2.5 MG TAB PO SCH (09:30)
[2020-06-10] MEDS: FUROSEMIDE 10 MG/ML 4 ML VIAL IV SCH ×2 (09:30→20:42)
[2020-06-10] MEDS: METOPROLOL TARTRATE 50 MG TAB PO SCH ×2 (09:30→20:43)
[2020-06-10] MEDS: PANTOPRAZOLE 40 MG/10 ML VIAL IV SCH (09:30)
[2020-06-10] MEDS: APIXABAN 5 MG TAB PO SCH ×2 (09:31→20:43)
[2020-06-10] MEDS: FLUoxetine HCL 10 MG CAP PO SCH (09:31)
[2020-06-10] MEDS: DORZOLAMIDE-TIMOLOL 2.23%/0.68 10ML BTL RIGHT EYE SCH ×2 (09:31→20:43)
[2020-06-10] MEDS: SPIRONOLACTONE 25 MG TAB PO SCH (09:31)
[2020-06-10] MEDS: LINAGLIPTIN 5 MG TABLET PO SCH (09:32)
[2020-06-10 12:26] LABS: Glucose,Whole Blood 333 mg/dL (75-99)
--- NOTE | 2020-06-10 13:58 | P.CNPUL ---
History of Present Illness Consult date: 06/10/20 History of present illness: This is a 74-year-old female patient who is very well-known to me from previous hospitalization and office visits. The patient's has severe cardiomyopathy with chronic systolic heart failure ejection fraction of 20-25% and the patient also has severe mitral regurgitation, chronic atrial fibrillation, COPD with a baseline FEV1 of 73% of predicted, diabetes mellitus and previous history of CVA with some residual right I blindness and she also has hypertension, Dr. disease and chronic generalized anxiety disorder. The patient was in the hospital recently and the patient was discharged home and within less than 24 hours of being released home, the patient came back with worsening shortness of breath. She was Hospital as for increased dyspnea and pulmonary edema. She was placed on BiPAP with improvement in her symptoms and currently she is off the BiPAP. Overnight, she is in the BiPAP at pressures of 14/7 with an FiO2 of 30%. C urrently is on 2 L O2 saturations are 95%. The patient on Lasix 40 mg IV push every 12 hours. Pneumonia was suspected and the right lower lobe and the patient was given Levaquin to be completed on outpatient basis. No significant wheezes or rhonchi. IV fluids are currently at KVO at 10 mL an hour. She does have crackles in lung bases right more than left. No significant wheezes appreciated on today's evaluation. She is afebrile. The white cell count is 11.2. INR is at 1.2 and the patient is on long-term articulation with Eliquis. The patient's creatinine is 1.2 which is essentially stable. Past Medical History Past Medical History: Atrial Fibrillation, Asthma, Cancer, Heart Failure, COPD, CVA/TIA, Diabetes Mellitus, Eye Disorder, Hyperlipidemia, Hypertension, Osteoarthritis (OA), Renal Disease, Respiratory Disorder, Vascular Disorder Additional Past Medical History / Comment(s): chronic systolic congestive heart failure. Her ejection fraction is 20-25%. Severe mitral regurgitation, chronic atrial fibrillation on Eliquis. 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 She also follows here for chronic obstructive pulmonary disease with an FEV1 value of 73 percent of predicted. She has been maintained on Symbicort, Spiriva and albuterol.NIDDM type II, neuropathy bilateral hands/feet, CVA with R eye blindness, severe shingelles 2009 which affected L arm/back of neck, skin cancer with removal, R sided nephrolithiasis-nonobstructing per past medical record/pt unaware, chronic constipation, degenerative joint disease. History of Any Multi-Drug Resistant Organisms: None Reported Past Surgical History: Heart Catheterization, Hysterectomy, Orthopedic Surgery, Tonsillectomy Additional Past Surgical History / Comment(s): Right knee arthroplasty, bilateral cataract/lens implant surgery, skin cancer removed under R eye. Past Anesthesia/Blood Transfusion Reactions: No Reported Reaction Past Psychological History: Anxiety Additional Psychological History / Comment(s): Pt resides in a [facility]. She has a nebulizer. She ambulates with a cane. She no longer drives, but states getting rides is not a problem. Past Alcohol Use History: None Reported Additional Past Alcohol Use History / Comment(s): started smoking 1956 and quit 2014 smoked 1ppd Past Drug Use History: None Reported - Past Family History Mother Family Medical History: Dementia Additional Family Medical History / Comment(s): AGE 99 Father Family Medical History: No Reported History Additional Family Medical History / Comment(s): WAS HEALTHY AT ALMOST AGE 99 Medications and Allergies Home Medications Medication Instructions Recorded Confirmed Type ALPRAZolam [Xanax] 0.5 mg PO TID PRN 11/04/17 06/10/20 History Albuterol Sulfate [Proventil Hfa] 1 - 2 puff INHALATION RT-Q4H PRN 11/04/17 06/10/20 History Potassium Chloride [Klor-Con 10] 10 meq PO TID 11/04/17 06/10/20 History Tiotropium 18 Mcg/Puff [Spiriva] 1 cap INHALATION RT-DAILY 11/04/17 06/10/20 History sitaGLIPtin [Januvia] 100 mg PO DAILY 11/04/17 06/10/20 History Apixaban [Eliquis] 5 mg PO BID tab 11/10/17 06/10/20 Rx FLUoxetine HCL 10 mg PO DAILY #30 tablet 11/22/17 06/10/20 Rx Carvedilol [Coreg] 3.125 mg PO BID-W/MEALS #60 tab 04/18/18 06/10/20 Rx Lisinopril [Zestril] 2.5 mg PO DAILY #30 tab 04/18/18 06/10/20 Rx Spironolactone [Aldactone] 25 mg PO DAILY #30 tab 04/18/18 06/10/20 Rx Atorvastatin [Lipitor] 20 mg PO HS 06/04/20 06/10/20 History Budesonide-Formot 160-4.5 Mcg 2 puff INHALATION RT-BID #1 inhaler 06/09/20 06/10/20 Rx [Symbicort 160-4.5 Mcg Inhaler] Famotidine [Pepcid] 20 mg PO DAILY #30 tab 06/09/20 06/10/20 Rx Furosemide [Lasix] 20 mg PO BID@0900,1600 #60 tab 06/09/20 06/10/20 Rx Levofloxacin [Levaquin] 500 mg PO DAILY 5 Days #5 tab 06/09/20 06/10/20 Rx glyBURIDE [Diabeta] 10 mg PO AC-BID #60 tablet 06/09/20 06/10/20 Rx Dorzolamide 2% [Trusopt 2%] 1 drop RIGHT EYE BID 06/10/20 06/10/20 History predniSONE See Taper PO DAILY 06/10/20 06/10/20 History Allergies Allergy/AdvReac Type Severity Reaction Status Date / Time egg Allergy Itching Verified 06/10/20 09:21 Physical Exam Vitals: Vital Signs Temp Pulse Resp BP Pulse Ox 06/10/20 07:00 91 22 130/92 97 06/10/20 06:00 82 23 128/80 97 06/10/20 05:00 86 24 140/91 97 06/10/20 04:00 96.9 F L 100 30 H 140/91 97 06/10/20 02:41 93 29 H 134/85 95 06/10/20 02:24 97.3 F L 06/10/20 02:09 101 H 30 H 152/102 95 06/10/20 01:02 28 H 06/10/20 01:00 97 06/10/20 00:50 123 H 06/10/20 00:30 120 H 06/10/20 00:20 130 H 38 H 150/111 94 L Intake and Output 06/09/20 06/10/20 06/10/20 22:59 06:59 14:59 Intake Total 110 Output Total 0 Balance 0 110 Intake: IV 110 0.9 10 Magnesium Sulfate-D5w Pmx 100 1 gm In Dextrose/Water 1 100ml.bag @ 100 mls/hr IVPB Q1H [facility] Rx#: [id number] Output: Urine 0 Other: Voiding Method Bedpan Weight 52.8 kg Gen. appearance, comfortable likely distress currently on 2 L of oxygen by nasal cannula Head exam was generally normal. There was no scleral icterus or corneal arcus. Mucous membranes were moist. Neck was supple and without jugular venous distension, thyromegaly, or carotid bruits. Carotids were easily palpable bilaterally. There was no adenopathy. Lungs sounds are diminished in the patient's crackles in lung bases more so on the right compared to left. Cardiac exam revealed the PMI to be normally situated and sized. The rhythm was regular and no extrasystoles were noted during several minutes of auscultation. The first and second heart sounds were normal and physiologic splitting of the second heart sound was noted. There were no rubs, clicks, or gallops. There is systolic ejection murmur grade 3/6 heard throughout the precordium. Abdominal exam revealed normal bowel sounds. The abdomen was soft, non-tender, and without masses, organomegaly, or appreciable enlargement of the abdominal aorta. Examination of the extremities revealed easily palpable radial, femoral and pedal pulses. There was no cyanosis, clubbing or edema. Examination of the skin revealed no evidence of significant rashes, suspicious appearing nevi or other concerning lesions. Neurologically the patient is awake and alert and the patient has no focal neurological deficits. Results - Laboratory Findings CBC and BMP: 06/10/20 04:37 06/10/20 04:37 PT/INR, D-dimer PT 12.0 sec (9.0-12.0) 06/10/20 04:37 INR 1.2 (<1.2) H 06/10/20 04:37 Abnormal lab findings: Abnormal Labs 06/10/20 06/10/20 06/10/20 00:29 00:29 00:29 WBC 15.3 H Hct 50.7 H MCHC 30.7 L Neutrophils # 10.5 H Lymphocytes # PT 12.1 H INR 1.2 H Sodium 127 L Chloride 95 L Carbon Dioxide 13 L BUN 34 H Creatinine 1.44 H Glucose 565 H* POC Glucose (mg/dL) Plasma Lactic Acid Eloy AST 166 H ALT 95 H Troponin I 06/10/20 06/10/20 06/10/20 00:29 00:31 00:33 WBC Hct MCHC Neutrophils # Lymphocytes # PT INR Sodium Chloride Carbon Dioxide BUN Creatinine Glucose POC Glucose (mg/dL) 513 H 490 H Plasma Lactic Acid Eloy 6.1 H* AST ALT Troponin I 06/10/20 06/10/20 06/10/20 03:14 03:54 04:28 WBC Hct MCHC Neutrophils # Lymphocytes # PT INR Sodium Chloride Carbon Dioxide BUN Creatinine Glucose POC Glucose (mg/dL) 371 H Plasma Lactic Acid Eloy 3.0 H* AST ALT Troponin I 0.041 H* 06/10/20 06/10/20 06/10/20 04:37 04:37 04:37 WBC 11.9 H Hct MCHC Neutrophils # 10.5 H Lymphocytes # 0.7 L PT INR 1.2 H Sodium 129 L Chloride 96 L Carbon Dioxide 21 L BUN 36 H Creatinine 1.29 H Glucose 354 H POC Glucose (mg/dL) Plasma Lactic Acid Eloy AST 81 H ALT 95 H Troponin I 06/10/20 06:37 WBC Hct MCHC Neutrophils # Lymphocytes # PT INR Sodium Chloride Carbon Dioxide BUN Creatinine Glucose POC Glucose (mg/dL) 353 H Plasma Lactic Acid Eloy AST ALT Troponin I - Diagnostic Findings Chest x-ray: image reviewed Assessment and Plan Plan: 1 acute hypoxic respiratory failure secondary to CHF/pulmonary edema, treated with a combination of BiPAP and diuretics and currently the patient 2 L about 2 by nasal cannula. This is a readmission following a recent discharge for [facility] presentation. 2 systolic heart failure with ejection fraction of 20-25% 3 severe mitral regurgitation 4 chronic atrial fibrillation 5 COPD with a baseline FEV1 of 70% of predicted 6 small right-sided pleural effusion 7 diabetes mellitus 8 CVA with some right-sided eye blindness 9 hypertension 10 hyperlipidemia 11 chronic constipation 12 osteoarthritis 13 right-sided nephrolithiasis 14 carotid artery disease 15 generalized anxiety disorder Plan Continue IV Lasix Completed the course of Levaquin No need for systemic steroids Continue bronchodilators Discontinue the BiPAP as the patient's overall pulmonary status is optimized Repeat chest x-ray in the morning Resume cardiac medications including a combination of metoprolol 50 mg by mouth twice a day, Zestril 2.5 mg by mouth daily. The patient is also on Aldactone and Lasix currently is being administered a dose of 40 mg every 12 hours. Monitor blood sugar control and the patient will placed on his vascular coverage. Continue Eliquis. We'll follow
--- NOTE | 2020-06-10 14:18 | P.HPIM ---
History of Present Illness H&P Date: 06/10/20 Chief Complaint: Shortness of breath Patient is a 74 old female with a known history of chronic atrial fibrillation on anticoagulation with Eliquis, chronic CHF with systolic dysfunction ejection fraction 20-25% and severe mitral regurgitation and COPD, diabetes type 2, oste oarthritis, generalized anxiety disorder, coronary artery disease and other multiple medical problems who is discharge from the hospital yesterday, was treated for acute COPD exacerbation and CHF. Patient came back to the hospital with complaints of worsening shortness of breath. Patient was in the hospital for increased shortness of breath and pulmonary edema. Patient was placed on BiPAPwithimprovementofhersymptoms. Overnight patient was on BiPAP and currently titrating down to oxygen via nasal cannula. Patient denied any complaints of fever or chills. No complaints of chest pain. No nausea vomiting or abdominal pain. EKG showed sinus tachycardia and left bundle branch block. Chest x-ray showed moderately severe pulmonary interstitial edema is the same or slightly worse than last exam. BOTH INTERSTITIAL PNEUMONIA AND HEART FAILURE. Laboratory data showed WBC 15.3, hemoglobin 15.6, platelets 276, INR 1.2 Sodium 127, potassium 5.0, chloride 95, bicarb is 13 BUN 34 and creatinine 1.44 Blood sugar is 565 Lactic acid 6.1 AST 166, ALT 95 and alk phos 76 Troponin 0.012 and 0.041 ProBNP [id number] Review of Systems Constitutional: Patient denies any fever or chills . No generalized weakness or weight loss. Abdomen: Patient denied nausea vomiting and diarrhea and abdominal pain. Cardiovascular: Patient denies any chest pain. Does have short of breath no palpitations. Respiratory: Patient does have cough without sputum production. Positive shortness of breath Neurologic: Patient denied any numbness or tingling headache. Musculoskeletal: Patient denies any complaints of joint swelling or deformity. Skin: Negative Psychiatric: Negative Endocrine: No heat or cold intolerance. No recent weight gain. Genitourinary: No dysuria or hematuria. All other 14 point ROS negative except the above Past Medical History Past Medical History: Atrial Fibrillation, Asthma, Cancer, Heart Failure, COPD, CVA/TIA, Diabetes Mellitus, Eye Disorder, Hyperlipidemia, Hypertension, Osteoarthritis (OA), Renal Disease, Respiratory Disorder, Vascular Disorder Additional Past Medical History / Comment(s): chronic systolic congestive heart failure. Her ejection fraction is 20-25%. Severe mitral regurgitation, chronic atrial fibrillation on Eliquis. 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 She also follows here for chronic obstructive pulmonary disease with an FEV1 value of 73 percent of predicted. She has been maintained on Symbicort, Spiriva and albuterol.NIDDM type II, neuropathy bilateral hands/feet, CVA with R eye blindness, severe shingelles 2010 which affected L arm/back of neck, skin cancer with removal, R sided nephrolithiasis-nonobstructing per past medical record/pt unaware, chronic constipation, degenerative joint disease. History of Any Multi-Drug Resistant Organisms: None Reported Past Surgical History: Heart Catheterization, Hysterectomy, Orthopedic Surgery, Tonsillectomy Additional Past Surgical History / Comment(s): Right knee arthroplasty, bilat eral cataract/lens implant surgery, skin cancer removed under R eye. Past Anesthesia/Blood Transfusion Reactions: No Reported Reaction Past Psychological History: Anxiety Additional Psychological History / Comment(s): Pt resides in a [facility]. She has a nebulizer. She ambulates with a cane. She no longer drives, but states getting rides is not a problem. Past Alcohol Use History: None Reported Additional Past Alcohol Use History / Comment(s): started smoking 1956 and quit 2014 smoked 1ppd Past Drug Use History: None Reported - Past Family History Mother Family Medical History: Dementia Additional Family Medical History / Comment(s): AGE 99 Father Family Medical History: No Reported History Additional Family Medical History / Comment(s): WAS HEALTHY AT ALMOST AGE 99 Medications and Allergies Home Medications Medication Instructions Recorded Confirmed Type ALPRAZolam [Xanax] 0.5 mg PO TID PRN 11/04/17 06/10/20 History Albuterol Sulfate [Proventil Hfa] 1 - 2 puff INHALATION RT-Q4H PRN 11/04/17 06/10/20 History Potassium Chloride [Klor-Con 10] 10 meq PO TID 11/04/17 06/10/20 History Tiotropium 18 Mcg/Puff [Spiriva] 1 cap INHALATION RT-DAILY 11/04/17 06/10/20 History sitaGLIPtin [Januvia] 100 mg PO DAILY 11/04/17 06/10/20 History Apixaban [Eliquis] 5 mg PO BID tab 11/10/17 06/10/20 Rx FLUoxetine HCL 10 mg PO DAILY #30 tablet 11/22/17 06/10/20 Rx Carvedilol [Coreg] 3.125 mg PO BID-W/MEALS #60 tab 04/18/18 06/10/20 Rx Lisinopril [Zestril] 2.5 mg PO DAILY #30 tab 04/18/18 06/10/20 Rx Spironolactone [Aldactone] 25 mg PO DAILY #30 tab 04/18/18 06/10/20 Rx Atorvastatin [Lipitor] 20 mg PO HS 06/04/20 06/10/20 History Budesonide-Formot 160-4.5 Mcg 2 puff INHALATION RT-BID #1 inhaler 06/09/20 06/10/20 Rx [Symbicort 160-4.5 Mcg Inhaler] Famotidine [Pepcid] 20 mg PO DAILY #30 tab 06/09/20 06/10/20 Rx Furosemide [Lasix] 20 mg PO BID@0900,1600 #60 tab 06/09/20 06/10/20 Rx Levofloxacin [Levaquin] 500 mg PO DAILY 5 Days #5 tab 06/09/20 06/10/20 Rx glyBURIDE [Diabeta] 10 mg PO AC-BID #60 tablet 06/09/20 06/10/20 Rx Dorzolamide 2% [Trusopt 2%] 1 drop RIGHT EYE BID 06/10/20 06/10/20 History predniSONE See Taper PO DAILY 06/10/20 06/10/20 History Allergies Allergy/AdvReac Type Severity Reaction Status Date / Time egg Allergy Itching Verified 06/10/20 09:21 Physical Exam Vitals: Vital Signs Temp Pulse Resp BP Pulse Ox 06/10/20 09:00 90 23 136/98 99 06/10/20 08:49 93 06/10/20 08:00 93 23 144/93 97 06/10/20 07:00 91 22 130/92 97 06/10/20 06:00 82 23 128/80 97 06/10/20 05:00 86 24 140/91 97 06/10/20 04:00 96.9 F L 100 30 H 140/91 97 06/10/20 02:41 93 29 H 134/85 95 06/10/20 02:24 97.3 F L 06/10/20 02:09 101 H 30 H 152/102 95 06/10/20 01:02 28 H 06/10/20 01:00 97 06/10/20 00:50 123 H 06/10/20 00:30 120 H 06/10/20 00:20 130 H 38 H 150/111 94 L Intake and Output 06/09/20 06/10/20 06/10/20 22:59 06:59 14:59 Intake Total 490 Output Total 0 350 Balance 0 140 Intake: IV 130 0.9 30 Magnesium Sulfate-D5w Pmx 100 1 gm In Dextrose/Water 1 100ml.bag @ 100 mls/hr IVPB Q1H [facility] Rx#: [id number] Oral 360 Output: Urine 0 350 Other: Voiding Method Bedpan Bedpan Weight 52.8 kg PHYSICAL EXAMINATION: Patient is lying in the bed comfortably, no acute distress, awake alert and oriented.. HEENT: Normocephalic. Neck is supple. Pupils reactive. Nostrils clear. Oral cavity is moist. Ears reveal no drainage. Neck reveals no JVD, carotid bruits, or thyromegaly. CHEST EXAMINATION: Trachea is central. Symmetrical expansion. Bibasilar crackles. No wheezing. Otherwise Lung lanza clear to auscultation and percussion. CARDIAC: Normal S1, S2 with no gallops. No murmurs ABDOMEN: Soft. Bowel sounds normal. No organomegaly. No abdominal bruits. Extremities: Trace bilateral edema. No clubbing or cyanosis Neurologically awake, alert, oriented x3 with well-coordinated movements. No focal deficits noted Skin: No rash or skin lesions. Psychiatric: Coperative. Nonsuicidal Musculoskeletal: No joint swelling or deformity. Normal range of motion. Results CBC & Chem 7: 06/10/20 04:37 06/10/20 04:37 Labs: Abnormal Lab Results - Last 24 Hours (Table) 06/10/20 06/10/20 06/10/20 Range/Units 00:29 00:29 00:29 WBC 15.3 H (3.8-10.6) k/uL Hct 50.7 H (34.0-46.0) % MCHC 30.7 L (31.0-37.0) g/dL Neutrophils # 10.5 H (1.3-7.7) k/uL Lymphocytes # (1.0-4.8) k/uL PT 12.1 H (9.0-12.0) sec INR 1.2 H (<1.2) Sodium 127 L (137-145) mmol/L Chloride 95 L (98-107) mmol/L Carbon Dioxide 13 L (22-30) mmol/L BUN 34 H (7-17) mg/dL Creatinine 1.44 H (0.52-1.04) mg/dL Glucose 565 H* (74-99) mg/dL POC Glucose (mg/dL) (75-99) mg/dL Plasma Lactic Acid Eloy (0.7-2.0) mmol/L AST 166 H (14-36) U/L ALT 95 H (4-34) U/L Troponin I (0.000-0.034) ng/mL 06/10/20 06/10/20 06/10/20 Range/Units 00:29 00:31 00:33 WBC (3.8-10.6) k/uL Hct (34.0-46.0) % MCHC (31.0-37.0) g/dL Neutrophils # (1.3-7.7) k/uL Lymphocytes # (1.0-4.8) k/uL PT (9.0-12.0) sec INR (<1.2) Sodium (137-145) mmol/L Chloride (98-107) mmol/L Carbon Dioxide (22-30) mmol/L BUN (7-17) mg/dL Creatinine (0.52-1.04) mg/dL Glucose (74-99) mg/dL POC Glucose (mg/dL) 513 H 490 H (75-99) mg/dL Plasma Lactic Acid Eloy 6.1 H* (0.7-2.0) mmol/L AST (14-36) U/L ALT (4-34) U/L Troponin I (0.000-0.034) ng/mL 06/10/20 06/10/20 06/10/20 Range/Units 03:14 03:54 04:28 WBC (3.8-10.6) k/uL Hct (34.0-46.0) % MCHC (31.0-37.0) g/dL Neutrophils # (1.3-7.7) k/uL Lymphocytes # (1.0-4.8) k/uL PT (9.0-12.0) sec INR (<1.2) Sodium (137-145) mmol/L Chloride (98-107) mmol/L Carbon Dioxide (22-30) mmol/L BUN (7-17) mg/dL Creatinine (0.52-1.04) mg/dL Glucose (74-99) mg/dL POC Glucose (mg/dL) 371 H (75-99) mg/dL Plasma Lactic Acid Eloy 3.0 H* (0.7-2.0) mmol/L AST (14-36) U/L ALT (4-34) U/L Troponin I 0.041 H* (0.000-0.034) ng/mL 06/10/20 06/10/20 06/10/20 Range/Units 04:37 04:37 04:37 WBC 11.9 H (3.8-10.6) k/uL Hct (34.0-46.0) % MCHC (31.0-37.0) g/dL Neutrophils # 10.5 H (1.3-7.7) k/uL Lymphocytes # 0.7 L (1.0-4.8) k/uL PT (9.0-12.0) sec INR 1.2 H (<1.2) Sodium 129 L (137-145) mmol/L Chloride 96 L (98-107) mmol/L Carbon Dioxide 21 L (22-30) mmol/L BUN 36 H (7-17) mg/dL Creatinine 1.29 H (0.52-1.04) mg/dL Glucose 354 H (74-99) mg/dL POC Glucose (mg/dL) (75-99) mg/dL Plasma Lactic Acid Eloy (0.7-2.0) mmol/L AST 81 H (14-36) U/L ALT 95 H (4-34) U/L Troponin I (0.000-0.034) ng/mL 06/10/20 Range/Units 06:37 WBC (3.8-10.6) k/uL Hct (34.0-46.0) % MCHC (31.0-37.0) g/dL Neutrophils # (1.3-7.7) k/uL Lymphocytes # (1.0-4.8) k/uL PT (9.0-12.0) sec INR (<1.2) Sodium (137-145) mmol/L Chloride (98-107) mmol/L Carbon Dioxide (22-30) mmol/L BUN (7-17) mg/dL Creatinine (0.52-1.04) mg/dL Glucose (74-99) mg/dL POC Glucose (mg/dL) 353 H (75-99) mg/dL Plasma Lactic Acid Eloy (0.7-2.0) mmol/L AST (14-36) U/L ALT (4-34) U/L Troponin I (0.000-0.034) ng/mL Thrombosis Risk Factor Assmnt - DVT/VTE Prophylaxis DVT/VTE Prophylaxis: Pharmacologic Prophylaxis ordered - Choose All That Apply Any of the Below Risk Factors Present?: Yes Each Factor Represents 1 point: Heart failure (<1month), Medical pt on bed rest Each Risk Factor Represents 2 Points: Patient confined to bed Each Risk Factor Represents 3 Points: Age 75 years or older Thrombosis Risk Factor Assessment Total Risk Factor Score: 7 Thrombosis Risk Factor Assessment Level: High Risk Assessment and Plan Assessment: Acute hypoxic respiratory failure secondary to CHF requiring BiPAP on admission. Currently on oxygen via nasal cannula. Acute on chronic CHF with systolic dysfunction ejection fraction 20-25% Severe mitral regurgitation Chronic atrial fibrillation on anticoagulation with Eliquis. Acute on chronic kidney disease stage III. Possible cardiorenal Hypovolemic hyponatremia due to diuretics and decreased solute intake. Severe metabolic acidosis due to lactic acidosis and hypoxemia Mild transaminitis likely due to hepatic congestion. COPD with FEV1 of 70% of predicted. 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 Right-sided nephrolithiasis nonobstructing Chronic constipation and can degenerative joint disease DVT prophylaxis patient is already on Eliquis Plan: Patient will be continued on Lasix 40 mg every 12 and monitor renal function. Continue with antibiotics the form of Levaquin. Patient will be continued on DuoNeb's and oxygen therapy. Continue with home medications. Replace electrolytes. Pulmonary is on board. Patient will be continued on metoprolol 50 twice a day and lisinopril 2.5 mg daily. Continue with home hypoglycemic medications and insulin sliding scale. We will add basal dose needed. Prognosis is guarded with multiple medical problems and comorbid conditions. Time with Patient: Greater than 30
--- NOTE | 2020-06-10 16:27 | CONS ---
CONSULTATION REASON FOR CONSULTATION: Elevated troponin and history of atrial fibrillation. Mrs Enrrique Yo is a 74-year-old lady who has been admitted to the hospital with increasing shortness of breath. She has a history of paroxysmal atrial fibrillation and came into the hospital with worsening shortness of breath. She was recently discharged from the hospital just yesterday and at that time, apparently she was doing well. She was given oral steroids and antibiotic, but when she went home, she went into respiratory distress and came into the emergency room and she has since then been hospitalized, placed on a BiPAP with minimal improvement. She has atrial fibrillation, paroxysmal in nature and she is on apixaban 5 mg b.i.d., carvedilol 3.125 mg b.i.d., lisinopril 2.5 mg daily. She also has diabetes and hypertension. At the time of my evaluation, her breathing is better but she still has significant wheezing. PAST MEDICAL HISTORY: Bronchial asthma, COPD, exacerbation and history of smoking, which she quit about a year or so ago. Patient has history of hyperlipidemia, hypertension. She is status post orthopedic surgery and hysterectomy and a tonsillectomy. Apparently she sees Dr. Aparicio in the office and she was recently seen by him in consultation. She is known to have ejection fraction in the 20% to 25% with [id number] mitral regurgitation as well. She has had previous cardiac catheterization in March 2018 which revealed mild-to- moderate CAD with 2+ mitral regurgitation. Her main issue appears to be COPD exacerbation with a low ejection fraction and also paroxysmal atrial fibrillation. She has nonischemic cardiomyopathy with noncritical CAD in what seems to be a left dominant system. Her other medical problems include type 2 diabetes, hypertension, hyperlipidemia. MEDICATIONS: At home include Januvia, glyburide, steroid taper, Lasix 20 mg b.i.d., carvedilol 3.125 mg b.i.d., Eliquis 5 mg b.i.d., Lipitor 20 mg daily, and Xanax. ALLERGIES: No known drug allergies. PHYSICAL EXAMINATION: On examination, blood pressure is about 130/70, pulse rate is about 80 per minute, sinus. HEENT: Unremarkable, fundus was not examined by me. NECK: Supple, there is JVD of 1 cm. No carotid bruit. HEART: Exam reveals S1, S2 heard normally. There is a short systolic murmur, audible at the apex. LUNGS: Reveal bilateral scattered expiratory rhonchi. ABDOMEN: Soft, nontender. Lower extremities reveal diminished pulses. Central nervous system is grossly within normal limits with generalized weakness. IMPRESSION: 1. Exacerbation of chronic obstructive pulmonary disease in a patient with known smoking and known COPD. 2. Exacerbation of systolic heart failure. 3. Paroxysmal atrial fibrillation, now in sinus rhythm. 4. Diabetes. 5. Hypercholesterolemia. 6. Noncritical coronary artery disease and nonischemic cardiomyopathy. RECOMMENDATIONS: I am recommending that we obtain a BNP level, place her on IV Lasix, change the Coreg to metoprolol tartrate and also add Aldactone 12.5 mg daily and continue respiratory management. Based on clinical course, I will make further recommendations. Prognosis remains guarded. NICK / MESFINN: [id number] /
[2020-06-10] MEDS: INSULIN DETEMIR (LEVEMIR) 100 UNIT/ML SYR SQ SCH (17:02)
[2020-06-10 17:09] LABS: Glucose,Whole Blood 136 mg/dL (75-99)
[2020-06-10 20:40] LABS: Glucose,Whole Blood 186 mg/dL (75-99)
[2020-06-10] MEDS: ALPRAZolam 0.5 MG TAB PO SCH (20:43)
[2020-06-10] MEDS: ATORVASTATIN 20 MG TAB PO SCH (20:43)
[2020-06-11] MEDS: IPRATROPIUM-ALBUTEROL 3 ML NEB INHALATION SCH ×6 (00:29→19:08)
[2020-06-11 06:38] LABS: Basophils % (A) 0 %; Eosinophils # (A) 0.2 k/uL (0-0.7); Eosinophils % (A) 1 %; HCT 43.7 % (34.0-46.0); HGB 14.9 gm/dL (11.4-16.0); Lymphocytes % (A) 17 %; MCH 31.1 pg (25.0-35.0); MCHC 34.1 g/dL (31.0-37.0); MCV 91.2 fL (80.0-100.0); Mean Platelet Volume 7.5; Monocytes # (A) 0.7 k/uL (0-1.0); Monocytes % (A) 6 %; Neutrophils # (A) 9.1 k/uL (1.3-7.7); Neutrophils % (A) 75 %; Platelet Count 234 k/uL (150-450); RBC 4.79 m/uL (3.80-5.40); WBC 12.1 k/uL (3.8-10.6)
[2020-06-11 06:53] LABS: Albumin 3.6 g/dL (3.5-5.0); Potassium 3.2 mmol/L (3.5-5.1); Total Bilirubin 1.1 mg/dL (0.2-1.3); Total Protein 6.2 g/dL (6.3-8.2)
[2020-06-11 06:54] LABS: Glucose,Whole Blood 88 mg/dL (75-99)
[2020-06-11] MEDS ORDERED: Potassium Replacement Protocol 1 EACH MISC MISCELLANE PRN (06:56)
[2020-06-11] MEDS: INSULIN ASPART (NovoLOG) 100 UNIT/ML VIAL SQ SCH ×4 (07:09→20:32)
[2020-06-11] MEDS: POTASSIUM CHLORIDE ER 20 MEQ TAB.ER PO SCH ×2 (07:10→07:56)
--- NOTE | 2020-06-11 07:31 | XR ---
EXAMINATION TYPE: XR chest 1V DATE OF EXAM: 06/11/2020 COMPARISON: Prior chest x-ray 06/10/2020 HISTORY: Congestive heart failure TECHNIQUE: Single frontal view of the chest is obtained. FINDINGS: There is no pleural effusion or pneumothorax is evident. There is improved aeration as com pared to prior exam. Minimal patchy density persists the right lung base. Heart is small. Aorta is sh ows increased density. The osseous structures are intact. IMPRESSION: Improvement in volume status, aeration
[2020-06-11] MEDS: ALPRAZolam 0.5 MG TAB PO SCH ×3 (07:56→22:59)
[2020-06-11] MEDS: METOPROLOL TARTRATE 50 MG TAB PO SCH (07:56)
[2020-06-11] MEDS: SPIRONOLACTONE 25 MG TAB PO SCH (07:56)
[2020-06-11] MEDS: APIXABAN 5 MG TAB PO SCH ×2 (07:56→21:18)
[2020-06-11] MEDS: LISINOPRIL 2.5 MG TAB PO SCH (07:56)
[2020-06-11] MEDS: FLUoxetine HCL 10 MG CAP PO SCH (07:57)
[2020-06-11] MEDS: LINAGLIPTIN 5 MG TABLET PO SCH (07:57)
[2020-06-11] MEDS: PANTOPRAZOLE 40 MG/10 ML VIAL IV SCH (07:57)
[2020-06-11] MEDS: FUROSEMIDE 10 MG/ML 4 ML VIAL IV SCH (07:58)
[2020-06-11] MEDS: DORZOLAMIDE-TIMOLOL 2.23%/0.68 10ML BTL RIGHT EYE SCH ×2 (07:58→21:18)
[2020-06-11] MEDS ORDERED: FUROSEMIDE 40 MG TAB PO SCH (09:00)
[2020-06-11] MEDS ORDERED: LEVOFLOXACIN 250 MG TAB PO SCH (09:00)
[2020-06-11 10:09] VITALS: BMI 17.2
[2020-06-11 11:46] LABS: Glucose,Whole Blood 158 mg/dL (75-99)
--- NOTE | 2020-06-11 12:40 | P.PN ---
Subjective Progress Note Date: 06/11/20 This is a 74-year-old female patient who is very well-known to me from previous hospitalization and office visits. The patient's has severe cardiomyopathy with chronic systolic heart failure ejection fraction of 20-25% and the patient also has severe mitral regurgitation, chronic atrial fibrillation, COPD with a baseline FEV1 of 73% of predicted, diabetes mellitus and previous history of CVA with some residual right I blindness and she also has hypertension, Dr. disease and chronic generalized anxiety disorder. The patient was in the hospital recently and the patient was discharged home and within less than 24 hours of being released home, the patient came back with worsening shortness of breath. She was Hospital as for increased dyspnea and pulmonary edema. She was placed on BiPAP with improvement in her symptoms and currently she is off the BiPAP. Overnight, she is in the BiPAP at pressures of 14/7 with an FiO2 of 30%. Currently is on 2 L O2 saturations are 95%. The patient on Lasix 40 mg IV push every 12 hours. Pneumonia was suspected and the right lower lobe and the patient was given Levaquin to be completed on outpatient basis. No significant wheezes or rhonchi. IV fluids are currently at KVO at 10 mL an hour. She does have crackles in lung bases right more than left. No significant wheezes appreciated on today's evaluation. She is afebrile. The white cell count is 11.2. INR is at 1.2 and the patient is on long-term articulation with Eliquis. The patient's creatinine is 1.2 which is essentially stable. On today's evaluation of 06/11/2020, the patient is feeling much better. Following complete resolution of the previously bilateral pulmonary infiltrates. The patient was in CHF/pulmonary edema and essentially recovered. The patient is currently on IV Lasix. The patient is also completing a course of antibiotics with Levaquin. I doubt the possibility of an infection in this patient. No new complaints patches currently on room air. No lower extremity edema.the white cell count is at 12. Creatinine is stable at 1.4. No other significant issues for now. The patient is being monitored closely in the intensive care unit. The patient may likely be transferred out of the intensive care unit today. She is on Eliquis long-term anticoagulation and she is receiving 5 mg by mouth twice a day. Objective - Vital Signs Vital signs: Vital Signs Temp 98.5 F 06/11/20 08:00 Pulse 58 L 06/11/20 11:44 Resp 13 06/11/20 08:00 BP 96/45 06/11/20 08:00 Pulse Ox 94 L 06/11/20 08:00 Intake & Output 06/10/20 06/11/20 06/11/20 18:59 06:59 18:59 Intake Total 650 Output Total 950 0 0 Balance -300 0 0 Weight 48.4 kg 48.4 kg Intake: IV 290 0.9 90 Magnesium Sulfate-D5w Pmx 200 1 gm In Dextrose/Water 1 100ml.bag @ 100 mls/hr IVPB Q1H [facility] Rx#: [id number] Oral 360 Output: Urine 950 0 0 Other: Voiding Method Toilet Toilet Toilet # Voids 1 # Bowel Movements 1 - Exam Gen. appearance, comfortable likely distress currently on 2 L of oxygen by nasal cannula Head exam was generally normal. There was no scleral icterus or corneal arcus. Mucous membranes were moist. Neck was supple and without jugular venous distension, thyromegaly, or carotid bruits. Carotids were easily palpable bilaterally. There was no adenopathy. Lungs sounds are diminished in the patient's crackles in lung bases more so on the right compared to left. Cardiac exam revealed the PMI to be normally situated and sized. The rhythm was regular and no extrasystoles were noted during several minutes of auscultation. The first and second heart sounds were normal and physiologic splitting of the second heart sound was noted. There were no rubs, clicks, or gallops. There is systolic ejection murmur grade 3/6 heard throughout the precordium. Abdominal exam revealed normal bowel sounds. The abdomen was soft, non-tender, and without masses, organomegaly, or appreciable enlargement of the abdominal aorta. Examination of the extremities revealed easily palpable radial, femoral and pedal pulses. There was no cyanosis, clubbing or edema. Examination of the skin revealed no evidence of significant rashes, suspicious appearing nevi or other concerning lesions. Neurologically the patient is awake and alert and the patient has no focal neurological deficits. - Labs CBC & Chem 7: 06/11/20 05:26 06/11/20 05:26 Labs: Abnormal Lab Results - Last 24 Hours (Table) 0706/10/20 06/11/20 Range/Units 16:59 20:39 05:26 WBC 12.1 H (3.8-10.6) k/uL Neutrophils # 9.1 H (1.3-7.7) k/uL Sodium (137-145) mmol/L Potassium (3.5-5.1) mmol/L BUN (7-17) mg/dL Creatinine (0.52-1.04) mg/dL Glucose (74-99) mg/dL POC Glucose (mg/dL) 136 H 186 H (75-99) mg/dL ALT (4-34) U/L Total Protein (6.3-8.2) g/dL 06/11/20 06/11/20 Range/Units 05:26 11:45 WBC (3.8-10.6) k/uL Neutrophils # (1.3-7.7) k/uL Sodium 132 L (137-145) mmol/L Potassium 3.2 L (3.5-5.1) mmol/L BUN 38 H (7-17) mg/dL Creatinine 1.40 H (0.52-1.04) mg/dL Glucose 70 L (74-99) mg/dL POC Glucose (mg/dL) 158 H (75-99) mg/dL ALT 64 H (4-34) U/L Total Protein 6.2 L (6.3-8.2) g/dL Microbiology - Last 24 Hours (Table) 06/10/20 02:16 Blood Culture - Preliminary Blood No Growth after 24 hours Assessment and Plan Plan: 1 acute hypoxic respiratory failure secondary to CHF/pulmonary edema, treated with a combination of BiPAP and diuretics and currently the patient is improved and the patient is currently on room air oxygen and a follow-up chest x-ray done today shows complete clearing of the previously described by the pulmonary infiltrates. The patient not having any respiratory distress. The patient is stable for now. 2 systolic heart failure with ejection fraction of 20-25% 3 severe mitral regurgitation 4 chronic atrial fibrillation, rate controlled and the patient is currently on Eliquis. 5 COPD with a baseline FEV1 of 70% of predicted 6 small right-sided pleural effusion 7 diabetes mellitus 8 CVA with some right-sided eye blindness 9 hypertension 10 hyperlipidemia 11 chronic constipation 12 osteoarthritis 13 right-sided nephrolithiasis 14 carotid artery disease 15 generalized anxiety disorder Plan The patient has been switched to oral Lasix 40 mg by mouth daily. I'm going to stop the Levaquin. No need for systemic steroids Continue bronchodilators Discontinue the BiPAP Repeat chest x-ray in the morning shows significant clearing of the right the pulmonary infiltrates. Resume cardiac medications including a combination of metoprolol 50 mg by mouth twice a day, Zestril 2.5 mg by mouth daily. The patient is also on Aldactone and Lasix currently is being administered a dose of 40 mg every 12 hours. Monitor blood sugar control and the patient will placed on his vascular coverage. Continue Eliquis. We'll follow. The patient can be transferred to medical surgical with telemetry.
--- NOTE | 2020-06-11 14:23 | PN ---
PROGRESS NOTE Mrs. Yo is a lady who came in with COPD exacerbation, has paroxysmal atrial fibrillation. She is in sinus rhythm resting comfortably. Breathing is easier. Has no chest pain at the time of my evaluation. Breathing easier. Vital signs stable. JVD is evident. S1-S2 heard normally. Regular rhythm, short systolic murmur. Lungs reveal improved air entry. Abdomen and lower extremity exam unchanged. PLAN: Plan is to continue current medication but decrease the Lopressor to 25 mg t.i.d. We will continue to see her as needed. MMODL / IJN: [id number] /
[2020-06-11 16:32] LABS: Glucose,Whole Blood 221 mg/dL (75-99)
[2020-06-11] MEDS: FUROSEMIDE 40 MG TAB PO SCH (17:10)
[2020-06-11] MEDS ORDERED: IPRATROPIUM-ALBUTEROL 3 ML NEB INHALATION PRN (20:03)
[2020-06-11 20:30] LABS: Glucose,Whole Blood 60 mg/dL (75-99)
[2020-06-11 20:54] LABS: Glucose,Whole Blood 90 mg/dL (75-99)
[2020-06-11] MEDS: INSULIN DETEMIR (LEVEMIR) 100 UNIT/ML SYR SQ SCH (21:18)
[2020-06-11] MEDS: ATORVASTATIN 20 MG TAB PO SCH (21:18)
[2020-06-11] MEDS: METOPROLOL TARTRATE 25 MG TAB PO SCH (22:58)
[2020-06-12 06:09] LABS: Glucose,Whole Blood 231 mg/dL (75-99)
[2020-06-12] MEDS: INSULIN ASPART (NovoLOG) 100 UNIT/ML VIAL SQ SCH ×2 (06:36→12:25)
[2020-06-12] MEDS ORDERED: ACETAMINOPHEN TAB 325 MG TAB PO PRN (06:52)
[2020-06-12] MEDS ORDERED: LORATADINE 10 MG TAB PO PRN (06:55)
[2020-06-12] MEDS ORDERED: PANTOPRAZOLE 40 MG TABLET PO SCH (07:30)
[2020-06-12] MEDS: APIXABAN 5 MG TAB PO SCH (08:29)
[2020-06-12] MEDS: METOPROLOL TARTRATE 25 MG TAB PO SCH (08:29)
[2020-06-12] MEDS: FUROSEMIDE 40 MG TAB PO SCH (08:29)
[2020-06-12] MEDS: ALPRAZolam 0.5 MG TAB PO SCH (08:29)
[2020-06-12] MEDS: LISINOPRIL 2.5 MG TAB PO SCH (08:29)
[2020-06-12] MEDS: FLUoxetine HCL 10 MG CAP PO SCH (08:29)
[2020-06-12] MEDS: LINAGLIPTIN 5 MG TABLET PO SCH (08:29)
[2020-06-12] MEDS: SPIRONOLACTONE 25 MG TAB PO SCH (08:29)
[2020-06-12] MEDS: DORZOLAMIDE-TIMOLOL 2.23%/0.68 10ML BTL RIGHT EYE SCH (08:29)
[2020-06-12] MEDS: IPRATROPIUM-ALBUTEROL 3 ML NEB INHALATION SCH ×2 (08:37→11:37)
[2020-06-12 08:38] VITALS: BP 97/59; RESP 20; TEMP 98.3
--- NOTE | 2020-06-12 11:21 | P.PN ---
Subjective Progress Note Date: 06/11/20 Principal diagnosis: Acute on chronic CHF with systolic dysfunction Patient is a 74 old female with a known history of chronic atrial fibrillation on anticoagulation with Eliquis, chronic CHF with systolic dysfunction ejection fraction 20-25% and severe mitral regurgitation and COPD, diabetes type 2, osteoarthritis, generalized anxiety disorder, coronary artery disease and other multiple medical problems who is discharge from the hospital yesterday, was treated for acute COPD exacerbation and CHF. Patient came back to the hospital with complaints of worsening shortness of breath. Patient was in the hospital for increased shortness of breath and pulmonary edema. Patient was placed on BiPAPwithimprovementofhersymptoms. Overnight patient was on BiPAP and currently titrating down to oxygen via nasal cannula. Patient denied any complaints of fever or chills. No complaints of chest pain. No nausea vomiting or abdominal pain. EKG showed sinus tachycardia and left bundle branch block. Chest x-ray showed moderately severe pulmonary interstitial edema is the same or slightly worse than last exam. BOTH INTERSTITIAL PNEUMONIA AND HEART FAILURE. Laboratory data showed WBC 15.3, hemoglobin 15.6, platelets 276, INR 1.2 Sodium 127, potassium 5.0, chloride 95, bicarb is 13 BUN 34 and creatinine 1.44 Blood sugar is 565 Lactic acid 6.1 AST 166, ALT 95 and alk phos 76 Troponin 0.012 and 0.041 ProBNP 06371 06/11/2020 Patient is currently resting in the bed comfortably. Currently on IV Lasix. Saturating well on room air. No complaints of chest pain or shortness of breath. Laboratory data showed WBC 12.1, hemoglobin 14.9 next line sodium 132 and potassium 3.2, BUN 38 and creatinine 1.40 Patient has been afebrile. Being transferred to telemetry unit. Current medications reviewed. Objective - Vital Signs Vital signs: Vital Signs Temp 98.2 F 06/11/20 12:00 Pulse 64 06/11/20 12:00 Resp 18 06/11/20 12:00 BP 114/55 06/11/20 12:00 Pulse Ox 94 L 06/11/20 12:00 Intake & Output 06/10/20 06/11/20 06/11/20 18:59 06:59 18:59 Intake Total 650 360 Output Total 950 0 0 Balance -300 0 360 Weight 48.4 kg 48.4 kg Intake: IV 290 0.9 90 Magnesium Sulfate-D5w Pmx 200 1 gm In Dextrose/Water 1 100ml.bag @ 100 mls/hr IVPB Q1H [facility] Rx#: [id number] Oral 360 360 Output: Urine 950 0 0 Other: Voiding Method Toilet Toilet Toilet # Voids 1 2 # Bowel Movements 1 - Exam PHYSICAL EXAMINATION: Patient is lying in the bed comfortably, no acute distress, awake alert and oriented.. HEENT: Normocephalic. Neck is supple. Pupils reactive. Nostrils clear. Oral cavity is moist. Ears reveal no drainage. Neck reveals no JVD, carotid bruits, or thyromegaly. CHEST EXAMINATION: Trachea is central. Symmetrical expansion. Lung lanza clear to auscultation and percussion. CARDIAC: Normal S1, S2 with no gallops. Systolic murmur ABDOMEN: Soft. Bowel sounds normal. No organomegaly. No abdominal bruits. Extremities: reveal no edema. No clubbing or cyanosis Neurologically awake, alert, oriented x3 with well-coordinated movements. No focal deficits noted Skin: No rash or skin lesions. Psychiatric: Coperative. Nonsuicidal Musculoskeletal: No joint swelling or deformity. Normal range of motion. - Labs CBC & Chem 7: 06/11/20 05:26 06/12/20 09:58 Labs: Abnormal Lab Results - Last 24 Hours (Table) 06/10/20 06/10/20 06/11/20 Range/Units 16:59 20:39 05:26 WBC 12.1 H (3.8-10.6) k/uL Neutrophils # 9.1 H (1.3-7.7) k/uL Sodium (137-145) mmol/L Potassium (3.5-5.1) mmol/L BUN (7-17) mg/dL Creatinine (0.52-1.04) mg/dL Glucose (74-99) mg/dL POC Glucose (mg/dL) 136 H 186 H (75-99) mg/dL ALT (4-34) U/L Total Protein (6.3-8.2) g/dL 06/11/20 06/11/20 Range/Units 05:26 11:45 WBC (3.8-10.6) k/uL Neutrophils # (1.3-7.7) k/uL Sodium 132 L (137-145) mmol/L Potassium 3.2 L (3.5-5.1) mmol/L BUN 38 H (7-17) mg/dL Creatinine 1.40 H (0.52-1.04) mg/dL Glucose 70 L (74-99) mg/dL POC Glucose (mg/dL) 158 H (75-99) mg/dL ALT 64 H (4-34) U/L Total Protein 6.2 L (6.3-8.2) g/dL Microbiology - Last 24 Hours (Table) 06/10/20 02:16 Blood Culture - Preliminary Blood No Growth after 24 hours Assessment and Plan Assessment: Acute hypoxic respiratory failure secondary to CHF requiring BiPAP on admission. Currently on room air. Acute on chronic CHF with systolic dysfunction ejection fraction 20-25% Severe mitral regurgitation Chronic atrial fibrillation on anticoagulation with Eliquis. Acute on chronic kidney disease stage III. Possible cardiorenal Hypovolemic hyponatremia due to diuretics and decreased solute intake. Severe metabolic acidosis due to lactic acidosis and hypoxemia Mild transaminitis likely due to hepatic congestion. COPD with FEV1 of 70% of predicted. 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 Right-sided nephrolithiasis nonobstructing Chronic constipation and can degenerative joint disease DVT prophylaxis patient is already on Eliquis Plan: Patient will be continued on Lasix 40 mg every 12 and monitor renal function. Continue with antibiotics the form of Levaquin. Patient will be continued on DuoNeb's and oxygen therapy. Continue with home medications. Replace electrolytes. Pulmonary is on board. Patient will be continued on metoprolol 50 twice a day and lisinopril 2.5 mg daily. Continue with home hypoglycemic medications and insulin sliding scale. We will add basal dose needed. Prognosis is guarded with multiple medical problems and comorbid conditions. Time with Patient: Greater than 30
[2020-06-12 11:47] VITALS: PULSE 68
--- NOTE | 2020-06-12 12:00 | P.PN ---
Subjective Progress Note Date: 06/12/20 Principal diagnosis: Acute hypoxic respiratory failure secondary to CHF/pulmonary edema This is a 74-year-old female patient who is very well-known to me from previous hospitalization and office visits. The patient's has severe cardiomyopathy with chronic systolic heart failure ejection fraction of 20-25% and the patient also has severe mitral regurgitation, chronic atrial fibrillation, COPD with a baseline FEV1 of 73% of predicted, diabetes mellitus and previous history of CVA with some residual right I blindness and she also has hypertension, Dr. disease and chronic generalized anxiety disorder. The patient was in the hospital recently and the patient was discharged home and within less than 24 hours of being released home, the patient came back with worsening shortness of breath. She was Hospital as for increased dyspnea and pulmonary edema. She was placed on BiPAP with improvement in her symptoms and currently she is off the BiPAP. Overnight, she is in the BiPAP at pressures of 14/7 with an FiO2 of 30%. Currently is on 2 L O2 saturations are 95%. The patient on Lasix 40 mg IV push every 12 hours. Pneumonia was suspected and the right lower lobe and the patient was given Levaquin to be completed on outpatient basis. No significant wheezes or rhonchi. IV fluids are currently at KVO at 10 mL an hour. She does have crackles in lung bases right more than left. No significant wheezes appreciated on today's evaluation. She is afebrile. The white cell count is 11.2. INR is at 1.2 and the patient is on long-term articulation with Eliquis. The patient's creatinine is 1.2 which is essentially stable. On today's evaluation of 06/11/2020, the patient is feeling much better. Following complete resolution of the previously bilateral pulmonary infiltrates. The patient was in CHF/pulmonary edema and essentially recovered. The patient is currently on IV Lasix. The patient is also completing a course of antibiotics with Levaquin. I doubt the possibility of an infection in this patient. No new complaints patches currently on room air. No lower extremity edema.the white cell count is at 12. Creatinine is stable at 1.4. No other significant issues for now. The patient is being monitored closely in the intensive care unit. The patient may likely be transferred out of the intensive care unit today. She is on Eliquis long-term anticoagulation and she is receiving 5 mg by mouth twice a day. The patient is seen today 06/12/2020 in follow-up on the selective care unit. She is doing quite a bit better. Maintaining O2 saturations in the 90s on room air now. She's been afebrile. Hemodynamically stable. The cultures revealed no growth. She remains on bronchodilators, oral diuretics, anticoagulated with Eliquis. No significant peripheral edema. Objective - Vital Signs Vital signs: Vital Signs Temp 98.3 F 06/12/20 08:00 Pulse 68 06/12/20 11:46 Resp 20 06/12/20 08:00 BP 97/59 06/12/20 08:00 Pulse Ox 97 06/12/20 08:00 Intake & Output 06/11/20 06/12/20 06/12/20 18:59 06:59 18:59 Intake Total 720 250 240 Output Total 0 Balance 720 250 240 Weight 48.4 kg 50.6 kg Intake: Oral 720 250 240 Output: Urine 0 Other: Voiding Method Toilet Toilet # Voids 1 1 - Exam Gen. appearance, comfortable pleasant 74-year-old female patient, in no acute distress, currently on room air Head exam was generally normal. There was no scleral icterus or corneal arcus. Mucous membranes were moist. Neck was supple and without jugular venous distension, thyromegaly, or carotid bruits. Carotids were easily palpable bilaterally. There was no adenopathy. Lungs sounds are diminished in the with very minimal crackles at the bases. Cardiac exam revealed the PMI to be normally situated and sized. The rhythm was regular and no extrasystoles were noted during several minutes of auscultation. The first and second heart sounds were normal and physiologic splitting of the second heart sound was noted. There were no rubs, clicks, or gallops. There is systolic ejection murmur grade 3/6 heard throughout the precordium. Abdominal exam revealed normal bowel sounds. The abdomen was soft, non-tender, and without masses, organomegaly, or appreciable enlargement of the abdominal aorta. Examination of the extremities revealed easily palpable radial, femoral and pedal pulses. There was no cyanosis, clubbing or edema. Examination of the skin revealed no evidence of significant rashes, suspicious appearing nevi or other concerning lesions. Neurologically the patient is awake and alert and the patient has no focal neurological deficits. - Labs CBC & Chem 7: 06/11/20 05:26 06/12/20 09:58 Labs: Abnormal Lab Results - Last 24 Hours (Table) 06/11/20 06/11/20 06/12/20 Range/Units 16:30 20:27 06:08 POC Glucose (mg/dL) 221 H 60 L 231 H (75-99) mg/dL Microbiology - Last 24 Hours (Table) 06/10/20 02:16 Blood Culture - Preliminary Blood No Growth after 48 hours Assessment and Plan Assessment: 1 acute hypoxic respiratory failure secondary to CHF/pulmonary edema, treated with a combination of BiPAP and diuretics and currently the patient is improved and the patient is currently on room air oxygen and a follow-up chest x-ray done today shows complete clearing of the previously described by the pulmonary infiltrates. The patient not having any respiratory distress. The patient is stable for now. On room air. 2 systolic heart failure with ejection fraction of 20-25% 3 severe mitral regurgitation 4 chronic atrial fibrillation, rate controlled and the patient is currently on Eliquis. 5 COPD with a baseline FEV1 of 70% of predicted 6 small right-sided pleural effusion 7 diabetes mellitus 8 CVA with some right-sided eye blindness 9 hypertension 10 hyperlipidemia 11 chronic constipation 12 osteoarthritis 13 right-sided nephrolithiasis 14 carotid artery disease 15 generalized anxiety disorder Plan: The patient was seen and evaluated by Dr. Tomas She is improved from the pulmonary standpoint We will see her on an as-needed basis I, the cosigning physician, performed a history & physical examination of the patient. Lungs sounds with minimal crackles in the bases. Maintaining good O2 saturations in the 90s on room air. I discussed the assessment and plan of care with my nurse practitioner, Chio Swain. I attest to the above note as dictated by her.
[2020-06-12 12:17] LABS: Glucose,Whole Blood 354 mg/dL (75-99)
--- NOTE | 2020-06-12 16:08 | PN ---
PROGRESS NOTE Mrs. Yo is comfortable resting. She has no chest pain. She has exacerbation of COPD, but she is breathing much easier. Vitals are stable. Her rate is much better controlled. S1, S2 heard normally. Short systolic murmur noted. Lungs reveal improved air entry. Abdomen and lower extremity exam unchanged. Plan is to continue current medication. From a cardiac standpoint, she can be discharged. We will see her as needed. MMODL / IJN: [id number] /
[2020-06-12] MEDS ORDERED: APIXABAN 2.5 MG TABLET PO SCH (21:00)
== END 2020-06-12 12:47 | disposition home or self-care (01) | DRG 189 ==
LOC: EC 00:19 → 2SICU 01:30 → 3SCARD 06-12 01:23
PROVIDERS: ADMIT Hospitalist; ATTEND Hospitalist
PROC: 5A09357 Assistance with Respiratory Ventilation, Less than 24 Consecutive Hours, Continuous Positive Airway Pressure (ICD-10-PCS; principal; 2020-06-10)
DX: J96.01 Acute respiratory failure with hypoxia (principal); I50.23 Acute on chronic systolic (congestive) heart failure; J18.9 Pneumonia, unspecified organism; I13.0 Hypertensive heart and chronic kidney disease with heart failure and stage 1 through stage 4 chronic kidney disease, or unspecified chronic kidney disease; E87.1 Hypo-osmolality and hyponatremia; E87.2 Acidosis; I48.20 Chronic atrial fibrillation, unspecified; J44.0 Chronic obstructive pulmonary disease with (acute) lower respiratory infection; J44.1 Chronic obstructive pulmonary disease with (acute) exacerbation; N17.9 Acute kidney failure, unspecified; I42.8 Other cardiomyopathies; E11.22 Type 2 diabetes mellitus with diabetic chronic kidney disease; E11.42 Type 2 diabetes mellitus with diabetic polyneuropathy; N18.3 Chronic kidney disease, stage 3 (moderate); E11.65 Type 2 diabetes mellitus with hyperglycemia; Z20.828 Contact with and (suspected) exposure to other viral communicable diseases; E78.00 Pure hypercholesterolemia, unspecified; E78.5 Hyperlipidemia, unspecified; F41.1 Generalized anxiety disorder; I25.10 Atherosclerotic heart disease of native coronary artery without angina pectoris; I34.0 Nonrheumatic mitral (valve) insufficiency; I44.7 Left bundle-branch block, unspecified; K59.09 Other constipation; M19.90 Unspecified osteoarthritis, unspecified site; N20.0 Calculus of kidney; I69.998 Other sequelae following unspecified cerebrovascular disease; H54.61 Unqualified visual loss, right eye, normal vision left eye; I65.29 Occlusion and stenosis of unspecified carotid artery; R74.0 Nonspecific elevation of levels of transaminase and lactic acid dehydrogenase [LDH]; Z66 Do not resuscitate; Z79.01 Long term (current) use of anticoagulants; Z79.51 Long term (current) use of inhaled steroids; Z79.84 Long term (current) use of oral hypoglycemic drugs; Z79.899 Other long term (current) drug therapy; Z79.52 Long term (current) use of systemic steroids; Z85.828 Personal history of other malignant neoplasm of skin; Z87.891 Personal history of nicotine dependence; Z90.710 Acquired absence of both cervix and uterus; Z96.651 Presence of right artificial knee joint; Z91.012 Allergy to eggs; Z87.01 Personal history of pneumonia (recurrent); Z98.42 Cataract extraction status, left eye; Z98.41 Cataract extraction status, right eye; Z96.1 Presence of intraocular lens
CPT/HCPCS: 36415; 71045; 80053; 83605; 83735; 83880; 84100; 84132; 84484; 85025; 85610; 85730; 87040; 93005; 94640; 94660; 96374; 96375; 96376; 99285

== ENCOUNTER 2020-12-22 11:53 | Observation (INO) | payer MEDICARE ==
[2020-12-22] MEDS ORDERED: SODIUM CHLORIDE 0.9% 1,000 ML IV STA (12:07)
--- NOTE | 2020-12-22 12:07 | ED ---
SOB HPI - General Chief Complaint: Shortness of Breath Stated Complaint: COPD/SOB Time Seen by Provider: 12/22/20 12:05 Source: patient Mode of arrival: wheelchair Limitations: no limitations - History of Present Illness Initial Comments: 75-year-old female with history of COPD, A. fib and heart failure presenting to emergency Department with chief complaint of shortness of breath. Patient states her symptoms started earlier today. Patient states her son noticed that she was breathing faster and usual and advised to come to emergency department. Patient states she "feels like wheezing" and use her nebulizer treatments today. Patient states this feels like her COPD exacerbation. She denies taking medication to alleviate the symptoms. She states that her heart feels like it is going "fast and then slow". Patient is currently on eliquis for afib. She denies any chest pain, lightheadedness, dizziness, one-sided weakness or paresthesias, blurry vision. - Related Data Home Medications Medication Instructions Recorded Confirmed ALPRAZolam [Xanax] 0.5 mg PO BID PRN 11/04/17 12/22/20 Albuterol Sulfate [Proventil Hfa] 1 - 2 puff INHALATION RT-Q4H PRN 11/04/17 12/22/20 Potassium Chloride [Klor-Con 10] 10 meq PO TID 11/04/17 12/22/20 Tiotropium 18 Mcg/Puff [Spiriva] 1 cap INHALATION RT-DAILY 11/04/17 12/22/20 sitaGLIPtin [Januvia] 100 mg PO DAILY 11/04/17 12/22/20 Atorvastatin [Lipitor] 20 mg PO HS 06/04/20 12/22/20 Dorzolamide 2% [Trusopt 2%] 1 drop RIGHT EYE BID 06/10/20 12/22/20 Budesonide [Pulmicort] 0.5 mg INHALATION RT-BID 12/22/20 12/22/20 FLUoxetine HCL 20 mg PO DAILY 12/22/20 12/22/20 Insulin Glargine,Hum.rec.anlog 15 unit SQ BID 12/22/20 12/22/20 [Lantus Solostar] Ketorolac 0.5% Ophth Soln [Acular] 1 drop LEFT EYE QID 12/22/20 12/22/20 Spironolactone [Aldactone] 25 mg PO DAILY 12/22/20 12/22/20 Previous Rx's Medication Instructions Recorded Famotidine [Pepcid] 20 mg PO DAILY #30 tab 06/09/20 Apixaban [Eliquis] 2.5 mg PO BID #60 tablet 06/12/20 Furosemide [Lasix] 40 mg PO BID@0900,1600 #60 tab 06/12/20 Metoprolol Tartrate [Lopressor] 25 mg PO TID #90 tab 06/12/20 Allergies Allergy/AdvReac Type Severity Reaction Status Date / Time egg Allergy Itching Verified 12/22/20 13:55 Review of Systems ROS Statement: Those systems with pertinent positive or pertinent negative responses have been documented in the HPI. ROS Other: All systems not noted in ROS Statement are negative. Past Medical History Past Medical History: Atrial Fibrillation, Asthma, Cancer, Heart Failure, COPD, CVA/TIA, Diabetes Mellitus, Eye Disorder, Hyperlipidemia, Hypertension, Osteoarthritis (OA), Renal Disease, Respiratory Disorder, Vascular Disorder Additional Past Medical History / Comment(s): chronic systolic congestive heart failure. Her ejection fraction is 20-25%. Severe mitral regurgitation, chronic atrial fibrillation on Eliquis. She also has a history of diabetes mellitus, COPD, CVA with residual blindness in the right eye, general anxiety disorder, ca rotid artery disease, hypertension. She also follows here for chronic obstructive pulmonary disease with an FEV1 value of 73 percent of predicted. She has been maintained on Symbicort, Spiriva and albuterol.NIDDM type II, neuropathy bilateral hands/feet, CVA with R eye blindness, severe shingelles 2 010 which affected L arm/back of neck, skin cancer with removal, R sided nephrolithiasis-nonobstructing per past medical record/pt unaware, chronic constipation, degenerative joint disease. History of Any Multi-Drug Resistant Organisms: None Reported Past Surgical History: Heart Catheterization, Hysterectomy, Orthopedic Surgery, Tonsillectomy Additional Past Surgical History / Comment(s): Right knee arthroplasty, bilatera l cataract/lens implant surgery, skin cancer removed under R eye. Past Anesthesia/Blood Transfusion Reactions: No Reported Reaction Past Psychological History: Anxiety Smoking Status: Former smoker Past Alcohol Use History: None Reported Past Drug Use History: None Reported - Past Family History Mother Family Medical History: Dementia Additional Family Medical History / Comment(s): AGE 99 Father Family Medical History: No Reported History Additional Family Medical History / Comment(s): WAS HEALTHY AT ALMOST AGE 99 General Exam Limitations: no limitations General appearance: alert, in no apparent distress Head exam: Present: atraumatic, normocephalic, normal inspection Eye exam: Present: normal appearance, PERRL, EOMI Pupils: Present: normal accommodation ENT exam: Present: normal exam, normal oropharynx, mucous membranes moist Neck exam: Present: normal inspection, full ROM Respiratory exam: Present: normal lung sounds bilaterally. Absent: respiratory distress, wheezes (No detectable wheezing), rales, rhonchi, stridor Cardiovascular Exam: Present: regular rate, normal rhythm, normal heart sounds Extremities exam: Present: normal inspection, full ROM, normal capillary refill Back exam: Present: normal inspection, full ROM. Absent: tenderness, CVA tenderness (R), CVA tenderness (L) Neurological exam: Present: alert, oriented X3 Psychiatric exam: Present: normal affect, normal mood Skin exam: Present: warm, dry, intact, normal color Course Vital Signs 12/22/20 12/22/20 12/22/20 11:57 12:23 12:43 Temperature 97.9 F Pulse Rate 69 85 84 Respiratory 20 Rate Blood Pressure 108/63 O2 Sat by Pulse 96 Oximetry 12/22/20 12/22/20 12/22/20 12:46 13:31 13:34 Temperature Pulse Rate 86 150 H 106 H Respiratory 20 18 20 Rate Blood Pressure 129/100 144/89 160/113 O2 Sat by Pulse 97 95 Oximetry 12/22/20 12/22/20 14:16 15:16 Temperature Pulse Rate 98 100 Respiratory 20 18 Rate Blood Pressure 167/73 170/75 O2 Sat by Pulse 98 98 Oximetry Medical Decision Making - Medical Decision Making 75-year-old female with history of A. fib, COPD, heart failure and diabetes presenting to the emergency department with chief complaint of shortness of breath. On physical examination, patient does appear to be slightly out of breath but has stable vitals. Oxygen saturation 99% on room air. Her lungs are clear to auscultation. Patient did report that this felt like a COPD exacerbation. Initially she was treated with DuoNeb and Solu-Medrol. Initial troponin was negative. Elevated d-dimer 1.23. CT angios the chest unremarkable. Patient continues to have alternating episodes of a cardia. It would range from the mid 80s to 150s. At this moment, patient has a pulse in the mid 90s. I will continue the patient on the metoprolol. Patient will not be started on Cardizem at this time. Patient will be admitted for further medical management. I spoke with Xiomy Loyd who will admit for Dr. Bassett. Case was discussed with Consult cardiology - Lab Data Result diagrams: 12/22/20 12:45 12/22/20 12:45 Lab Results 12/22/20 12/22/20 12/22/20 Range/Units 12:45 12:45 12:45 WBC 6.8 (3.8-10.6) k/uL RBC 5.36 (3.80-5.40) m/uL Hgb 16.0 (11.4-16.0) gm/dL Hct 46.4 H (34.0-46.0) % MCV 86.7 (80.0-100.0) fL MCH 29.9 (25.0-35.0) pg MCHC 34.5 (31.0-37.0) g/dL RDW 14.2 (11.5-15.5) % Plt Count 191 (150-450) k/uL MPV 6.7 Neutrophils % 67 % Lymphocytes % 22 % Monocytes % 6 % Eosinophils % 3 % Basophils % 1 % Neutrophils # 4.5 (1.3-7.7) k/uL Lymphocytes # 1.5 (1.0-4.8) k/uL Monocytes # 0.4 (0-1.0) k/uL Eosinophils # 0.2 (0-0.7) k/uL Basophils # 0.1 (0-0.2) k/uL PT 11.0 (9.0-12.0) sec INR 1.0 (<1.2) APTT 24.8 (22.0-30.0) sec D-Dimer 1.23 H (<0.60) mg/L FEU Sodium 137 (137-145) mmol/L Potassium 3.3 L (3.5-5.1) mmol/L Chloride 97 L (98-107) mmol/L Carbon Dioxide 24 (22-30) mmol/L Anion Gap 16 mmol/L BUN 17 (7-17) mg/dL Creatinine 1.39 H (0.52-1.04) mg/dL Est GFR (CKD-EPI)AfAm 42 (>60 ml/min/1.73 sqM) Est GFR (CKD-EPI)NonAf 37 (>60 ml/min/1.73 sqM) Glucose 359 H (74-99) mg/dL Calcium 9.5 (8.4-10.2) mg/dL Magnesium 1.7 (1.6-2.3) mg/dL Total Bilirubin 1.0 (0.2-1.3) mg/dL AST 28 (14-36) U/L ALT 22 (4-34) U/L Alkaline Phosphatase 110 (38-126) U/L Troponin I (0.000-0.034) ng/mL Total Protein 7.9 (6.3-8.2) g/dL Albumin 4.5 (3.5-5.0) g/dL Coronavirus (PCR) (Not Detectd) 12/22/20 12/22/20 Range/Units 12:45 12:45 WBC (3.8-10.6) k/uL RBC (3.80-5.40) m/uL Hgb (11.4-16.0) gm/dL Hct (34.0-46.0) % MCV (80.0-100.0) fL MCH (25.0-35.0) pg MCHC (31.0-37.0) g/dL RDW (11.5-15.5) % Plt Count (150-450) k/uL MPV Neutrophils % % Lymphocytes % % Monocytes % % Eosinophils % % Basophils % % Neutrophils # (1.3-7.7) k/uL Lymphocytes # (1.0-4.8) k/uL Monocytes # (0-1.0) k/uL Eosinophils # (0-0.7) k/uL Basophils # (0-0.2) k/uL PT (9.0-12.0) sec INR (<1.2) APTT (22.0-30.0) sec D-Dimer (<0.60) mg/L FEU Sodium (137-145) mmol/L Potassium (3.5-5.1) mmol/L Chloride (98-107) mmol/L Carbon Dioxide (22-30) mmol/L Anion Gap mmol/L BUN (7-17) mg/dL Creatinine (0.52-1.04) mg/dL Est GFR (CKD-EPI)AfAm (>60 ml/min/1.73 sqM) Est GFR (CKD-EPI)NonAf (>60 ml/min/1.73 sqM) Glucose (74-99) mg/dL Calcium (8.4-10.2) mg/dL Magnesium (1.6-2.3) mg/dL Total Bilirubin (0.2-1.3) mg/dL AST (14-36) U/L ALT (4-34) U/L Alkaline Phosphatase (38-126) U/L Troponin I <0.012 (0.000-0.034) ng/mL Total Protein (6.3-8.2) g/dL Albumin (3.5-5.0) g/dL Coronavirus (PCR) Not Detected (Not Detectd) - EKG Data EKG Comments: Time 1219 Left bundle branch block Ventricular rate 89, VA 192, QRS 140, QTC 496 Time 1312 A. fib with RVR Ventricular rate 153, QRS 136, QTC 536 Disposition Clinical Impression: Dyspnea on exertion, Atrial fibrillation with RVR Disposition: ADMITTED IP TO THIS [facility] Condition: Stable Is patient prescribed a controlled substance at d/c from ED?: No Referrals: Asa Kang DO [Primary Care Provider] - 1-2 days Time of Disposition: 16:00
[2020-12-22] MEDS ORDERED: methylPREDNISolone SOD SUCCI 125 MG/2 ML VIAL IV STA (12:15)
[2020-12-22] MEDS ORDERED: IPRATROPIUM-ALBUTEROL 3 ML NEB INHALATION STA (12:15)
[2020-12-22 12:55] LABS: Basophils # (A) 0.1 k/uL (0-0.2); Basophils % (A) 1 %; Eosinophils # (A) 0.2 k/uL (0-0.7); Eosinophils % (A) 3 %; HCT 46.4 % (34.0-46.0); Lymphocytes # (A) 1.5 k/uL (1.0-4.8); Lymphocytes % (A) 22 %; MCH 29.9 pg (25.0-35.0); MCHC 34.5 g/dL (31.0-37.0); MCV 86.7 fL (80.0-100.0); Mean Platelet Volume 6.7; Monocytes # (A) 0.4 k/uL (0-1.0); Monocytes % (A) 6 %; Neutrophils # (A) 4.5 k/uL (1.3-7.7); Neutrophils % (A) 67 %; Platelet Count 191 k/uL (150-450); RBC 5.36 m/uL (3.80-5.40); RDW 14.2 % (11.5-15.5); WBC 6.8 k/uL (3.8-10.6)
[2020-12-22 13:05] LABS: Albumin 4.5 g/dL (3.5-5.0); Calcium 9.5 mg/dL (8.4-10.2); Magnesium 1.7 mg/dL (1.6-2.3); Potassium 3.3 mmol/L (3.5-5.1); Total Protein 7.9 g/dL (6.3-8.2)
[2020-12-22] MEDS ORDERED: POTASSIUM CHLORIDE ER 20 MEQ TAB.ER PO STA (13:10)
[2020-12-22 13:12] LABS: Partial Thromboplastin Time 24.8 sec (22.0-30.0)
--- NOTE | 2020-12-22 13:16 | XR ---
EXAMINATION TYPE: XR chest 2V DATE OF EXAM: 12/22/2020 COMPARISON: 06/11/2020 HISTORY: 75 year-old female shortness of breath, difficulty breathing TECHNIQUE: PA and lateral views FINDINGS: The cardiomediastinal silhouette, aorta, and pulmonary vasculature are within normal limits. Hyperinf lation. Lungs and pleural spaces are clear. IMPRESSION: COPD without acute cardiopulmonary process.
[2020-12-22 13:26] LABS: D-Dimer 1.23 mg/L FEU (<0.60)
--- NOTE | 2020-12-22 14:40 | CT ---
EXAMINATION TYPE: CT chest angio for PE DATE OF EXAM: 12/22/2020 COMPARISON: Chest x-ray same date HISTORY: COPD, shortness of breath, elevated d-dimer CT DLP: 245.5 mGycm Automated exposure control for dose reduction was used. CONTRAST: CT Chest for pulmonary embolism performed with with IV Contrast, patient injected with 80, wasted 42 mL of Isovue 370. FINDINGS: LUNGS: The lungs are grossly clear, there is no concerning parenchymal mass or nodule identified. Ce ntrilobular emphysematous changes are present. There is no pleural effusion or pneumothorax seen. Th e tracheobronchial tree is patent. MEDIASTINUM: There is satisfactory enhancement of the pulmonary artery and its branches, there is no CT evidence for pulmonary embolism. There are no greater than 1 cm hilar or mediastinal lymph nodes. No pericardial effusion is seen. There are coronary artery calcifications. AORTA: No additional significant abnormality is seen. OTHER: Degenerative disc changes are present in the visualized spine. Cystic focus associated with t he anterior aspect of the left kidney in exophytic location measures approximately 4 cm in greatest d iameter, exophytic cyst partially visualized also in the right kidney laterally, right kidney somewha t atrophic. Suspect vascular calcifications are present.. IMPRESSION: No pulmonary embolism. Emphysema.
[2020-12-22] MEDS ORDERED: MORPHINE SULFATE 4 MG/ML SYRINGE IV PRN (15:52)
[2020-12-22] MEDS ORDERED: traMADol 50 MG TAB PO PRN (15:52)
[2020-12-22] MEDS ORDERED: LORazepam 2 MG/ML INJ IV PRN (15:52)
[2020-12-22] MEDS ORDERED: ACETAMINOPHEN TAB 325 MG TAB PO PRN (15:52)
[2020-12-22] MEDS ORDERED: NALOXONE 0.4 MG/ML 1 ML VIAL IV PRN (15:52)
[2020-12-22] MEDS ORDERED: METOPROLOL TARTRATE 25 MG TAB PO STA (15:54)
[2020-12-22] MEDS ORDERED: SODIUM CHLORIDE 0.9% 1,000 ML IV SCH (16:00)
[2020-12-22] MEDS: METOPROLOL TARTRATE 5 MG/5 ML VIAL IVP SCH (16:06)
[2020-12-22 17:27] LABS: Glucose,Whole Blood 352 mg/dL (75-99)
[2020-12-22] MEDS ORDERED: ALBUTEROL HFA INHALER INHALATION PRN (18:45)
[2020-12-22] MEDS ORDERED: IPRATROPIUM-ALBUTEROL 3 ML NEB INHALATION PRN (18:54)
[2020-12-22] MEDS: INSULIN ASPART (NovoLOG) 100 UNIT/ML VIAL SQ SCH ×2 (19:05→21:00)
[2020-12-22] MEDS: BUDESONIDE 0.5 MG/2 ML NEBU INHALATION SCH (19:58)
[2020-12-22 20:37] LABS: Glucose,Whole Blood 448 mg/dL (75-99)
[2020-12-22] MEDS ORDERED: INSULIN ASPART (NovoLOG) 100 UNIT/ML VIAL SQ ONE (20:52)
[2020-12-22] MEDS: SENNOSIDES-DOCUSATE SODIUM 1 EACH TAB PO SCH (21:00)
[2020-12-22] MEDS ORDERED: ATORVASTATIN 20 MG TAB PO SCH (21:00)
[2020-12-22] MEDS: APIXABAN 2.5 MG TABLET PO SCH (21:00)
[2020-12-22] MEDS: METOPROLOL TARTRATE 25 MG TAB PO SCH (21:00)
[2020-12-22] MEDS: INSULIN DETEMIR (LEVEMIR) 100 UNIT/ML SYR SQ SCH (21:00)
[2020-12-22] MEDS: DORZOLAMIDE HCL 2% DROPS 10 ML BTL RIGHT EYE SCH (21:00)
[2020-12-22] MEDS: KETOROLAC 0.5% OPHTH DROPS 5 ML BTL LEFT EYE SCH (22:00)
[2020-12-22 22:26] LABS: Glucose,Whole Blood 495 mg/dL (75-99)
[2020-12-23 06:07] LABS: Glucose,Whole Blood 292 mg/dL (75-99)
[2020-12-23] MEDS: INSULIN ASPART (NovoLOG) 100 UNIT/ML VIAL SQ SCH ×2 (06:18→12:10)
[2020-12-23] MEDS: IPRATROPIUM 0.5 MG/2.5 ML NEBU INHALATION SCH ×2 (07:39→11:22)
[2020-12-23] MEDS: BUDESONIDE 0.5 MG/2 ML NEBU INHALATION SCH (07:39)
[2020-12-23 08:07] LABS: Basophils % (A) 0 %; Eosinophils % (A) 0 %; HCT 42.6 % (34.0-46.0); HGB 14.3 gm/dL (11.4-16.0); Lymphocytes # (A) 1.3 k/uL (1.0-4.8); Lymphocytes % (A) 12 %; MCH 29.3 pg (25.0-35.0); MCHC 33.4 g/dL (31.0-37.0); MCV 87.5 fL (80.0-100.0); Monocytes # (A) 0.7 k/uL (0-1.0); Monocytes % (A) 6 %; Neutrophils # (A) 8.8 k/uL (1.3-7.7); Neutrophils % (A) 81 %; Platelet Count 204 k/uL (150-450); RBC 4.87 m/uL (3.80-5.40); RDW 14.4 % (11.5-15.5); WBC 10.9 k/uL (3.8-10.6)
[2020-12-23] MEDS ORDERED: FUROSEMIDE 40 MG TAB PO SCH (09:00)
[2020-12-23] MEDS ORDERED: SPIRONOLACTONE 25 MG TAB PO SCH (09:00)
[2020-12-23] MEDS ORDERED: FLUoxetine HCL 20 MG CAP PO SCH (09:00)
[2020-12-23] MEDS ORDERED: FAMOTIDINE 20 MG TAB PO SCH (09:00)
[2020-12-23] MEDS: INSULIN DETEMIR (LEVEMIR) 100 UNIT/ML SYR SQ SCH (09:17)
[2020-12-23] MEDS: SENNOSIDES-DOCUSATE SODIUM 1 EACH TAB PO SCH (09:18)
[2020-12-23] MEDS: METOPROLOL TARTRATE 25 MG TAB PO SCH (09:19)
[2020-12-23] MEDS: KETOROLAC 0.5% OPHTH DROPS 5 ML BTL LEFT EYE SCH ×2 (09:19→12:11)
[2020-12-23] MEDS: APIXABAN 2.5 MG TABLET PO SCH (09:19)
[2020-12-23] MEDS: DORZOLAMIDE HCL 2% DROPS 10 ML BTL RIGHT EYE SCH (09:19)
--- NOTE | 2020-12-23 10:41 | P.CRDCN ---
History of Present Illness History of present illness: HISTORY OF PRESENTING ILLNESS This is a pleasant 75-year-old female past medical history significant for with dilated cardiomyopathy, mitral regurgitation, coronary artery disease, chronic systolic heart failure, paroxysmal atrial fibrillation on long-term anticoagulation, hypertension, diabetes mellitus, COPD, chronic kidney disease and former nicotine dependence. She follows in the office with Dr. Aparicio. We have been asked to see in consultation for atrial fibrillation. We sent to the hospital with a 2 day history of worsening shortness of breath. She was using her nebulizer at home but was achieving no relief. She denies any associated chest pain, palpitations or dizziness. EKG on arrival revealed left bundle branch block, left axis deviation and sinus rhythm with a first-degree AV block. Chest x-ray reveals underlying COPD with no acute cardiopulmonary process. CTA is negative for pulmonary embolism. Laboratory data reviewed, WBC 10.9, hemoglobin 14.3, platelets 204, d-dimer 1.23, sodium 130, potassium 4.0, creatinine 1.8, magnesium 1.7, cardiac enzymes negative 1 and proBNP 2470. Current daily cardiac medications include Lopressor 25 mg 3 times a day, atorvastatin 20 mg at bedtime, Aldactone 25 mg daily, Lasix 40 mg twice a day and Eliquis 2.5 mg twice a day. Most recent echocardiogram obtained May 2020 revealed severely impaired LV systolic function with ejection fraction 20-25%, severe mitral regurgitation and mild tricuspid regurgitation noted. Previously in November 2019 her EF had been around 35-40%. REVIEW OF SYSTEMS At the time of my exam: CONSTITUTIONAL: Denies fever or chills. CARDIOVASCULAR: Denies chest pain, shortness of breath, orthopnea, PND or palpitations. RESPIRATORY: Denies cough. GASTROINTESTINAL: Denies abdominal pain, diarrhea, constipation, nausea or vomiting. MUSCULOSKELETAL: Denies myalgias. NEUROLOGIC: Denies numbness, tingling, headacbe or weakness. ENDOCRINE: Denies fatigue, weight change, polydipsia or polyurina. GENITOURINARY: Denies burning, hematuria or urgency with micturation. HEMATOLOGIC: Denies history of anemia or bleeding. PHYSICAL EXAMINATION Blood pressure 133/59 heart rate 99 afebrile and maintaining oxygen saturation on room air. CONSTITUTIONAL: No apparent distress. HEENT: Head is normocephalic. Pupils are equal, round. Sclerae anicteric. Mucous membranes of the mouth are moist. No JVD. No carotid bruit. CHEST EXAMINATION: Lungs are clear to auscultation. No chest wall tenderness is noted on palpation or with deep breathing. Diminished bilaterally. HEART EXAMINATION: Irregular rate and rhythm. S1, S2 heard. Systolic ejection murmur at the apex, no gallops or rub. ABDOMEN: Soft, nontender. Positive bowel sounds. EXTREMITIES: 2+ peripheral pulses, no lower extremity edema and no calf tenderness. NEUROLOGIC EXAMINATION: Patient is awake, alert and oriented x3. ASSESSMENT Paroxysmal atrial fibrillation, currently maintaining sinus mechanism. Frequent PVCs noted. Dilated cardiomyopathy Mitral regurgitation Chronic systolic heart failure, clinically euvolemic COPD Hypertension Dyslipidemia Chronic kidney disease Diabetes mellitus History of coronary artery disease exact details unavailable PLAN Continue Eliquis for thromboembolic protection. Obtain 2-D echocardiogram and Doppler study to assess cardiac structure and function. Continue beta blockers for rate control. Symptoms of shortness of breath clinically seem more related to COPD. Can be discharged home and see Dr Aparicio next week. Thank you kindly for this consultation. Nurse Practitioner note has been reviewed, I agree with a documented findings and plan of care. Patient was seen and examined. Past Medical History Past Medical History: Atrial Fibrillation, Asthma, Cancer, Heart Failure, COPD, CVA/TIA, Diabetes Mellitus, Eye Disorder, Hyperlipidemia, Hypertension, Osteoarthritis (OA), Renal Disease, Respiratory Disorder, Vascular Disorder Additional Past Medical History / Comment(s): chronic systolic congestive heart failure. Her ejection fraction is 20-25%. Severe mitral regurgitation, chronic atrial fibrillation on Eliquis. 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 She also follows here for chronic obstructive pulmonary disease with an FEV1 value of 73 percent of predicted. She has been maintained on Symbicort, Spiriva and albuterol.NIDDM type II, neuropathy bilateral hands/feet, CVA with R eye blindness, severe shingelles 2010 which affected L arm/back of neck, skin cancer with removal, R sided nephrolithiasis-nonobstructing per past medical record/pt unaware, chronic constipation, degenerative joint disease. History of Any Multi-Drug Resistant Organisms: None Reported Past Surgical History: Heart Catheterization, Hysterectomy, Orthopedic Surgery, Tonsillectomy Additional Past Surgical History / Comment(s): Right knee arthroplasty, bilateral cataract/lens implant surgery, skin cancer removed under R eye. Past Anesthesia/Blood Transfusion Reactions: No Reported Reaction Past Psychological History: Anxiety Additional Psychological History / Comment(s): Pt resides in a duplex. She has a nebulizer. She ambulates with a cane. She no longer drives, but states getting rides is not a problem. Smoking Status: Former smoker Past Alcohol Use History: None Reported Additional Past Alcohol Use History / Comment(s): started smoking 1957 and quit 2014 smoked 1ppd Past Drug Use History: None Reported - Past Family History Mother Family Medical History: Dementia Additional Family Medical History / Comment(s): AGE 99 Father Family Medical History: No Reported History Additional Family Medical History / Comment(s): WAS HEALTHY AT ALMOST AGE 99 Medications and Allergies Home Medications Medication Instructions Recorded Confirmed Type ALPRAZolam [Xanax] 0.5 mg PO BID PRN 11/04/17 12/22/20 History Albuterol Sulfate [Proventil Hfa] 1 - 2 puff INHALATION RT-Q4H PRN 11/04/17 12/22/20 History Potassium Chloride [Klor-Con 10] 10 meq PO TID 11/04/17 12/22/20 History Tiotropium 18 Mcg/Puff [Spiriva] 1 cap INHALATION RT-DAILY 11/04/17 12/22/20 History sitaGLIPtin [Januvia] 100 mg PO DAILY 11/04/17 12/22/20 History Atorvastatin [Lipitor] 20 mg PO HS 06/04/20 12/22/20 History Famotidine [Pepcid] 20 mg PO DAILY #30 tab 06/09/20 12/22/20 Rx Dorzolamide 2% [Trusopt 2%] 1 drop RIGHT EYE BID 06/10/20 12/22/20 History Apixaban [Eliquis] 2.5 mg PO BID #60 tablet 06/12/20 12/22/20 Rx Furosemide [Lasix] 40 mg PO BID@0900,1600 #60 tab 06/12/20 12/22/20 Rx Metoprolol Tartrate [Lopressor] 25 mg PO TID #90 tab 06/12/20 12/22/20 Rx Budesonide [Pulmicort] 0.5 mg INHALATION RT-BID 12/22/20 12/22/20 History FLUoxetine HCL 20 mg PO DAILY 12/22/20 12/22/20 History Insulin Glargine,Hum.rec.anlog 15 unit SQ BID 12/22/20 12/22/20 History [Lantus Solostar] Ketorolac 0.5% Ophth Soln [Acular] 1 drop LEFT EYE QID 12/22/20 12/22/20 History Spironolactone [Aldactone] 25 mg PO DAILY 12/22/20 12/22/20 History Allergies Allergy/AdvReac Type Severity Reaction Status Date / Time egg Allergy Itching Verified 12/22/20 13:55 Physical Exam Vitals: Vital Signs Temp Pulse Pulse Resp BP BP Pulse Ox 12/23/20 07:53 80 12/23/20 07:39 80 12/23/20 04:00 98.4 F 86 16 99/58 96 12/23/20 01:51 76 16 12/23/20 00:00 98.1 F 76 16 110/51 94 L 12/22/20 20:13 88 18 12/22/20 20:00 97.9 F 75 16 156/88 95 12/22/20 19:59 88 18 12/22/20 17:57 97.8 F 82 18 160/76 96 12/22/20 16:28 98.3 F 93 18 143/108 97 12/22/20 15:16 100 18 170/75 98 12/22/20 14:16 98 20 167/73 98 12/22/20 13:34 106 H 20 160/113 12/22/20 13:31 150 H 18 144/89 95 12/22/20 12:46 86 20 129/100 97 12/22/20 12:43 84 12/22/20 12:23 85 12/22/20 11:57 97.9 F 69 20 108/63 96 Intake and Output 12/22/20 12/23/20 12/23/20 22:59 06:59 14:59 Intake Total 240 Balance 240 Intake: Oral 240 Other: # Voids 1 Weight 53.07 kg 54.3 kg Results 12/23/20 06:40 12/23/20 06:40 Cardiac Enzymes 12/22/20 12/22/20 Range/Units 12:45 12:45 AST 28 (14-36) U/L Troponin I <0.012 (0.000-0.034) ng/mL Coagulation 12/22/20 Range/Units 12:45 PT 11.0 (9.0-12.0) sec APTT 24.8 (22.0-30.0) sec CBC 12/22/20 12/23/20 Range/Units 12:45 06:40 WBC 6.8 10.9 H (3.8-10.6) k/uL RBC 5.36 4.87 (3.80-5.40) m/uL Hgb 16.0 14.3 (11.4-16.0) gm/dL Hct 46.4 H 42.6 (34.0-46.0) % Plt Count 191 204 (150-450) k/uL Comprehensive Metabolic Panel 12/22/20 Range/Units 12:45 Sodium 137 (137-145) mmol/L Potassium 3.3 L (3.5-5.1) mmol/L Chloride 97 L (98-107) mmol/L Carbon Dioxide 24 (22-30) mmol/L BUN 17 (7-17) mg/dL Creatinine 1.39 H (0.52-1.04) mg/dL Glucose 359 H (74-99) mg/dL Calcium 9.5 (8.4-10.2) mg/dL AST 28 (14-36) U/L ALT 22 (4-34) U/L Alkaline Phosphatase 110 (38-126) U/L Total Protein 7.9 (6.3-8.2) g/dL Albumin 4.5 (3.5-5.0) g/dL Current Medications Generic Name Dose Route Start Last Admin Trade Name Freq PRN Reason Stop Dose Admin Acetaminophen 650 mg 12/22/20 15:52 12/23/20 03:56 Acetaminophen Tab 325 Mg Tab PO 650 mg Q6HR PRN Administration Mild Pain or Fever > 100.5 Albuterol Sulfate 2 puff 12/22/20 18:45 Albuterol Hfa Inhaler INHALATION RT-Q4H PRN Shortness Of Breath Albuterol/Ipratropium 3 ml 12/22/20 18:54 12/22/20 19:58 Ipratropium-Albuterol 3 Ml Neb INHALATION 3 ml RT-QID PRN Administration Shortness Of Breath Or Wheezing Apixaban 2.5 mg 12/22/20 21:00 12/22/20 21:00 Apixaban 2.5 Mg Tablet PO 2.5 mg BID RUDY Administration Atorvastatin Calcium 20 mg 12/22/20 21:00 12/22/20 21:00 Atorvastatin 20 Mg Tab PO 20 mg HS RUDY Administration Budesonide 0.5 mg 12/22/20 20:00 12/23/20 07:39 Budesonide 0.5 Mg/2 Ml Nebu INHALATION 0.5 mg RT-BID RUDY Administration Dorzolamide HCl 1 drops 12/22/20 21:00 12/22/20 21:00 Dorzolamide Hcl 2% Drops 10 Ml Btl RIGHT EYE 1 drops BID RUDY Administration Famotidine 20 mg 12/23/20 09:00 Famotidine 20 Mg Tab PO DAILY RUDY Fluoxetine HCl 20 mg 12/23/20 09:00 Fluoxetine Hcl 20 Mg Cap PO DAILY [facility] Sodium Chloride 1,000 mls @ 20 mls/hr 12/22/20 16:00 12/22/20 16:14 Saline 0.9% IV 20 mls/hr .Q24H RUDY Administration Insulin Aspart 0 unit 12/22/20 21:00 12/23/20 06:18 Insulin Aspart (Novolog) 100 Unit/Ml Vial SQ 5 unit ACHS RUDY Administration Protocol Insulin Detemir 15 unit 12/22/20 21:00 12/22/20 21:00 Insulin Detemir (Levemir) 100 Unit/Ml Syr SQ 15 unit BID RUDY Administration Ipratropium [place] 0.5 mg 12/23/20 08:00 12/23/20 07:39 Ipratropium 0.5 Mg/2.5 Ml Nebu INHALATION 0.5 mg RT-QID RUDY Administration Ketorolac Tromethamine 1 drops 12/22/20 22:00 12/22/20 22:00 Ketorolac 0.5% Ophth Drops 5 Ml Btl LEFT EYE 1 drops QID RUDY Administration Lorazepam 0.5 mg 12/22/20 15:52 Lorazepam 2 Mg/Ml Inj IV Q6HR PRN Anxiety Metoprolol Tartrate 25 mg 12/22/20 22:00 12/22/20 21:00 Metoprolol Tartrate 25 Mg Tab PO 25 mg TID RUDY Administration Morphine Sulfate 4 mg 12/22/20 15:52 Morphine Sulfate 4 Mg/Ml Syringe IV Q4HR PRN Severe Pain Naloxone HCl 0.2 mg 12/22/20 15:52 Naloxone 0.4 Mg/Ml 1 Ml Vial IV Q2M PRN Opioid Reversal Senna/Docusate Sodium 1 each 12/22/20 19:00 12/22/20 21:00 Sennosides-Docusate Sodium 1 Each Tab PO 1 each DAILY RUDY Administration Tramadol HCl 50 mg 12/22/20 15:52 Tramadol 50 Mg Tab PO Q6H PRN Moderate Pain Intake and Output 12/22/20 12/23/20 12/23/20 22:59 06:59 14:59 Intake Total 240 Balance 240 Intake: Oral 240 Other: # Voids 1 Weight 53.07 kg 54.3 kg 12/23/20 06:40 12/22/20 12:45
[2020-12-23 11:28] LABS: Glucose,Whole Blood 338 mg/dL (75-99)
--- NOTE | 2020-12-23 11:29 | P.HPIM ---
History of Present Illness Patient is a very pleasant 75-year-old female admitted for shortness of breath. Patient has some mild shortness of breath going on for about couple days and her son felt she is wheezy and was taken to make because of which patient was brought to ER. Patient chest x-ray and CT angios the chest did not show any significant abnormality. Patient does have history of atrial fibrillation presently sinus rhythm with frequent PVCs. Patient does have extensive cardiac history of dilated cardiomyopathy EF of around 20-20% mitral regurgitation coronary artery disease in proximal atrial fibrillation patient is already on anti-coagulation. Patient denied any orthopnea proximal nocturnal dyspnea patient is presently not in heart failure exacerbation clinically although patient was receiving IV fluids since last night and patient the creatinine went up and sodium went down can be is hypovolemic hyponatremia because of which I'll repeat a chest x-ray for doesn't show any pulmonary edema patient will be discharged with a repeat basic metabolic profile in about couple days. Patient was evaluated by cardiology and cleared for discharge. Patient heart rate is well controlled patient is not in CHF exacerbation patient is not wheezing at this time. Patient had low you for for on 25% in the past and a recent EF being 35-40% patient does have chronic kidney disease with baseline creatinine of 1.3 and it went up to 1.4 on admission has actually worsened with IV fluids to 1.7. Review of Systems REVIEW OF SYSTEMS: CONSTITUTIONAL: No fever, no malaise, no fatigue. HEENT: No recent visual problems or hearing problems. Denied any sore throat. CARDIOVASCULAR: No chest pain, orthopnea, PND, no palpitations, no syncope. PULMONARY: no cough, no hemoptysis. GASTROINTESTINAL: No diarrhea, no nausea, no vomiting, no abdominal pain. NEUROLOGICAL: No headaches, no weakness, no numbness. HEMATOLOGICAL: Denies any bleeding or petechiae. GENITOURINARY: Denies any burning micturition, frequency, or urgency. MUSCULOSKELETAL/RHEUMATOLOGICAL: Denies any joint pain, swelling, or any muscle pain. ENDOCRINE: Denies any polyuria or polydipsia. The rest of the 14-point review of systems is negative. Past Medical History Past Medical History: Atrial Fibrillation, Asthma, Cancer, Heart Failure, COPD, CVA/TIA, Diabetes Mellitus, Eye Disorder, Hyperlipidemia, Hypertension, Osteoarthritis (OA), Renal Disease, Respiratory Disorder, Vascular Disorder Additional Past Medical History / Comment(s): chronic systolic congestive heart failure. Her ejection fraction is 20-25%. Severe mitral regurgitation, chronic atrial fibrillation on Eliquis. 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 She also follows here for chronic obstructive pulmonary disease with an FEV1 value of 73 percent of predicted. She has been maintained on Symbicort, Spiriva and albuterol.NIDDM type II, neuropathy bilateral hands/feet, CVA with R eye blindness, severe shingelles 2010 which affected L arm/back of neck, skin cancer with removal, R sided nephrolithiasis-nonobstructing per past medical record/pt unaware, chronic constipation, degenerative joint disease. History of Any Multi-Drug Resistant Organisms: None Reported Past Surgical History: Heart Catheterization, Hysterectomy, Orthopedic Surgery, Tonsillectomy Additional Past Surgical History / Comment(s): Right knee arthroplasty, bilateral cataract/lens implant surgery, skin cancer removed under R eye. Past Anesthesia/Blood Transfusion Reactions: No Reported Reaction Past Psychological History: Anxiety Additional Psychological History / Comment(s): Pt resides in a [facility]. She has a nebulizer. She ambulates with a cane. She no longer drives, but states getting rides is not a problem. Smoking Status: Former smoker Past Alcohol Use History: None Reported Additional Past Alcohol Use History / Comment(s): started smoking 1956 and quit 2014 smoked 1ppd Past Drug Use History: None Reported - Past Family History Mother Family Medical History: Dementia Additional Family Medical History / Comment(s): AGE 99 Father Family Medical History: No Reported History Additional Family Medical History / Comment(s): WAS HEALTHY AT ALMOST AGE 99 Medications and Allergies Home Medications Medication Instructions Recorded Confirmed Type ALPRAZolam [Xanax] 0.5 mg PO BID PRN 11/04/17 12/22/20 History Albuterol Sulfate [Proventil Hfa] 1 - 2 puff INHALATION RT-Q4H PRN 11/04/17 12/22/20 History Potassium Chloride [Klor-Con 10] 10 meq PO TID 11/04/17 12/22/20 History Tiotropium 18 Mcg/Puff [Spiriva] 1 cap INHALATION RT-DAILY 11/04/17 12/22/20 History sitaGLIPtin [Januvia] 100 mg PO DAILY 12/09/17 01/26/21 History Atorvastatin [Lipitor] 20 mg PO HS 06/04/20 12/22/20 History Famotidine [Pepcid] 20 mg PO DAILY #30 tab 06/09/20 12/22/20 Rx Dorzolamide 2% [Trusopt 2%] 1 drop RIGHT EYE BID 06/10/20 12/22/20 History Apixaban [Eliquis] 2.5 mg PO BID #60 tablet 06/12/20 12/22/20 Rx Furosemide [Lasix] 40 mg PO BID@0900,1600 #60 tab 06/12/20 12/22/20 Rx Metoprolol Tartrate [Lopressor] 25 mg PO TID #90 tab 06/12/20 12/22/20 Rx Budesonide [Pulmicort] 0.5 mg INHALATION RT-BID 12/22/20 12/22/20 History FLUoxetine HCL 20 mg PO DAILY 12/22/20 12/22/20 History Insulin Glargine,Hum.rec.anlog 15 unit SQ BID 12/22/20 12/22/20 History [Lantus Solostar] Ketorolac 0.5% Ophth Soln [Acular] 1 drop LEFT EYE QID 12/22/20 12/22/20 History Spironolactone [Aldactone] 25 mg PO DAILY 12/22/20 12/22/20 History Allergies Allergy/AdvReac Type Severity Reaction Status Date / Time egg Allergy Itching Verified 12/22/20 13:55 Physical Exam Vitals: Vital Signs Temp Pulse Pulse Resp BP BP Pulse Ox 12/23/20 08:25 97.9 F 89 16 133/59 97 12/23/20 07:53 80 12/23/20 07:39 80 12/23/20 04:00 98.4 F 86 16 99/58 96 12/23/20 01:51 76 16 12/23/20 00:00 98.1 F 76 16 110/51 94 L 12/22/20 20:13 88 18 12/22/20 20:00 97.9 F 75 16 156/88 95 12/22/20 19:59 88 18 12/22/20 17:57 97.8 F 82 18 160/76 96 12/22/20 16:28 98.3 F 93 18 143/108 97 12/22/20 15:16 100 18 170/75 98 12/22/20 14:16 98 20 167/73 98 12/22/20 13:34 106 H 20 160/113 12/22/20 13:31 150 H 18 144/89 95 12/22/20 12:46 86 20 129/100 97 12/22/20 12:43 84 12/22/20 12:23 85 12/22/20 11:57 97.9 F 69 20 108/63 96 Intake and Output 12/22/20 12/23/20 12/23/20 22:59 06:59 14:59 Intake Total 240 236 Balance 240 236 Intake: Oral 240 236 Other: # Voids 1 1 Weight 53.07 kg 54.3 kg PHYSICAL EXAMINATION: GENERAL: The patient is alert and oriented x3, not in any acute distress. Well developed, well nourished. HEENT: Pupils are round and equally reacting to light. EOMI. No scleral icterus. No conjunctival pallor. Normocephalic, atraumatic. No pharyngeal erythema. No thyromegaly. CARDIOVASCULAR: S1 and S2 present. No murmurs, rubs, or gallops. Irregular rhythm PULMONARY: Chest is clear to auscultation, no wheezing or crackles. ABDOMEN: Soft, nontender, nondistended, normoactive bowel sounds. No palpable organomegaly. MUSCULOSKELETAL: No joint swelling or deformity. EXTREMITIES: No cyanosis, clubbing, or pedal edema. NEUROLOGICAL: Gross neurological examination did not reveal any focal deficits. SKIN: No rashes. Results CBC & Chem 7: 12/23/20 06:40 12/23/20 06:40 Labs: Abnormal Lab Results - Last 24 Hours (Table) 12/22/20 12/22/20 12/22/20 Range/Units 12:45 12:45 12:45 WBC (3.8-10.6) k/uL Hct 46.4 H (34.0-46.0) % Neutrophils # (1.3-7.7) k/uL D-Dimer 1.23 H (<0.60) mg/L FEU Sodium (137-145) mmol/L Potassium 3.3 L (3.5-5.1) mmol/L Chloride 97 L (98-107) mmol/L BUN (7-17) mg/dL Creatinine 1.39 H (0.52-1.04) mg/dL Glucose 359 H (74-99) mg/dL POC Glucose (mg/dL) (75-99) mg/dL 12/22/20 12/22/20 12/22/20 Range/Units 17:25 20:36 22:24 WBC (3.8-10.6) k/uL Hct (34.0-46.0) % Neutrophils # (1.3-7.7) k/uL D-Dimer (<0.60) mg/L FEU Sodium (137-145) mmol/L Potassium (3.5-5.1) mmol/L Chloride (98-107) mmol/L BUN (7-17) mg/dL Creatinine (0.52-1.04) mg/dL Glucose (74-99) mg/dL POC Glucose (mg/dL) 352 H 448 H 495 H (75-99) mg/dL 12/23/20 12/23/20 12/23/20 Range/Units 06:06 06:40 06:40 WBC 10.9 H (3.8-10.6) k/uL Hct (34.0-46.0) % Neutrophils # 8.8 H (1.3-7.7) k/uL D-Dimer (<0.60) mg/L FEU Sodium 130 L (137-145) mmol/L Potassium (3.5-5.1) mmol/L Chloride 94 L (98-107) mmol/L BUN 36 H (7-17) mg/dL Creatinine 1.80 H (0.52-1.04) mg/dL Glucose 313 H (74-99) mg/dL POC Glucose (mg/dL) 292 H (75-99) mg/dL Thrombosis Risk Factor Assmnt - Choose All That Apply Each Factor Represents 1 point: Abnormal pulmonary function (COPD) Each Risk Factor Represents 3 Points: Age 75 years or older Thrombosis Risk Factor Assessment Total Risk Factor Score: 4 Thrombosis Risk Factor Assessment Level: Moderate Risk Assessment and Plan Plan: Paroxysmal atrial fibrillation presently sinus rhythm with frequent PVCs patient will be continued on home medications along with the Eliquis and will be discharged today -Congestive heart failure chronic systolic dysfunction with EF of around 35-40% presently euvolemic will make sure patient doesn't have any pulmonary edema we'll repeat a chest x-ray today. If that's okay patient will be discharged today. 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 -Hypertension -Hyperlipidemia -coronary artery disease -Hyperlipidemia -Peripheral vascular disease -Severe mitral regurgitation With the above-mentioned plan patient will be discharged today.
--- NOTE | 2020-12-23 11:37 | P.DS ---
Providers Date of admission: 12/22/20 15:07 Attending physician: Carol Bassett Consults: 12/22/20 15:52 Consult Physician Stat Consulting Provider: Darrell Higuera Consult Reason/Comments: A. fib with RVR Do you want consulting provider notified?: Yes [facility] Course: Please refer to my history of present illness for further details Patient Condition at Discharge: Stable Plan - Discharge Summary Discharge Rx Participant: No New Discharge Prescriptions: Continue sitaGLIPtin [Januvia] 100 mg PO DAILY ALPRAZolam [Xanax] 0.5 mg PO BID PRN PRN Reason: Anxiety Potassium Chloride [Klor-Con 10] 10 meq PO TID Tiotropium 18 Mcg/Puff [Spiriva] 1 cap INHALATION RT-DAILY Albuterol Sulfate [Proventil Hfa] 1 - 2 puff INHALATION RT-Q4H PRN PRN Reason: Shortness Of Breath Atorvastatin [Lipitor] 20 mg PO HS Famotidine [Pepcid] 20 mg PO DAILY #30 tab Dorzolamide 2% [Trusopt 2%] 1 drop RIGHT EYE BID Apixaban [Eliquis] 2.5 mg PO BID #60 tablet Furosemide [Lasix] 40 mg PO BID@0900,1600 #60 tab Metoprolol Tartrate [Lopressor] 25 mg PO TID #90 tab FLUoxetine HCL 20 mg PO DAILY Spironolactone [Aldactone] 25 mg PO DAILY Ketorolac 0.5% Ophth Soln [Acular 0.5%] 1 drop LEFT EYE QID Budesonide [Pulmicort] 0.5 mg INHALATION RT-BID Changed Insulin Glargine,Hum.rec.anlog [Lantus Solostar] 20 unit SQ BID #0 Discharge Medication List ALPRAZolam [Xanax] 0.5 mg PO BID PRN 11/04/17 [History] Albuterol Sulfate [Proventil Hfa] 1 - 2 puff INHALATION RT-Q4H PRN 11/04/17 [History] Potassium Chloride [Klor-Con 10] 10 meq PO TID 11/04/17 [History] Tiotropium 18 Mcg/Puff [Spiriva] 1 cap INHALATION RT-DAILY 11/04/17 [History] sitaGLIPtin [Januvia] 100 mg PO DAILY 11/04/17 [History] Atorvastatin [Lipitor] 20 mg PO HS 06/04/20 [History] Famotidine [Pepcid] 20 mg PO DAILY #30 tab 06/09/20 [Rx] Dorzolamide 2% [Trusopt 2%] 1 drop RIGHT EYE BID 06/10/20 [History] Apixaban [Eliquis] 2.5 mg PO BID #60 tablet 06/12/20 [Rx] Furosemide [Lasix] 40 mg PO BID@0900,1600 #60 tab 06/12/20 [Rx] Metoprolol Tartrate [Lopressor] 25 mg PO TID #90 tab 06/12/20 [Rx] Budesonide [Pulmicort] 0.5 mg INHALATION RT-BID 12/22/20 [History] FLUoxetine HCL 20 mg PO DAILY 12/22/20 [History] Ketorolac 0.5% Ophth Soln [Acular 0.5%] 1 drop LEFT EYE QID 12/22/20 [History] Spironolactone [Aldactone] 25 mg PO DAILY 12/22/20 [History] Insulin Glargine,Hum.rec.anlog [Lantus Solostar] 20 unit SQ BID #0 12/23/20 [Rx] Follow up Appointment(s)/Referral(s): Bebeto Aparicio MD [STAFF PHYSICIAN] - 1 Week Asa Kang DO [Primary Care Provider] - 3 Days Ambulatory/Diagnostic Orders: Basic Metabolic Panel [LAB.AMB] Time Frame: 3 Days, Location: None Selected Patient Instructions/Handouts: A-fib (Atrial Fibrillation) (DC) Discharge Disposition: HOME SELF-CARE
--- NOTE | 2020-12-23 11:46 | XR ---
EXAMINATION TYPE: XR chest 1V portable DATE OF EXAM: 12/23/2020 CLINICAL HISTORY: Difficulty breathing and CHF progress study. TECHNIQUE: Single AP portable upright view of the chest is obtained. COMPARISON: Chest x-ray and CT chest from one day earlier. FINDINGS: Background chronic emphysematous change without suspicious focal airspace opacity, pleural effusion, or pneumothorax seen bilaterally is redemonstrated. Cardiac silhouette size stable and wit hin normal limits with atherosclerotic change in the aortic knob. Osseous structures are intact. IMPRESSION: Chronic emphysematous change without acute pulmonary process. No significant change from one day earlier.
--- NOTE | 2020-12-23 11:52 | ECHOF ---
Referral Reason:afib rvr, chest pain MEASUREMENTS -------- HEIGHT: 170.2 cm WEIGHT: 54.0 kg BP: IVSd: 0.9 cm (0.6 - 1.1) LVIDd: 4.2 cm (3.9 - 5.3) LVPWd: 1.4 cm (0.6 - 1.1) IVSs: 1.4 cm LVIDs: 3.3 cm LVPWs: 1.3 cm LAESV Index (A-L): 41.57 ml/m Ao Diam: 3.0 cm (2.0 - 3.7) AV Cusp: 1.2 cm (1.5 - 2.6) LA Diam: 3.7 cm (2.7 - 3.8) MV EXCURSION: 17.007 mm (> 18.000) MV EF SLOPE: 88 mm/s (70 - 150) EPSS: 0.6 cm MV E Stu: 1.10 m/s MV DecT: 224 ms MV A Stu: 1.23 m/s MV E/A Ratio: 0.89 RAP: 10.00 mmHg RVSP: 59.16 mmHg FINDINGS -------- Sinus rhythm. This was a technically adequate study. The left ventricular size is normal. There is moderate concentric left ventricular hypertrophy. O verall left ventricular systolic function is moderately impaired with, an EF between 35 - 40 %. The right ventricle is normal in size. LA is severely dilated >40 ml/m2 The right atrial size is normal. The aortic valve is trileaflet, and appears structurally normal. No aortic stenosis or regurgitation. The mitral valve leaflets are moderately thickened. Mild mitral annular calcification present. Se viry mitral regurgitation is present. The tricuspid valve appears structurally normal. Mild tricuspid regurgitation present. There is m oderate pulmonary hypertension. The pulmonic valve was not well visualized. There is no pulmonic regurgitation present. The aortic root size is normal. There is no pericardial effusion. CONCLUSIONS -------- 1. There is moderate concentric left ventricular hypertrophy. 2. Overall left ventricular systolic function is moderately impaired with, an EF between 35 - 40 %. 3. LA is severely dilated >40 ml/m2 4. The aortic valve is trileaflet, and appears structurally normal. No aortic stenosis or regurgitati on. 5. The mitral valve leaflets are moderately thickened. 6. Mild mitral annular calcification present. 7. Severe mitral regurgitation is present. 8. Mild tricuspid regurgitation present. 9. There is moderate pulmonary hypertension. 10. There is no pericardial effusion. PAINT PREP TECHNICIAN: Brianna Worthy RDCS
[2020-12-23 12:27] VITALS: PULSE 72; RESP 17; TEMP 98.3
[2020-12-23 12:42] VITALS: BP 130/74
== END 2020-12-23 14:42 | disposition home or self-care (01) ==
LOC: EC 11:53 → 3SCARD 15:07
PROVIDERS: ADMIT Hospitalist; ATTEND Hospitalist
DX: I48.20 Chronic atrial fibrillation, unspecified (principal); J44.9 Chronic obstructive pulmonary disease, unspecified; I13.0 Hypertensive heart and chronic kidney disease with heart failure and stage 1 through stage 4 chronic kidney disease, or unspecified chronic kidney disease; I11.0 Hypertensive heart disease with heart failure; I50.22 Chronic systolic (congestive) heart failure; N18.30 Chronic kidney disease, stage 3 unspecified; E78.5 Hyperlipidemia, unspecified; M19.90 Unspecified osteoarthritis, unspecified site; F41.1 Generalized anxiety disorder; H54.61 Unqualified visual loss, right eye, normal vision left eye; I69.398 Other sequelae of cerebral infarction; E11.40 Type 2 diabetes mellitus with diabetic neuropathy, unspecified; E11.51 Type 2 diabetes mellitus with diabetic peripheral angiopathy without gangrene; E11.22 Type 2 diabetes mellitus with diabetic chronic kidney disease; E11.65 Type 2 diabetes mellitus with hyperglycemia; K59.09 Other constipation; E86.1 Hypovolemia; E87.1 Hypo-osmolality and hyponatremia; I44.7 Left bundle-branch block, unspecified; I25.10 Atherosclerotic heart disease of native coronary artery without angina pectoris; I34.0 Nonrheumatic mitral (valve) insufficiency; I73.9 Peripheral vascular disease, unspecified; I44.0 Atrioventricular block, first degree; I42.0 Dilated cardiomyopathy; Z79.01 Long term (current) use of anticoagulants; Z79.899 Other long term (current) drug therapy; Z79.4 Long term (current) use of insulin; Z91.012 Allergy to eggs; Z85.828 Personal history of other malignant neoplasm of skin; Z87.442 Personal history of urinary calculi; Z87.891 Personal history of nicotine dependence; Z90.710 Acquired absence of both cervix and uterus; Z96.651 Presence of right artificial knee joint; Z98.42 Cataract extraction status, left eye; Z98.41 Cataract extraction status, right eye; Z20.822 Contact with and (suspected) exposure to COVID-19; Z81.8 Family history of other mental and behavioral disorders
CPT/HCPCS: 96361; 96374; 99285; 36415; 94640 ×4; 93005; 93306; 85379; 83880; 80053; 80048; 83735; 84484; 85025 ×2; 85610; 85730; 87635; 71045; 71046; 71275; G0378 ×2; J2930; Q9967

== ENCOUNTER → 2021-04-15 | Outpatient (CLI) | payer MEDICARE ==
--- NOTE | 2021-04-15 12:30 | XR ---
EXAMINATION TYPE: XR knee complete RT DATE OF EXAM: 04/15/2021 CLINICAL HISTORY: pain TECHNIQUE: Three views of the right knee are obtained. COMPARISON: None. FINDINGS: There is no acute fracture/dislocation. Lateral hemiprosthesis noted distal femur. Possibl e distal femoral bone infarct partially imaged. Vascular calcifications. Mild narrowing patellofemora l joint space. IMPRESSION: 1. There is no acute fracture or dislocation. 2.Possible distal femoral bone infarct partially imaged. Consider dedicated views of the right femur for further characterization and evaluation.
--- NOTE | 2021-04-15 12:33 | XR ---
EXAMINATION TYPE: XR Hip Complete RT DATE OF EXAM: 04/15/2021 CLINICAL HISTORY: pain TECHNIQUE: AP and frogleg views of the right hip are obtained. COMPARISON: None. FINDINGS: There is no acute fracture/dislocation evident. The joint space appears mildly narrowed. The overlying soft tissue appears unremarkable. IMPRESSION: 1. There is no acute fracture or dislocation. ICD 10 NO FRACTURE, INITIAL EVALUATION
== END | disposition home or self-care (01) ==
LOC: RADXRYALE 11:43
PROVIDERS: ATTEND Physician Assistant Medical
DX: M25.551 Pain in right hip (principal); M25.561 Pain in right knee
CPT/HCPCS: 73502

== ENCOUNTER → 2021-05-13 | Outpatient (CLI) | payer MEDICARE ==
--- NOTE | 2021-05-13 11:45 | XR ---
Right femur HISTORY: Pain Frontal and lateral views of the right femur on 4 images, comparison to right hip dated 04/15/2021, ri ght knee 04/15/2021 The sclerotic areas are noted along the distal right diaphysis of the femur in the medullary aspect a gain noted with relative lucency present along the medullary canal. There is no cortical destruction or periosteal reaction. No evident soft tissue component. Heterotopic bone formation is suspected herbert und the right hip as noted on prior exam. Alignment is maintained. Joint spaces are within normal bennett its, patient is status post right knee partial arthroplasty laterally. Dense vascular calcifications are noted. IMPRESSION: Postop changes. Findings along the distal right femur as described, differential includes bone infarct, possible enchondroma, chondroid lesion. If pain is attributable to this lesion, additi onal workup can be performed, consider bone scan, CT versus MRI.
== END | disposition home or self-care (01) ==
LOC: RADXRYALE 08:43
PROVIDERS: ATTEND Physician Assistant Medical
DX: Z98.890 Other specified postprocedural states (principal)

== ENCOUNTER 2021-10-17 17:50 | Emergency (ER) | payer MEDICARE ==
[2021-10-17 18:09] VITALS: BP 117/89; RESP 18; TEMP 97.8
[2021-10-17] MEDS ORDERED: IPRATROPIUM-ALBUTEROL 3 ML NEB INHALATION STA (19:03)
[2021-10-17] MEDS ORDERED: methylPREDNISolone SOD SUCCI 125 MG/2 ML VIAL IM ONE (19:03)
--- NOTE | 2021-10-17 19:07 | XR ---
EXAMINATION TYPE: XR chest 2V DATE OF EXAM: 10/17/2021 COMPARISON: 12/23/2020 HISTORY: Short of breath TECHNIQUE: FINDINGS: Heart and mediastinum are normal. Lungs are clear of infiltrate. There is no heart failure. There is some mild interstitial density at the right lung base. There are no hilar masses. Thoracic aorta is atheromatous. There are chest leads. IMPRESSION: There is some mild interstitial infiltrate and pleural reaction at the right lung base th at is a change compared to old exam. No heart failure seen. No pulmonary consolidation.
[2021-10-17 19:51] VITALS: PULSE 84
--- NOTE | 2021-10-17 19:51 | ED ---
SOB HPI - General Chief Complaint: Shortness of Breath Stated Complaint: SOB Source: patient, EMS, RN notes reviewed Mode of arrival: EMS Limitations: no limitations - History of Present Illness Initial Comments: A she is a 75-year-old female that presents to the emergency department complaining of one episode of shortness of breath that lasted approximately 30 seconds to minute earlier today. She notes she does have a history of COPD and she takes her inhalers and breathing treatments as prescribed. She was in no apparent distress or pain while sitting in bed. She was laughing and joking with family members at bedside. She denied any other issues or complaints. She denied chest pain headache nausea vomiting diarrhea constipation fever fatigue chills. - Related Data Home Medications Medication Instructions Recorded Confirmed ALPRAZolam [Xanax] 0.5 mg PO BID PRN 11/04/17 12/22/20 Albuterol Sulfate [Proventil Hfa] 1 - 2 puff INHALATION RT-Q4H PRN 11/04/17 12/22/20 Potassium Chloride [Klor-Con 10 ER] 10 meq PO TID 11/04/17 12/22/20 Tiotropium 18 Mcg/Puff [Spiriva] 1 cap INHALATION RT-DAILY 11/04/17 12/22/20 sitaGLIPtin [Januvia] 100 mg PO DAILY 11/04/17 12/22/20 Atorvastatin [Lipitor] 20 mg PO HS 06/04/20 12/22/20 Dorzolamide 2% [Trusopt 2%] 1 drop RIGHT EYE BID 06/10/20 12/22/20 Budesonide [Pulmicort] 0.5 mg INHALATION RT-BID 12/22/20 12/22/20 FLUoxetine HCL [Sarafem] 20 mg PO DAILY 12/22/20 12/22/20 Ketorolac 0.5% Ophth Soln [Acular 1 drop LEFT EYE QID 12/22/20 12/22/20 0.5%] Spironolactone [Aldactone] 25 mg PO DAILY 12/22/20 12/22/20 Previous Rx's Medication Instructions Recorded Famotidine [Pepcid] 20 mg PO DAILY #30 tab 06/09/20 Apixaban [Eliquis] 2.5 mg PO BID #60 tablet 06/12/20 Furosemide [Lasix] 40 mg PO BID@0900,1600 #60 tab 06/12/20 Metoprolol Tartrate [Lopressor] 25 mg PO TID #90 tab 06/12/20 Insulin Glargine,Hum.rec.anlog 20 unit SQ BID #0 12/23/20 [Lantus Solostar Pen] Doxycycline Monohydrate [Monodox] 100 mg PO Q12HR #20 cap 10/17/21 Allergies Allergy/AdvReac Type Severity Reaction Status Date / Time egg Allergy Itching Verified 12/22/20 13:55 Review of Systems ROS Statement: Those systems with pertinent positive or pertinent negative responses have been documented in the HPI. ROS Other: All systems not noted in ROS Statement are negative. Past Medical History Past Medical History: Atrial Fibrillation, Asthma, Cancer, Heart Failure, COPD, CVA/TIA, Diabetes Mellitus, Eye Disorder, Hyperlipidemia, Hypertension, Osteoarthritis (OA), Renal Disease, Respiratory Disorder, Vascular Disorder Additional Past Medical History / Comment(s): chronic systolic congestive heart failure. Her ejection fraction is 20-25%. Severe mitral regurgitation, chronic atrial fibrillation on Eliquis. 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 She also follows here for chronic obstructive pulmonary disease with an FEV1 value of 73 percent of predicted. She has been maintained on Symbicort, Spiriva and albuterol.NIDDM type II, neuropathy bilateral hands/feet, CVA with R eye blindness, severe shingelles 2010 which affected L arm/back of neck, skin cancer with removal, R sided nephrolithiasis-nonobstructing per past medical record/pt unaware, chronic constipation, degenerative joint disease. History of Any Multi-Drug Resistant Organisms: None Reported Past Surgical History: Heart Catheterization, Hysterectomy, Orthopedic Surgery, Tonsillectomy Additional Past Surgical History / Comment(s): Right knee arthroplasty, bilateral cataract/lens implant surgery, skin cancer removed under R eye. Past Anesthesia/Blood Transfusion Reactions: No Reported Reaction Past Psychological History: Anxiety Smoking Status: Former smoker Past Alcohol Use History: None Reported Past Drug Use History: None Reported - Past Family History Mother Family Medical History: Dementia Additional Family Medical History / Comment(s): AGE 99 Father Family Medical History: No Reported History Additional Family Medical History / Comment(s): WAS HEALTHY AT ALMOST AGE 99 General Exam Limitations: no limitations General appearance: alert, in no apparent distress Head exam: Present: atraumatic, normocephalic, normal inspection Eye exam: Present: normal appearance, PERRL, EOMI. Absent: scleral icterus, conjunctival injection, periorbital swelling ENT exam: Present: normal exam, mucous membranes moist Neck exam: Present: normal inspection Respiratory exam: Present: normal lung sounds bilaterally. Absent: respiratory distress, wheezes, rales, rhonchi, stridor Cardiovascular Exam: Present: regular rate, normal rhythm, normal heart sounds. Absent: systolic murmur, diastolic murmur, rubs, gallop, clicks Extremities exam: Present: normal inspection, full ROM, normal capillary refill. Absent: tenderness, pedal edema, joint swelling, calf tenderness Neurological exam: Present: alert, oriented X3 Psychiatric exam: Present: normal affect, normal mood Skin exam: Present: warm, dry, intact, normal color. Absent: rash Course Vital Signs 10/17/21 10/17/21 10/17/21 18:05 19:37 19:51 Temperature 97.8 F Pulse Rate 77 86 84 Respiratory 18 Rate Blood Pressure 117/89 O2 Sat by Pulse 95 Oximetry Medical Decision Making - Medical Decision Making 75-year-old female with COPD history complaining of one episode of shortness of breath lasting 30 seconds to minutes earlier today. Covid test, chest x-ray ordered. Covid test negative. Covid test shows possible infiltrates in the right lower lung. 10 mg of Decadron, DuoNeb breathing treatment ordered. Antibiotics sent to pharmacy for possible early development of pneumonia. Patient is agreeable with discharge home with follow-up to primary care. Case discussed with Dr. King, patient can discharge home. - Lab Data Lab Results 10/17/21 Range/Units 18:55 Coronavirus (PCR) Not Detected (Not Detectd) - EKG Data -: EKG Interpreted by Me EKG shows normal: sinus rhythm Rate: normal EKG Comments: Ventricular rate 75 bpm, NJ interval 198 ms, QRS duration 130 ms, QTC 486 ms, PRT axes 74/56/90. Sinus rhythm with occasional premature ventricular complexes, nonspecific intraventricular block. Cannot rule out anteroseptal infarct age undetermined, abnormal ECG. - Radiology Data Radiology results: report reviewed, image reviewed X-ray: There is some mild interstitial infiltrate and pleural reaction at the right lung base that is a change compared to old exam. No heart failure seen. No pulmonary consolidation. Disposition Clinical Impression: Acute exacerbation of chronic obstructive airways disease Disposition: HOME SELF-CARE Condition: Stable Instructions (If sedation given, give patient instructions): Chronic Bronchitis (ED) Additional Instructions: Please return to the Emergency Department if symptoms worsen or any other concerns. Follow-up primary care 1-2 days. Take antibiotics as prescribed until complete. Prescriptions: Doxycycline Monohydrate [Monodox] 100 mg PO Q12HR #20 cap Is patient prescribed a controlled substance at d/c from ED?: No Referrals: Asa Kang DO [Primary Care Provider] - 1-2 days Time of Disposition: 20:06
== END 2021-10-17 20:46 | disposition home or self-care (01) ==
LOC: EC 17:50 → SUPCPDRO 17:50 → EC 20:46
DX: J44.1 Chronic obstructive pulmonary disease with (acute) exacerbation (principal); I48.91 Unspecified atrial fibrillation; J45.909 Unspecified asthma, uncomplicated; I11.0 Hypertensive heart disease with heart failure; I50.9 Heart failure, unspecified; E11.9 Type 2 diabetes mellitus without complications; E78.5 Hyperlipidemia, unspecified; F41.9 Anxiety disorder, unspecified; M19.90 Unspecified osteoarthritis, unspecified site; Z79.01 Long term (current) use of anticoagulants; Z79.4 Long term (current) use of insulin; Z86.73 Personal history of transient ischemic attack (TIA), and cerebral infarction without residual deficits; Z90.710 Acquired absence of both cervix and uterus; Z90.89 Acquired absence of other organs; Z87.891 Personal history of nicotine dependence
CPT/HCPCS: 99285; 96372; 94640; 93005; 87635; 71046; J2930

== ENCOUNTER → 2021-11-04 | Outpatient (CLI) | payer MEDICARE ==
--- NOTE | 2021-11-04 13:02 | US ---
EXAMINATION TYPE: US pelvic complete DATE OF EXAM: 11/04/2021 COMPARISON: NONE CLINICAL HISTORY: N93.8 ABN UTERINE AND VAGINAL. Vaginal bleeding for 1 day 4 days ago with history o f hysterectomy and oophorectomy TECHNIQUE: Transabdominal (TA). Date of LMP: EXAM MEASUREMENTS: Uterus: Surgically absent cm Endometrial Stripe: Surgically absent cm Right Ovary: Surgically absent cm Left Ovary: Surgically absent cm 1. Uterus: Surgically absent 2. Endometrium: Surgically absent 3. Right Ovary: Surgically absent 4. Left Ovary: Surgically absent 5. Bilateral Adnexa: wnl 6. Posterior cul-de-sac: wnl No mass or fluid collection seen IMPRESSION: Postoperative changes of the pelvis. No significant abnormality seen.
== END | disposition home or self-care (01) ==
LOC: RADUSWWP 12:06
PROVIDERS: ATTEND Family Medicine
DX: N93.9 Abnormal uterine and vaginal bleeding, unspecified (principal); Z90.710 Acquired absence of both cervix and uterus; Z90.722 Acquired absence of ovaries, bilateral
CPT/HCPCS: 76856

== ENCOUNTER 2022-01-05 19:58 | Emergency (ER) | payer MEDICARE ==
--- NOTE | 2022-01-05 20:40 | XR ---
EXAMINATION TYPE: XR chest 2V DATE OF EXAM: 01/05/2022 8:32 PM COMPARISON: 10/17/2021 TECHNIQUE: Frontal view of the chest. CLINICAL INDICATION:Female, 76 years old with history of difficulty breathing; FINDINGS: Lungs/Pleura: There is flattening of the diaphragm with increased lucency of the lungs. No evidence o f pneumothorax, pleural effusion or focal consolidation. Pulmonary vascularity: Unremarkable. Heart/mediastinum: Cardiomediastinal silhouette is unremarkable. Musculoskeletal: No acute osseous pathology. IMPRESSION: 1. No acute cardiopulmonary disease/process. 2. COPD changes
[2022-01-05 21:48] LABS: Basophils % (A) 1 %; Eosinophils % (A) 1 %; HCT 45.6 % (34.0-46.0); Lymphocytes # (A) 0.9 k/uL (1.0-4.8); Lymphocytes % (A) 19 %; MCH 27.8 pg (25.0-35.0); MCHC 32.8 g/dL (31.0-37.0); MCV 84.7 fL (80.0-100.0); Mean Platelet Volume 7.5; Monocytes # (A) 0.2 k/uL (0-1.0); Monocytes % (A) 4 %; Neutrophils # (A) 3.5 k/uL (1.3-7.7); Neutrophils % (A) 75 %; Platelet Count 105 k/uL (150-450); RBC 5.38 m/uL (3.80-5.40); RDW 15.7 % (11.5-15.5); WBC 4.6 k/uL (3.8-10.6)
[2022-01-05 22:06] LABS: Partial Thromboplastin Time 28.5 sec (22.0-30.0); Prothrombin Time 11.2 sec (9.0-12.0)
[2022-01-05 22:25] LABS: Albumin 3.6 g/dL (3.5-5.0); Calcium 8.4 mg/dL (8.4-10.2); Potassium 4.5 mmol/L (3.5-5.1); Total Bilirubin 0.9 mg/dL (0.2-1.3); Total Protein 6.6 g/dL (6.3-8.2)
[2022-01-05] MEDS ORDERED: ACETAMINOPHEN TAB 500 MG TAB PO STA (22:46)
--- NOTE | 2022-01-05 23:26 | CT ---
EXAMINATION TYPE: CT brain santos sanabria con DATE OF EXAM: 01/05/2022 COMPARISON: 11/03/2012 HISTORY: fall CT DLP: 1287 mGycm Automated exposure control for dose reduction was used. Images of the brain and cervical spine obtained without contrast. There is cerebral cortical atrophy. There is some mild hypodensity in the periventricular white matte r. There is no mass effect or midline shift. There is no sign of intracranial hemorrhage. The calvari um is intact. There is normal aeration of the mastoid sinuses. The cervical vertebra have normal alignment. There is some degenerative disc space narrowing from C4 to C7 with spurring of the endplates. There is calcification and thickening of the transverse ligamen t. The facet joints are intact. There is no compression fracture. Prevertebral soft tissues are intac t. IMPRESSION: Cervical spondylotic changes. No acute bony abnormality. There is cerebral atrophy and chronic small vessel ischemia that has progressed compared to the old e xam. No acute intracranial abnormality.
[2022-01-06] MEDS ORDERED: DEXAMETHASONE SOD PHOSPHATE 10 MG/ML 1 ML VIAL IVP STA (00:50)
--- NOTE | 2022-01-06 00:56 | ED ---
SOB HPI - General Chief Complaint: Shortness of Breath Stated Complaint: DANIELLE Time Seen by Provider: 01/05/22 22:08 Source: patient Mode of arrival: wheelchair - History of Present Illness Initial Comments: 76-year-old female with multiple medical problems presents emergency Department with complaints of shortness of breath. Son is at bedside and helps provide history. Reports that the patient is always short of breath due to her COPD however it has been worse over the past 3 days. Son also feels that the patient is somewhat confused. States that she does have some dementia however her confusion appears to be accelerated. She reports that she sustained a fall earlier today which was unwitnessed. She lives alone and son does go over to her house to check on her daily. Patient stated that she had her head during the fall and she is on anticoagulation. She denies any neck pain. No chest pain. Does have a history of heart failure. Admits to some lower extremity swelling. No weight gain. Patient arrives and does have a fever. Denies any other injuries from her fall. No other alleviating, precipitating or modifying factors - Related Data Home Medications Medication Instructions Recorded Confirmed ALPRAZolam [Xanax] 0.5 mg PO BID PRN 11/04/17 12/22/20 Albuterol Sulfate [Proventil Hfa] 1 - 2 puff INHALATION RT-Q4H PRN 11/04/17 12/22/20 Potassium Chloride [Klor-Con 10 ER] 10 meq PO TID 11/04/17 12/22/20 Tiotropium 18 Mcg/Puff [Spiriva] 1 cap INHALATION RT-DAILY 11/04/17 12/22/20 sitaGLIPtin [Januvia] 100 mg PO DAILY 11/04/17 12/22/20 Atorvastatin [Lipitor] 20 mg PO HS 06/04/20 12/22/20 Dorzolamide 2% [Trusopt 2%] 1 drop RIGHT EYE BID 06/10/20 12/22/20 Budesonide [Pulmicort] 0.5 mg INHALATION RT-BID 12/22/20 12/22/20 FLUoxetine HCL [Sarafem] 20 mg PO DAILY 12/22/20 12/22/20 Ketorolac 0.5% Ophth Soln [Acular 1 drop LEFT EYE QID 12/22/20 12/22/20 0.5%] Spironolactone [Aldactone] 25 mg PO DAILY 12/22/20 12/22/20 Previous Rx's Medication Instructions Recorded Famotidine [Pepcid] 20 mg PO DAILY #30 tab 06/09/20 Apixaban [Eliquis] 2.5 mg PO BID #60 tablet 06/12/20 Furosemide [Lasix] 40 mg PO BID@0900,1600 #60 tab 06/12/20 Metoprolol Tartrate [Lopressor] 25 mg PO TID #90 tab 06/12/20 Insulin Glargine,Hum.rec.anlog 20 unit SQ BID #0 12/23/20 [Lantus Solostar Pen] Doxycycline Monohydrate [Monodox] 100 mg PO Q12HR #20 cap 10/17/21 Dexamethasone [Decadron] 6 mg PO DAILY #5 tablet 01/06/22 Allergies Allergy/AdvReac Type Severity Reaction Status Date / Time egg Allergy Itching Verified 01/05/22 20:12 Review of Systems ROS Statement: Those systems with pertinent positive or pertinent negative responses have been documented in the HPI. ROS Other: All systems not noted in ROS Statement are negative. Past Medical History Past Medical History: Atrial Fibrillation, Asthma, Cancer, Heart Failure, COPD, CVA/TIA, Diabetes Mellitus, Eye Disorder, Hyperlipidemia, Hypertension, Osteoarthritis (OA), Renal Disease, Respiratory Disorder, Vascular Disorder Additional Past Medical History / Comment(s): chronic systolic congestive heart failure. Her ejection fraction is 20-25%. Severe mitral regurgitation, chronic atrial fibrillation on Eliquis. 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 She also follows here for chronic obstructive pulmonary disease with an FEV1 value of 73 percent of predicted. She has been maintained on Symbicort, Spiriva and albuterol.NIDDM type II, neuropathy bilateral hands/feet, CVA with R eye blindness, severe shingelles 2010 which affected L arm/back of neck, skin cancer with removal, R sided nephrolithiasis-nonobstructing per past medical record/pt unaware, chronic constipation, degenerative joint disease. History of Any Multi-Drug Resistant Organisms: None Reported Past Surgical History: Heart Catheterization, Hysterectomy, Orthopedic Surgery, Tonsillectomy Additional Past Surgical History / Comment(s): Right knee arthroplasty, bilat eral cataract/lens implant surgery, skin cancer removed under R eye. Past Anesthesia/Blood Transfusion Reactions: No Reported Reaction Past Psychological History: Anxiety Smoking Status: Former smoker Past Alcohol Use History: None Reported Past Drug Use History: None Reported - Past Family History Mother Family Medical History: Dementia Additional Family Medical History / Comment(s): AGE 99 Father Family Medical History: No Reported History Additional Family Medical History / Comment(s): WAS HEALTHY AT ALMOST AGE 99 Course Vital Signs 01/05/22 01/05/22 20:08 21:34 Temperature 98.2 F 101.3 F H Pulse Rate 98 Respiratory 19 Rate Blood Pressure 98/67 O2 Sat by Pulse 97 Oximetry Medical Decision Making - Medical Decision Making Upon arrival patient is placed into room 4. Thorough history of physical exam is performed. IV access is established and laboratories is conducted. Patient does have an elevated lactic acid of 2.4. Troponin is mildly elevated at 0.087 however the patient does have a BNP of 12,500. Patient is given Tylenol for her fever. Chest x-ray performed which demonstrates COPD changes. CT head and cervical spine is performed due to her reported unwitnessed fall on anti coagulation which demonstrates no acute intracranial abnormality. Patient is Covid positive. I did inform the patient and the family member of the findings. Son states that he does not believe that his mother has Covid. Patient is in agreement with this and states that she does not believe in Covid. I recommended antibody infusion as the patient is not vaccinated and does have significant medical problems. Inform them of the possibility of decline the diagnosis of Covid. Family and patient understood. I discussed my concerns with taking the patient home as they have reported confusion, multiple falls on anticoagulation. Son and patient both are aware of the risks of going home including permanent disability and even . The patient is given a dose of Decadron. Will be discharged home on 5 day course. Instructed that the patient should return to the emergency department today agree to hospital admission or other further treatment. Patient was discharged home against my recommendation. - Lab Data Result diagrams: 01/05/22 21:36 01/05/22 21:36 Lab Results 01/05/22 01/05/22 01/05/22 Range/Units 21:36 21:36 21:36 WBC 4.6 (3.8-10.6) k/uL RBC 5.38 (3.80-5.40) m/uL Hgb 15.0 (11.4-16.0) gm/dL Hct 45.6 (34.0-46.0) % MCV 84.7 (80.0-100.0) fL MCH 27.8 (25.0-35.0) pg MCHC 32.8 (31.0-37.0) g/dL RDW 15.7 H (11.5-15.5) % Plt Count 105 L (150-450) k/uL MPV 7.5 Neutrophils % 75 % Lymphocytes % 19 % Monocytes % 4 % Eosinophils % 1 % Basophils % 1 % Neutrophils # 3.5 (1.3-7.7) k/uL Lymphocytes # 0.9 L (1.0-4.8) k/uL Monocytes # 0.2 (0-1.0) k/uL Eosinophils # 0.0 (0-0.7) k/uL Basophils # 0.0 (0-0.2) k/uL PT 11.2 (9.0-12.0) sec INR 1.0 (<1.2) APTT 28.5 (22.0-30.0) sec Sodium 131 L (137-145) mmol/L Potassium 4.5 (3.5-5.1) mmol/L Chloride 101 (98-107) mmol/L Carbon Dioxide 21 L (22-30) mmol/L Anion Gap 9 mmol/L BUN 22 H (7-17) mg/dL Creatinine 1.30 H (0.52-1.04) mg/dL Est GFR (CKD-EPI)AfAm 46 (>60 ml/min/1.73 sqM) Est GFR (CKD-EPI)NonAf 40 (>60 ml/min/1.73 sqM) Glucose 139 H (74-99) mg/dL Lactic Ac Sepsis Rflx Plasma Lactic Acid Eloy (0.7-2.0) mmol/L Calcium 8.4 (8.4-10.2) mg/dL Total Bilirubin 0.9 (0.2-1.3) mg/dL AST 52 H (14-36) U/L ALT 29 (4-34) U/L Alkaline Phosphatase 60 (38-126) U/L Troponin I (0.000-0.034) ng/mL NT-Pro-B Natriuret Pep pg/mL Total Protein 6.6 (6.3-8.2) g/dL Albumin 3.6 (3.5-5.0) g/dL Coronavirus (PCR) (Not Detectd) 01/05/22 01/05/22 01/05/22 Range/Units 21:36 21:36 21:36 WBC (3.8-10.6) k/uL RBC (3.80-5.40) m/uL Hgb (11.4-16.0) gm/dL Hct (34.0-46.0) % MCV (80.0-100.0) fL MCH (25.0-35.0) pg MCHC (31.0-37.0) g/dL RDW (11.5-15.5) % Plt Count (150-450) k/uL MPV Neutrophils % % Lymphocytes % % Monocytes % % Eosinophils % % Basophils % % Neutrophils # (1.3-7.7) k/uL Lymphocytes # (1.0-4.8) k/uL Monocytes # (0-1.0) k/uL Eosinophils # (0-0.7) k/uL Basophils # (0-0.2) k/uL PT (9.0-12.0) sec INR (<1.2) APTT (22.0-30.0) sec Sodium (137-145) mmol/L Potassium (3.5-5.1) mmol/L Chloride (98-107) mmol/L Carbon Dioxide (22-30) mmol/L Anion Gap mmol/L BUN (7-17) mg/dL Creatinine (0.52-1.04) mg/dL Est GFR (CKD-EPI)AfAm (>60 ml/min/1.73 sqM) Est GFR (CKD-EPI)NonAf (>60 ml/min/1.73 sqM) Glucose (74-99) mg/dL Lactic Ac Sepsis Rflx Plasma Lactic Acid Eloy 2.4 H* (0.7-2.0) mmol/L Calcium (8.4-10.2) mg/dL Total Bilirubin (0.2-1.3) mg/dL AST (14-36) U/L ALT (4-34) U/L Alkaline Phosphatase (38-126) U/L Troponin I 0.087 H* (0.000-0.034) ng/mL NT-Pro-B Natriuret Pep 60920 pg/mL Total Protein (6.3-8.2) g/dL Albumin (3.5-5.0) g/dL Coronavirus (PCR) (Not Detectd) 01/05/22 01/05/22 01/06/22 Range/Units 22:32 23:57 00:56 WBC (3.8-10.6) k/uL RBC (3.80-5.40) m/uL Hgb (11.4-16.0) gm/dL Hct (34.0-46.0) % MCV (80.0-100.0) fL MCH (25.0-35.0) pg MCHC (31.0-37.0) g/dL RDW (11.5-15.5) % Plt Count (150-450) k/uL MPV Neutrophils % % Lymphocytes % % Monocytes % % Eosinophils % % Basophils % % Neutrophils # (1.3-7.7) k/uL Lymphocytes # (1.0-4.8) k/uL Monocytes # (0-1.0) k/uL Eosinophils # (0-0.7) k/uL Basophils # (0-0.2) k/uL PT (9.0-12.0) sec INR (<1.2) APTT (22.0-30.0) sec Sodium (137-145) mmol/L Potassium (3.5-5.1) mmol/L Chloride (98-107) mmol/L Carbon Dioxide (22-30) mmol/L Anion Gap mmol/L BUN (7-17) mg/dL Creatinine (0.52-1.04) mg/dL Est GFR (CKD-EPI)AfAm (>60 ml/min/1.73 sqM) Est GFR (CKD-EPI)NonAf (>60 ml/min/1.73 sqM) Glucose (74-99) mg/dL Lactic Ac Sepsis Rflx Y Plasma Lactic Acid Eloy 1.0 (0.7-2.0) mmol/L Calcium (8.4-10.2) mg/dL Total Bilirubin (0.2-1.3) mg/dL AST (14-36) U/L ALT (4-34) U/L Alkaline Phosphatase (38-126) U/L Troponin I (0.000-0.034) ng/mL NT-Pro-B Natriuret Pep pg/mL Total Protein (6.3-8.2) g/dL Albumin (3.5-5.0) g/dL Coronavirus (PCR) Detected A (Not Detectd) Disposition Clinical Impression: Acute respiratory distress, Pyrexia, COVID-19, Encephalopathy acute, Fall, Concussion Disposition: HOME SELF-CARE Condition: Undetermined Instructions (If sedation given, give patient instructions): Coronavirus Disease 2019 (COVID-19) Additional Instructions: I recommended antibody infusion. I recommended admission for the falls and confusion. You are aware of the risks of leaving without further treatment- your symptoms could get worse. Check your pulse ox to ensure your oxygen does not go less than 90%. Follow up with your doctor in 2-4 days. Return to the ED for any new or worsening symptoms. Prescriptions: Dexamethasone [Decadron] 6 mg PO DAILY #5 tablet Is patient prescribed a controlled substance at d/c from ED?: No Referrals: Asa Kang DO [Primary Care Provider] - 1-2 days Time of Disposition: 00:56
[2022-01-06 04:56] VITALS: BP 103/56; PULSE 72; RESP 16; TEMP 99
== END 2022-01-06 01:30 | disposition home or self-care (01) ==
LOC: EC 19:58
DX: U07.1 COVID-19 (principal); S06.0X9A Concussion with loss of consciousness of unspecified duration, initial encounter; G93.40 Encephalopathy, unspecified; E11.40 Type 2 diabetes mellitus with diabetic neuropathy, unspecified; I11.0 Hypertensive heart disease with heart failure; I50.22 Chronic systolic (congestive) heart failure; J44.9 Chronic obstructive pulmonary disease, unspecified; I48.20 Chronic atrial fibrillation, unspecified; E78.5 Hyperlipidemia, unspecified; M19.90 Unspecified osteoarthritis, unspecified site; F41.1 Generalized anxiety disorder; Z87.891 Personal history of nicotine dependence; Z79.4 Long term (current) use of insulin; Z79.84 Long term (current) use of oral hypoglycemic drugs; Z79.01 Long term (current) use of anticoagulants; Z79.51 Long term (current) use of inhaled steroids; Z79.899 Other long term (current) drug therapy; W19.XXXA Unspecified fall, initial encounter
CPT/HCPCS: 36415 ×2; 83880; 80053; 83605 ×2; 84484; 85025; 85610; 85730; 87635; 71046; 72125; 70450; 99285; 96374; J1100; 93005

== ENCOUNTER 2022-01-10 09:52 | Emergency (ER) | payer MEDICARE ==
[2022-01-10] MEDS ORDERED: MORPHINE SULFATE 2 MG/ML SYRINGE IVP STA (12:32)
[2022-01-10] MEDS ORDERED: SODIUM CHLORIDE 0.9% 1,000 ML IV STA (12:32)
[2022-01-10] MEDS ORDERED: SODIUM CHLORIDE 0.9% 500 ML 500 ML IV STA (12:45)
--- NOTE | 2022-01-10 12:48 | ED ---
General Adult HPI - General Chief complaint: Shortness of Breath Stated complaint: bradycardia Time Seen by Provider: 01/10/22 12:18 Source: patient, family, RN notes reviewed, old records reviewed Mode of arrival: EMS Limitations: no limitations - History of Present Illness Initial comments: Patient is a 76-year-old male with past medical history remarkable for COPD not on home oxygen, dementia, recurrent falls at home, A. fib on anticoagulation, who presents emergency Department complaining of another fall last Monday, as well as worsening shortness of breath. Patient was diagnosis COVID-19 last week. She refused monoclonal antibodies as well as as admission at that time. She has been at home with her son, and he states that she seems to be having worsening shortness of breath. They did notice a one-time reading of oxygen was 90% and return to the emergency department for further evaluation. Patient fell on Monday. She states she lost her balance and fell onto the floor. She has bruising over her right jaw as well as over her right forearm. She has has pain over the bruising site on her right forearm. Denies any chest pain, current shortness of breath beyond her baseline, abdominal pain, nausea, vomiting, diarrhea. 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 Endorses mild congestion, as well as productive cough. Denies fevers. His no other acute complaints at this time. Presents for further evaluation. Family is interested in receiving monoclonal antibodies.Patient was evaluated when she was placed in a room. - Related Data Home Medications Medication Instructions Recorded Confirmed ALPRAZolam [Xanax] 0.5 mg PO BID PRN 11/04/17 01/10/22 Albuterol Sulfate [Proventil Hfa] 2 puff INHALATION RT-Q4H PRN 11/04/17 01/10/22 Potassium Chloride [Klor-Con 10 ER] 10 meq PO TID 11/04/17 01/10/22 Tiotropium 18 Mcg/Puff [Spiriva] 1 cap INHALATION RT-DAILY 11/04/17 01/10/22 Atorvastatin [Lipitor] 20 mg PO HS 06/04/20 01/10/22 Ketorolac 0.5% Ophth Soln [Acular 1 drop LEFT EYE QID 12/22/20 01/10/22 0.5%] Spironolactone [Aldactone] 25 mg PO DAILY 12/22/20 01/10/22 Escitalopram Oxalate [Lexapro] 10 mg PO DAILY 01/10/22 01/10/22 Famotidine [Pepcid] 20 mg PO BID 01/10/22 01/10/22 Insulin Aspart [NovoLOG Flexpen] See Protocol SQ AC-TID 01/10/22 01/10/22 Insulin Glargine,Hum.rec.anlog 30 unit SQ DAILY 01/10/22 01/10/22 [Lantus Solostar Pen] Montelukast [Singulair] 10 mg PO DAILY 01/10/22 01/10/22 Previous Rx's Medication Instructions Recorded Apixaban [Eliquis] 2.5 mg PO BID #60 tablet 06/12/20 Metoprolol Tartrate [Lopressor] 25 mg PO TID #90 tab 06/12/20 Dexamethasone [Decadron] 6 mg PO DAILY #5 tablet 01/06/22 Albuterol Inhaler [Ventolin Hfa 1 puff INHALATION RT-QID #8 gm 01/10/22 Inhaler] Azithromycin [Zithromax Z-pack (6 0 mg PO DIRECTED 5 Days #6 tab 01/10/22 tabs)] dexAMETHasone 4 mg PO DAILY 6 Days #6 tablet 01/10/22 Allergies Allergy/AdvReac Type Severity Reaction Status Date / Time egg Allergy Itching Verified 01/10/22 14:44 Review of Systems ROS Statement: Those systems with pertinent positive or pertinent negative responses have been documented in the HPI. Review of Systems: CONST: Denies fever EYES: Denies blurry vision ENT: Endorses nasal congestion C/V: Denies Chest pain RESP: Endorses shortness of breath GI: Denies abdominal pain : Denies dysuria SKIN: Endorses bruising over jaw and right arm. MSK: Endorses right arm pain NEURO: Denies headache ROS Other: All systems not noted in ROS Statement are negative. Past Medical History Past Medical History: Atrial Fibrillation, Asthma, Cancer, Heart Failure, COPD, CVA/TIA, Diabetes Mellitus, Eye Disorder, Hyperlipidemia, Hypertension, Ost eoarthritis (OA), Renal Disease, Respiratory Disorder, Vascular Disorder Additional Past Medical History / Comment(s): chronic systolic congestive heart failure. Her ejection fraction is 20-25%. Severe mitral regurgitation, chronic atrial fibrillation on Eliquis. 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 She also follows here for chronic obstructive pulmonary disease with an FEV1 value of 73 percent of predicted. She has been maintained on Symbicort, Spiriva and albuterol.NIDDM type II, neuropathy bilateral hands/feet, CVA with R eye blindness, severe shingelles 2010 which affected L arm/back of neck, skin cancer with removal, R sided nephrolithiasis-nonobstructing per past medical record/pt unaware, chronic constipation, degenerative joint disease. History of Any Multi-Drug Resistant Organisms: None Reported Past Surgical History: Heart Catheterization, Hysterectomy, Orthopedic Surgery, Tonsillectomy Additional Past Surgical History / Comment(s): Right knee arthroplasty, bilateral cataract/lens implant surgery, skin cancer removed under R eye. Past Anesthesia/Blood Transfusion Reactions: No Reported Reaction Past Psychological History: Anxiety Smoking Status: Former smoker Past Alcohol Use History: None Reported Past Drug Use History: None Reported - Past Family History Mother Family Medical History: Dementia Additional Family Medical History / Comment(s): AGE 99 Father Family Medical History: No Reported History Additional Family Medical History / Comment(s): WAS HEALTHY AT ALMOST AGE 99 General Exam - General Exam Comments Initial Comments: General: Appears in mild distress secondary to arm pain. HEAD: No step-offs or deformities of the skull. Labs the patient's teeth appear to be aligned. No jaw tenderness on palpation or motion. Full range of motion of the jaw. No obvious deformity of the mandible. There is bruising over the right mandible. EYES: No EOMI. Patient has a history of anisocoria, right pupil being dilated. Right pupil is currently approximately 4 mm and nonreactive which is typical for her per her son and patient. Patient's left pupil is approximately 2 mm and reactive to light. Can only see out of her left eye. This is chronic. Not acute. ENT: Hearing grossly intact, normal oropharynx. RESPIRATORY: Clear breath sounds bilaterally. No wheezes, rales, or rhonchi. No obvious wheezes or rhonchi. 93% on room air. No increased work of breathing. C/V: Regular rate and rhythm. S1 and S2 auscultated, no edema, peripheral pulses 2+ and intact throughout ABD: Abd is soft, nontender, nondistended EXT: Normal range of motion, no obvious deformity. Tenderness to palpation over the midshaft of the right forearm. This is at the site of the bruising and hematoma. Neurovascularly intact throughout. SKIN: Patient has extensive bruising over the dorsal aspect of her right forearm with what appears to be a small hematoma that is approximately 2 cm diameter. This is in the midshaft. Patient also has some bruising over the right anterior aspect of the jaw. NEURO: Alert and oriented 3-4. No focal sensory strength deficits.Cranial nerves II through XII are intact except for the right eye which is chronic. NIH is 0. GCS is 15. No focal deficits. Limitations: no limitations Course Vital Signs 01/10/22 01/10/22 01/10/22 09:53 12:25 14:40 Temperature 97.0 F L Pulse Rate 63 67 77 Respiratory 18 12 16 Rate Blood Pressure 145/80 156/96 185/90 O2 Sat by Pulse 93 L 91 L 93 L Oximetry 01/10/22 01/10/22 16:00 16:47 Temperature 96.7 F L 97.6 F Pulse Rate 81 82 Respiratory 14 14 Rate Blood Pressure 161/75 169/77 O2 Sat by Pulse 96 96 Oximetry Medical Decision Making - Medical Decision Making Based on the patient's presentation and physical exam, I'm concerned for continued weakness and falls likely secondary tachycardia COVID-19 infection. Oxygenation here on room air is 93%. Vital signs are otherwise unremarkable. I did recommend that we really obtain a cardiopulmonary workup on her as well as CT imaging of the brain, neck, face. We will also obtain x-rays of the right forearm and chest. She was in agreement this plan. She'll be administered IV morphine for pain control. She was given 0.5 L fluid bolus. They were in agreement this plan. We already know the patient is Covid-positive. They are requesting monoclonal antibodies if she qualifies. They would not like to receive remdesivir. EKG shows a chronic left bundle branch block. There is a new isolated T-wave inversion in lead V2 compared to the other day.Laboratory studies are remarkable for a mild elevated potassium of 5.2. Glucose is mildly elevated to 38. Lactic acid is slightly elevated to 2.1. Troponin is within normal limits. Remainder the labs are unremarkable. Patient's face CT and CT brain, cervical spine revealed no acute fracture or dislocation. There is no acute intracranial process. There is no facial bone fracture that is displaced. Chest x-ray revealed a questionable right upper lobe opacity slightly more pronounced from recent x-ray the other day. There is some interstitial fibrosis. Forearm x-ray revealed no acute fracture or subluxation of the radius or ulna on the right side. Patient does have a hematoma there. On reevaluation, patient states she is feeling improved. I did discuss with her as well as family members that she appears mildly dehydrated, however laboratory studies do appear slightly better from the other day. She was given a fluid bolus, and ultimately, they stated that they would like to go home. I believe this is reasonable. She does meet criteria for monoclonal antibody therapy. They did consent to therapy. Patient will be given her home dose of Decadron that she is currently due. Due to the potential for developing pneumonia in the right upper lobe, she'll also receive a dose of Rocephin, and will be discharged home on antibiotics. She was in agreement this plan. Patient tolerated the monoclonal antibody therapy well. We discussed quarentine. I answered all questions regarding Covid for her and her family. She'll be discharged home with close follow-up. I advised him to continue monitoring her pulse oximeter, and if she is persistently below 90% she should return to the emergency department for possible admission. Throughout her stay in the emergency department here, patient remained between 91 and 95% on room air. Vital signs otherwise were within normal limits and stable. I will provide the patient with a prescription for albuterol inhaler, Z-Cali, Decadron. I instructed the patient to follow up with their PCP in the next 3 days. I explained that the patient should return to the emergency department if they experience any worsening symptoms. Strict return precautions were discussed with the patient. The patient expressed understanding of these instructions. I answered all questions that the patient had. The patient was discharged home in fair condition with their prescriptions and follow up information. - Lab Data Result diagrams: 01/10/22 12:55 01/10/22 12:55 Lab Results 01/10/22 01/10/22 01/10/22 Range/Units 12:55 12:55 12:55 WBC 9.1 (3.8-10.6) k/uL RBC 5.58 H (3.80-5.40) m/uL Hgb 15.7 (11.4-16.0) gm/dL Hct 48.1 H (34.0-46.0) % MCV 86.3 (80.0-100.0) fL MCH 28.1 (25.0-35.0) pg MCHC 32.6 (31.0-37.0) g/dL RDW 16.4 H (11.5-15.5) % Plt Count 180 D (150-450) k/uL MPV 7.9 Neutrophils % 90 % Lymphocytes % 5 % Monocytes % 3 % Eosinophils % 0 % Basophils % 1 % Neutrophils # 8.2 H (1.3-7.7) k/uL Lymphocytes # 0.5 L (1.0-4.8) k/uL Monocytes # 0.3 (0-1.0) k/uL Eosinophils # 0.0 (0-0.7) k/uL Basophils # 0.1 (0-0.2) k/uL Hypochromasia Slight Anisocytosis Slight PT 10.6 (9.0-12.0) sec INR 1.0 (<1.2) APTT 22.2 (22.0-30.0) sec Sodium 136 L (137-145) mmol/L Potassium 5.2 H (3.5-5.1) mmol/L Chloride 106 (98-107) mmol/L Carbon Dioxide 20 L (22-30) mmol/L Anion Gap 10 mmol/L BUN 37 H (7-17) mg/dL Creatinine 1.01 (0.52-1.04) mg/dL Est GFR (CKD-EPI)AfAm 62 (>60 ml/min/1.73 sqM) Est GFR (CKD-EPI)NonAf 54 (>60 ml/min/1.73 sqM) Glucose 238 H (74-99) mg/dL Lactic Ac Sepsis Rflx Plasma Lactic Acid Eloy (0.7-2.0) mmol/L Calcium 8.5 (8.4-10.2) mg/dL Magnesium 2.0 (1.6-2.3) mg/dL Total Bilirubin 1.0 (0.2-1.3) mg/dL AST 35 (14-36) U/L ALT 25 (4-34) U/L Alkaline Phosphatase 69 (38-126) U/L Troponin I (0.000-0.034) ng/mL Total Protein 5.9 L (6.3-8.2) g/dL Albumin 3.0 L (3.5-5.0) g/dL 01/10/22 01/10/22 01/10/22 Range/Units 12:55 12:55 13:37 WBC (3.8-10.6) k/uL RBC (3.80-5.40) m/uL Hgb (11.4-16.0) gm/dL Hct (34.0-46.0) % MCV (80.0-100.0) fL MCH (25.0-35.0) pg MCHC (31.0-37.0) g/dL RDW (11.5-15.5) % Plt Count (150-450) k/uL MPV Neutrophils % % Lymphocytes % % Monocytes % % Eosinophils % % Basophils % % Neutrophils # (1.3-7.7) k/uL Lymphocytes # (1.0-4.8) k/uL Monocytes # (0-1.0) k/uL Eosinophils # (0-0.7) k/uL Basophils # (0-0.2) k/uL Hypochromasia Anisocytosis PT (9.0-12.0) sec INR (<1.2) APTT (22.0-30.0) sec Sodium (137-145) mmol/L Potassium (3.5-5.1) mmol/L Chloride (98-107) mmol/L Carbon Dioxide (22-30) mmol/L Anion Gap mmol/L BUN (7-17) mg/dL Creatinine (0.52-1.04) mg/dL Est GFR (CKD-EPI)AfAm (>60 ml/min/1.73 sqM) Est GFR (CKD-EPI)NonAf (>60 ml/min/1.73 sqM) Glucose (74-99) mg/dL Lactic Ac Sepsis Rflx Y Plasma Lactic Acid Eloy 2.1 H* (0.7-2.0) mmol/L Calcium (8.4-10.2) mg/dL Magnesium (1.6-2.3) mg/dL Total Bilirubin (0.2-1.3) mg/dL AST (14-36) U/L ALT (4-34) U/L Alkaline Phosphatase (38-126) U/L Troponin I 0.013 (0.000-0.034) ng/mL Total Protein (6.3-8.2) g/dL Albumin (3.5-5.0) g/dL - EKG Data -: EKG Interpreted by Me EKG Comments: 12-lead Electrocardiogram Interpretation Note EKG was reviewed and interpreted by myself. 12-lead ECG performed at 1025 is interpreted by me as revealing normal sinus rhythm with a left bundle branch block at a rate of 66 beats per minute. [place] is leftward deviated. ID interval is 184 ms, QRS duration is 128 ms, QTc is 482 ms.. There are T-wave inversions in lead V2 which are new and isolated.. R wave progression across the precordium was satisfactory. By my interpretation this EKG is non-diagnostic for acute ischemia. Disposition Clinical Impression: COVID-19 virus infection, CAP (community acquired pneumonia), COPD (chronic o bstructive pulmonary disease), Fall, Bruising Disposition: HOME SELF-CARE Condition: Fair Instructions (If sedation given, give patient instructions): Coronavirus Disease 2019 (COVID-19), Pneumonia (ED) Prescriptions: dexAMETHasone 4 mg PO DAILY 6 Days #6 tablet Albuterol Inhaler [Ventolin Hfa Inhaler] 1 puff INHALATION RT-QID #8 gm Azithromycin [Zithromax Z-pack (6 tabs)] 0 mg PO DIRECTED 5 Days #6 tab Is patient prescribed a controlled substance at d/c from ED?: No Referrals: Asa Kang DO [Primary Care Provider] - 1-2 days
[2022-01-10 13:17] LABS: Anisocytosis Slight; Basophils # (A) 0.1 k/uL (0-0.2); Basophils % (A) 1 %; Eosinophils % (A) 0 %; HCT 48.1 % (34.0-46.0); HGB 15.7 gm/dL (11.4-16.0); Hypochromasia Slight; Lymphocytes # (A) 0.5 k/uL (1.0-4.8); Lymphocytes % (A) 5 %; MCH 28.1 pg (25.0-35.0); MCHC 32.6 g/dL (31.0-37.0); MCV 86.3 fL (80.0-100.0); Mean Platelet Volume 7.9; Monocytes # (A) 0.3 k/uL (0-1.0); Monocytes % (A) 3 %; Neutrophils # (A) 8.2 k/uL (1.3-7.7); Neutrophils % (A) 90 %; RBC 5.58 m/uL (3.80-5.40); RDW 16.4 % (11.5-15.5); WBC 9.1 k/uL (3.8-10.6)
[2022-01-10 13:19] LABS: Platelet Count 180 k/uL (150-450)
[2022-01-10 13:25] LABS: Calcium 8.5 mg/dL (8.4-10.2); Potassium 5.2 mmol/L (3.5-5.1); Total Protein 5.9 g/dL (6.3-8.2)
[2022-01-10 13:35] LABS: Partial Thromboplastin Time 22.2 sec (22.0-30.0); Prothrombin Time 10.6 sec (9.0-12.0)
--- NOTE | 2022-01-10 14:26 | CT ---
EXAMINATION TYPE: CT brain cspine wo con, CT facial bones wo con DATE OF EXAM: 01/10/2022 COMPARISON: Prior trauma CT 5 days ago HISTORY: Fall injury with headache, neck pain, and facial pain. CT DLP: 1042 mGycm. Automated Exposure Control for Dose Reduction was Utilized. TECHNIQUE: CT scan of the head , facial bones, and cervical spine are performed without contrast. FINDINGS: There is no acute intracranial hemorrhage or midline shift identified. Mild ventricular a nd sulcal prominence. Moderate low-attenuation in the deep and periventricular white matter . Persist ent anterior metopic suture. The globes are intact and the visualized sinuses are clear. The calvariu m is intact. The mandible is intact. Temporomandibular joints are maintained bilaterally. The zygomatic arches are intact. The nasal bones are intact. Nasal septum remains deviated to left of midline without fractur e. Orbital floors and morales are intact. The pterygoid plates are intact. Visualized paranasal sinuses remain clear. Cervical spine is visualized in its entirety from C1 through upper thoracic levels and redemonstrates grade 1 retrolisthesis C4 on C5 and C5 on C6. Vertebral body heights are maintained. Moderate disc space narrowing C4-C5 through C6-C7 levels. Posterior disc herniations at these level efface the ante rior thecal sac. The C1-C2 articulation is within normal limits on the coronal images. Review of axi al images shows some uncovertebral facet degenerative changes in the mid to lower cervical spine. Thy roid gland appears within normal limits. Visualized lungs show some groundglass opacities, correlate clinically. IMPRESSION: 1. There is no acute fracture or dislocation evident in the cervical spine. 2. No acute intracranial hemorrhage or midline shift is seen. 3. No acute displaced facial bone fracture.
--- NOTE | 2022-01-10 14:53 | XR ---
EXAMINATION TYPE: XR forearm RT DATE OF EXAM: 01/10/2022 CLINICAL HISTORY: Pain after fall injury. TECHNIQUE: Two views of the right forearm are obtained. COMPARISON: None. FINDINGS: There is no acute fracture or dislocation seen in the right radius or ulna. The right elb ow and wrist joints appear within normal limits. Peripheral IV at level of cubital fossa is noted. IMPRESSION: There is no acute fracture or dislocation seen in the right radius or ulna.
--- NOTE | 2022-01-10 14:55 | XR ---
EXAMINATION TYPE: XR chest 2V DATE OF EXAM: 01/10/2022 COMPARISON: 01/05/2022 HISTORY: 76-year-old female fall, chest pain TECHNIQUE: AP and lateral views FINDINGS: Heart normal size. Aorta and pulmonary vasculature within normal limits. Hyperinflation. Some Sukhdev B lines suggesting underlying interstitial fibrosis. Patchy opacity right upper lobe more pronounced from recent prior and new from 12/22/2020. No pneumothorax or pleural effusion. IMPRESSION: COPD, some mild interstitial fibrosis. There is patchy right upper lobe opacity slightly more pronoun mary ann from recent prior and new from 12/22/2020. Early pneumonia not excluded.
[2022-01-10] MEDS ORDERED: ALBUTEROL HFA INHALER INHALATION STA (14:59)
[2022-01-10] MEDS ORDERED: DEXAMETHASONE SOD PHOSPHATE 10 MG/ML 1 ML VIAL IVP STA (14:59)
[2022-01-10] MEDS ORDERED: cefTRIAXone IN SWFI 1,000 MG/10 ML SYRINGE IVP STA (14:59)
[2022-01-10] MEDS ORDERED: SODIUM CHLORIDE 0.9% 50 ML IVPB ONE (15:30)
[2022-01-10] MEDS ORDERED: SOTROVIMAB (EUA) 500 MG in SODIUM CHLORIDE 0.9% 100 ML IVPB ONE (16:00)
[2022-01-10 16:06] VITALS: RESP 14
[2022-01-10 16:52] VITALS: TEMP 97.6
[2022-01-10] MEDS ORDERED: ACETAMINOPHEN TAB 500 MG TAB PO STA (17:30)
[2022-01-10 17:55] VITALS: BP 129/83; PULSE 84
== END 2022-01-10 18:11 | disposition home or self-care (01) ==
LOC: EC 09:52
DX: U07.1 COVID-19 (principal); J12.82 Pneumonia due to coronavirus disease 2019; S50.11XA Contusion of right forearm, initial encounter; S00.83XA Contusion of other part of head, initial encounter; J44.9 Chronic obstructive pulmonary disease, unspecified; I11.0 Hypertensive heart disease with heart failure; I50.22 Chronic systolic (congestive) heart failure; I48.91 Unspecified atrial fibrillation; E11.9 Type 2 diabetes mellitus without complications; E78.5 Hyperlipidemia, unspecified; M19.90 Unspecified osteoarthritis, unspecified site; F41.9 Anxiety disorder, unspecified; Z79.4 Long term (current) use of insulin; Z79.01 Long term (current) use of anticoagulants; Z86.73 Personal history of transient ischemic attack (TIA), and cerebral infarction without residual deficits; Z90.710 Acquired absence of both cervix and uterus; Z96.651 Presence of right artificial knee joint; Z85.828 Personal history of other malignant neoplasm of skin; Z87.891 Personal history of nicotine dependence; W18.30XA Fall on same level, unspecified, initial encounter
CPT/HCPCS: 99285; 96374; 96375; 96361; 36415; 93005; 80053; 83605; 83735; 84484; 85025; 85610; 85730; 73090; 71046; 72125; 70486; 70450; J1100; J0696; Q0247

== ENCOUNTER → 2022-01-21 | Outpatient (CLI) | payer MEDICARE ==
--- NOTE | 2022-01-21 17:21 | XR ---
EXAMINATION TYPE: XR chest 2V DATE OF EXAM: 01/21/2022 COMPARISON: X-ray dated 01/10/2022 HISTORY: SOB TECHNIQUE: Frontal and lateral views of the chest are obtained. FINDINGS: Persistent COPD changes. More apparent heterogeneous opacity in the right upper lung zone, underlying progressive infection cannot be excluded, please correlate clinically. Follow-up to complete resolut ion is advised. Persistent bilateral basal increased density/infiltration which can be also reassessed on the follow- up x-ray. Associated fibrosis is suspected. No sizable pleural effusion or definite pneumothorax. No cardiomegaly. No aggressive bone lesion. IMPRESSION: Interval changes as described above.
== END | disposition home or self-care (01) ==
LOC: RADXRYALE 14:53
PROVIDERS: ATTEND Physician Assistant
DX: J44.9 Chronic obstructive pulmonary disease, unspecified (principal); R91.8 Other nonspecific abnormal finding of lung field
CPT/HCPCS: 71046

== ENCOUNTER 2022-01-29 11:21 | Inpatient (IN) | payer MEDICARE ==
[2022-01-29 11:26] LABS: Glucose,Whole Blood 93 mg/dL (75-99)
--- NOTE | 2022-01-29 11:28 | ED ---
General Adult HPI - General Stated complaint: Unresponsive Time Seen by Provider: 01/29/22 11:24 Source: EMS, RN notes reviewed, old records reviewed Mode of arrival: EMS Limitations: altered mental status, physical limitation - History of Present Illness Initial comments: Patient is a 76-year-old female presenting to emergency department by EMS for change in mental status. Patient last seen well around 2 AM. Patient checked on this morning over an hour prior to arrival and they were unable to arouse. Patient is nonverbal at this time and provides no additional history. No reported trauma. - Related Data Home Medications Medication Instructions Recorded Confirmed ALPRAZolam [Xanax] 0.5 mg PO BID PRN 11/04/17 01/29/22 Potassium Chloride [Klor-Con 10 ER] 10 meq PO TID 11/04/17 01/29/22 Tiotropium 18 Mcg/Puff [Spiriva] 1 cap INHALATION RT-DAILY 11/04/17 01/29/22 Atorvastatin [Lipitor] 20 mg PO HS 06/04/20 01/29/22 Ketorolac 0.5% Ophth Soln [Acular 1 drop LEFT EYE QID 12/22/20 01/29/22 0.5%] Spironolactone [Aldactone] 25 mg PO DAILY 12/22/20 01/29/22 Escitalopram Oxalate [Lexapro] 10 mg PO DAILY 01/10/22 01/29/22 Famotidine [Pepcid] 20 mg PO BID 01/10/22 01/29/22 Insulin Aspart [NovoLOG Flexpen] See Protocol SQ AC-TID 01/10/22 01/29/22 Insulin Glargine,Hum.rec.anlog 30 unit SQ DAILY 01/10/22 01/29/22 [Lantus Solostar Pen] Montelukast [Singulair] 10 mg PO DAILY 01/10/22 01/29/22 Dorzolamide 2% [Trusopt 2%] 1 drop RIGHT EYE BID 01/29/22 01/29/22 Previous Rx's Medication Instructions Recorded Apixaban [Eliquis] 2.5 mg PO BID #60 tablet 06/12/20 Metoprolol Tartrate [Lopressor] 25 mg PO TID #90 tab 06/12/20 Albuterol Inhaler [Ventolin Hfa 1 puff INHALATION RT-QID #8 gm 01/10/22 Inhaler] Allergies Allergy/AdvReac Type Severity Reaction Status Date / Time egg Allergy Itching Verified 01/29/22 12:24 Review of Systems ROS Statement: Those systems with pertinent positive or pertinent negative responses have been documented in the HPI. ROS Other: All systems not noted in ROS Statement are negative. Limitations: ROS unobtainable due to patients medical condition Past Medical History Past Medical History: Atrial Fibrillation, Asthma, Cancer, Heart Failure, COPD, CVA/TIA, Diabetes Mellitus, Eye Disorder, Hyperlipidemia, Hypertension, Osteoarthritis (OA), Renal Disease, Respiratory Disorder, Vascular Disorder Additional Past Medical History / Comment(s): chronic systolic congestive heart failure. Her ejection fraction is 20-25%. Severe mitral regurgitation, chronic atrial fibrillation on Eliquis. 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 She also follows here for chronic obstructive pulmonary disease with an FEV1 value of 73 percent of predicted. She has been maintained on Symbicort, Spiriva and albuterol.NIDDM type II, ne uropathy bilateral hands/feet, CVA with R eye blindness, severe shingelles 2010 which affected L arm/back of neck, skin cancer with removal, R sided nephrolithiasis-nonobstructing per past medical record/pt unaware, chronic constipation, degenerative joint disease. History of Any Multi-Drug Resistant Organisms: None Reported Past Surgical History: Heart Catheterization, Hysterectomy, Orthopedic Surgery, Tonsillectomy Additional Past Surgical History / Comment(s): Right knee arthroplasty, bilateral cataract/lens implant surgery, skin cancer removed under R eye. Past Anesthesia/Blood Transfusion Reactions: No Reported Reaction Past Psychological History: Anxiety Smoking Status: Former smoker Past Alcohol Use History: None Reported Past Drug Use History: None Reported - Past Family History Mother Family Medical History: Dementia Additional Family Medical History / Comment(s): AGE 99 Father Family Medical History: No Reported History Additional Family Medical History / Comment(s): WAS HEALTHY AT ALMOST AGE 99 General Exam Limitations: altered mental status, physical limitation General appearance: alert Head exam: Present: atraumatic Eye exam: Present: normal appearance, other (Right pupil changes consistent with previous surgery) ENT exam: Present: normal oropharynx Neck exam: Present: normal inspection. Absent: tenderness, meningismus Respiratory exam: Present: normal lung sounds bilaterally Cardiovascular Exam: Present: regular rate, normal rhythm GI/Abdominal exam: Present: soft. Absent: tenderness Extremities exam: Present: normal inspection Neurological exam: Present: altered Expanded Neurological exam: Present: protecting the airway, other (Limited exam. Patient does not follow commands or communicate. She does withdraw to pain in all extremities. No flaccid weakness.) Eye Response: (2) open to pain Motor Response: (1) no motor response Verbal Response: (1) no verbal response Psychiatric exam: Present: other (Nonverbal) Skin exam: Present: normal color, other (Fingertips do appear slightly cyanotic) Course Vital Signs 01/29/22 01/29/22 01/29/22 11:23 11:32 11:45 Temperature 97.6 F Pulse Rate 96 100 80 Respiratory 16 16 16 Rate Blood Pressure 191/95 174/97 199/99 O2 Sat by Pulse 96 96 95 Oximetry 01/29/22 12:00 Temperature Pulse Rate 81 Respiratory 18 Rate Blood Pressure 203/110 O2 Sat by Pulse 95 Oximetry EKG Findings - EKG Comments: EKG Findings:: Irregular rhythm with a rate of 102. QRS 1:30. QT 377. QTC 436. Left axis. Septal Q waves. PVCs present. Nonspecific T waves. Medical Decision Making - Medical Decision Making Patient reevaluated and unchanged. Family adds patient has had recent covid infection. Patient also is DO NOT RESUSCITATE and they do have paperwork. Family updated. Patient did open her eyes to voice Case was discussed with Dr. Garcia, who will admit covering Dr. Elliott nj - Lab Data Result diagrams: 01/29/22 11:31 01/29/22 11:31 Lab Results 01/29/22 01/29/22 01/29/22 Range/Units 11:24 11:31 11:31 WBC 4.8 (3.8-10.6) k/uL RBC 5.05 (3.80-5.40) m/uL Hgb 14.4 (11.4-16.0) gm/dL Hct 44.0 (34.0-46.0) % MCV 87.1 (80.0-100.0) fL MCH 28.6 (25.0-35.0) pg MCHC 32.8 (31.0-37.0) g/dL RDW 17.4 H (11.5-15.5) % Plt Count 161 (150-450) k/uL MPV 7.2 Neutrophils % 67 % Lymphocytes % 22 % Monocytes % 6 % Eosinophils % 3 % Basophils % 1 % Neutrophils # 3.2 (1.3-7.7) k/uL Lymphocytes # 1.0 (1.0-4.8) k/uL Monocytes # 0.3 (0-1.0) k/uL Eosinophils # 0.1 (0-0.7) k/uL Basophils # 0.0 (0-0.2) k/uL Anisocytosis Slight PT 11.4 (9.0-12.0) sec INR 1.1 (<1.2) APTT 23.0 (22.0-30.0) sec Sample Site ABG pH (7.35-7.45) ABG pCO2 (35-45) mmHg ABG pO2 (83-108) mmHg ABG HCO3 (21-25) mmol/L ABG Total CO2 (19-24) mmol/L ABG O2 Saturation (94-97) % ABG Base Excess mmol/L Angel Test FiO2 % Sodium (137-145) mmol/L Potassium (3.5-5.1) mmol/L Chloride (98-107) mmol/L Carbon Dioxide (22-30) mmol/L Anion Gap mmol/L BUN (7-17) mg/dL Creatinine (0.52-1.04) mg/dL Est GFR (CKD-EPI)AfAm (>60 ml/min/1.73 sqM) Est GFR (CKD-EPI)NonAf (>60 ml/min/1.73 sqM) Glucose (74-99) mg/dL POC Glucose (mg/dL) 93 (75-99) mg/dL POC Glu Medical Sales Specialist ID Jigna Escoto Calcium (8.4-10.2) mg/dL Total Bilirubin (0.2-1.3) mg/dL AST (14-36) U/L ALT (4-34) U/L Alkaline Phosphatase (38-126) U/L Troponin I (0.000-0.034) ng/mL Total Protein (6.3-8.2) g/dL Albumin (3.5-5.0) g/dL Serum Alcohol mg/dL 03/05/22 03/05/22 03/05/22 Range/Units 11:31 11:31 11:54 WBC (3.8-10.6) k/uL RBC (3.80-5.40) m/uL Hgb (11.4-16.0) gm/dL Hct (34.0-46.0) % MCV (80.0-100.0) fL MCH (25.0-35.0) pg MCHC (31.0-37.0) g/dL RDW (11.5-15.5) % Plt Count (150-450) k/uL MPV Neutrophils % % Lymphocytes % % Monocytes % % Eosinophils % % Basophils % % Neutrophils # (1.3-7.7) k/uL Lymphocytes # (1.0-4.8) k/uL Monocytes # (0-1.0) k/uL Eosinophils # (0-0.7) k/uL Basophils # (0-0.2) k/uL Anisocytosis PT (9.0-12.0) sec INR (<1.2) APTT (22.0-30.0) sec Sample Site BRAC ABG pH 7.46 H (7.35-7.45) ABG pCO2 25 L (35-45) mmHg ABG pO2 63 L (83-108) mmHg ABG HCO3 18 L (21-25) mmol/L ABG Total CO2 19 (19-24) mmol/L ABG O2 Saturation 92.9 L (94-97) % ABG Base Excess -6.2 mmol/L Angel Test Yes FiO2 28 % Sodium 138 (137-145) mmol/L Potassium 4.4 (3.5-5.1) mmol/L Chloride 112 H (98-107) mmol/L Carbon Dioxide 18 L (22-30) mmol/L Anion Gap 8 mmol/L BUN 21 H (7-17) mg/dL Creatinine 1.09 H (0.52-1.04) mg/dL Est GFR (CKD-EPI)AfAm 56 (>60 ml/min/1.73 sqM) Est GFR (CKD-EPI)NonAf 49 (>60 ml/min/1.73 sqM) Glucose 109 H (74-99) mg/dL POC Glucose (mg/dL) (75-99) mg/dL POC Glu Medical Sales Specialist ID Calcium 7.7 L (8.4-10.2) mg/dL Total Bilirubin 0.8 (0.2-1.3) mg/dL AST 37 H (14-36) U/L ALT 20 (4-34) U/L Alkaline Phosphatase 136 H (38-126) U/L Troponin I 0.078 H* (0.000-0.034) ng/mL Total Protein 6.2 L (6.3-8.2) g/dL Albumin 2.5 L (3.5-5.0) g/dL Serum Alcohol <10 mg/dL - Radiology Data Radiology results: image reviewed (CT brain concerning for left CURT CVA. Chest x-ray shows shows interstitial infiltrates) Disposition Clinical Impression: Altered mental status, CVA (cerebral vascular accident) Disposition: ADMITTED IP TO THIS HOSP Is patient prescribed a controlled substance at d/c from ED?: No Referrals: Asa Kang DO [Primary Care Provider] - 1-2 days Decision Time: 12:27
[2022-01-29 11:49] LABS: Anisocytosis Slight; Basophils % (A) 1 %; Eosinophils # (A) 0.1 k/uL (0-0.7); Eosinophils % (A) 3 %; HGB 14.4 gm/dL (11.4-16.0); Lymphocytes % (A) 22 %; MCH 28.6 pg (25.0-35.0); MCHC 32.8 g/dL (31.0-37.0); MCV 87.1 fL (80.0-100.0); Mean Platelet Volume 7.2; Monocytes # (A) 0.3 k/uL (0-1.0); Monocytes % (A) 6 %; Neutrophils # (A) 3.2 k/uL (1.3-7.7); Neutrophils % (A) 67 %; Platelet Count 161 k/uL (150-450); RBC 5.05 m/uL (3.80-5.40); RDW 17.4 % (11.5-15.5); WBC 4.8 k/uL (3.8-10.6)
--- NOTE | 2022-01-29 11:50 | CT ---
EXAMINATION TYPE: CT brain wo con DATE OF EXAM: 01/29/2022 COMPARISON: 01/10/2022 HISTORY: Unresponsive CT DLP: 1070.[address] of the brain was performed. The ventricles, basal cisterns and sulci overlying the cerebral convexities demonstrate mild enlargem ent. there is sulcal effacement in the region of the high left frontal lobe suspicious for CURT territory C VA. There is no evidence for intracranial hemorrhage or sulcal effacement. There is decreased attenuation about the periventricular white matter and deep white matter of both c erebral hemispheres, compatible with chronic small vessel ischemia. Differential diagnosis does inclu de demyelination. No mass effects are seen.No midline shift. Osseous calvarium is intact. If symptoms persist consider MRI. IMPRESSION: 1. There is sulcal effacement in the region of the high left frontal lobe suspicious for CURT territor y CVA.
[2022-01-29 11:57] LABS: INR 1.1 (<1.2); Prothrombin Time 11.4 sec (9.0-12.0)
[2022-01-29 12:04] LABS: ALT 20 U/L (4-34); AST 37 U/L (14-36); African American GFR (CKD) 56 (>60 ml/min/1.73 sqM); Albumin 2.5 g/dL (3.5-5.0); Alcohol <10 mg/dL; Alkaline Phosphatase 136 U/L (38-126); Anion Gap 8 mmol/L; Blood Urea Nitrogen 21 mg/dL (7-17); Calcium 7.7 mg/dL (8.4-10.2); Carbon Dioxide 18 mmol/L (22-30); Chloride 112 mmol/L (98-107); Glucose 109 mg/dL (74-99); Non-African American GFR(CKD) 49 (>60 ml/min/1.73 sqM); Potassium 4.4 mmol/L (3.5-5.1); Sodium 138 mmol/L (137-145); Total Bilirubin 0.8 mg/dL (0.2-1.3); Total Protein 6.2 g/dL (6.3-8.2)
[2022-01-29 12:14] LABS: ABG Base Excess -6.2 mmol/L; ABG HCO3 18 mmol/L (21-25); ABG Oxygen Saturation 92.9 % (94-97); ABG PCO2 25 mmHg (35-45); ABG PH 7.46 (7.35-7.45); ABG PO2 63 mmHg (83-108); ABG TCO2 19 mmol/L (19-24); Allen Test Performed? Yes
--- NOTE | 2022-01-29 12:20 | XR ---
EXAMINATION TYPE: XR chest 1V portable DATE OF EXAM: 01/29/2022 HISTORY: Shortness of breath. COMPARISON: 01/21/2022 TECHNIQUE: Single view of the chest is submitted. FINDINGS: Demonstrated are scattered senescent parenchymal change. Interstitial infiltrates greatest at the right upper lobe and left greater than right lung base. The heart is stable. Hilar and mediastinal structures are within normal limits. Degenerative changes are seen of the dorsal spine. IMPRESSION: 1. Interstitial infiltrates greatest at the right upper lobe and left greater than right lung base.
[2022-01-29 12:23] LABS: Appearance,Urine Clear (Clear); Bacteria,Urine Rare /hpf; Bilirubin,Urine Negative (Negative); Blood,Urine Negative (Negative); Color,Urine Yellow; Glucose,Urine (UA) Negative (Negative); Hyaline Casts,Urine 1 /lpf (0-2); Ketones,Urine Negative (Negative); Leukocyte Esterase,Urine Large (Negative); Nitrite,Urine Negative (Negative); Protein,Urine Negative (Negative); RBC,Urine 7 /hpf (0-5); Specific Gravity,Urine 1.013 (1.001-1.035); Squamous Epithelial Cell,Urine 1 /hpf (0-4); Urobilinogen,Urine <2.0 mg/dL (<2.0); WBC,Urine 21 /hpf (0-5)
[2022-01-29] MEDS ORDERED: ASPIRIN 325 MG TAB PO STA (12:33)
[2022-01-29 12:44] LABS: Amphetamine Screen,Urine Not Detected (NotDetected); Barbiturate Screen,Urine Not Detected (NotDetected); Benzodiazepines Screen,Urine Detected (NotDetected); Cocaine Screen,Urine Not Detected (NotDetected); Methadone Screen, Urine Not Detected (NotDetected); Opiate Screen,Urine Not Detected (NotDetected); Oxycodone Screen, Urine Not Detected (NotDetected); Phencyclidine Screen,Urine Not Detected (NotDetected); Tricyclic Antidepressant,Urine Not Detected (NotDetected); Urn Cannabinoid Scrn Not Detected (NotDetected)
[2022-01-29] MEDS: SODIUM CHLORIDE 0.9% 1,000 ML IV SCH ×2 (13:20→22:53)
[2022-01-29] MEDS ORDERED: ASPIRIN 300 MG SUPP RECTAL STA (13:41)
--- NOTE | 2022-01-29 15:04 | CT ---
EXAMINATION TYPE: CT angio head neck DATE OF EXAM: 01/29/2022 COMPARISON: None HISTORY: Unrsponsive CT DLP: 398.6 mGycm Automated exposure control for dose reduction was used. CONTRAST: Performed without and with IV Contrast, patient injected with 65 ml mL of Isovue 370. Images obtained from the aortic arch to the vertex of the brain with IV contrast. There are Three-D p ostprocessed images. There is patchy airspace consolidation in both upper lobes. Thoracic aorta is atheromatous. There is normal branching pattern of the great vessels on the aortic arch. There is arterial flow in both subc lavian arteries. There is arterial flow in both common carotid arteries. There is significant plaque formation and approximate 75% stenosis at the origin of the left internal carotid artery. There is co mplete occlusion of the right internal carotid artery. There is arterial flow in both vertebral arter ies. There is arterial flow in the vertebrobasilar artery system. There is arterial flow in the anterior middle and posterior cerebral arteries bilaterally. There is w milton patency of the right posterior communicating artery. There is arterial flow in the right middle c erebral artery through the posterior communicating artery and also the anterior communicating artery. Right anterior cerebral artery appears to be filling through the anterior communicating artery. Ther e is no mass effect. There is no evidence of aneurysm or neovascularity. No evidence of intracranial hemodynamic arterial stenosis. There is normal enhancement of the venous sinuses. 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 There is at least 75% stenosis at th e origin of the left internal carotid artery. Stenosis is likely 90%. There is noted right maxillary sinusitis. Bilateral upper lobe pneumonia.
--- NOTE | 2022-01-29 15:05 | P.CNNES ---
History of Present Illness Consult date: 01/29/22 Requesting physician: Jeff Osborne Reason for Consult: cva History of Present Illness: This is a 76-year-old left-handed dominant woman with history of stroke, right eye defect, atrial fibrillation on Eliquis, diabetes mellitus, hypertension, hyperlipidemia, congestive heart failure systolic type, severe mitral regurgitat ion, COPD who presented emergency department on 01/28/2022 for altered mental status. Some of the history is obtained from patient's son who is at bedside. The patient last known normal was at 2is AM today. Patient was nonverbal upon presentation. Per the patient's son patient usually walks with a walker and he stated that about 3 weeks ago she had a flulike symptoms and she declined then she improved and has been doing well and the last 1-2 weeks. He said that the patient was unable to take care of herself about 3 weeks ago after she had the flu symptoms and as a result she moved with him and she's been compliant taking her home medication. It seems that around the at which a.m. was her last normal state that when the patient's son tried to wake her up at a.m. she was unresponsive. She continued to be unresponsive for the next 2-3 hours so he felt she needed to be in the hospital. He denied to the patient at any jerk in of any extremities, foaming around the mouth. He denied the patient has any history of seizures. He stated that the patient at baseline she is oriented to self she knows the year and has normal conversation. In the last the 2-3 weeks because of her flulike symptoms she's not oriented to the month. Patient is on Eliquis 2.5 mg 1 tablet twice a day, Lipitor 20 mg daily at bedtime. Metoprolol, insulin. Per EMR stated that the patient has history of stroke with residual right eye deficit. The son stated that her right eye deficit was the due to the her diabetes that he was notified. Some of the workup in the hospital consisted of: Initial vital signs his blood pressure of 191/95, heart rate of 96, respiratory of 16, temperature of 97.6 Fahrenheit axillary pulse ox of 96% on 2 L of nasal cannula. CBC with differential is RDW 17.4 otherwise rest of CBC with differential is unremarkable. Chemistry panel is creatinine is 1.09, AST is 37, ALT of 20, initial troponin 0.078, initial serum glucose is 109 in the POC glucose is 93. Urine white blood cell is the leukocyte esterase was large, urine white blood cells 21. Urine drug screen is positive for benzos otherwise rest as nondetected and serum alcohol was less than 10. PT, PTT and INR is within normal limits Give the head is reported as there is sulcal effacement in the region in the hi gh left frontal lobe suspicious for CURT territory CVA. I personally reviewed the CT of the head and I do feel that acute to subacute hypodensity over the left CURT territory. There is no intraparenchymal bleed noted that. EKG is reported as atrial fibrillation with rapid ventricular response with a berrant conduction or ventricular premature complexes. Left axis deviation. Anteroseptal myocardial infarction. Model T-wave abnormality. Review of Systems Review of system is limited but the per positive and negative as per HPI Past Medical History Past Medical History: Atrial Fibrillation, Asthma, Cancer, Heart Failure, COPD, CVA/TIA, Diabetes Mellitus, Eye Disorder, Hyperlipidemia, Hypertension, Osteoarthritis (OA), Renal Disease, Respiratory Disorder, Vascular Disorder Additional Past Medical History / Comment(s): chronic systolic congestive heart failure. Her ejection fraction is 20-25%. Severe mitral regurgitation, chronic atrial fibrillation on Eliquis. 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 She also follows here for chronic obstructive pulmonary disease with an FEV1 value of 73 percent of predicted. She has been maintained on Symbicort, Spiriva and albuterol.NIDDM type II, neuropathy bilateral hands/feet, CVA with R eye blindness, severe shingelles 2010 which affected L arm/back of neck, skin cancer with removal, R sided nephrolithiasis-nonobstructing per past medical record/pt unaware, chronic constipation, degenerative joint disease. History of Any Multi-Drug Resistant Organisms: None Reported Past Surgical History: Heart Catheterization, Hysterectomy, Orthopedic Surgery, Tonsillectomy Additional Past Surgical History / Comment(s): Right knee arthroplasty, bilateral cataract/lens implant surgery, skin cancer removed under R eye. Past Anesthesia/Blood Transfusion Reactions: No Reported Reaction Past Psychological History: Anxiety Smoking Status: Former smoker Past Alcohol Use History: None Reported Past Drug Use History: None Reported - Past Family History Mother Family Medical History: Dementia Additional Family Medical History / Comment(s): AGE 99 Father Family Medical History: No Reported History Additional Family Medical History / Comment(s): WAS HEALTHY AT ALMOST AGE 99 Medications and Allergies Home Medications Medication Instructions Recorded Confirmed Type ALPRAZolam [Xanax] 0.5 mg PO BID PRN 11/04/17 01/29/22 History Potassium Chloride [Klor-Con 10 ER] 10 meq PO TID 11/04/17 01/29/22 History Tiotropium 18 Mcg/Puff [Spiriva] 1 cap INHALATION RT-DAILY 11/04/17 01/29/22 History Atorvastatin [Lipitor] 20 mg PO HS 06/04/20 01/29/22 History Apixaban [Eliquis] 2.5 mg PO BID #60 tablet 06/12/20 01/29/22 Rx Metoprolol Tartrate [Lopressor] 25 mg PO TID #90 tab 06/12/20 01/29/22 Rx Ketorolac 0.5% Ophth Soln [Acular 1 drop LEFT EYE QID 12/22/20 01/29/22 History 0.5%] Spironolactone [Aldactone] 25 mg PO DAILY 12/22/20 01/29/22 History Albuterol Inhaler [Ventolin Hfa 1 puff INHALATION RT-QID #8 gm 01/10/22 01/29/22 Rx Inhaler] Escitalopram Oxalate [Lexapro] 10 mg PO DAILY 01/10/22 01/29/22 History Famotidine [Pepcid] 20 mg PO BID 01/10/22 01/29/22 History Insulin Aspart [NovoLOG Flexpen] See Protocol SQ AC-TID 01/10/22 01/29/22 History Insulin Glargine,Hum.rec.anlog 30 unit SQ DAILY 01/10/22 01/29/22 History [Lantus Solostar Pen] Montelukast [Singulair] 10 mg PO DAILY 01/10/22 01/29/22 History Dorzolamide 2% [Trusopt 2%] 1 drop RIGHT EYE BID 01/29/22 01/29/22 History Allergies Allergy/AdvReac Type Severity Reaction Status Date / Time egg Allergy Itching Verified 01/29/22 12:24 Physical Examination - Vital Signs Vital Signs: Vital Signs Temp Pulse Resp BP Pulse Ox 01/29/22 13:23 90 18 139/99 97 01/29/22 13:00 85 18 204/110 94 L 01/29/22 12:00 81 18 203/110 95 01/29/22 11:45 80 16 199/99 95 01/29/22 11:32 100 16 174/97 96 01/29/22 11:23 97.6 F 96 16 191/95 96 Intake and Output 01/28/22 01/29/22 01/29/22 22:59 06:59 14:59 Other: Weight 52 kg GENERAL: The patient is lying in is stupor. CHEST: The heart rate is regular rate rhythm. No murmurs to auscultation. LUNG: Clear to auscultation bilaterally no wheezing noted throughout. Not labored breathing. ABDOMEN/GI: Bowel sounds present in all 4 quadrants. No tenderness to palpation throughout. NEUROLOGICAL: Limited because of her condition. Higher mental function: The patient is stupor GCS 9 (E3, V1, M5) and rarely would open her eyes. She is no verbalizing or following commands. She is mute. Cranial nerves: The pupils are round, equal and reactive to light. Visual filed could not be assessed. She is not tracking. Appers right lower facial weakness that is mild but son stated it is her baseline. Is mute. Motor: Gait could not be assessed. The strength is hard to assess individual muscle strength. With painful stimuli is moving the left side drastically better than right side. There is some movement on the right upper extremity but not appreciated in right lower. Decrease tone throughout. Cerebellum: Could not assess. Sensation: Could not assess light touch but to painful stimuli she is withdrawing. Reflexes (right/left): 1+ throughout. Plantars are mute bilaterally. MY NIH Stroke Scale Score : Level of consciousness 2 LOC questions 2 LOC commands 2 Best gaze UA (Unable to assess) Visual lanza UA Facial palsy 0 Left motor arm 4 Right motor arm 4 Left motor leg 4 Right motor leg 4 Limb ataxia UA Sensory UA Best language 2 Dysarthria UA Extinction and inattention UA Total NIHSS score: 24 (received high score because of her condition and unable to cooperate for most). Results - Laboratory Findings CBC and BMP: 01/29/22 11:31 01/29/22 11:31 Abnormal Lab Findings: Abnormal Labs 01/29/22 01/29/22 01/29/22 11:31 11:31 11:31 RDW 17.4 H ABG pH ABG pCO2 ABG pO2 ABG HCO3 ABG O2 Saturation Chloride 112 H Carbon Dioxide 18 L BUN 21 H Creatinine 1.09 H Glucose 109 H Calcium 7.7 L AST 37 H Alkaline Phosphatase 136 H Troponin I 0.078 H* Total Protein 6.2 L Albumin 2.5 L Ur Leukocyte Esterase Urine RBC Urine WBC Urine Bacteria U Benzodiazepines Scrn 01/29/22 01/29/22 11:54 12:02 RDW ABG pH 7.46 H ABG pCO2 25 L ABG pO2 63 L ABG HCO3 18 L ABG O2 Saturation 92.9 L Chloride Carbon Dioxide BUN Creatinine Glucose Calcium AST Alkaline Phosphatase Troponin I Total Protein Albumin Ur Leukocyte Esterase Large H Urine RBC 7 H Urine WBC 21 H Urine Bacteria Rare H U Benzodiazepines Scrn Detected H Assessment and Plan Assessment: Acute to subacute stroke (over left CURT territory). No IV TPA since the patient is on anticoagulationand outside window and the risk outweighed the benefits. Seems embolic (especially with history of Atrial fibrillation. I feel eliquis is suboptimally dosed). History of stroke Atrial fibrillation on Eliquis Diabetes mellitus Hypertension History of Right visual defect Hyperlipidemia Systolic congestive heart failure Severe mitral regurgitation COPD on nasal oxygen Ex-tobacco use (stopped 5 years and smoked for about 50 years) Plan: CT angiography of the head and neck is ordered and is pending. I ordered MRI of the brain without urgent In the ED the patient was given aspirin 300 mg suppository then was started on aspirin 325 mg daily. We'll hold off on Eliquis until MRI Brain to assess size of stroke then will recommend of when to restart eliquis. I feel the patient Eliquis 2.5 mg 1 tablet twice a could be increased to 5 mg a tablet twice a day for atrial fibrillation to avoid further strokes. I consulted cardiology for modification of her medication. Started the patient on Lipitor 80 mg daily at bedtime. 2-D echo, lipid panel are ordered and pending Continue neuro checks On cardiac monitoring Recommend permissive hypertension for 24 hours (only treat if SBP >220 and DBP >110) and by tomorrow recommend the systolic blood pressure to be goal of 160- 180 then gradually start going down and will defer management to primary team. For DVT prophylaxis: Started on subq heparin 5000U every 12 hours. We'll defer the rest of the medical management to the primary team. Condition is very guarded to critical. Patient code status is DNR. UPDATE: CT angiography of the head and neck was reported as there is thrombosis of the entire right ICA. There is at least 75% stenosis at the origin of the left ICA. Stenosis is likely 90% I consulted vascular surgery team. Patient was more awake and alert but not verbally responding. But continue to be moving left side more the right. I updated them on patient condition and they do not want any surgical i ntervention but would like vascular surgery team input. A STAT EEG is not needed since this is more due to stroke and she is more awake. They would like to pursue with medical management at this time. Later I spoke with entire family (two brothers, and daughter-laws) and her ED nurse. Thank you for the consultation Anderson Connor M.D. Neuro-hospitalist Time with Patient: Greater than 30
[2022-01-29] MEDS ORDERED: SODIUM CHLORIDE 0.9% 500 ML 500 ML IV ONE ×2 (15:34→16:47)
--- NOTE | 2022-01-29 16:08 | US ---
EXAMINATION TYPE: US carotid duplex BILAT DATE OF EXAM: 01/29/2022 COMPARISON: NONE CLINICAL HISTORY: carotid stenosis. Abn CTA, stroke, pt not responsive during test EXAM MEASUREMENTS: RIGHT: Peak Systolic Velocity (PSV) cm/sec ----- Right CCA: 29.6 ----- Right ICA: No Flow Detected ----- Right ECA: 117.3 ICA/CCA ratio: N/A RIGHT: End Diastole cm/sec ----- Right CCA: 6.0 ----- Right ICA: No Flow Detected ----- Right ECA: 9.8 LEFT: Peak Systolic Velocity (PSV) cm/sec ----- Left CCA: 69.4 ----- Left ICA: 231.5 ----- Left ECA: 189.8 ICA/CCA ratio: 3.3 LEFT: End Diastole cm/sec ----- Left CCA: 19.7 ----- Left ICA: 64.5 ----- Left ECA: 14.4 VERTEBRALS (direction of flow): Right Vertebral: Antegrade Left Vertebral: Antegrade Rhythm: Arrhythmia Extensive plaque within right ICA, no flow detected, severe plaque seen at BULB/ICA on the left with significant stenosis IMPRESSION: There is antegrade flow in the vertebral arteries. There is complete occlusion right internal carotid artery. There is significant plaque on the left side and estimated more than 70% stenosis of the lef t internal carotid artery. Criteria for Assigning % of Stenosis / Diameter reduction (Estimation based on the indirect measurements of the internal carotid artery velocities (ICA PSV). 1. Normal (no stenosis)=ICA PSV < 125 cm/s: ratio < 2.0: ICA EDV<40 cm/s. 2. Less than 50% stenosis=ICA PSV < 125 cm/s: ratio < 2.0: ICA EDV<40 cm/s. 3. 50 to 69% stenosis=ICA PSV of 125 to 230 cm/s: ration 2.0 ? 4.0: ICA EDV 40-100 cm/s. 4. Greater than 70% stenosis to near occlusion= ICA PSV > 230 cm/s: ratio > 4.0: ICA EDV > 100 cm/s. 5. Near occlusion= ICA PSV velocities may be low or undetectable: variable ratio and ICA EDV. 6. Total occlusion=unable to detect flow.
[2022-01-29 20:00] LABS: Glucose,Whole Blood 45 mg/dL (75-99)
[2022-01-29 20:08] LABS: Glucose,Whole Blood 61 mg/dL (75-99)
[2022-01-29] MEDS ORDERED: DEXTROSE 50% SYRINGE 50 ML IVP ONE (20:32)
[2022-01-29] MEDS: ATORVASTATIN 80 MG TAB PO SCH (20:41)
[2022-01-29 20:47] LABS: Glucose,Whole Blood 154 mg/dL (75-99)
[2022-01-29] MEDS ORDERED: ADENOSINE 3 MG/ML 2 ML VIAL IVP STA ×2 (20:51→20:56)
[2022-01-29] MEDS ORDERED: DEXTROSE 5% IN WATER 100 ML with AMIODARONE 150 MG IV ONE (21:00)
[2022-01-29 21:03] LABS: Glucose,Whole Blood 135 mg/dL (75-99)
[2022-01-29] MEDS ORDERED: AMIODARONE 360 MG in DEXTROSE 5% IN WATER 200 ML IV ONE ×2 (21:30)
[2022-01-29] MEDS: DEXTROSE 5%-0.9% NACL 1,000 ML IV SCH (21:45)
[2022-01-29 22:05] LABS: Glucose,Whole Blood 189 mg/dL (75-99)
[2022-01-29] MEDS: HEPARIN SODIUM,PORCINE/PF 5,000 UNIT/0.5 ML SYRINGE SQ SCH (22:54)
--- NOTE | 2022-01-29 23:23 | P.EN ---
A team called on this patient due to SVT patient does not report any symptoms as she is aphasic , admitted for acute/subacute stroke possibly secondary to embolic phenomenon with history of afib on low dose eliquis, with lethargy , clincally per RN, she is acting the same way since presentation , aphasic, but awake, opens eyes spontaneously cooperative but does not follow commands, moves left side only. neuro recommended holding Eliquis (which is suboptimally dosed possibly due to risk of falling and bleeding) , and recommending permissive hypertension on exam , SBP ranging 98-130s . oxygen sat 92 % on supplemental oxygen , heart rate 180s lungs audible breath sounds bilaterally no wheezing or rhonchi no leg edema bilaterally right hand finger tips of 2nd and 3rd finger is cyanotic (per RN easily bruised after blood sugar checks) heart tachycardia intervention tele noted SVT, blood sugar was low earlier , recheck 130s, patient connected to monitor and pads, patient given two doses of adenosin , however remains in SVT, then was started on amiodarone ( cardizem has more risk of hypotension which should be avoided with acute stroke, and due to history of CHF with LVEF 35%) assessment SVT given adenosin , remained in SVT started on amiodaron ,amiodarone bolus then drip, cardiology to follow up in AM no anticoagulation due to acute stroke and risk of bleeding , await results of MRI in AM case discussed with neurology and confirmed risk of bleeding with anticoagulation post stroke, however patient is also at risk of embolic stroke (which she already experienced as she is admitted for acute/subacute stroke) monitor vital signs follow up neuro and cardiology input Total amount of critical care time spent was 45 minutes not counting procedures performed.
[2022-01-30] LABS: Glucose,Whole Blood 192 mg/dL (75-99)
[2022-01-30 01:51] LABS: Glucose,Whole Blood 239 mg/dL (75-99)
[2022-01-30] MEDS ORDERED: AMIODARONE 450 MG in DEXTROSE 5% IN WATER 250 ML IV SCH ×2 (03:30)
[2022-01-30 03:59] LABS: Glucose,Whole Blood 207 mg/dL (75-99)
[2022-01-30 05:12] LABS: Magnesium 1.4 mg/dL (1.6-2.3); Potassium 3.9 mmol/L (3.5-5.1)
[2022-01-30] MEDS: MAGNESIUM SULFATE-D5W PMX 1 GM in DEXTROSE/WATER 1 100ML.BAG IVPB SCH ×3 (05:53→09:11)
[2022-01-30 06:18] LABS: Glucose,Whole Blood 208 mg/dL (75-99)
[2022-01-30] MEDS: INSULIN ASPART (NovoLOG) 100 UNIT/ML VIAL SQ SCH ×3 (06:35→16:53)
[2022-01-30] MEDS: DEXTROSE 5%-0.9% NACL 1,000 ML IV SCH ×2 (06:35→16:53)
[2022-01-30] MEDS: SODIUM CHLORIDE 0.9% 1,000 ML IV SCH ×3 (06:36→20:10)
[2022-01-30 08:07] LABS: Glucose,Whole Blood 240 mg/dL (75-99)
[2022-01-30 08:50] LABS: Chol/HDL Ratio 3.93 Ratio; LDL Cholesterol,Calculated 65.4 mg/dL (0.0-131.0); VLDL Calculation 15.14 mg/dL (5.00-40.00)
[2022-01-30] MEDS ORDERED: ASPIRIN 325 MG TAB PO SCH (09:00)
[2022-01-30] MEDS: HEPARIN SODIUM,PORCINE/PF 5,000 UNIT/0.5 ML SYRINGE SQ SCH ×2 (09:10→20:13)
[2022-01-30 10:10] LABS: Glucose,Whole Blood 282 mg/dL (75-99)
[2022-01-30 12:09] LABS: Glucose,Whole Blood 236 mg/dL (75-99)
--- NOTE | 2022-01-30 13:01 | P.GSCN ---
History of Present Illness Consult date: 01/30/22 History of present illness: Enrrique is a 76-year-old female who presented to the hospital for nonresponsive episodes. She was with her son. History is obtained through the other son was at the bedside. Reportedly she was last known well at about 2 AM the day of presentation. She usually is up with a walker and moving around with some ability to care for herself. She was having issues abating nonresponsive therefore he brought her to the hospital. She has a history of COPD, diabetes, neuropathy, history of CVA with right eye blindness, congestive heart failure. Upon workup and imaging she was found occlusion of her right internal carotid artery with high-grade stenosis of her left internal carotid artery at this time the patient remains aphasic. She is pending an MRI Past Medical History Past Medical History: Atrial Fibrillation, Asthma, Cancer, Heart Failure, COPD, CVA/TIA, Diabetes Mellitus, Eye Disorder, Hyperlipidemia, Hypertension, Osteoarthritis (OA), Renal Disease, Respiratory Disorder, Vascular Disorder Additional Past Medical History / Comment(s): chronic systolic congestive heart failure. Her ejection fraction is 20-25%. Severe mitral regurgitation, chronic atrial fibrillation on Eliquis. 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 She also follows here for chronic obstructive pulmonary disease with an FEV1 value of 73 percent of predicted. She has been maintained on Symbicort, Spiriva and albuterol.NIDDM type II, neuropathy bilateral hands/feet, CVA with R eye blindness, severe shingelles 2010 which affected L arm/back of neck, skin cancer with removal, R sided nephrolithiasis-nonobstructing per past medical record/pt unaware, chronic constipation, degenerative joint disease. History of Any Multi-Drug Resistant Organisms: None Reported Past Surgical History: Heart Catheterization, Hysterectomy, Orthopedic Surgery, Tonsillectomy Additional Past Surgical History / Comment(s): Right knee arthroplasty, bilateral cataract/lens implant surgery, skin cancer removed under R eye. Past Anesthesia/Blood Transfusion Reactions: No Reported Reaction Past Psychological History: Anxiety Smoking Status: Former smoker Past Alcohol Use History: None Reported Past Drug Use History: None Reported - Past Family History Mother Family Medical History: Dementia Additional Family Medical History / Comment(s): AGE 99 Father Family Medical History: No Reported History Additional Family Medical History / Comment(s): WAS HEALTHY AT ALMOST AGE 99 Medications and Allergies Home Medications Medication Instructions Recorded Confirmed Type ALPRAZolam [Xanax] 0.5 mg PO BID PRN 11/04/17 01/29/22 History Potassium Chloride [Klor-Con 10 ER] 10 meq PO TID 11/04/17 01/29/22 History Tiotropium 18 Mcg/Puff [Spiriva] 1 cap INHALATION RT-DAILY 11/04/17 01/29/22 History Atorvastatin [Lipitor] 20 mg PO HS 06/04/20 01/29/22 History Apixaban [Eliquis] 2.5 mg PO BID #60 tablet 06/12/20 01/29/22 Rx Metoprolol Tartrate [Lopressor] 25 mg PO TID #90 tab 06/12/20 01/29/22 Rx Ketorolac 0.5% Ophth Soln [Acular 1 drop LEFT EYE QID 12/22/20 01/29/22 History 0.5%] Spironolactone [Aldactone] 25 mg PO DAILY 12/22/20 01/29/22 History Albuterol Inhaler [Ventolin Hfa 1 puff INHALATION RT-QID #8 gm 01/10/22 01/29/22 Rx Inhaler] Escitalopram Oxalate [Lexapro] 10 mg PO DAILY 01/10/22 01/29/22 History Famotidine [Pepcid] 20 mg PO BID 01/10/22 01/29/22 History Insulin Aspart [NovoLOG Flexpen] See Protocol SQ AC-TID 01/10/22 01/29/22 History Insulin Glargine,Hum.rec.anlog 30 unit SQ DAILY 01/10/22 01/29/22 History [Lantus Solostar Pen] Montelukast [Singulair] 10 mg PO DAILY 01/10/22 01/29/22 History Dorzolamide 2% [Trusopt 2%] 1 drop RIGHT EYE BID 01/29/22 01/29/22 History Allergies Allergy/AdvReac Type Severity Reaction Status Date / Time egg Allergy Itching Verified 01/29/22 12:24 Surgical - Exam Vital Signs Temp Pulse Resp BP Pulse Ox 97.6 F 96 16 191/95 96 01/29/22 11:23 01/29/22 11:23 01/29/22 11:23 01/29/22 11:23 01/29/22 11:23 Patient is an elderly ill-appearing female in no acute distress. She opens her eyes but does not respond to any commands. HEENT is normocephalic, atraumatic. Heart is regular. Lungs are diminished. Abdomen is soft. Extremity show no clubbing, cyanosis or edema. Holding her sons hand. No apparent distress Results Computed tomography scan and ultrasound are reviewed. Agree with occlusion of the right internal carotid artery, likely chronic. The left is greater than 70% - Labs 01/29/22 11:31 01/30/22 04:29 Abnormal Lab Results - Last 24 Hours (Table) 01/29/22 01/29/22 01/29/22 Range/Units 19:59 20:02 20:45 POC Glucose (mg/dL) 45 L 61 L 154 H (75-99) mg/dL Magnesium (1.6-2.3) mg/dL HDL Cholesterol (40.00-60.00) mg/dL 01/29/22 01/29/22 01/29/22 Range/Units 21:01 22:04 23:58 POC Glucose (mg/dL) 135 H 189 H 192 H (75-99) mg/dL Magnesium (1.6-2.3) mg/dL HDL Cholesterol (40.00-60.00) mg/dL 01/30/22 01/30/22 01/30/22 Range/Units 01:49 03:57 04:29 POC Glucose (mg/dL) 239 H 207 H (75-99) mg/dL Magnesium (1.6-2.3) mg/dL HDL Cholesterol 27.50 L (40.00-60.00) mg/dL 01/30/22 01/30/22 01/30/22 Range/Units 04:29 06:16 08:00 POC Glucose (mg/dL) 208 H 240 H (75-99) mg/dL Magnesium 1.4 L (1.6-2.3) mg/dL HDL Cholesterol (40.00-60.00) mg/dL 01/30/22 01/30/22 Range/Units 10:04 12:03 POC Glucose (mg/dL) 282 H 236 H (75-99) mg/dL Magnesium (1.6-2.3) mg/dL HDL Cholesterol (40.00-60.00) mg/dL Microbiology - Last 24 Hours (Table) 01/29/22 12:02 Urine Culture - Preliminary Urine,Voided Diabetes panel 01/30/22 01/30/22 Range/Units 04:29 04:29 Potassium 3.9 (3.5-5.1) mmol/L Triglycerides 75.70 (0.00-149.00) mg/dL HDL Cholesterol 27.50 L (40.00-60.00) mg/dL Pituitary panel 01/30/22 Range/Units 04:29 Potassium 3.9 (3.5-5.1) mmol/L Adrenal panel 01/30/22 Range/Units 04:29 Potassium 3.9 (3.5-5.1) mmol/L Assessment and Plan Assessment: Symptomatic left internal carotid artery stenosis Right internal carotid artery occlusion CVA Atrial fibrillation Plan: Long discussion was had with the son in the room. Likely the patient has symptomatic left internal carotid artery stenosis. Her peak systolic velocity is 231 with a ratio of 3.3 around 70% stenosis. This is confirmed on the computed tomography scan. At this point he does not think they would like to go forward with any sort of surgical intervention, we discussed the recommendations for surgical intervention. given her continued neurologic impairments it was agreed upon going forward with therapies and rehabilitation as well as medical management. If at some point she regains her previous and they would like to plan to go forward with intervention we can do this as an outpatient. We discussed that if she were to go forward with intervention would be in the form of a trans-carotid artery revascularization. The son at the bedside seemingly understood
--- NOTE | 2022-01-30 13:29 | P.CRDCN ---
History of Present Illness Consult date: 01/30/22 Reason for Consult (text): SVT History of present illness: This is Ho St NP, I'm dictating on behalf of Dr. Zacarias's H&P and A&P The patient was interviewed and examined. HPI: Patient is a 76 year old female who initially presented to the hospital due to unresponsiveness. Patient was worked up in the ER and was found to have a st roke, and further workup shows 100% occlusion of the right internal carotid, and 75% stenosis of the left internal carotid. She had an episode of SVT overnight, of which she was placed on IV amiodarone. The patient is non-verbal, and not responding to voice or light touch. HPI information has been gathered from ER notes. She has a past medical history that includes atrial fibrillation, asthma, cancer, heart failure, COPD, prior CVA, diabetes, hyperlipidemia, hypertension, osteoarthritis, renal disease, and congestive heart failure. Past surgical history includes abdominal hysterectomy, orthopedic surgery, tonsillectomy, and heart catheterization. Notes report the patient's former smoker, denies current alcohol or illicit substance use. Patient was examined while lying in the bed. Patient is currently unresponsive to touch or verbal cueing. She did not open her eyes during the exam. ROS: No fever, chills, or rigors no cough, phlegm, or expectoration no nausea, vomiting, or diarrhea no hematuria, dysuria no musculoskelatal complaints no strokes or seizures no skin lesions EXAMINATION: GENERAL: Patient is currently not responding to verbal commands or physical touch. NECK: Supple without JVD or thyromegaly. LUNGS: Breath sounds clear to auscultation bilaterally. Respiration equal and unlabored. No wheezes, rales or rhonchi. HEART: Regular rate and rhythm without rubs or gallops, pansystolic murmur noted. S1 and S2 heard. EXTREMITIES: Normal range of motion, no edema. No clubbing or cyanosis. Peripheral pulses intact and strong. REVIEW OF LABS, ECG & MEDICAL DATA: LABS: White count 4.8, hemoglobin 14.4, platelets 161, sodium 138, potassium 3.9, B1 21, creatinine 1.09, magnesium 1.4, troponin 0.078, triglycerides 75, cholesterol 108, LDL 65, HDL 27.5 EKG: A. fib with controlled rate IMAGING: CT of the brain dated 01/29/2022 shows there is sulcal effacement in the region of the high left frontal lobe suspicious for CURT territory CVA; chest x-ray dated 01/29/2022 shows interstitial infiltrates greatest at the right upper lobe and left greater than right lung base; CT angiogram of the head and neck dated 01/29/2022 shows thrombosis of the entire right internal carotid artery, there is at least 75% stenosis at the origin of the left internal carotid artery, stenosis is likely 90%, there is noted right maxillary sinusitis, bilateral upper lobe pneumonia; carotid Doppler study dated 01/29/2022 shows antegrade flow in the vertebral arteries, there is complete occlusion of the right internal carotid artery, there is significant plaque on the left side and estimated 170% stenosis of the left internal carotid artery. VITALS: Temp 97.6, pulse 89, respirations 19, blood pressure 140/80, O2 saturation 98% on 3 L of supplemental oxygen via nasal cannula IMPRESSION/PLAN: 1. SVT-continue amiodarone at 0.5 mg/m until the patient is more alert and able to swallow. 2. Stroke with 100% occlusion of right internal carotid-follow neurology recommendations for blood pressure. If blood pressure breaches neurology threshold, may consider transcutaneous clonidine. Thank you for the consult and allowing us to participate in the care of this patient. Plan: Continue amiodarone 0.5mg/min until patient is more alert and able to swallow. Past Medical History Past Medical History: Atrial Fibrillation, Asthma, Cancer, Heart Failure, COPD, CVA/TIA, Diabetes Mellitus, Eye Disorder, Hyperlipidemia, Hypertension, Osteoarthritis (OA), Renal Disease, Respiratory Disorder, Vascular Disorder Additional Past Medical History / Comment(s): chronic systolic congestive heart failure. Her ejection fraction is 20-25%. Severe mitral regurgitation, chronic atrial fibrillation on Eliquis. 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 She also follows here for chronic obstructive pulmonary disease with an FEV1 value of 73 percent of predicted. She has been maintained on Symbicort, Spiriva and albuterol.NIDDM type II, neuropathy bilateral hands/feet, CVA with R eye blindness, severe shingelles 2010 which affected L arm/back of neck, skin cancer with removal, R sided nephrolithiasis-nonobstructing per past medical record/pt unaware, chronic constipation, degenerative joint disease. History of Any Multi-Drug Resistant Organisms: None Reported Past Surgical History: Heart Catheterization, Hysterectomy, Orthopedic Surgery, Tonsillectomy Additional Past Surgical History / Comment(s): Right knee arthroplasty, bilateral cataract/lens implant surgery, skin cancer removed under R eye. Past Anesthesia/Blood Transfusion Reactions: No Reported Reaction Past Psychological History: Anxiety Smoking Status: Former smoker Past Alcohol Use History: None Reported Past Drug Use History: None Reported - Past Family History Mother Family Medical History: Dementia Additional Family Medical History / Comment(s): AGE 99 Father Family Medical History: No Reported History Additional Family Medical History / Comment(s): WAS HEALTHY AT ALMOST AGE 99 Medications and Allergies Home Medications Medication Instructions Recorded Confirmed Type ALPRAZolam [Xanax] 0.5 mg PO BID PRN 11/04/17 01/29/22 History Potassium Chloride [Klor-Con 10 ER] 10 meq PO TID 11/04/17 01/29/22 History Tiotropium 18 Mcg/Puff [Spiriva] 1 cap INHALATION RT-DAILY 11/04/17 01/29/22 History Atorvastatin [Lipitor] 20 mg PO HS 06/04/20 01/29/22 History Apixaban [Eliquis] 2.5 mg PO BID #60 tablet 06/12/20 01/29/22 Rx Metoprolol Tartrate [Lopressor] 25 mg PO TID #90 tab 06/12/20 01/29/22 Rx Ketorolac 0.5% Ophth Soln [Acular 1 drop LEFT EYE QID 12/22/20 01/29/22 History 0.5%] Spironolactone [Aldactone] 25 mg PO DAILY 12/22/20 01/29/22 History Albuterol Inhaler [Ventolin Hfa 1 puff INHALATION RT-QID #8 gm 01/10/22 01/29/22 Rx Inhaler] Escitalopram Oxalate [Lexapro] 10 mg PO DAILY 01/10/22 01/29/22 History Famotidine [Pepcid] 20 mg PO BID 01/10/22 01/29/22 History Insulin Aspart [NovoLOG Flexpen] See Protocol SQ AC-TID 01/10/22 01/29/22 History Insulin Glargine,Hum.rec.anlog 30 unit SQ DAILY 01/10/22 01/29/22 History [Lantus Solostar Pen] Montelukast [Singulair] 10 mg PO DAILY 01/10/22 01/29/22 History Dorzolamide 2% [Trusopt 2%] 1 drop RIGHT EYE BID 01/29/22 01/29/22 History Allergies Allergy/AdvReac Type Severity Reaction Status Date / Time egg Allergy Itching Verified 01/29/22 12:24 Physical Exam Vitals: Vital Signs Temp Pulse Pulse Resp BP BP Pulse Ox 01/30/22 07:49 94 L 01/30/22 04:00 98.1 F 86 20 174/93 94 L 01/29/22 23:40 98.1 F 102 H 24 166/86 96 01/29/22 21:15 111 H 151/85 01/29/22 21:04 183 H 130/86 01/29/22 20:58 185 H 96/88 01/29/22 20:40 182 H 122/85 01/29/22 19:50 97.9 F 95 22 168/72 95 01/29/22 17:56 98.6 F 102 H 16 105/83 96 01/29/22 17:33 106 H 18 98/75 96 01/29/22 16:44 105 H 18 94 L 01/29/22 16:36 107 H 18 104/75 95 01/29/22 15:35 101 H 18 96 01/29/22 14:35 98 18 117/76 96 01/29/22 14:20 98 18 150/89 95 01/29/22 13:23 90 18 139/99 97 01/29/22 13:00 85 18 204/110 94 L 01/29/22 12:00 81 18 203/110 95 01/29/22 11:45 80 16 199/99 95 01/29/22 11:32 100 16 174/97 96 01/29/22 11:23 97.6 F 96 16 191/95 96 Intake and Output 01/29/22 01/30/22 01/30/22 22:59 06:59 14:59 Output Total 825 700 Balance -825 -700 Output: Urine 825 700 Other: Voiding Method Indwelling Catheter Indwelling Catheter Results 01/29/22 11:31 01/30/22 04:29 Cardiac Enzymes 01/29/22 01/29/22 Range/Units 11:31 11:31 AST 37 H (14-36) U/L Troponin I 0.078 H* (0.000-0.034) ng/mL Coagulation 01/29/22 Range/Units 11:31 PT 11.4 (9.0-12.0) sec APTT 23.0 (22.0-30.0) sec Lipids 01/30/22 Range/Units 04:29 Triglycerides 75.70 (0.00-149.00) mg/dL Cholesterol 108.00 (0.00-200.00) mg/dL HDL Cholesterol 27.50 L (40.00-60.00) mg/dL Cholesterol/HDL Ratio 3.93 Ratio CBC 01/29/22 Range/Units 11:31 WBC 4.8 (3.8-10.6) k/uL RBC 5.05 (3.80-5.40) m/uL Hgb 14.4 (11.4-16.0) gm/dL Hct 44.0 (34.0-46.0) % Plt Count 161 (150-450) k/uL Comprehensive Metabolic Panel 01/29/22 01/30/22 Range/Units 11:31 04:29 Sodium 138 (137-145) mmol/L Potassium 4.4 3.9 (3.5-5.1) mmol/L Chloride 112 H (98-107) mmol/L Carbon Dioxide 18 L (22-30) mmol/L BUN 21 H (7-17) mg/dL Creatinine 1.09 H (0.52-1.04) mg/dL Glucose 109 H (74-99) mg/dL Calcium 7.7 L (8.4-10.2) mg/dL AST 37 H (14-36) U/L ALT 20 (4-34) U/L Alkaline Phosphatase 136 H (38-126) U/L Total Protein 6.2 L (6.3-8.2) g/dL Albumin 2.5 L (3.5-5.0) g/dL Current Medications Generic Name Dose Route Start Last Admin Trade Name Freq PRN Reason Stop Dose Admin Aspirin 325 mg 01/30/22 09:00 01/30/22 09:09 Aspirin 325 Mg Tab PO Not Given DAILY RUDY Atorvastatin Calcium 80 mg 01/29/22 21:00 01/29/22 20:41 Atorvastatin 80 Mg Tab PO Not Given HS RUDY Heparin Sodium (Porcine) 5,000 unit 01/29/22 21:00 01/30/22 09:10 Heparin Sodium,Porcine/Pf 5,000 Unit/0.5 Ml Syringe SQ 5,000 unit Q12HR RUDY Administration Sodium Chloride 1,000 mls @ 130 mls/hr 01/29/22 12:45 01/30/22 06:36 Saline 0.9% IV Not Given .Q7H42M RUDY Amiodarone HCl 450 mg/ 250 mls @ 16.667 mls/hr 01/30/22 03:30 01/30/22 02:55 Dextrose/Water IV 01/30/22 21:29 0.5 mg/min .Q15H RUDY 16.667 mls/hr Administration Protocol 0.5 MG/MIN Dextrose/Sodium Chloride 1,000 mls @ 100 mls/hr 01/29/22 21:30 01/30/22 06:35 Dextrose 5%-Ns Iv Soln IV 100 mls/hr .Q10H RUDY Administration Insulin Aspart 0 unit 01/30/22 07:30 01/30/22 06:35 Insulin Aspart (Novolog) 100 Unit/Ml Vial SQ 3 unit ACHS RUDY Administration Protocol Intake and Output 01/29/22 01/30/22 01/30/22 22:59 06:59 14:59 Output Total 825 700 Balance -825 -700 Output: Urine 825 700 Other: Voiding Method Indwelling Catheter Indwelling Catheter 01/29/22 11:31 01/30/22 04:29
[2022-01-30] MEDS: ASPIRIN 300 MG SUPP RECTAL SCH (13:49)
--- NOTE | 2022-01-30 14:00 | ECHOF ---
Referral Reason:Thrombus MEASUREMENTS -------- HEIGHT: 177.8 cm WEIGHT: 51.7 kg BP: IVSd: 1.1 cm (0.6 - 1.1) LVIDd: 3.1 cm (3.9 - 5.3) LVPWd: 0.9 cm (0.6 - 1.1) IVSs: 1.3 cm LVIDs: 2.5 cm LVPWs: 1.0 cm MV E Stu: 0.69 m/s MV DecT: 114 ms MV A Stu: 1.03 m/s MV E/A Ratio: 0.67 RAP: 5.00 mmHg RVSP: 9.56 mmHg FINDINGS -------- Atrial fibrillation. This was a technically adequate study. The left ventricular size is normal. There is mild concentric left ventricular hypertrophy. Overa ll left ventricular systolic function is moderately impaired with, an EF between 35 - 40 %. The RV was not well visualized. The left atrial size is normal. The right atrial size is normal. Aortic valve is trileaflet and is mildly thickened. The mitral valve is normal. The mitral valve leaflets are mildly thickened. Mild mitral annular c alcification present. Moderate mitral regurgitation is present. The tricuspid valve appears structurally normal. Mild tricuspid regurgitation present. Right vent ricular systolic pressure is normal at < 35 mmHg. The pulmonic valve was not well visualized. The aortic root size is normal. Normal inferior vena cava with normal inspiratory collapse consistent with estimated right atrial pre ssure of 5 mmHg. There is no pericardial effusion. CONCLUSIONS -------- 1. Atrial fibrillation. 2. The left ventricular size is normal. 3. There is mild concentric left ventricular hypertrophy. 4. Overall left ventricular systolic function is moderately impaired with, an EF between 35 - 40 %. 5. Aortic valve is trileaflet and is mildly thickened. 6. The mitral valve leaflets are mildly thickened. 7. Mild mitral annular calcification present. 8. Moderate mitral regurgitation is present. 9. Mild tricuspid regurgitation present. 10. There is no pericardial effusion. CONTROL CLERK HEAD: Clarita Dominguez RDCS
[2022-01-30 14:06] LABS: Glucose,Whole Blood 277 mg/dL (75-99)
--- NOTE | 2022-01-30 15:08 | P.HPIM ---
History of Present Illness H&P Date: 01/29/22 Chief Complaint: Altered mental status 76-year-old woman, history of stroke, atrial fibrillation, diabetes mellitus, hypertension, hyperlipidemia, congestive heart failure, COPD who presented to emergency department for altered mental status. The patient last known normal wa s at 2 AM today. Patient was nonverbal upon presentation. Per the patient's son patient usually walks with a walker; about 3 weeks ago she had a flu like symptoms and she declined and was unable to take care of herself and moved with him. It seems that around the at which a.m. was her last normal state that when the patient's son tried to wake her up at a.m. she was unresponsive. She continued to be unresponsive for the next 2-3 hours so was brought to ED. He denied to the patient at any jerk in of any extremities, foaming around the mouth. Per EMR stated that the patient has history of stroke with residual right eye deficit. The son stated that her right eye deficit was the due to the her diabetes that he was notified. Blood work in ED reveals creatinine is 1.09, AST is 37, ALT of 20, initial troponin 0.078, initial serum glucose is 109 in the POC glucose is 93. Urine white blood cell is the leukocyte esterase was large, urine white blood cells 21. CT head is reported as acute to subacute hypodensity over the left CURT territory. EKG is reported as atrial fibrillation with rapid ventricular response with aberrant conduction or ventricular premature complexes. Left axis deviation. Anteroseptal myocardial infarction. Model T-wave abnormality. Review of Systems ROS unobtainable: due to mental status Past Medical History Past Medical History: Atrial Fibrillation, Asthma, Cancer, Heart Failure, COPD, CVA/TIA, Diabetes Mellitus, Eye Disorder, Hyperlipidemia, Hypertension, Osteoarthritis (OA), Renal Disease, Respiratory Disorder, Vascular Disorder Additional Past Medical History / Comment(s): chronic systolic congestive heart failure. Her ejection fraction is 20-25%. Severe mitral regurgitation, chronic atrial fibrillation on Eliquis. 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 She also follows here for chronic obstructive pulmonary disease with an FEV1 value of 73 percent of predicted. She has been maintained on Symbicort, Spiriva and albuterol.NIDDM type II, neuropathy bilateral hands/feet, CVA with R eye blindness, severe shingelles 2009 which affected L arm/back of neck, skin cancer with removal, R sided nephrolithiasis-nonobstructing per past medical record/pt unaware, chronic constipation, degenerative joint disease. History of Any Multi-Drug Resistant Organisms: None Reported Past Surgical History: Heart Catheterization, Hysterectomy, Orthopedic Surgery, Tonsillectomy Additional Past Surgical History / Comment(s): Right knee arthroplasty, bilate ral cataract/lens implant surgery, skin cancer removed under R eye. Past Anesthesia/Blood Transfusion Reactions: No Reported Reaction Past Psychological History: Anxiety Smoking Status: Former smoker Past Alcohol Use History: None Reported Past Drug Use History: None Reported - Past Family History Mother Family Medical History: Dementia Additional Family Medical History / Comment(s): AGE 99 Father Family Medical History: No Reported History Additional Family Medical History / Comment(s): WAS HEALTHY AT ALMOST AGE 99 Medications and Allergies Home Medications Medication Instructions Recorded Confirmed Type ALPRAZolam [Xanax] 0.5 mg PO BID PRN 11/04/17 01/29/22 History Potassium Chloride [Klor-Con 10 ER] 10 meq PO TID 11/04/17 01/29/22 History Tiotropium 18 Mcg/Puff [Spiriva] 1 cap INHALATION RT-DAILY 11/04/17 01/29/22 History Atorvastatin [Lipitor] 20 mg PO HS 06/04/20 01/29/22 History Apixaban [Eliquis] 2.5 mg PO BID #60 tablet 06/12/20 01/29/22 Rx Metoprolol Tartrate [Lopressor] 25 mg PO TID #90 tab 06/12/20 01/29/22 Rx Ketorolac 0.5% Ophth Soln [Acular 1 drop LEFT EYE QID 12/22/20 01/29/22 History 0.5%] Spironolactone [Aldactone] 25 mg PO DAILY 12/22/20 01/29/22 History Albuterol Inhaler [Ventolin Hfa 1 puff INHALATION RT-QID #8 gm 01/10/22 01/29/22 Rx Inhaler] Escitalopram Oxalate [Lexapro] 10 mg PO DAILY 01/10/22 01/29/22 History Famotidine [Pepcid] 20 mg PO BID 01/10/22 01/29/22 History Insulin Aspart [NovoLOG Flexpen] See Protocol SQ AC-TID 01/10/22 01/29/22 History Insulin Glargine,Hum.rec.anlog 30 unit SQ DAILY 01/10/22 01/29/22 History [Lantus Solostar Pen] Montelukast [Singulair] 10 mg PO DAILY 01/10/22 01/29/22 History Dorzolamide 2% [Trusopt 2%] 1 drop RIGHT EYE BID 01/29/22 01/29/22 History Allergies Allergy/AdvReac Type Severity Reaction Status Date / Time egg Allergy Itching Verified 01/29/22 12:24 Physical Exam Vitals: Vital Signs Temp Pulse Resp BP Pulse Ox 01/29/22 14:35 98 18 117/76 96 01/29/22 14:20 98 18 150/89 95 01/29/22 13:23 90 18 139/99 97 01/29/22 13:00 85 18 204/110 94 L 01/29/22 12:00 81 18 203/110 95 01/29/22 11:45 80 16 199/99 95 01/29/22 11:32 100 16 174/97 96 01/29/22 11:23 97.6 F 96 16 191/95 96 Intake and Output 01/29/22 01/29/22 01/29/22 06:59 14:59 22:59 Other: Weight 52 kg Limitations: altered mental status, physical limitation General appearance: alert Head exam: Present: atraumatic Eye exam: Present: normal appearance, other (Right pupil changes consistent with previous surgery) ENT exam: Present: normal oropharynx Neck exam: Present: normal inspection. Absent: tenderness, meningismus Respiratory exam: Present: normal lung sounds bilaterally Cardiovascular Exam: Present: regular rate, normal rhythm GI/Abdominal exam: Present: soft. Absent: tenderness Extremities exam: Present: normal inspection Neurological exam: Present: altered Results CBC & Chem 7: 01/29/22 11:31 01/30/22 04:29 Labs: Abnormal Lab Results - Last 24 Hours (Table) 01/29/22 01/29/22 01/29/22 Range/Units 11:31 11:31 11:31 RDW 17.4 H (11.5-15.5) % ABG pH (7.35-7.45) ABG pCO2 (35-45) mmHg ABG pO2 (83-108) mmHg ABG HCO3 (21-25) mmol/L ABG O2 Saturation (94-97) % Chloride 112 H (98-107) mmol/L Carbon Dioxide 18 L (22-30) mmol/L BUN 21 H (7-17) mg/dL Creatinine 1.09 H (0.52-1.04) mg/dL Glucose 109 H (74-99) mg/dL Calcium 7.7 L (8.4-10.2) mg/dL AST 37 H (14-36) U/L Alkaline Phosphatase 136 H (38-126) U/L Troponin I 0.078 H* (0.000-0.034) ng/mL Total Protein 6.2 L (6.3-8.2) g/dL Albumin 2.5 L (3.5-5.0) g/dL Ur Leukocyte Esterase (Negative) Urine RBC (0-5) /hpf Urine WBC (0-5) /hpf Urine Bacteria (None) /hpf U Benzodiazepines Scrn (NotDetected) 01/29/22 01/29/22 Range/Units 11:54 12:02 RDW (11.5-15.5) % ABG pH 7.46 H (7.35-7.45) ABG pCO2 25 L (35-45) mmHg ABG pO2 63 L (83-108) mmHg ABG HCO3 18 L (21-25) mmol/L ABG O2 Saturation 92.9 L (94-97) % Chloride (98-107) mmol/L Carbon Dioxide (22-30) mmol/L BUN (7-17) mg/dL Creatinine (0.52-1.04) mg/dL Glucose (74-99) mg/dL Calcium (8.4-10.2) mg/dL AST (14-36) U/L Alkaline Phosphatase (38-126) U/L Troponin I (0.000-0.034) ng/mL Total Protein (6.3-8.2) g/dL Albumin (3.5-5.0) g/dL Ur Leukocyte Esterase Large H (Negative) Urine RBC 7 H (0-5) /hpf Urine WBC 21 H (0-5) /hpf Urine Bacteria Rare H (None) /hpf U Benzodiazepines Scrn Detected H (NotDetected) Assessment and Plan Assessment: 1. Acute subacute CVA; over left CURT territory - Patient is deemed not a candidate for TPA due to being on anticoagulation therapy and outside window - CVA favors embolic phenomena given history of atrial fibrillation - Patient received aspirin 300 mg suppository in ED and is recommended to continue with 325 mg daily; Eliquis was placed on hold till MRI of the brain is completed to assess size of the stroke; if indicated Eliquis is recommended to be increased to 5 mg twice a day for atrial fibrillation to avoid further strokes; cardiology is consulted - Patient will remain on Lipitor 80 mg by mouth daily at bedtime - Permissive hypertension with plans to treat if systolic blood pressures greater than 220 or diastolic blood pressures greater than 110 - PT/OT/SIDING INSTALLER consulted 2. Atrial fibrillation; anticoagulation placed on hold till MRI is completed to assess size of stroke; if patient cleared to resume Eliquis, neurology is recommending to increase dose to 5 mg twice a day 3. Hypertension; permissive hypertension as indicated above 4. Hyperlipidemia; Lipitor 80 mg by mouth daily at bedtime 5. Diabetes mellitus; monitor Accu-Cheks every seen ages with insulin sliding scale 6. COPD; not in exacerbation; continue with home inhaler therapy DVT prophylaxis; SCDs/subcu heparin per neurology recommendations CODE STATUS; DO NOT RESUSCITATE
--- NOTE | 2022-01-30 15:14 | P.PN ---
Subjective Progress Note Date: 01/30/22 Overnight the patient was in SVT and was started on Amiodarone. The patient is seen at bedside and per nurse she was awake in the AM and moving the left side but not right side. She continues not to verbalize. No seizure-like activity noted by nursing staff. Upon seeing the patient she was sleeping. Objective - Vital Signs Vital signs: Vital Signs Temp 97.6 F 01/30/22 12:00 Pulse 89 01/30/22 12:00 Resp 19 01/30/22 12:00 BP 206/77 01/30/22 12:00 Pulse Ox 95 01/30/22 12:00 Intake & Output 01/29/22 01/30/22 01/30/22 18:59 06:59 18:59 Output Total 1525 625 Balance -1525 -625 Weight 52 kg Output: Urine 1525 625 Other: Voiding Method Indwelling Catheter Indwelling Catheter Indwelling Catheter - Exam GENERAL: The patient and was sleeping. NEUROLOGICAL: Limited because she was sleeping. Therefore could not assess her condition. WORK-UP: Lipid Panel: TG is 75, Cholestrol 108, LDL [address] the head is reported as there is sulcal effacement in the region in the high left frontal lobe suspicious for CURT territory CVA. I personally reviewed the CT of the head and I do feel that acute to subacute hypodensity over the left CURT territory. There is no intraparenchymal bleed noted. CT angiography of the head and neck was reported as there is thrombosis of the entire right ICA. There is at least 75% stenosis at the origin of the left ICA. Stenosis is likely 90% 2D echo: Is reported as Atrial fibrillation. LV sytolic function is moderately impaired. EF 35-40%. Mild concentric left ventricular hypertrophy. Moderate mitral regurgitation present. Carotid duplex was reported as there is antegrade flow in the vertebral arteries. There is complete occlusion right ICA. There is significant plaque on the left side and estimated more than 70% stenosis of the left ICA artery - Labs CBC & Chem 7: 01/29/22 11:31 01/30/22 04:29 Labs: Abnormal Lab Results - Last 24 Hours (Table) 01/29/22 01/29/22 01/29/22 Range/Units 19:59 20:02 20:45 POC Glucose (mg/dL) 45 L 61 L 154 H (75-99) mg/dL Magnesium (1.6-2.3) mg/dL HDL Cholesterol (40.00-60.00) mg/dL 01/29/22 01/29/22 01/29/22 Range/Units 21:01 22:04 23:58 POC Glucose (mg/dL) 135 H 189 H 192 H (75-99) mg/dL Magnesium (1.6-2.3) mg/dL HDL Cholesterol (40.00-60.00) mg/dL 01/30/22 01/30/22 01/30/22 Range/Units 01:49 03:57 04:29 POC Glucose (mg/dL) 239 H 207 H (75-99) mg/dL Magnesium (1.6-2.3) mg/dL HDL Cholesterol 27.50 L (40.00-60.00) mg/dL 01/30/22 01/30/22 01/30/22 Range/Units 04:29 06:16 08:00 POC Glucose (mg/dL) 208 H 240 H (75-99) mg/dL Magnesium 1.4 L (1.6-2.3) mg/dL HDL Cholesterol (40.00-60.00) mg/dL 01/30/22 01/30/22 01/30/22 Range/Units 10:04 12:03 13:55 POC Glucose (mg/dL) 282 H 236 H 277 H (75-99) mg/dL Magnesium (1.6-2.3) mg/dL HDL Cholesterol (40.00-60.00) mg/dL Microbiology - Last 24 Hours (Table) 01/29/22 12:02 Urine Culture - Preliminary Urine,Voided Assessment and Plan Assessment: Acute to subacute stroke (over left CURT territory). She has right sided weakness and aphasic, mute. No IV TPA since the patient is on anticoagulationand outside window and the risk outweighed the benefits. Seems embolic possible artery to artery from symptomatic left ICA vs A-fib (I feel eliquis is suboptimally dosed). Symptomatic Left ICA (90% per CTA and >70% per carotid duplex) Right ICA occlusion (per CTA and carotid duplex) SVT History of stroke with reported right visual defect (but per family members her right visual defect due to DM) Atrial fibrillation on Eliquis Diabetes mellitus Hypertension History of Right visual defect Hyperlipidemia Systolic congestive heart failure Severe mitral regurgitation COPD on nasal oxygen Ex-tobacco use (stopped 5 years and smoked for about 50 years) Plan: Pending MRI of the brain without urgent Patient is still NPO and needs full swallow evaluation. IN the mean time started on 300mg ASA suppository daily. We'll hold off on Eliquis until MRI Brain to assess size of stroke then will recommend of when to restart eliquis. I feel the patient Eliquis 2.5 mg 1 tablet twice a could be increased to 5 mg a tablet twice a day for atrial fibrillation to avoid further strokes. I consulted cardiology for modification of her medication. On Lipitor 80 mg daily at bedtime. Continue neuro checks On cardiac monitoring Vascular surgery team is consulted and they evaluated patient and discussed with family member and family does not want to pursue with left ICA surgery and pursue medical management. PT, OT and VAMP PRESSER is consulted. STAT EEG was canceled on 01/29/2022 since patient was more awake and no seizure activity noted. For DVT prophylaxis: On subq heparin 5000U every 12 hours. We'll defer the rest of the medical management to the primary team. Condition is very guarded to critical. Patient code status is DNR. The plan is discussed with the patient's nurse. Dr. Sierra will start neurology coverage tomorrow AM. Anderson Connor M.D. Neuro-hospitalist Time with Patient: Less than 30
[2022-01-30 16:05] LABS: Glucose,Whole Blood 237 mg/dL (75-99)
[2022-01-30 17:08] LABS: Anisocytosis Slight; Basophils % (A) 0 %; Eosinophils # (A) 0.1 k/uL (0-0.7); Eosinophils % (A) 1 %; HCT 42.3 % (34.0-46.0); HGB 13.5 gm/dL (11.4-16.0); Lymphocytes # (A) 0.7 k/uL (1.0-4.8); Lymphocytes % (A) 12 %; MCH 27.5 pg (25.0-35.0); MCHC 31.8 g/dL (31.0-37.0); MCV 86.5 fL (80.0-100.0); Mean Platelet Volume 7.2; Monocytes # (A) 0.3 k/uL (0-1.0); Monocytes % (A) 6 %; Neutrophils # (A) 4.4 k/uL (1.3-7.7); Neutrophils % (A) 78 %; Platelet Count 194 k/uL (150-450); RBC 4.89 m/uL (3.80-5.40); RDW 17.8 % (11.5-15.5); WBC 5.6 k/uL (3.8-10.6)
[2022-01-30 17:19] LABS: African American GFR (CKD) >90 (>60 ml/min/1.73 sqM); Anion Gap 7 mmol/L; Blood Urea Nitrogen 7 mg/dL (7-17); Calcium 7.2 mg/dL (8.4-10.2); Carbon Dioxide 17 mmol/L (22-30); Chloride 110 mmol/L (98-107); Glucose 240 mg/dL (74-99); Non-African American GFR(CKD) 82 (>60 ml/min/1.73 sqM); Potassium 3.9 mmol/L (3.5-5.1); Sodium 134 mmol/L (137-145)
[2022-01-30] MEDS: AMIODARONE 450 MG in DEXTROSE 5% IN WATER 250 ML IV SCH ×2 (18:11)
[2022-01-30] MEDS: KETOROLAC 0.5% OPHTH DROPS 5 ML BTL LEFT EYE SCH ×2 (18:50→20:11)
[2022-01-30] MEDS: ATORVASTATIN 80 MG TAB PO SCH (20:05)
[2022-01-30] MEDS: DORZOLAMIDE HCL 2% DROPS 10 ML BTL RIGHT EYE SCH (20:10)
--- NOTE | 2022-01-30 23:35 | P.PN ---
Subjective Progress Note Date: 01/30/22 Principal diagnosis: Acute/Subacute CVA over left CURT territory 76-year-old woman, history of stroke, atrial fibrillation, diabetes mellitus, hypertension, hyperlipidemia, congestive heart failure, COPD who presented to emergency department for altered mental status. The patient last known normal was at 2 AM today. Patient was nonverbal upon presentation. Per the patient's son patient usually walks with a walker; about 3 weeks ago she had a flu like symptoms and she declined and was unable to take care of herself and moved with him. It seems that around the at which a.m. was her last normal state that when the patient's son tried to wake her up at a.m. she was unresponsive. She continued to be unresponsive for the next 2-3 hours so was brought to ED. He denied to the patient at any jerk in of any extremities, foaming around the mouth. Per EMR stated that the patient has history of stroke with residual right eye deficit. The son stated that her right eye deficit was the due to the her diabetes that he was notified. Blood work in ED reveals creatinine is 1.09, AST is 37, ALT of 20, initial troponin 0.078, initial serum glucose is 109 in the POC glucose is 93. Urine white blood cell is the leukocyte esterase was large, urine white blood cells 21. CT head is reported as acute to subacute hypodensity over the left CURT territor y. EKG is reported as atrial fibrillation with rapid ventricular response with aberrant conduction or ventricular premature complexes. Left axis deviation. Anteroseptal myocardial infarction. Model T-wave abnormality. 01/30/2022 Patient developed SVT overnight Treated with adenosine and eventually started on amiodarone Cardiology is consulted Vital signs are reviewed and remain stable ; neurology on board MRI IS ORDERED AND PENDING, PATIENT REMAINS NPO PENDING FULL SWALLOW EVALUATION PATIENT REMAINS ON ASPIRIN 300 MG, SUPPOSITORY. Eliquis remains on hold until MRI is completed to assess size of the stroke after which neurology is recommending to increase dose 5 mg PO BID Objective - Vital Signs Vital signs: Vital Signs Temp 97.6 F 01/30/22 12:00 Pulse 89 01/30/22 12:00 Resp 19 01/30/22 12:00 BP 206/77 01/30/22 12:00 Pulse Ox 95 01/30/22 12:00 Intake & Output 01/29/22 01/30/22 01/30/22 18:59 06:59 18:59 Output Total 1520 057 Balance -1525 -312 Weight 52 kg Output: Urine 1527 625 Other: Voiding Method Indwelling Catheter Indwelling Catheter Indwelling Catheter - Exam Limitations: altered mental status, physical limitation General appearance: alert Head exam: Present: atraumatic Eye exam: Present: normal appearance, other (Right pupil changes consistent with previous surgery) ENT exam: Present: normal oropharynx Neck exam: Present: normal inspection. Absent: tenderness, meningismus Respiratory exam: Present: normal lung sounds bilaterally Cardiovascular Exam: Present: regular rate, normal rhythm GI/Abdominal exam: Present: soft. Absent: tenderness Extremities exam: Present: normal inspection Neurological exam: Present: altered - Labs CBC & Chem 7: 01/30/22 16:52 01/30/22 16:52 Labs: Abnormal Lab Results - Last 24 Hours (Table) 01/29/22 01/29/22 01/29/22 Range/Units 19:59 20:02 20:45 POC Glucose (mg/dL) 45 L 61 L 154 H (75-99) mg/dL Magnesium (1.6-2.3) mg/dL HDL Cholesterol (40.00-60.00) mg/dL 01/29/22 01/29/22 01/29/22 Range/Units 21:01 22:04 23:58 POC Glucose (mg/dL) 135 H 189 H 192 H (75-99) mg/dL Magnesium (1.6-2.3) mg/dL HDL Cholesterol (40.00-60.00) mg/dL 01/30/22 01/30/22 01/30/22 Range/Units 01:49 03:57 04:29 POC Glucose (mg/dL) 239 H 207 H (75-99) mg/dL Magnesium (1.6-2.3) mg/dL HDL Cholesterol 27.50 L (40.00-60.00) mg/dL 01/30/22 01/30/22 01/30/22 Range/Units 04:29 06:16 08:00 POC Glucose (mg/dL) 208 H 240 H (75-99) mg/dL Magnesium 1.4 L (1.6-2.3) mg/dL HDL Cholesterol (40.00-60.00) mg/dL 01/30/22 01/30/22 01/30/22 Range/Units 10:04 12:03 13:55 POC Glucose (mg/dL) 282 H 236 H 277 H (75-99) mg/dL Magnesium (1.6-2.3) mg/dL HDL Cholesterol (40.00-60.00) mg/dL Microbiology - Last 24 Hours (Table) 01/29/22 12:02 Urine Culture - Preliminary Urine,Voided Assessment and Plan Assessment: 1. Acute subacute CVA; over left CURT territory - Patient is deemed not a candidate for TPA due to being on anticoagulation therapy and outside window - CVA favors embolic phenomena given history of atrial fibrillation - Patient received aspirin 300 mg suppository in ED and is recommended to continue with 325 mg daily; Eliquis was placed on hold till MRI of the brain is completed to assess size of the stroke; if indicated Eliquis is recommended to be increased to 5 mg twice a day for atrial fibrillation to avoid further strokes; cardiology is consulted - Patient will remain on Lipitor 80 mg by mouth daily at bedtime - Permissive hypertension with plans to treat if systolic blood pressures greater than 220 or diastolic blood pressures greater than 110 - PT/OT/PROGRAM ENGAGEMENT DIRECTOR consulted 2. Atrial fibrillation; anticoagulation placed on hold till MRI is completed to assess size of stroke; if patient cleared to resume Eliquis, neurology is recommending to increase dose to 5 mg twice a day 3. Hypertension; permissive hypertension as indicated above 4. Hyperlipidemia; Lipitor 80 mg by mouth daily at bedtime 5. Diabetes mellitus; monitor Accu-Cheks every seen ages with insulin sliding scale 6. COPD; not in exacerbation; continue with home inhaler therapy DVT prophylaxis; SCDs/subcu heparin per neurology recommendations CODE STATUS; DO NOT RESUSCITATE
[2022-01-31 00:09] LABS: Glucose,Whole Blood 170 mg/dL (75-99)
[2022-01-31] MEDS: INSULIN ASPART (NovoLOG) 100 UNIT/ML VIAL SQ SCH ×5 (00:09→23:05)
[2022-01-31 05:58] LABS: Glucose,Whole Blood 250 mg/dL (75-99)
[2022-01-31] MEDS: DEXTROSE 5%-0.9% NACL 1,000 ML IV SCH ×3 (06:00→20:48)
[2022-01-31] MEDS: SODIUM CHLORIDE 0.9% 1,000 ML IV SCH ×2 (06:00→09:20)
[2022-01-31 06:58] LABS: Anisocytosis Slight; Basophils % (A) 0 %; Eosinophils # (A) 0.1 k/uL (0-0.7); Eosinophils % (A) 1 %; HCT 44.4 % (34.0-46.0); HGB 14.3 gm/dL (11.4-16.0); Lymphocytes # (A) 0.8 k/uL (1.0-4.8); Lymphocytes % (A) 10 %; MCH 27.8 pg (25.0-35.0); MCHC 32.2 g/dL (31.0-37.0); MCV 86.2 fL (80.0-100.0); Mean Platelet Volume 7.2; Monocytes # (A) 0.5 k/uL (0-1.0); Monocytes % (A) 5 %; Neutrophils # (A) 6.8 k/uL (1.3-7.7); Neutrophils % (A) 82 %; Platelet Count 239 k/uL (150-450); RBC 5.15 m/uL (3.80-5.40); RDW 17.9 % (11.5-15.5); WBC 8.3 k/uL (3.8-10.6)
[2022-01-31 07:43] LABS: African American GFR (CKD) >90 (>60 ml/min/1.73 sqM); Anion Gap 8 mmol/L; Blood Urea Nitrogen 5 mg/dL (7-17); Calcium 7.3 mg/dL (8.4-10.2); Carbon Dioxide 15 mmol/L (22-30); Chloride 110 mmol/L (98-107); Glucose 249 mg/dL (74-99); Non-African American GFR(CKD) 84 (>60 ml/min/1.73 sqM); Potassium 3.8 mmol/L (3.5-5.1); Sodium 133 mmol/L (137-145)
[2022-01-31] MEDS: ASPIRIN 300 MG SUPP RECTAL SCH (08:00)
[2022-01-31] MEDS: KETOROLAC 0.5% OPHTH DROPS 5 ML BTL LEFT EYE SCH ×4 (08:05→20:48)
[2022-01-31] MEDS: DORZOLAMIDE HCL 2% DROPS 10 ML BTL RIGHT EYE SCH ×2 (08:05→20:48)
[2022-01-31] MEDS: HEPARIN SODIUM,PORCINE/PF 5,000 UNIT/0.5 ML SYRINGE SQ SCH ×2 (08:06→20:44)
[2022-01-31] MEDS: AMIODARONE 450 MG in DEXTROSE 5% IN WATER 250 ML IV SCH ×2 (09:14)
[2022-01-31] MEDS: FAMOTIDINE 20 MG/2 ML VIAL IV SCH ×2 (09:19→20:44)
--- NOTE | 2022-01-31 10:39 | XR ---
EXAMINATION TYPE: XR chest 1V portable DATE OF EXAM: 01/31/2022 COMPARISON: 01/29/2022 HISTORY: Shortness of breath TECHNIQUE: Single frontal view of the chest is obtained. FINDINGS: Hyperinflation noted and there is scoliotic curvature the spine with hypertrophic and dege nerative changes. Bilateral areas of infiltrate and pleural effusion stable. Heart size stable. No pn eumothorax. Biapical pleural thickening. Arthropathy of the shoulders. Calcification the soft tissues of the neck likely related to carotid artery calcification. IMPRESSION: 1. COPD with stable bilateral infiltrate and pleural effusion.
--- NOTE | 2022-01-31 11:10 | P.PN ---
Subjective This is a pleasant 76-year-old female past medical history significant for with dilated cardiomyopathy with EF 35-40%, mitral regurgitation, coronary artery disease, chronic systolic heart failure, paroxysmal atrial fibrillation on long-term anticoagulation, hypertension, diabetes mellitus, COPD, chronic kidney disease and former nicotine dependence. She follows in the office with Dr. Aparicio. We have been asked to see in consultation for Eliquis modification and SVT. Patient admitted on 01/29/2022 for altered mental status. Patient found to have an acute subacute stroke over left HYDRAULIC ENGINEER territory. 01/29/2022 patient went to SVT requiring adenosine and started on IV amiodarone. Echocardiogram revealed EF of 3540 percent, moderate mitral regurgitation, mild tricuspid regurgitation 01/31/2022 Patient seen and examined at bedside, no acute distress. She is awake and moving left side. She continues to be nonverbal. No further SVT noted on telemetry. Patient is maintaining sinus mechanism with heart rates in the [id number]. She's currently maintained on amiodarone 0.5 mg/minute, atorvastatin 80 mg ni loagn. Her Eliquis continues to be on hold per neurology waiting on MRI. Blood pressure 171/83, heart rate 93, afebrile, oxygen saturation 75% on 3 L nasal cannula GENERAL: In no acute distress. NECK: Supple without JVD LUNGS: Breath sounds clear to auscultation bilaterally. Respiration equal and unlabored. No wheezes, rales or rhonchi. HEART: Regular rate and rhythm with systolic ejection murmur at apex, no rubs or gallops. S1 and S2 heard. EXTREMITIES: Normal range of motion, no edema. Peripheral pulses intact. ASSESSMENT Acute to subacute stroke Supraventricular tachycardia Carotid artery stenosis- Right ICA occlusion, 75% stenosis of the left ICA, 90% per CTA Paroxysmal atrial fibrillation, currently maintaining sinus mechanism. Dilated cardiomyopathy Mitral regurgitation Chronic heart failure with reduced ejection fraction, clinically euvolemic COPD Hypertension Dyslipidemia Chronic kidney disease Diabetes mellitus, type 2 History of coronary artery disease exact details unavailable PLAN -Due to patient's NPO Status, we will continue IV amiodarone -Plan for MRI today, Per neurology holding Eliquis until MRI brain to assess size of stroke -When Eliquis is ready to resume, ok to increase to 5mg BID -Further recommendations based on clinical course Nurse Practitioner note has been reviewed, I agree with a documented findings, assessment, and plan of care. Patient was seen and examined. Objective - Vital Signs Vital signs: Vital Signs Temp 97.9 F 01/31/22 08:00 Pulse 93 01/31/22 08:00 Resp 18 01/31/22 08:00 BP 171/83 01/31/22 08:00 Pulse Ox 90 L 01/31/22 08:00 Intake & Output 01/30/22 01/31/22 01/31/22 18:59 06:59 18:59 Intake Total 250 Output Total 925 875 Balance -925 -875 250 Intake: Intake, IV Titration 250 Amount Amiodarone 450 mg In 250 Dextrose 5% in Water 250 ml @ 0.5 MG/MIN 16.667 mls/hr IV .Q15H [facility] Rx#: [id number] Output: Urine 925 875 Other: Voiding Method Indwelling Catheter Indwelling Catheter Indwelling Catheter - Labs CBC & Chem 7: 01/31/22 05:23 01/31/22 05:23 Labs: Abnormal Lab Results - Last 24 Hours (Table) 01/30/22 01/30/22 01/30/22 Range/Units 12:03 13:55 16:00 RDW (11.5-15.5) % Lymphocytes # (1.0-4.8) k/uL Sodium (137-145) mmol/L Chloride (98-107) mmol/L Carbon Dioxide (22-30) mmol/L BUN (7-17) mg/dL Glucose (74-99) mg/dL POC Glucose (mg/dL) 236 H 277 H 237 H (75-99) mg/dL Calcium (8.4-10.2) mg/dL 01/30/22 01/30/22 01/31/22 Range/Units 16:52 16:52 00:07 RDW 17.8 H (11.5-15.5) % Lymphocytes # 0.7 L (1.0-4.8) k/uL Sodium 134 L (137-145) mmol/L Chloride 110 H (98-107) mmol/L Carbon Dioxide 17 L (22-30) mmol/L BUN (7-17) mg/dL Glucose 240 H (74-99) mg/dL POC Glucose (mg/dL) 170 H (75-99) mg/dL Calcium 7.2 L (8.4-10.2) mg/dL 01/31/22 01/31/22 01/31/22 Range/Units 05:23 05:23 05:57 RDW 17.9 H (11.5-15.5) % Lymphocytes # 0.8 L (1.0-4.8) k/uL Sodium 133 L (137-145) mmol/L Chloride 110 H (98-107) mmol/L Carbon Dioxide 15 L (22-30) mmol/L BUN 5 L (7-17) mg/dL Glucose 249 H (74-99) mg/dL POC Glucose (mg/dL) 250 H (75-99) mg/dL Calcium 7.3 L (8.4-10.2) mg/dL Microbiology - Last 24 Hours (Table) 01/29/22 12:02 Urine Culture - Final Urine,Voided
--- NOTE | 2022-01-31 11:11 | MR ---
EXAMINATION TYPE: MR brain wo con DATE OF EXAM: 01/31/2022 COMPARISON: 01/29/2022 CT scan HISTORY: Stroke, AMS TECHNIQUE: T1-weighted sagittal, T2, FLAIR, and diffusion axial, and T2 coronal coronal views of the brain are submitted. FINDINGS: There is large area of abnormal diffusion restriction the left parietal lobe measuring 6.8 cm compati ble with acute ischemia. Additionally, there are numerous subcentimeter bilateral areas of abnormal signal on diffusion compat ible with multifocal areas of tiny acute infarct. Area of abnormal signal involving the anterior kristina in the corpus callosum suggestive of previous infarct.. Changes of chronic sinusitis. Orbits are symmetric. Exam limited by motion artifact. Degenerative and additional areas of abnormal signal in the white matter suggestive of remote ischemia. Craniocervical junction maintained. Sella turcica has a normal appearance. There is absence of the si gnal void of the right internal carotid artery compatible with previous CT scan showing complete occl usion. IMPRESSION: 1. Large area measuring approximately 6.8 cm of acute ischemia left parietal lobe. Report called to vincent sierra's nurse 11:04 AM 01/31/2022. 2. There are additional multifocal 5 mm or less areas of acute ischemia scattered throughout both cer ebral hemispheres. This can occasionally be associated with embolic phenomenon correlate clinically. 3. Findings are concordant with previous CT scan demonstrating complete occlusion of the right ICA.
[2022-01-31 11:57] LABS: Glucose,Whole Blood 331 mg/dL (75-99)
--- NOTE | 2022-01-31 12:26 | P.PN ---
Subjective Progress Note Date: 01/31/22 Patient was seen for a follow-up. Patient initially seen by Dr. Anderson Connor. Please refer to his note for details. Patient's son and [id number] were present today. Patient is a 76-year-old left-handed female who came to the hospital with an acute stroke with right hemiplegia. Per patient's son, he talked to her on Monday supervisor cd area at 2:30 AM on 01/29/2022 and she was fine. At 8 AM he saw her and she was asleep. At 10 AM when patient did not wake, he noticed something was wrong and called ambulance. Patient was brought to the hospital at 11:21 AM. Patient was not a candidate for TPA, as she came outside the window. Patient was mute, completely aphasic only moving her left side. Right ICA is completely occluded, whereas there is a left is > 70% stenosis involving the left ICA. Vascular surgery has seen the patient and her any intervention declined by the family. Patient has history of atrial fibrillation, currently on Eliquis 2.5 mg twice a day. Patient was not taking any antiplatelet medication at home. Cardiology also on board. Patient at present and on aspirin 300 mg suppository because she is nothing by mouth. Objective - Vital Signs Vital signs: Vital Signs Temp 97.9 F 01/31/22 08:00 Pulse 93 01/31/22 08:00 Resp 18 01/31/22 08:00 BP 171/83 01/31/22 08:00 Pulse Ox 90 L 01/31/22 08:00 Intake & Output 01/30/22 01/31/22 01/31/22 18:59 06:59 18:59 Intake Total 250 Output Total 925 875 Balance -925 -875 250 Intake: Intake, IV Titration 250 Amount Amiodarone 450 mg In 250 Dextrose 5% in Water 250 ml @ 0.5 MG/MIN 16.667 mls/hr IV .Q15H [facility] Rx#: [id number] Output: Urine 925 875 Other: Voiding Method Indwelling Catheter Indwelling Catheter Indwelling Catheter - Exam Patient is an elderly female, in no acute distress. Patient is alert awake. Patient is mute, not able to speak any words, name any objects presented, cannot repeat. Patient has limited comprehension, as she was able to lift her left arm up and follows directions to some extent. Patient able to lift her left thumb up when asked. Not able to point to the door. Could not name 3/3 objects presented. Attention, concentration and fund of knowledge is limited due to aphasia. On cranial examination, her right pupil is dilated, nonreactive, about 5 mm, and the left is 4 mm and reactive. 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 Her visual lanza could not be tested reliably, extraocular muscles are intact with no nystagmus. Patient has left gaze preference. Patient has right facial weakness, central type. Her tongue protrudes to the midline. Palatal elevation and sensation cannot be tested. Hearing appears slightly decreased. Shoulder shrug decreased on the right. On muscle strength testing, the right side is hemiplegic. Patient has normal strength in the left arm and left leg. Deep tendon reflexes are diminished in the upper limbs, 1 at the right knee to on the left knee, ankles are 0 and plantar is upgoing on the right, but possible up on the left as well. Sensory to touch is decreased on the right side. Cerebellar functions could not be tested. Tone is decreased on the right. Bulk of muscles normal.. Gait not able to be checked because of right hemiplegia. On general examination, there is no obvious carotid bruit heard, as patient would not stop or cold breathing for testing. There is no obvious murmur, S1-S2 audible. Abdomen is soft nontender. Chest is clear. Peripheral pulses are present. Patient has purplish discoloration of the pulps of the distal phalanx of all 4 fingers of both hands, right more than left, with some involvement of the right thumb. - Labs CBC & Chem 7: 02/01/22 08:20 02/01/22 08:20 Labs: Abnormal Lab Results - Last 24 Hours (Table) 01/30/22 01/30/22 01/30/22 Range/Units 12:03 13:55 16:00 RDW (11.5-15.5) % Lymphocytes # (1.0-4.8) k/uL Sodium (137-145) mmol/L Chloride (98-107) mmol/L Carbon Dioxide (22-30) mmol/L BUN (7-17) mg/dL Glucose (74-99) mg/dL POC Glucose (mg/dL) 236 H 277 H 237 H (75-99) mg/dL Calcium (8.4-10.2) mg/dL 01/30/22 01/30/22 01/31/22 Range/Units 16:52 16:52 00:07 RDW 17.8 H (11.5-15.5) % Lymphocytes # 0.7 L (1.0-4.8) k/uL Sodium 134 L (137-145) mmol/L Chloride 110 H (98-107) mmol/L Carbon Dioxide 17 L (22-30) mmol/L BUN (7-17) mg/dL Glucose 240 H (74-99) mg/dL POC Glucose (mg/dL) 170 H (75-99) mg/dL Calcium 7.2 L (8.4-10.2) mg/dL 01/31/22 01/31/22 01/31/22 Range/Units 05:23 05:23 05:57 RDW 17.9 H (11.5-15.5) % Lymphocytes # 0.8 L (1.0-4.8) k/uL Sodium 133 L (137-145) mmol/L Chloride 110 H (98-107) mmol/L Carbon Dioxide 15 L (22-30) mmol/L BUN 5 L (7-17) mg/dL Glucose 249 H (74-99) mg/dL POC Glucose (mg/dL) 250 H (75-99) mg/dL Calcium 7.3 L (8.4-10.2) mg/dL Microbiology - Last 24 Hours (Table) 01/29/22 12:02 Urine Culture - Final Urine,Voided Assessment and Plan Assessment: Acute ischemic stroke (over left CURT territory). Patient has severe expressive aphasia and right hemiparesis. Patient did not receive IV TPA since the patient is on anticoagulationant, and came outside window for TPA. Seems embolic possible from atrial fibrillation, as the MRI of brain reveals involvement of bilateral hemispheric region, the largest involving the left frontal region in the CURT territory. 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 Hypertension History of Right visual defect Hyperlipidemia Systolic congestive heart failure Severe mitral regurgitation COPD on nasal oxygen Ex-tobacco use (stopped 5 years and smoked for about 50 years) Plan: MRI of the brain without contrast revealed large area measuring approximately 6.8 cm of acute ischemia left parietal lobe. On my review, it appears to involve the left CURT territory. There are additional multifocal 5 mm or less areas of acute ischemia scattered throughout both cerebral hemispheres. This can occasionally be associated with embolic phenomenon correlate clinically. A one small area of ischemia also involves the left lateral cerebellar region, therefore the strokes likely cardioembolic in nature. Patient is still NPO and needs full swallow evaluation. Continue 300mg ASA suppository daily. Continue to hold off on Eliquis for 5 days, and then may resume Eliquis 5 mg 1 tablet twice a day for atrial fibrillation to avoid further strokes. I would also suggest starting aspirin 81 mg daily indefinitely for stroke prevention related to carotid atherosclerotic disease. Cardiology also on board. 2-D echo revealed atrial fibrillation. Left-ventricular size is normal. Mild concentric LVH. Left ventricle systolic function is moderately impaired with EF between 35-40%. Aortic valve is trileaflet and is mildly thickened. The mitral valve leaflets are mildly thickened. Patient was on Lipitor 20 mg daily. The dose has been increased to Lipitor 80 mg daily at bedtime (when able to take by mouth). Lipid panel with cholesterol 108, LDL 65, HDL 27 and triglycerides 75. Hemoglobin A1c. Continue neuro checks On cardiac monitoring Maintain BP between 150-180 systolic and 80-110 diastolic. Avoid excessive HTN or hypotension. Vascular surgery team is consulted and they evaluated patient and discussed with family member and family does not want to pursue with left ICA surgery and pursue medical management. PT, OT and BOWLING FLOOR DESK CLERK is consulted. Patient probably will have more intense deficit of the right lower extremity as compared to the right upper extremity based upon the location of the stroke in the left CURT territory. For DVT prophylaxis: On subq heparin 5000U every 12 hours. We'll defer the rest of the medical management to the primary team. I discussed the MRI results, and reviewed MRI films on the computer with the family. Neurology will follow. Time with Patient: Greater than 30
[2022-01-31] MEDS: PIPERACILLIN-TAZOBACTAM 3.375 GM in SODIUM CHLORIDE 0.9% 100 ML IVPB SCH ×2 (12:28→20:45)
--- NOTE | 2022-01-31 15:18 | FL ---
EXAMINATION TYPE: FL barium swallow w video DATE OF EXAM: 01/31/2022 COMPARISON: NONE HISTORY: Apical vascular accident. FINDINGS: Patient was evaluated in real-time fluoroscopy in the lateral projection while ingesting barium mixe d with liquids. Exam somewhat limited technically. No aspiration or laryngeal penetration. See dicta tara report from speech pathology. 1 minute 28 seconds fluoroscopy time, no images obtained.
[2022-01-31 18:36] LABS: Glucose,Whole Blood 215 mg/dL (75-99)
[2022-01-31] MEDS: ATORVASTATIN 80 MG TAB PO SCH (20:44)
[2022-01-31] MEDS: METOPROLOL TARTRATE 25 MG TAB PO SCH (20:44)
[2022-01-31] MEDS: AMIODARONE 200 MG TAB PO SCH (20:45)
[2022-01-31] MEDS ORDERED: ATORVASTATIN 80 MG TAB PO SCH (21:00)
[2022-01-31] MEDS ORDERED: FUROSEMIDE 10 MG/ML 4 ML VIAL IV STA (21:39)
[2022-01-31] MEDS ORDERED: FUROSEMIDE 10 MG/ML 2 ML VIAL IV ONE (21:45)
--- NOTE | 2022-01-31 22:16 | P.PN ---
Subjective From the records 76-year-old woman, history of stroke, atrial fibrillation, diabetes mellitus, hypertension, hyperlipidemia, congestive heart failure, COPD who presented to emergency department for altered mental status. The patient last known normal was at 2 AM today. Patient was nonverbal upon presentation. Per the patient's son patient usually walks with a walker; about 3 weeks ago she had a flu like symptoms and she declined and was unable to take care of herself and moved with him. It seems that around the at which a.m. was her last normal state that when the patient's son tried to wake her up at a.m. she was unresponsive. She continued to be unresponsive for the next 2-3 hours so was brought to ED. He denied to the patient at any jerk in of any extremities, foaming around the mouth. Per EMR stated that the patient has history of stroke with residual right eye deficit. The son stated that her right eye deficit was the due to the her diabetes that he was notified. Blood work in ED reveals creatinine is 1.09, AST is 37, ALT of 20, initial troponin 0.078, initial serum glucose is 109 in the POC glucose is 93. Urine white blood cell is the leukocyte esterase was large, urine white blood cells 21. CT head is reported as acute to subacute hypodensity over the left CURT territory. EKG is reported as atrial fibrillation with rapid ventricular response with aberrant conduction or ventricular premature complexes. Left axis deviation. Anteroseptal myocardial infarction. Model T-wave abnormality. 01/30/2022 Patient developed SVT overnight Treated with adenosine and eventually started on amiodarone Cardiology is consulted Vital signs are reviewed and remain stable ; neurology on board MRI IS ORDERED AND PENDING, PATIENT REMAINS NPO PENDING FULL SWALLOW EVALUATION PATIENT REMAINS ON ASPIRIN 300 MG, SUPPOSITORY. Eliquis remains on hold until MRI is completed to assess size of the stroke after which neurology is recommending to increase dose 5 mg PO BID Subjective: Resume with the care of the patient today 01/31/2022 Patient is a pleasant 76 years old female with multiple medical problems presents with signs and symptoms of acute left frontal stroke with right hemiplegia and speech difficulty secondary to left internal carotid artery occlusion. CTA of the head and neck and carotid Doppler's was showing complete occlusion of the right ICA. Patient evaluated by vascular surgery team as well as neurology team. Vascular team, family does not want surgery after for medical management, patient was placed on aspirin per neurology recommendation for more prophylaxis. Also patient is on Eliquis at home for A. fib which is on hold for now as MRI of the brain showing large area of acute ischemia measured 6.8 cm on the left parietal lobe with multiple ischemic sports or areas less than 5 mm on both cerebral hemispheres with complete occlusion of the right ICA. Most likely this is a thromboembolic phenomena per neurologist, cartilage team on the case as well. Patient underwent swallow evaluation the patient placed on a pured diet with close monitoring. Amiodarone drip was switched to oral (by head waiter/waitress banquet 200 mg twice daily. Also there was evidence of some tachypnea, repeated chest x-ray today showed bilateral infiltrates with COPD, patient procalcitonin is negative at 0.07, it was felt patient does not need antibiotic as she is afebrile as well. Oxygen saturation was 95-96 on 3 L oxygen and in the morning. We will keep monitoring her oxygen status closely. We lowered her IV fluid 130 mL/h down to 30 mm/h, with echocardiogram showing ejection fraction of 35-40% with moderate mitral regurgitation. Blood pressure is to be monitored closely. Patient was hypoglycemic on admission . Continue with Accu-Chek. Replace magnesium. Review of systems CONSTITUTIONAL: No fever, no malaise, no fatigue. HEENT: No recent visual problems or hearing problems. Denied any sore throat. CARDIOVASCULAR: No orthopnea, PND, no palpitations, no syncope. PULMONARY: No chest wall tenderness, no hemoptysis. Active Medications Generic Name Dose Route Start Last Admin Trade Name Freq PRN Reason Stop Dose Admin Albuterol/Ipratropium 3 ml 01/31/22 21:57 Ipratropium-Albuterol 3 Ml Neb INHALATION RT-QID PRN Shortness Of Breath Or Wheezing Amiodarone HCl 200 mg 01/31/22 21:00 01/31/22 20:45 Amiodarone 200 Mg Tab PO 200 mg BID RUDY Administration Aspirin 325 mg 02/01/22 09:00 Aspirin 325 Mg Tab PO DAILY RUDY Atorvastatin Calcium 80 mg 01/29/22 21:00 01/31/22 20:44 Atorvastatin 80 Mg Tab PO 80 mg HS RUDY Administration Budesonide 0.5 mg 02/01/22 21:57 Budesonide 0.5 Mg/2 Ml Nebu INHALATION RT-BID RUDY Dorzolamide HCl 1 drops 01/30/22 21:00 01/31/22 20:48 Dorzolamide Hcl 2% Drops 10 Ml Btl RIGHT EYE 1 drops BID RUDY Administration Famotidine 20 mg 01/31/22 09:00 01/31/22 20:44 Famotidine 20 Mg/2 Ml Vial IV 20 mg Q12HR RUDY Administration Heparin Sodium (Porcine) 5,000 unit 01/29/22 21:00 01/31/22 20:44 Heparin Sodium,Porcine/Pf 5,000 Unit/0.5 Ml Syringe SQ 5,000 unit Q12HR RUDY Administration Dextrose/Sodium Chloride 1,000 mls @ 30 mls/hr 01/29/22 21:30 01/31/22 20:48 Dextrose 5%-Ns Iv Soln IV 75 mls/hr .Q24H [facility] Administration Insulin Aspart 0 unit 01/31/22 00:00 01/31/22 18:36 Insulin Aspart (Novolog) 100 Unit/Ml Vial SQ 3 unit Q6H RUDY Administration Protocol Ketorolac Tromethamine 1 drops 01/30/22 18:00 01/31/22 20:48 Ketorolac 0.5% Ophth Drops 5 Ml Btl LEFT EYE 1 drops QID RUDY Administration Metoprolol Tartrate 25 mg 01/31/22 22:00 01/31/22 20:44 Metoprolol Tartrate 25 Mg Tab PO 25 mg TID RUDY Administration Objective - Vital Signs Vital signs: Vital Signs Temp 97.7 F 01/31/22 12:00 Pulse 100 01/31/22 15:50 Resp 22 01/31/22 15:50 BP 183/91 01/31/22 15:50 Pulse Ox 93 L 01/31/22 15:50 Intake & Output 01/30/22 01/31/22 01/31/22 18:59 06:59 18:59 Intake Total 850 Output Total 925 875 450 Balance -925 -875 400 Intake: Intake, IV Titration 850 Amount Amiodarone 450 mg In 250 Dextrose 5% in Water 250 ml @ 0.5 MG/MIN 16.667 mls/hr IV .Q15H [facility] Rx#: [id number] Dextrose 5%-0.9% NaCl 1, 600 000 ml @ 75 mls/hr IV . [id number] [facility] Rx#:[id number] Output: Urine 925 875 450 Other: Voiding Method Indwelling Catheter Indwelling Catheter Indwelling Catheter - Exam -GENERAL: The patient is awake but does not answer questions, she'll follow some simple commands, not in any acute distress. Well developed, well nourished. HEENT: Pupils are round and equally reacting to light. EOMI. No scleral icterus. No conjunctival pallor. Normocephalic, atraumatic. No pharyngeal erythema. No t hyromegaly. CARDIOVASCULAR: S1 and S2 present. No murmurs, rubs, or gallops. -PULMONARY: Chest is clear to auscultation, mild prolonged expiration with no wheezing ABDOMEN: Soft, nontender, nondistended, normoactive bowel sounds. No palpable organomegaly. MUSCULOSKELETAL: No joint swelling or deformity. EXTREMITIES: No cyanosis, clubbing, or pedal edema. -NEUROLOGICAL: Aphasia. Right hemiplegia SKIN: No rashes. no petechiae. - Labs CBC & Chem 7: 01/31/22 05:23 01/31/22 05:23 Labs: Abnormal Lab Results - Last 24 Hours (Table) 01/30/22 01/30/22 01/31/22 Range/Units 16:52 16:52 00:07 RDW 17.8 H (11.5-15.5) % Lymphocytes # 0.7 L (1.0-4.8) k/uL Sodium 134 L (137-145) mmol/L Chloride 110 H (98-107) mmol/L Carbon Dioxide 17 L (22-30) mmol/L BUN (7-17) mg/dL Glucose 240 H (74-99) mg/dL POC Glucose (mg/dL) 170 H (75-99) mg/dL Calcium 7.2 L (8.4-10.2) mg/dL 01/31/22 01/31/22 01/31/22 Range/Units 05:23 05:23 05:57 RDW 17.9 H (11.5-15.5) % Lymphocytes # 0.8 L (1.0-4.8) k/uL Sodium 133 L (137-145) mmol/L Chloride 110 H (98-107) mmol/L Carbon Dioxide 15 L (22-30) mmol/L BUN 5 L (7-17) mg/dL Glucose 249 H (74-99) mg/dL POC Glucose (mg/dL) 250 H (75-99) mg/dL Calcium 7.3 L (8.4-10.2) mg/dL 01/31/22 Range/Units 11:53 RDW (11.5-15.5) % Lymphocytes # (1.0-4.8) k/uL Sodium (137-145) mmol/L Chloride (98-107) mmol/L Carbon Dioxide (22-30) mmol/L BUN (7-17) mg/dL Glucose (74-99) mg/dL POC Glucose (mg/dL) 331 H (75-99) mg/dL Calcium (8.4-10.2) mg/dL Microbiology - Last 24 Hours (Table) 01/29/22 12:02 Urine Culture - Final Urine,Voided Assessment and Plan Assessment: Left parietal acute stroke with large ischemia area 6.8 cm with multiple b ilateral smaller ischemic area less than 5 mm, most likely showing embolic phenomena secondary to occluded left ICA Bilateral ICA occlusion, 100% on the right side, more than 70% of the left side which is most likely the cause of stroke, family declined surgery, continue with medical management. SVT, on amiodarone, head waiter/waitress banquet on the case Diabetes mellitus with hyperglycemia on admission secondary to decreased oral intake. Currently glucose is controlled. Cardiomyopathy with possible pulmonary congestion with acute combined systolic and diastolic CHF with ejection fraction 35-40% with moderate mitral regurgitation. A. fib on Eliquis, currently on hold Hypertension Plan: This is a pleasant 76 result female who presents with acute stroke and right hemiplegia with left ICA stenosis, SVT and hypoglycemia and pulmonary congestion. Decrease IV fluids to 30 L/h, Went down dose of Lasix. Monitor oxygen and urine output and output. Continue with aspirin per neurologist was on the case and follow closely. Hold Eliquis to cleared by neurologist. Continue with Accu-Chek monitor glucose closely. Amiodarone per Commissions Coordinator. Monitor blood pressure closely Follow-up chest x-ray Continue present treatment and inhaled steroids Labs and medication were reviewed.. Continue same treatment. Continue with symptomatic treatment. Resume home medication. Monitor lytes and vitals. DVT and GI prophylaxis. Further recommendations depends on the clinical course of the patient DVT prophylaxis: Subcutaneous heparin GI Prophylaxis: Pepcid PT/OT: Pending Prognosis is guarded
[2022-01-31 23:04] LABS: Glucose,Whole Blood 168 mg/dL (75-99)
[2022-02-01 05:48] LABS: Glucose,Whole Blood 117 mg/dL (75-99)
[2022-02-01] MEDS: INSULIN ASPART (NovoLOG) 100 UNIT/ML VIAL SQ SCH ×4 (06:09→23:09)
[2022-02-01] MEDS: KETOROLAC 0.5% OPHTH DROPS 5 ML BTL LEFT EYE SCH ×4 (08:45→21:00)
[2022-02-01] MEDS: HEPARIN SODIUM,PORCINE/PF 5,000 UNIT/0.5 ML SYRINGE SQ SCH ×2 (08:45→21:00)
[2022-02-01] MEDS: DORZOLAMIDE HCL 2% DROPS 10 ML BTL RIGHT EYE SCH ×2 (08:45→21:00)
[2022-02-01] MEDS: FAMOTIDINE 20 MG/2 ML VIAL IV SCH (08:45)
[2022-02-01] MEDS: ASPIRIN 325 MG TAB PO SCH ×2 (08:49→09:04)
[2022-02-01] MEDS: METOPROLOL TARTRATE 25 MG TAB PO SCH ×3 (09:04→20:47)
[2022-02-01] MEDS: AMIODARONE 200 MG TAB PO SCH (09:06)
[2022-02-01 09:16] LABS: Anisocytosis Slight; Basophils % (A) 1 %; Eosinophils # (A) 0.1 k/uL (0-0.7); Eosinophils % (A) 1 %; HCT 44.9 % (34.0-46.0); HGB 14.3 gm/dL (11.4-16.0); Lymphocytes # (A) 0.9 k/uL (1.0-4.8); Lymphocytes % (A) 12 %; MCH 27.6 pg (25.0-35.0); MCHC 31.8 g/dL (31.0-37.0); MCV 86.8 fL (80.0-100.0); Mean Platelet Volume 7.3; Monocytes # (A) 0.4 k/uL (0-1.0); Monocytes % (A) 5 %; Neutrophils # (A) 5.8 k/uL (1.3-7.7); Neutrophils % (A) 79 %; Platelet Count 254 k/uL (150-450); RBC 5.17 m/uL (3.80-5.40); RDW 17.9 % (11.5-15.5); WBC 7.3 k/uL (3.8-10.6)
[2022-02-01 09:37] LABS: Calcium 7.2 mg/dL (8.4-10.2); Magnesium 1.3 mg/dL (1.6-2.3); Potassium 3.3 mmol/L (3.5-5.1)
[2022-02-01] MEDS: AMIODARONE 450 MG in DEXTROSE 5% IN WATER 250 ML IV SCH ×4 (09:48→22:05)
[2022-02-01] MEDS: FUROSEMIDE 10 MG/ML 2 ML VIAL IV SCH ×2 (09:48→21:00)
[2022-02-01] MEDS ORDERED: Potassium Replacement Protocol 1 EACH MISC MISCELLANE PRN (09:52)
[2022-02-01] MEDS ORDERED: Magnesium Replacement Protocol 1 EACH MISC MISCELLANE PRN (10:00)
--- NOTE | 2022-02-01 10:03 | P.PN ---
Subjective From the records 76-year-old woman, history of stroke, atrial fibrillation, diabetes mellitus, hypertension, hyperlipidemia, congestive heart failure, COPD who presented to emergency department for altered mental status. The patient last known normal was at 2 AM today. Patient was nonverbal upon presentation. Per the patient's son patient usually walks with a walker; about 3 weeks ago she had a flu like symptoms and she declined and was unable to take care of herself and moved with him. It seems that around the at which a.m. was her last normal state that when the patient's son tried to wake her up at a.m. she was unresponsive. She continued to be unresponsive for the next 2-3 hours so was brought to ED. He denied to the patient at any jerk in of any extremities, foaming around the mouth. Per EMR stated that the patient has history of stroke with residual right eye deficit. The son stated that her right eye deficit was the due to the her diabetes that he was notified. Blood work in ED reveals creatinine is 1.09, AST is 37, ALT of 20, initial troponin 0.078, initial serum glucose is 109 in the POC glucose is 93. Urine white blood cell is the leukocyte esterase was large, urine white blood cells 21. CT head is reported as acute to subacute hypodensity over the left CURT territory. EKG is reported as atrial fibrillation with rapid ventricular response with aberrant conduction or ventricular premature complexes. Left axis deviation. Anteroseptal myocardial infarction. Model T-wave abnormality. 01/30/2022 Patient developed SVT overnight Treated with adenosine and eventually started on amiodarone Cardiology is consulted Vital signs are reviewed and remain stable ; neurology on board MRI IS ORDERED AND PENDING, PATIENT REMAINS NPO PENDING FULL SWALLOW EVALUATION PATIENT REMAINS ON ASPIRIN 300 MG, SUPPOSITORY. Eliquis remains on hold until MRI is completed to assess size of the stroke after which neurology is recommending to increase dose 5 mg PO BID Subjective: Resume with the care of the patient today 01/31/2022 Patient is a pleasant 76 years old female with multiple medical problems presents with signs and symptoms of acute left frontal stroke with right hemiplegia and speech difficulty secondary to left internal carotid artery occlusion. CTA of the head and neck and carotid Doppler's was showing complete occlusion of the right ICA. Patient evaluated by vascular surgery team as well as neurology team. Vascular team, family does not want surgery after for medical management, patient was placed on aspirin per neurology recommendation for more prophylaxis. Also patient is on Eliquis at home for A. fib which is on hold for now as MRI of the brain showing large area of acute ischemia measured 6.8 cm on the left parietal lobe with multiple ischemic sports or areas less than 5 mm on both cerebral hemispheres with complete occlusion of the right ICA. Most likely this is a thromboembolic phenomena per neurologist, cartilage team on the case as well. Patient underwent swallow evaluation the patient placed on a pured diet with close monitoring. Amiodarone drip was switched to oral (by coal weigher 200 mg twice daily. Also there was evidence of some tachypnea, repeated chest x-ray today showed bilateral infiltrates with COPD, patient procalcitonin is negative at 0.07, it was felt patient does not need antibiotic as she is afebrile as well. Oxygen saturation was 95-96 on 3 L oxygen and in the morning. We will keep monitoring her oxygen status closely. We lowered her IV fluid 130 mL/h down to 30 mm/h, with echocardiogram showing ejection fraction of 35-40% with moderate mitral regurgitation. Blood pressure is to be monitored closely. Patient was hypoglycemic on admission . Continue with Accu-Chek. Replace magnesium. 02/01/2022 Patient is awake and alert, however she does not follow commands, she does not answer questions or talked and she does not seem to understand. Most likely patient has global aphasia secondary to her large left parietal stroke. We checked with pharmacy Eliquis was held since admission, per neurologist recommendation we will await the 5 days and we will consider this for possible resume an Eliquis. Today I talked to the patient and daughter in low Mrs. Ashley Rain [phone] and her Braden, I discussed the case with them and they verbalized understanding, also they agrees with PEG tube placement. Surgical team consult placed She is mildly tachycardic and tachypneic, oxygen saturation stable 92% on 4 L oxygen. She is receiving D5 normal saline at 30 mL per hour, yesterday she r eceived 1 dose of IV Lasix and she made about 600-700 mL of urine since then and overnight. Potassium 3.3, magnesium 1.3 which is been placed. CBC unremarkable, creatinine 0.8, BUN 9. Her wheezing almost significantly improved after starting her on Pulmicort. Also we'll start her on IV Lasix 20 mg twice a day as her blood pressure is stable. We'll continue gentle hydration to help her with hydration and some glucose administration. We will repeat chest x-ray tomorrow. All the patient is at risk of aspiration pneumonia currently patient has no evidence of infection, her breathing is improving, no fever,No leukocytosis and pro- calcitonin is normal therefore we don't believe patient will need antibiotic currently Active Medications Generic Name Dose Route Start Last Admin Trade Name Freq PRN Reason Stop Dose Admin Albuterol/Ipratropium 3 ml 01/31/22 21:57 Ipratropium-Albuterol 3 Ml Neb INHALATION RT-QID PRN Shortness Of Breath Or Wheezing Aspirin 325 mg 02/01/22 09:00 02/01/22 09:04 Aspirin 325 Mg Tab PO Not Given DAILY RUDY Atorvastatin Calcium 80 mg 01/29/22 21:00 01/31/22 20:44 Atorvastatin 80 Mg Tab PO 80 mg HS RUDY Administration Budesonide 0.5 mg 02/01/22 21:57 Budesonide 0.5 Mg/2 Ml Nebu INHALATION RT-BID RUDY Dorzolamide HCl 1 drops 01/30/22 21:00 02/01/22 08:45 Dorzolamide Hcl 2% Drops 10 Ml Btl RIGHT EYE 1 drops BID RUDY Administration Famotidine 20 mg 01/31/22 09:00 02/01/22 08:45 Famotidine 20 Mg/2 Ml Vial IV 20 mg Q12HR RUDY Administration Furosemide 20 mg 02/01/22 09:30 02/01/22 09:48 Furosemide 10 Mg/Ml 2 Ml Vial IV 20 mg Q12HR RUDY Administration Heparin Sodium (Porcine) 5,000 unit 01/29/22 21:00 02/01/22 08:45 Heparin Sodium,Porcine/Pf 5,000 Unit/0.5 Ml Syringe SQ 5,000 unit Q12HR RUDY Administration Dextrose/Sodium Chloride 1,000 mls @ 30 mls/hr 01/29/22 21:30 01/31/22 20:48 Dextrose 5%-Ns Iv Soln IV 75 mls/hr .Q24H RUDY Administration Amiodarone HCl 450 mg/ 250 mls @ 16.667 mls/hr 02/01/22 09:15 02/01/22 09:48 Dextrose/Water IV 0.5 mg/min .Q15H [facility] 16.667 mls/hr Administration Protocol 0.5 MG/MIN Insulin Aspart 0 unit 01/31/22 00:00 02/01/22 06:09 Insulin Aspart (Novolog) 100 Unit/Ml Vial SQ Not Given Q6H [facility] Protocol Insulin Detemir 5 unit 02/02/22 07:00 Insulin Detemir (Levemir) 100 Unit/Ml Syr SQ DAILY@0700 [facility] Ketorolac Tromethamine 1 drops 01/30/22 18:00 02/01/22 08:45 Ketorolac 0.5% Ophth Drops 5 Ml Btl LEFT EYE 1 drops QID [facility] Administration Metoprolol Tartrate 25 mg 01/31/22 22:00 02/01/22 09:04 Metoprolol Tartrate 25 Mg Tab PO Not Given TID [facility] Miscellaneous Information 1 each 02/01/22 09:52 Potassium Replacement Protocol 1 Each Misc MISCELLANE DAILY PRN Per Protocol Protocol Miscellaneous Information 1 each 02/01/22 10:00 Magnesium Replacement Protocol 1 Each Misc MISCELLANE DAILY PRN Per Protocol Protocol Objective - Vital Signs Vital signs: Vital Signs Temp 97.7 F 02/01/22 08:00 Pulse 102 H 02/01/22 08:00 Resp 18 02/01/22 08:00 BP 163/76 02/01/22 08:00 Pulse Ox 92 L 02/01/22 08:00 Intake & Output 01/31/22 02/01/22 02/01/22 18:59 06:59 18:59 Intake Total 850 50 50 Output Total 450 725 Balance 400 -675 50 Intake: Intake, IV Titration 850 Amount Amiodarone 450 mg In 250 Dextrose 5% in Water 250 ml @ 0.5 MG/MIN 16.667 mls/hr IV .Q15H [facility] Rx#: [id number] Dextrose 5%-0.9% NaCl 1, 600 000 ml @ 30 mls/hr IV . Q24H [facility] Rx#:[id number] Oral 50 50 Output: Urine 450 725 Other: Voiding Method Indwelling Catheter Indwelling Catheter Indwelling Catheter - Exam -GENERAL: The patient is awake and alert but does not answer questions, she'll does not follow simple commands, not in any acute distress. Well developed, well nourished. HEENT: Pupils are round and equally reacting to light. EOMI. No scleral icterus. No conjunctival pallor. Normocephalic, atraumatic. No pharyngeal erythema. No thyromegaly. CARDIOVASCULAR: S1 and S2 present. No murmurs, rubs, or gallops. -PULMONARY: Chest is clear to auscultation, no prolonged expiration with no w heezing ABDOMEN: Soft, nontender, nondistended, normoactive bowel sounds. No palpable organomegaly. MUSCULOSKELETAL: No joint swelling or deformity. EXTREMITIES: No cyanosis, clubbing, or pedal edema. -NEUROLOGICAL: Aphasia. Right hemiplegia SKIN: No rashes. no petechiae. - Labs CBC & Chem 7: 02/01/22 08:20 02/01/22 08:20 Labs: Abnormal Lab Results - Last 24 Hours (Table) 01/31/22 01/31/22 01/31/22 Range/Units 05:23 11:53 18:34 RDW (11.5-15.5) % Lymphocytes # (1.0-4.8) k/uL Sodium (137-145) mmol/L Potassium (3.5-5.1) mmol/L Chloride (98-107) mmol/L Carbon Dioxide (22-30) mmol/L Glucose (74-99) mg/dL POC Glucose (mg/dL) 331 H 215 H (75-99) mg/dL Hemoglobin A1c 8.5 H (0.0-6.0) % Calcium (8.4-10.2) mg/dL Magnesium (1.6-2.3) mg/dL 01/31/22 02/01/22 02/01/22 Range/Units 23:03 05:46 08:20 RDW 17.9 H (11.5-15.5) % Lymphocytes # 0.9 L (1.0-4.8) k/uL Sodium (137-145) mmol/L Potassium (3.5-5.1) mmol/L Chloride (98-107) mmol/L Carbon Dioxide (22-30) mmol/L Glucose (74-99) mg/dL POC Glucose (mg/dL) 168 H 117 H (75-99) mg/dL Hemoglobin A1c (0.0-6.0) % Calcium (8.4-10.2) mg/dL Magnesium (1.6-2.3) mg/dL 02/01/22 Range/Units 08:20 RDW (11.5-15.5) % Lymphocytes # (1.0-4.8) k/uL Sodium 135 L (137-145) mmol/L Potassium 3.3 L (3.5-5.1) mmol/L Chloride 108 H (98-107) mmol/L Carbon Dioxide 21 L (22-30) mmol/L Glucose 158 H (74-99) mg/dL POC Glucose (mg/dL) (75-99) mg/dL Hemoglobin A1c (0.0-6.0) % Calcium 7.2 L (8.4-10.2) mg/dL Magnesium 1.3 L (1.6-2.3) mg/dL Assessment and Plan Assessment: Left parietal acute stroke with large ischemia area 6.8 cm with multiple bilateral smaller ischemic area less than 5 mm, most likely showing embolic phenomena secondary to occluded left ICA Bilateral ICA occlusion, 100% on the right side, more than 70% of the left side which is most likely the cause of stroke, family declined surgery, continue with medical management. SVT, on amiodarone, coal weigher on the case Diabetes mellitus with hyperglycemia on admission secondary to decreased oral intake. Currently glucose is controlled. Cardiomyopathy with possible pulmonary congestion with acute combined systolic and diastolic CHF with ejection fraction 35-40% with moderate mitral regurgitation. A. fib on Eliquis, currently on hold Hypertension Plan: This is a pleasant 76 result female who presents with acute stroke and right hemiplegia with left ICA stenosis, SVT and hypoglycemia and pulmonary congestion. Decrease IV fluids to 30 L/h, Went down dose of Lasix. Monitor oxygen and urine output and output. Continue with aspirin per neurologist was on the case and follow closely. Hold Eliquis to cleared by neurologist. Continue with Accu-Chek monitor glucose closely. Start IV Lasix 20 mg twice a day Amiodarone per General Hardware Salesperson. Monitor blood pressure closely Follow-up chest x-ray tomorrow Surgery team consulted for PEG tube placement Consult [employer]phalt [employer] worker Dr. Bowling Continue present treatment and inhaled steroids Labs and medication were reviewed.. Continue same treatment. Continue with symptomatic treatment. Resume home medication. Monitor lytes and vitals. DVT and GI prophylaxis. Further recommendations depends on the clinical course of the patient DVT prophylaxis: Subcutaneous heparin GI Prophylaxis: Pepcid PT/OT: Pending Prognosis is guarded
[2022-02-01 11:22] LABS: Glucose,Whole Blood 123 mg/dL (75-99)
--- NOTE | 2022-02-01 12:22 | P.CONS ---
History of Present Illness - Chief Complaint Gait disturbance, right hemiplegia - History of Present Illness I had the opportunity to see patient for inpatient rehab consultation with regard to gait disturbance. Patient admitted January 29 with mental status change and history of recent covert infection and previous stroke to Dr. Ribera. Seen by neurology, Dr. Anderson Connor who diagnosed left CURT stroke was noted on brain MRI and head CT. Seen by Dr. Zacarias for SVT. Seen by Dr. Frank who notes carotid Doppler and angiogram CTs results left internal carotid stenosis 75-90% in right internal carotid occlusion less than 50%. Noted head CT demonstrates left frontal/CURT infarct. Chest x-ray COPD and effusions. Brain MRI a large left parietal infarct and bilateral cerebral multifocal infarcts. His started therapies. PT reports two-person maximal assistance for bed mobility and transfers and has poor sitting and standing balance. OT reports total assist for grooming, upper and lower dressing and bathing and for toileting. Functional mobility not assessable. Speech therapy reports working on yes no answers. Assess swallow and sneha nectar thickened but no cough. Previous functional history as elicited from 2 sons: 76-year-old left-handed white female who is lives in one floor home with son and son's family. [id number] does the cooking, laundry, physically assist patient with bathing, dressing and functional mobility. Past Medical History Past Medical History: Atrial Fibrillation, Asthma, Cancer, Heart Failure, COPD, CVA/TIA, Diabetes Mellitus, Eye Disorder, Hyperlipidemia, Hypertension, Osteoarthritis (OA), Renal Disease, Respiratory Disorder, Vascular Disorder Additional Past Medical History / Comment(s): chronic systolic congestive heart failure. Her ejection fraction is 20-25%. Severe mitral regurgitation, chronic atrial fibrillation on Eliquis. 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 She also follows here for chronic obstructive pulmonary disease with an FEV1 value of 73 percent of predicted. She has been maintained on Symbicort, Spiriva and albuterol.NIDDM type II, harmony ropathy bilateral hands/feet, CVA with R eye blindness, severe shingelles 2009 which affected L arm/back of neck, skin cancer with removal, R sided nephrolithiasis-nonobstructing per past medical record/pt unaware, chronic constipation, degenerative joint disease. History of Any Multi-Drug Resistant Organisms: None Reported Past Surgical History: Heart Catheterization, Hysterectomy, Orthopedic Surgery, Tonsillectomy Additional Past Surgical History / Comment(s): Right knee arthroplasty, bilateral cataract/lens implant surgery, skin cancer removed under R eye. Past Anesthesia/Blood Transfusion Reactions: No Reported Reaction Past Psychological History: Anxiety Smoking Status: Former smoker Past Alcohol Use History: None Reported Past Drug Use History: None Reported - Past Family History Mother Family Medical History: Dementia Additional Family Medical History / Comment(s): AGE 99 Father Family Medical History: No Reported History Additional Family Medical History / Comment(s): WAS HEALTHY AT ALMOST AGE 99 Medications and Allergies Home Medications Medication Instructions Recorded Confirmed Type ALPRAZolam [Xanax] 0.5 mg PO BID PRN 11/04/17 01/29/22 History Potassium Chloride [Klor-Con 10 ER] 10 meq PO TID 11/04/17 01/29/22 History Tiotropium 18 Mcg/Puff [Spiriva] 1 cap INHALATION RT-DAILY 11/04/17 01/29/22 History Atorvastatin [Lipitor] 20 mg PO HS 06/04/20 01/29/22 History Apixaban [Eliquis] 2.5 mg PO BID #60 tablet 06/12/20 01/29/22 Rx Metoprolol Tartrate [Lopressor] 25 mg PO TID #90 tab 06/12/20 01/29/22 Rx Ketorolac 0.5% Ophth Soln [Acular 1 drop LEFT EYE QID 12/22/20 01/29/22 History 0.5%] Spironolactone [Aldactone] 25 mg PO DAILY 12/22/20 01/29/22 History Albuterol Inhaler [Ventolin Hfa 1 puff INHALATION RT-QID #8 gm 01/10/22 01/29/22 Rx Inhaler] Escitalopram Oxalate [Lexapro] 10 mg PO DAILY 01/10/22 01/29/22 History Famotidine [Pepcid] 20 mg PO BID 01/10/22 01/29/22 History Insulin Aspart [NovoLOG Flexpen] See Protocol SQ AC-TID 01/10/22 01/29/22 History Insulin Glargine,Hum.rec.anlog 30 unit SQ DAILY 01/10/22 01/29/22 History [Lantus Solostar Pen] Montelukast [Singulair] 10 mg PO DAILY 01/10/22 01/29/22 History Dorzolamide 2% [Trusopt 2%] 1 drop RIGHT EYE BID 01/29/22 01/29/22 History Allergies Allergy/AdvReac Type Severity Reaction Status Date / Time egg Allergy Itching Verified 01/29/22 12:24 Physical Exam Vitals: Vital Signs Temp Pulse Resp BP Pulse Ox 02/01/22 08:00 97.7 F 102 H 18 163/76 92 L 02/01/22 04:00 97.7 F 90 20 139/83 91 L 02/01/22 00:00 97.5 F L 103 H 20 158/98 90 L 01/31/22 20:00 97.5 F L 104 H 22 156/77 92 L 01/31/22 15:50 100 22 183/91 93 L 01/31/22 14:00 104 H 16 Intake and Output 01/31/22 02/01/22 02/01/22 22:59 06:59 14:59 Intake Total 50 50 Output Total 350 375 Balance -300 -375 50 Intake: Oral 50 50 Output: Urine 350 375 Other: Voiding Method Indwelling Catheter Indwelling Catheter Indwelling Catheter Skin: Atrophic, intact. General: Thin build and comfortable appearance. Head: Normocephalic, atraumatic. Eyes: Symmetric. Pupils equal round. Ears: Symmetric. Hearing within normal limits. Mouth: Clear. Neck: Supple. Carotid without bruit. Cardiac: Regular rate and rhythm. Lungs: Clear anteriorly and posteriorly. Abdomen: Soft active nontender. Extremities: Normal tone. Neurological: Mental status: Aphasic and right-sided neglect. Cranial nerves: Symmetric facial tone and trapezius. Motor: Plegic right arm and right leg. Left arm about antigravity and less leg less than antigravity. Sensation: Intact throughout. DTRs: Symmetric and equal throughout. Mobility: Requires physical assist for any bed mobility. Results CBC & Chem 7: 02/01/22 08:20 02/01/22 08:20 Labs: Abnormal Lab Results - Last 24 Hours (Table) 01/31/22 01/31/22 01/31/22 Range/Units 05:23 18:34 23:03 RDW (11.5-15.5) % Lymphocytes # (1.0-4.8) k/uL Sodium (137-145) mmol/L Potassium (3.5-5.1) mmol/L Chloride (98-107) mmol/L Carbon Dioxide (22-30) mmol/L Glucose (74-99) mg/dL POC Glucose (mg/dL) 215 H 168 H (75-99) mg/dL Hemoglobin A1c 8.5 H (0.0-6.0) % Calcium (8.4-10.2) mg/dL Magnesium (1.6-2.3) mg/dL 02/01/22 02/01/22 02/01/22 Range/Units 05:46 08:20 08:20 RDW 17.9 H (11.5-15.5) % Lymphocytes # 0.9 L (1.0-4.8) k/uL Sodium 135 L (137-145) mmol/L Potassium 3.3 L (3.5-5.1) mmol/L Chloride 108 H (98-107) mmol/L Carbon Dioxide 21 L (22-30) mmol/L Glucose 158 H (74-99) mg/dL POC Glucose (mg/dL) 117 H (75-99) mg/dL Hemoglobin A1c (0.0-6.0) % Calcium 7.2 L (8.4-10.2) mg/dL Magnesium 1.3 L (1.6-2.3) mg/dL 02/01/22 Range/Units 11:21 RDW (11.5-15.5) % Lymphocytes # (1.0-4.8) k/uL Sodium (137-145) mmol/L Potassium (3.5-5.1) mmol/L Chloride (98-107) mmol/L Carbon Dioxide (22-30) mmol/L Glucose (74-99) mg/dL POC Glucose (mg/dL) 123 H (75-99) mg/dL Hemoglobin A1c (0.0-6.0) % Calcium (8.4-10.2) mg/dL Magnesium (1.6-2.3) mg/dL Assessment and Plan (1) Altered mental status Current Visit: Yes Status: Acute Code(s): R41.82 - ALTERED MENTAL STATUS, UNSPECIFIED SNOMED Code(s): 781539010 (2) CVA (cerebral vascular accident) Current Visit: Yes Status: Acute Code(s): I63.9 - CEREBRAL INFARCTION, UNSPECIFIED SNOMED Code(s): 271504875 (3) Acute exacerbation of chronic obstructive airways disease Current Visit: No Status: Acute Code(s): J44.1 - CHRONIC OBSTRUCTIVE PULMONARY DISEASE W (ACUTE) EXACERBATION SNOMED Code(s): 726457908 (4) Adult respiratory distress syndrome Current Visit: No Status: Acute Code(s): J80 - ACUTE RESPIRATORY DISTRESS SYNDROME SNOMED Code(s): 67543455 (5) Atrial fibrillation with RVR Current Visit: No Status: Acute Code(s): I48.91 - UNSPECIFIED ATRIAL FIBRILLATION SNOMED Code(s): 174885961903043 Plan: Comments and plan: Patient appears to have a syncopal episode related to suffered stroke result in right hemiplegia and aphasia. Note patient seen with 2 sons and visit seems somewhat defensive. At this time rehab prognosis guarded and I doubt sons would want aggressive management such as inpatient rehab, as well.
[2022-02-01] MEDS: ASPIRIN 300 MG SUPP RECTAL SCH (12:35)
[2022-02-01] MEDS: DEXTROSE 5%-0.9% NACL 1,000 ML IV SCH ×2 (12:36→22:05)
--- NOTE | 2022-02-01 13:19 | P.PN ---
Subjective This is a pleasant 76-year-old female past medical history significant for with dilated cardiomyopathy with EF 35-40%, mitral regurgitation, coronary artery disease, chronic systolic heart failure, paroxysmal atrial fibrillation on long-term anticoagulation, hypertension, diabetes mellitus, COPD, chronic kidney disease and former nicotine dependence. She follows in the office with Dr. Aparicio. We have been asked to see in consultation for Eliquis modification and SVT. Patient admitted on 01/29/2022 for altered mental status. Patient found to have an acute subacute stroke over left INSURANCE ASSISTANT territory. 01/29/2022 patient went to SVT requiring adenosine and started on IV amiodarone. Echocardiogram revealed EF of 3540 percent, moderate mitral regurgitation, mild tricuspid regurgitation 02/01/2022 Patient seen and examined at bedside, no acute distress. She is awake and moving left side. She is able to nod her head yes/no based on questions asked. She continues to be nonverbal. No further SVT noted on telemetry. Patient is maintaining sinus mechanism. Patient passed her swallow eval, however there is concern for adequate nutrition intake, and per nursing patient is not taking her crushed medications. MRI brain revealed large area measuring approximately 6.8 cm of acute ischemia left parietal lobe.Additional multifocal 5 mm or less areas of acute ischemia scattered throughout both cerebral hemispheres. She's currently maintained on PO amiodarone 200mg BID, aspirin daily , atorvastatin 80 mg nightly. Her Eliquis continues to be on hold per neurology Blood pressure 142/78, heart rate 3, afebrile, oxygen saturation 94% on 4 L nasal cannula GENERAL: In no acute distress. NECK: Supple without JVD LUNGS: Breath sounds clear to auscultation bilaterally. Respiration equal and unlabored. No wheezes, rales or rhonchi. HEART: Regular rate and rhythm with systolic ejection murmur at apex, no rubs or gallops. S1 and S2 heard. EXTREMITIES: Normal range of motion, no edema. Peripheral pulses intact. ASSESSMENT Acute ischemic stroke Supraventricular tachycardia Carotid artery stenosis- Right ICA occlusion, 75% stenosis of the left ICA, 90% per CTA Paroxysmal atrial fibrillation, currently maintaining sinus mechanism. Dilated cardiomyopathy Mitral regurgitation Chronic heart failure with reduced ejection fraction, clinically euvolemic COPD Hypertension Dyslipidemia Chronic kidney disease Diabetes mellitus, type 2 History of coronary artery disease exact details unavailable PLAN -Due to patient not able to take PO meds at this time per nursing, we will restart IV amiodarone 0.5mg/min and stop PO amio. -Discussion with family with PEG tube vs hospice -Per neurology holding Eliquis for 5 days -When Eliquis is ready to resume, ok to increase to 5mg BID -Further recommendations based on clinical course Nurse Practitioner note has been reviewed, I agree with a documented findings, assessment, and plan of care. Patient was seen and examined. Objective - Vital Signs Vital signs: Vital Signs Temp 97.9 F 02/01/22 12:00 Pulse 83 02/01/22 12:00 Resp 18 02/01/22 12:00 BP 142/78 02/01/22 12:00 Pulse Ox 94 L 02/01/22 12:00 Intake & Output 01/31/22 02/01/22 02/01/22 18:59 06:59 18:59 Intake Total 850 50 50 Output Total 579 541 1700 Balance 400 -646 -1050 Intake: Intake, IV Titration 850 Amount Amiodarone 450 mg In 250 Dextrose 5% in Water 250 ml @ 0.5 MG/MIN 16.667 mls/hr IV .Q15H [facility] Rx#: [id number] Dextrose 5%-0.9% NaCl 1, 600 000 ml @ 30 mls/hr IV . Q24H [facility] Rx#:[id number] Oral 50 50 Output: Urine 434 409 6324 Other: Voiding Method Indwelling Catheter Indwelling Catheter Indwelling Catheter - Labs CBC & Chem 7: 02/01/22 08:20 02/01/22 08:20 Labs: Abnormal Lab Results - Last 24 Hours (Table) 01/31/22 01/31/22 01/31/22 Range/Units 05:23 18:34 23:03 RDW (11.5-15.5) % Lymphocytes # (1.0-4.8) k/uL Sodium (137-145) mmol/L Potassium (3.5-5.1) mmol/L Chloride (98-107) mmol/L Carbon Dioxide (22-30) mmol/L Glucose (74-99) mg/dL POC Glucose (mg/dL) 215 H 168 H (75-99) mg/dL Hemoglobin A1c 8.5 H (0.0-6.0) % Calcium (8.4-10.2) mg/dL Magnesium (1.6-2.3) mg/dL 02/01/22 02/01/22 02/01/22 Range/Units 05:46 08:20 08:20 RDW 17.9 H (11.5-15.5) % Lymphocytes # 0.9 L (1.0-4.8) k/uL Sodium 135 L (137-145) mmol/L Potassium 3.3 L (3.5-5.1) mmol/L Chloride 108 H (98-107) mmol/L Carbon Dioxide 21 L (22-30) mmol/L Glucose 158 H (74-99) mg/dL POC Glucose (mg/dL) 117 H (75-99) mg/dL Hemoglobin A1c (0.0-6.0) % Calcium 7.2 L (8.4-10.2) mg/dL Magnesium 1.3 L (1.6-2.3) mg/dL 02/01/22 Range/Units 11:21 RDW (11.5-15.5) % Lymphocytes # (1.0-4.8) k/uL Sodium (137-145) mmol/L Potassium (3.5-5.1) mmol/L Chloride (98-107) mmol/L Carbon Dioxide (22-30) mmol/L Glucose (74-99) mg/dL POC Glucose (mg/dL) 123 H (75-99) mg/dL Hemoglobin A1c (0.0-6.0) % Calcium (8.4-10.2) mg/dL Magnesium (1.6-2.3) mg/dL
--- NOTE | 2022-02-01 13:29 | P.PN ---
Subjective Progress Note Date: 02/01/22 02/01/2022: Patient was seen for a follow-up. Patient's 2 sons were present today. Apparently patient has got slightly worse, not acknowledging, more sleepy. Patient is DO NOT RESUSCITATE. Patient continues to be mute, with severe expressive aphasia. 01/31/2022: Patient was seen for a follow-up. Patient initially seen by Dr. Anderson Connor. Please refer to his note for details. Patient's son and christopher [id number] were present today. Patient is a 76-year-old left-handed female who came to the hospital with an acute stroke with right hemiplegia. Per patient's son, he talked to her on Monday tear down worker at 2:30 AM on 01/29/2022 and she was fine. At 8 AM he saw her and she was asleep. At 10 AM when patient did not wake, he noticed something was wrong and called ambulance. Patient was brought to the hospital at 11:21 AM. Patient was not a candidate for TPA, as she came outside the window. Patient was mute, completely aphasic only moving her left side. Right ICA is completely occluded, whereas there is a left is > 70% stenosis involving the left ICA. Vascular surgery has seen the patient and her any intervention declined by the family. Patient has history of atrial fibrillation, currently on Eliquis 2.5 mg twice a day. Patient was not taking any antiplatelet medication at home. Cardiology also on board. Patient at present and on aspirin 300 mg suppository because she is nothing by mouth. Objective - Vital Signs Vital signs: Vital Signs Temp 97.9 F 02/01/22 12:00 Pulse 83 02/01/22 12:00 Resp 18 02/01/22 12:00 BP 142/78 02/01/22 12:00 Pulse Ox 94 L 02/01/22 12:00 Intake & Output 01/31/22 02/01/22 02/01/22 18:59 06:59 18:59 Intake Total 850 50 50 Output Total 128 223 1508 Balance 400 -774 -1056 Intake: Intake, IV Titration 850 Amount Amiodarone 450 mg In 250 Dextrose 5% in Water 250 ml @ 0.5 MG/MIN 16.667 mls/hr IV .Q15H [facility] Rx#: [id number] Dextrose 5%-0.9% NaCl 1, 600 000 ml @ 30 mls/hr IV . Q24H [facility] Rx#:[id number] Oral 50 50 Output: Urine 237 168 [id number] Other: Voiding Method Indwelling Catheter Indwelling Catheter Indwelling Catheter - Exam Patient is an elderly female, in no acute distress. Patient is alert awake. Patient is mute, not able to speak any words, name any objects presented, cannot repeat. Patient's comprehension seems to have improved. Patient following commands on the left side. Could not name 3/3 objects presented. Attention, concentration and fund of knowledge is limited due to aphasia. On cranial examination, her right pupil is dilated, nonreactive, about 5 mm, and the left is 4 mm and reactive. 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 Her visual lanza could not be tested reliably, extraocular muscles are intact with no nystagmus. Patient has left gaze preference. Patient has right facial weakness, central type. Her tongue protrudes to the midline. Palatal elevation and sensation cannot be tested. Hearing appears slightly decreased. Shoulder shrug decreased on the right. On muscle strength testing, the right side is hemiplegic. Patient has normal strength in the left arm and left leg. Deep tendon reflexes are diminished in the upper limbs, 1 at the right knee to on the left knee, ankles are 0 and plantar is upgoing on the right, but possible withdrawal on the left as well. Sensory to touch is decreased on the right side. Cerebellar functions could not be tested. Tone is decreased on the right. Bulk of muscles normal.. Gait not able to be checked because of right hemiplegia. On general examination, there is no obvious carotid bruit heard, as patient would not stop or cold breathing for testing. There is no obvious murmur, S1-S2 audible. Abdomen is soft nontender. Chest is clear. Peripheral pulses are present. Patient has purplish discoloration of the pulps of the distal phalanx of all 4 fingers of both hands, right more than left, with some involvement of the right thumb. - Labs CBC & Chem 7: 02/01/22 08:20 02/01/22 08:20 Labs: Abnormal Lab Results - Last 24 Hours (Table) 01/31/22 01/31/22 01/31/22 Range/Units 05:23 18:34 23:03 RDW (11.5-15.5) % Lymphocytes # (1.0-4.8) k/uL Sodium (137-145) mmol/L Potassium (3.5-5.1) mmol/L Chloride (98-107) mmol/L Carbon Dioxide (22-30) mmol/L Glucose (74-99) mg/dL POC Glucose (mg/dL) 215 H 168 H (75-99) mg/dL Hemoglobin A1c 8.5 H (0.0-6.0) % Calcium (8.4-10.2) mg/dL Magnesium (1.6-2.3) mg/dL 02/01/22 02/01/22 02/01/22 Range/Units 05:46 08:20 08:20 RDW 17.9 H (11.5-15.5) % Lymphocytes # 0.9 L (1.0-4.8) k/uL Sodium 135 L (137-145) mmol/L Potassium 3.3 L (3.5-5.1) mmol/L Chloride 108 H (98-107) mmol/L Carbon Dioxide 21 L (22-30) mmol/L Glucose 158 H (74-99) mg/dL POC Glucose (mg/dL) 117 H (75-99) mg/dL Hemoglobin A1c (0.0-6.0) % Calcium 7.2 L (8.4-10.2) mg/dL Magnesium 1.3 L (1.6-2.3) mg/dL 02/01/22 Range/Units 11:21 RDW (11.5-15.5) % Lymphocytes # (1.0-4.8) k/uL Sodium (137-145) mmol/L Potassium (3.5-5.1) mmol/L Chloride (98-107) mmol/L Carbon Dioxide (22-30) mmol/L Glucose (74-99) mg/dL POC Glucose (mg/dL) 123 H (75-99) mg/dL Hemoglobin A1c (0.0-6.0) % Calcium (8.4-10.2) mg/dL Magnesium (1.6-2.3) mg/dL Assessment and Plan Assessment: Acute ischemic stroke (left frontal region involving the left CURT territory). Patient has severe expressive aphasia and right hemiparesis. Patient did not receive IV TPA since the patient is on anticoagulationant, and came outside window for TPA. Seems embolic possible from atrial fibrillation, as the MRI of brain reveals involvement of bilateral hemispheric region, the largest involving the left frontal region in the CURT territory. 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 Hypertension History of Right visual defect Hyperlipidemia Systolic congestive heart failure Severe mitral regurgitation COPD on nasal oxygen Ex-tobacco use (stopped 5 years and smoked for about 50 years) Plan: * Patient has passed swallow studies yesterday and was started on aspirin 325 mg orally. However today she is not swallowing. Patient will be switched back to rectal aspirin 300 mg daily. Patient denying PEG tube placement. Discussed with patient's son about her advanced directives. Patient is DO NOT RESUSCITATE at this time. * MRI of the brain without contrast revealed large area measuring approximately 6.8 cm of acute ischemia left parietal lobe. On my review, it appears to involve the left CURT territory. There are additional multifocal 5 mm or less areas of acute ischemia scattered throughout both cerebral hemispheres. This can occasionally be associated with embolic phenomenon correlate clinically. A one small area of ischemia also involves the left lateral cerebellar region, therefore the strokes are likely cardioembolic in nature. * Continue to hold off on Eliquis for 5 days, and then may resume Eliquis 5 mg 1 tablet twice a day for atrial fibrillation to avoid further strokes. I would also suggest starting aspirin 81 mg daily indefinitely for stroke prevention related to carotid atherosclerotic disease. Cardiology also on board. * 2-D echo revealed atrial fibrillation. Left-ventricular size is normal. Mild concentric LVH. Left ventricle systolic function is moderately impaired with EF between 35-40%. Aortic valve is trileaflet and is mildly thickened. The mitral valve leaflets are mildly thickened. * Patient was on Lipitor 20 mg daily. The dose has been increased to Lipitor 80 mg daily at bedtime (when able to take by mouth). Lipid panel with cholesterol 108, LDL 65, HDL 27 and triglycerides 75. * Hemoglobin A1c 8.5, indicating of not well controlled diabetes. Suggest optimizing diabetes controlled to target A1c < 7.0. * Continue neuro checks, also on cardiac monitoring * Maintain BP between 150-180 systolic and 80-110 diastolic. Avoid excessive HTN or hypotension. * Vascular surgery team is consulted and they evaluated patient and discussed with family member and family does not want to pursue with left ICA surgery and pursue medical management. * PT, OT and HUMAN FACTORS ADVISOR LEAD is consulted. * For DVT prophylaxis: On subq heparin 5000U every 12 hours. * We'll defer the rest of the medical management to the primary team.
[2022-02-01] MEDS ORDERED: FUROSEMIDE 10 MG/ML 2 ML VIAL IV ONE (14:15)
[2022-02-01] MEDS: IPRATROPIUM-ALBUTEROL 3 ML NEB INHALATION PRN ×2 (16:09→20:16)
--- NOTE | 2022-02-01 16:43 | XR ---
EXAMINATION TYPE: XR chest 1V portable DATE OF EXAM: 02/01/2022 COMPARISON: 01/31/2022 HISTORY: Shortness of breath TECHNIQUE: Single frontal view of the chest is obtained. FINDINGS: There are unchanged bilateral mild to moderate opacities most pronounced in the right uppe r lung and left lung base. No pleural effusion, or pneumothorax seen. The cardiac silhouette size is within normal limits. The osseous structures are intact. IMPRESSION: No significant interval change.
[2022-02-01] MEDS ORDERED: MORPHINE SULFATE 2 MG/ML SYRINGE IVP STA (16:44)
[2022-02-01 17:59] LABS: Magnesium 1.2 mg/dL (1.6-2.3); Potassium 3.4 mmol/L (3.5-5.1)
[2022-02-01 18:03] LABS: Glucose,Whole Blood 210 mg/dL (75-99)
[2022-02-01] MEDS: BUDESONIDE 0.5 MG/2 ML NEBU INHALATION SCH (20:20)
[2022-02-01] MEDS: ATORVASTATIN 80 MG TAB PO SCH (20:47)
[2022-02-01] MEDS: MAGNESIUM SULFATE-D5W PMX 1 GM in DEXTROSE/WATER 1 100ML.BAG IVPB SCH ×3 (20:59→23:10)
[2022-02-01] MEDS: POTASSIUM CHLORIDE 10 MEQ in WATER FOR INJECTION 1 100ML.BAG IVPB SCH ×3 (20:59→23:10)
[2022-02-01 23:03] LABS: Glucose,Whole Blood 238 mg/dL (75-99)
[2022-02-02] MEDS: POTASSIUM CHLORIDE 10 MEQ in WATER FOR INJECTION 1 100ML.BAG IVPB SCH (00:18)
[2022-02-02 06:09] LABS: Glucose,Whole Blood 198 mg/dL (75-99)
[2022-02-02] MEDS: INSULIN ASPART (NovoLOG) 100 UNIT/ML VIAL SQ SCH ×3 (06:16→17:11)
[2022-02-02] MEDS ORDERED: INSULIN DETEMIR (LEVEMIR) 100 UNIT/ML SYR SQ SCH (07:00)
[2022-02-02] MEDS: BUDESONIDE 0.5 MG/2 ML NEBU INHALATION SCH ×2 (07:25→19:51)
[2022-02-02] MEDS: IPRATROPIUM-ALBUTEROL 3 ML NEB INHALATION PRN ×2 (07:25→19:51)
--- NOTE | 2022-02-02 07:57 | XR ---
EXAMINATION TYPE: XR chest 1V DATE OF EXAM: 02/02/2022 COMPARISON: X-ray dated 02/01/2022 HISTORY: Shortness of breath TECHNIQUE: Single frontal view of the chest is obtained. FINDINGS: Slightly more prominent left upper lobe heterogeneous patchy opacity. The right upper lobe patchy opa city as well as the smaller opacities in the lung bases are more or less the same. No sizable pleural effusion or definite pneumothorax. Unchanged cardiomediastinal silhouette and bony thoracic cage. IMPRESSION: Minimal interval change as described above.
[2022-02-02] MEDS ORDERED: DEXTROSE 5% IN WATER 100 ML with AMIODARONE 150 MG IV ONE (08:37)
[2022-02-02 08:41] LABS: Calcium 7.5 mg/dL (8.4-10.2); Magnesium 2.2 mg/dL (1.6-2.3); Potassium 3.7 mmol/L (3.5-5.1)
[2022-02-02] MEDS: FAMOTIDINE 20 MG/2 ML VIAL IV SCH (10:08)
[2022-02-02] MEDS: FUROSEMIDE 10 MG/ML 2 ML VIAL IV SCH ×2 (10:08→22:03)
[2022-02-02] MEDS: HEPARIN SODIUM,PORCINE/PF 5,000 UNIT/0.5 ML SYRINGE SQ SCH ×2 (10:08→22:04)
[2022-02-02] MEDS: ASPIRIN 300 MG SUPP RECTAL SCH (10:08)
[2022-02-02] MEDS: METOPROLOL TARTRATE 25 MG TAB PO SCH ×4 (10:08→21:37)
[2022-02-02] MEDS: DORZOLAMIDE HCL 2% DROPS 10 ML BTL RIGHT EYE SCH ×2 (10:09→22:03)
[2022-02-02] MEDS: KETOROLAC 0.5% OPHTH DROPS 5 ML BTL LEFT EYE SCH ×4 (10:09→22:03)
[2022-02-02 11:36] LABS: Glucose,Whole Blood 142 mg/dL (75-99)
[2022-02-02] MEDS ORDERED: MORPHINE SULFATE 2 MG/ML SYRINGE ONE (11:39)
[2022-02-02] MEDS ORDERED: SCOPOLAMINE 1.5MG/72HR PATCH TRANSDERM STA (11:46)
--- NOTE | 2022-02-02 12:43 | P.PN ---
Subjective This is a pleasant 76-year-old female past medical history significant for with dilated cardiomyopathy with EF 35-40%, mitral regurgitation, coronary artery disease, chronic systolic heart failure, paroxysmal atrial fibrillation on long-term anticoagulation, hypertension, diabetes mellitus, COPD, chronic kidney disease and former nicotine dependence. She follows in the office with Dr. Aparicio. We have been asked to see in consultation for Eliquis modification and SVT. Patient admitted on 01/29/2022 for altered mental status. Patient found to have an acute subacute stroke over left DEGREE CLERK territory. 01/29/2022 patient went to SVT requiring adenosine and started on IV amiodarone. Echocardiogram revealed EF of 3540 percent, moderate mitral regurgitation, mild tricuspid regurgitation 02/02/2022 Patient seen and examined at bedside, no acute distress. She is awake and moving left side. She is able to nod her head yes/no based on questions asked. She continues to be nonverbal. This morning patient went into SVT vs atrial fibrillation with HR 160s, Overnight was maintaining sinus mechanism, with epi sodes of in/out of atrial fibrillation on the monitor. Patient passed her swallow eval, however there is concern for adequate nutrition intake, and per nursing patient is not taking her crushed medications and IV amiodarone was restarted MRI brain revealed large area measuring approximately 6.8 cm of acute ischemia left parietal lobe.Additional multifocal 5 mm or less areas of acute ischemia sc attered throughout both cerebral hemispheres. She's currently maintained on IV amiodarone 0.5mg/min , aspirin daily , atorvastatin 80 mg nightly. Her Eliquis continues to be on hold per neurology Blood pressure 129/73, heart rate 163, afebrile, oxygen saturation 93% on 6 L nasal cannula GENERAL: In no acute distress. NECK: Supple without JVD LUNGS: Breath sounds clear to auscultation bilaterally. Respiration equal and unlabored. No wheezes, rales or rhonchi. HEART: Regular rate and rhythm with systolic ejection murmur at apex, no rubs or gallops. S1 and S2 heard. EXTREMITIES: Normal range of motion, no edema. Peripheral pulses intact. ASSESSMENT Acute ischemic stroke Supraventricular tachycardia Carotid artery stenosis- Right ICA occlusion, 75% stenosis of the left ICA, 90% per CTA Paroxysmal atrial fibrillation, currently maintaining sinus mechanism. Dilated cardiomyopathy Mitral regurgitation Chronic heart failure with reduced ejection fraction, clinically euvolemic COPD Hypertension Dyslipidemia Chronic kidney disease Diabetes mellitus, type 2 History of coronary artery disease exact details unavailable PLAN -Given 150mg amiodarone bolus this morning, with improvement in HRs in atrial fibrillation HR 90s. -Due to patient not able to take PO meds at this time per nursing, we will continue IV amiodarone -Discussion with family for possible hospice -Per neurology holding Eliquis for 5 days -When Eliquis is ready to resume, ok to increase to 5mg BID -Further recommendations based on clinical course Nurse Practitioner note has been reviewed, I agree with a documented findings, assessment, and plan of care. Patient was seen and examined. Objective - Vital Signs Vital signs: Vital Signs Temp 97.8 F 02/02/22 12:05 Pulse 115 H 02/02/22 12:05 Resp 16 02/02/22 12:05 BP 169/103 02/02/22 12:05 Pulse Ox 90 L 02/02/22 12:05 Intake & Output 02/01/22 02/02/22 02/02/22 18:59 06:59 18:59 Intake Total 50 444.726 Output Total 1100 1100 Balance -1050 -655.274 Weight 46.5 kg Intake: Intake, IV Titration 204.726 Amount Amiodarone 450 mg In 204.726 Dextrose 5% in Water 250 ml @ 0.5 MG/MIN 16.667 mls/hr IV .Q15H [facility] [place] Rx#: [id number] Oral 50 240 Output: Urine 1100 1100 Other: Voiding Method Diaper Indwelling Catheter - Labs CBC & Chem 7: 02/01/22 08:20 02/02/22 08:01 Labs: Abnormal Lab Results - Last 24 Hours (Table) 02/01/22 02/01/22 02/01/22 Range/Units 08:20 17:10 18:01 Sodium (137-145) mmol/L Potassium 3.4 L (3.5-5.1) mmol/L BUN (7-17) mg/dL Creatinine (0.52-1.04) mg/dL Glucose (74-99) mg/dL POC Glucose (mg/dL) 210 H (75-99) mg/dL Hemoglobin A1c 8.6 H (0.0-6.0) % Calcium (8.4-10.2) mg/dL Magnesium 1.2 L (1.6-2.3) mg/dL 02/01/22 02/02/22 02/02/22 Range/Units 23:02 06:08 08:01 Sodium 133 L (137-145) mmol/L Potassium (3.5-5.1) mmol/L BUN 19 H (7-17) mg/dL Creatinine 1.12 H (0.52-1.04) mg/dL Glucose 171 H (74-99) mg/dL POC Glucose (mg/dL) 238 H 198 H (75-99) mg/dL Hemoglobin A1c (0.0-6.0) % Calcium 7.5 L (8.4-10.2) mg/dL Magnesium (1.6-2.3) mg/dL 02/02/22 Range/Units 11:34 Sodium (137-145) mmol/L Potassium (3.5-5.1) mmol/L BUN (7-17) mg/dL Creatinine (0.52-1.04) mg/dL Glucose (74-99) mg/dL POC Glucose (mg/dL) 142 H (75-99) mg/dL Hemoglobin A1c (0.0-6.0) % Calcium (8.4-10.2) mg/dL Magnesium (1.6-2.3) mg/dL
[2022-02-02 13:33] VITALS: BMI 15.1
[2022-02-02] MEDS: MORPHINE SULFATE 2 MG/ML SYRINGE IVP PRN ×2 (15:51→22:04)
[2022-02-02 16:35] LABS: Glucose,Whole Blood 263 mg/dL (75-99)
[2022-02-02] MEDS: AMIODARONE 450 MG in DEXTROSE 5% IN WATER 250 ML IV SCH ×2 (18:38)
--- NOTE | 2022-02-02 20:18 | P.PN ---
Subjective From the records 76-year-old woman, history of stroke, atrial fibrillation, diabetes mellitus, hypertension, hyperlipidemia, congestive heart failure, COPD who presented to emergency department for altered mental status. The patient last known normal was at 2 AM today. Patient was nonverbal upon presentation. Per the patient's son patient usually walks with a walker; about 3 weeks ago she had a flu like symptoms and she declined and was unable to take care of herself and moved with him. It seems that around the at which a.m. was her last normal state that when the patient's son tried to wake her up at a.m. she was unresponsive. She continued to be unresponsive for the next 2-3 hours so was brought to ED. He denied to the patient at any jerk in of any extremities, foaming around the mouth. Per EMR stated that the patient has history of stroke with residual right eye deficit. The son stated that her right eye deficit was the due to the her diabetes that he was notified. Blood work in ED reveals creatinine is 1.09, AST is 37, ALT of 20, initial troponin 0.078, initial serum glucose is 109 in the POC glucose is 93. Urine white blood cell is the leukocyte esterase was large, urine white blood cells 21. CT head is reported as acute to subacute hypodensity over the left CURT territory. EKG is reported as atrial fibrillation with rapid ventricular response with aberrant conduction or ventricular premature complexes. Left axis deviation. Anteroseptal myocardial infarction. Model T-wave abnormality. 01/30/2022 Patient developed SVT overnight Treated with adenosine and eventually started on amiodarone Cardiology is consulted Vital signs are reviewed and remain stable ; neurology on board MRI IS ORDERED AND PENDING, PATIENT REMAINS NPO PENDING FULL SWALLOW EVALUATION PATIENT REMAINS ON ASPIRIN 300 MG, SUPPOSITORY. Eliquis remains on hold until MRI is completed to assess size of the stroke after which neurology is recommending to increase dose 5 mg PO BID Subjective: Resume with the care of the patient today 01/31/2022 Patient is a pleasant 76 years old female with multiple medical problems presents with signs and symptoms of acute left frontal stroke with right hemiplegia and speech difficulty secondary to left internal carotid artery occlusion. CTA of the head and neck and carotid Doppler's was showing complete occlusion of the right ICA. Patient evaluated by vascular surgery team as well as neurology team. Vascular team, family does not want surgery after for medical management, patient was placed on aspirin per neurology recommendation for more prophylaxis. Also patient is on Eliquis at home for A. fib which is on hold for now as MRI of the brain showing large area of acute ischemia measured 6.8 cm on the left parietal lobe with multiple ischemic sports or areas less than 5 mm on both cerebral hemispheres with complete occlusion of the right ICA. Most likely this is a thromboembolic phenomena per neurologist, cartilage team on the case as well. Patient underwent swallow evaluation the patient placed on a pured diet with close monitoring. Amiodarone drip was switched to oral (by coat examiner 200 mg twice daily. Also there was evidence of some tachypnea, repeated chest x-ray today showed bilateral infiltrates with COPD, patient procalcitonin is negative at 0.07, it was felt patient does not need antibiotic as she is afebrile as well. Oxygen saturation was 95-96 on 3 L oxygen and in the morning. We will keep monitoring her oxygen status closely. We lowered her IV fluid 130 mL/h down to 30 mm/h, with echocardiogram showing ejection fraction of 35-40% with moderate mitral regurgitation. Blood pressure is to be monitored closely. Patient was hypoglycemic on admission . Continue with Accu-Chek. Replace magnesium. 02/01/2022 Patient is awake and alert, however she does not follow commands, she does not answer questions or talked and she does not seem to understand. Most likely patient has global aphasia secondary to her large left parietal stroke. We checked with pharmacy Eliquis was held since admission, per neurologist recommendation we will await the 5 days and we will consider this for possible resume an Eliquis. Today I talked to the patient and daughter in low Mrs. Ashley Rain [phone] and her Braden, I discussed the case with them and they verbalized understanding, also they agrees with PEG tube placement. Surgical team consult placed She is mildly tachycardic and tachypneic, oxygen saturation stable 92% on 4 L oxygen. She is receiving D5 normal saline at 30 mL per hour, yesterday she r eceived 1 dose of IV Lasix and she made about 600-700 mL of urine since then and overnight. Potassium 3.3, magnesium 1.3 which is been placed. CBC unremarkable, creatinine 0.8, BUN 9. Her wheezing almost significantly improved after starting her on Pulmicort. Also we'll start her on IV Lasix 20 mg twice a day as her blood pressure is stable. We'll continue gentle hydration to help her with hydration and some glucose administration. We will repeat chest x-ray tomorrow. All the patient is at risk of aspiration pneumonia currently patient has no evidence of infection, her breathing is improving, no fever,No leukocytosis and pro- calcitonin is normal therefore we don't believe patient will need antibiotic currently 02/02/2022 Patient clinically is not improving, she still severely aphasic which is global aphasia. She does not follow commands or show understanding, she is unable to eat but family refused PEG tube replacement and extended they are considering hospice care. She still have severe right hemiplegia, she cannot move her right arm or leg at all. Other than that Frank catheter has to be reinserted because of urinary retention. Cardiology team on the case and patient kept on amiodarone drip. Neurology service also on the case and recommending to keep holding Eliquis total . However after rounding I was informed by the bedside nurse that family have decided to pursue with hospice and that they have already talking to hospice Objective - Vital Signs Vital signs: Vital Signs Temp 98.2 F 02/02/22 08:30 Pulse 163 H 02/02/22 08:30 Resp 17 02/02/22 08:30 BP 129/78 02/02/22 08:30 Pulse Ox 93 L 02/02/22 08:30 Intake & Output 02/01/22 02/02/22 02/02/22 18:59 06:59 18:59 Intake Total 50 444.726 Output Total 1100 1100 Balance -1050 -655.274 Weight 46.5 kg Intake: Intake, IV Titration 204.726 Amount Amiodarone 450 mg In 204.726 Dextrose 5% in Water 250 ml @ 0.5 MG/MIN 16.667 mls/hr IV .Q15H [facility] Rx#: [id number] Oral 50 240 Output: Urine 1100 1100 Other: Voiding Method Diaper Indwelling Catheter - Exam -GENERAL: The patient is awake and alert but does not answer questions, she'll does not follow simple commands, not in any acute distress. Well developed, well nourished. HEENT: Pupils are round and equally reacting to light. EOMI. No scleral icterus. No conjunctival pallor. Normocephalic, atraumatic. No pharyngeal erythema. No thyromegaly. CARDIOVASCULAR: S1 and S2 present. No murmurs, rubs, or gallops. -PULMONARY: Chest is clear to auscultation, no prolonged expiration with no wheezing ABDOMEN: Soft, nontender, nondistended, normoactive bowel sounds. No palpable organomegaly. MUSCULOSKELETAL: No joint swelling or deformity. EXTREMITIES: No cyanosis, clubbing, or pedal edema. -NEUROLOGICAL: Aphasia. Right hemiplegia SKIN: No rashes. no petechiae. - Labs CBC & Chem 7: 02/01/22 08:20 02/02/22 08:01 Labs: Abnormal Lab Results - Last 24 Hours (Table) 02/01/22 02/01/22 02/01/22 Range/Units 08:20 17:10 18:01 Sodium (137-145) mmol/L Potassium 3.4 L (3.5-5.1) mmol/L BUN (7-17) mg/dL Creatinine (0.52-1.04) mg/dL Glucose (74-99) mg/dL POC Glucose (mg/dL) 210 H (75-99) mg/dL Hemoglobin A1c 8.6 H (0.0-6.0) % Calcium (8.4-10.2) mg/dL Magnesium 1.2 L (1.6-2.3) mg/dL 02/01/22 02/02/22 02/02/22 Range/Units 23:02 06:08 08:01 Sodium 133 L (137-145) mmol/L Potassium (3.5-5.1) mmol/L BUN 19 H (7-17) mg/dL Creatinine 1.12 H (0.52-1.04) mg/dL Glucose 171 H (74-99) mg/dL POC Glucose (mg/dL) 238 H 198 H (75-99) mg/dL Hemoglobin A1c (0.0-6.0) % Calcium 7.5 L (8.4-10.2) mg/dL Magnesium (1.6-2.3) mg/dL Assessment and Plan Assessment: Left parietal acute stroke with large ischemia area 6.8 cm with multiple bilateral smaller ischemic area less than 5 mm, most likely showing embolic phenomena secondary to occluded left ICA Severe dysphagia secondary to above. Family refusing PEG tube placement and considering hospice Bilateral ICA occlusion, 100% on the right side, more than 70% of the left side which is most likely the cause of stroke, family declined surgery, continue with medical management. SVT, on amiodarone, coat examiner on the case Diabetes mellitus with hyperglycemia on admission secondary to decreased oral intake. Currently glucose is controlled. Cardiomyopathy with possible pulmonary congestion with acute combined systolic and diastolic CHF with ejection fraction 35-40% with moderate mitral regurgitation. A. fib on Eliquis, currently on hold Hypertension Plan: This is a pleasant 76 result female who presents with acute stroke and right hemiplegia with left ICA stenosis, SVT and hypoglycemia and pulmonary congestion. Mostly family are going with hospice care for the patient. Patient already on morphine IV when necessary and Pepcid and scopolamine. Frank catheter placed for more comfort and urinary retention. Patient currently looks comfortable. Hospice team consulted per family request IV fluids discontinued and patient oxygen saturation is stable on 6 L per minute same as yesterday. Continue with aspirin per neurologist was on the case and follow closely. Hold Eliquis till cleared by neurologist. Continue with Accu-Chek monitor glucose closely. Start IV Lasix 20 mg twice a day Amiodarone per [employer]. Monitor blood pressure closely Surgery team consulted for PEG tube placement, family declined Continue present treatment and inhaled steroids Labs and medication were reviewed.. Continue same treatment. Continue with symptomatic treatment. Resume home medication. Monitor lytes and vitals. DVT and GI prophylaxis. Further recommendations depends on the clinical course of t he patient DVT prophylaxis: Subcutaneous heparin GI Prophylaxis: Pepcid Prognosis is extremely guarded and poor Currently she has no code order
[2022-02-02] MEDS: ATORVASTATIN 80 MG TAB PO SCH (21:36)
[2022-02-03 00:21] LABS: Glucose,Whole Blood 321 mg/dL (75-99)
[2022-02-03] MEDS: INSULIN ASPART (NovoLOG) 100 UNIT/ML VIAL SQ SCH ×3 (00:49→11:59)
[2022-02-03 05:44] LABS: Glucose,Whole Blood 244 mg/dL (75-99)
[2022-02-03 06:19] VITALS: TEMP 98.1
[2022-02-03] MEDS: BUDESONIDE 0.5 MG/2 ML NEBU INHALATION SCH (08:07)
[2022-02-03] MEDS: IPRATROPIUM-ALBUTEROL 3 ML NEB INHALATION PRN (08:08)
[2022-02-03] MEDS: FAMOTIDINE 20 MG/2 ML VIAL IV SCH (09:23)
[2022-02-03] MEDS: HEPARIN SODIUM,PORCINE/PF 5,000 UNIT/0.5 ML SYRINGE SQ SCH (09:23)
[2022-02-03] MEDS: METOPROLOL TARTRATE 25 MG TAB PO SCH ×2 (09:24→09:25)
[2022-02-03] MEDS: FUROSEMIDE 10 MG/ML 2 ML VIAL IV SCH (09:24)
[2022-02-03] MEDS: ASPIRIN 300 MG SUPP RECTAL SCH (09:24)
[2022-02-03] MEDS: KETOROLAC 0.5% OPHTH DROPS 5 ML BTL LEFT EYE SCH (09:24)
[2022-02-03] MEDS: DORZOLAMIDE HCL 2% DROPS 10 ML BTL RIGHT EYE SCH (09:24)
[2022-02-03 09:34] VITALS: BP 174/79; PULSE 107; RESP 16
--- NOTE | 2022-02-03 10:58 | P.PN ---
Subjective Progress Note Date: 02/02/22 02/02/2022: Patient's both sons were present. They have decided patient to be comfort care, possible hospice. Hospice has evaluated the patient. Possible discharge home with hospice. Patient's son mentioned that she had an episode today, in which she complained of a headache, had her chest. Her oxygen was bumped up to 8 L/m. Now she is comfortable. 02/01/2022: Patient was seen for a follow-up. Patient's 2 sons were present today. Apparently patient has got slightly worse, not acknowledging, more sleepy. Patient is DO NOT RESUSCITATE. Patient continues to be mute, with severe expressive aphasia. 01/31/2022: Patient was seen for a follow-up. Patient initially seen by Dr. Anderson Connor. Please refer to his note for details. Patient's son and [id number] were present today. Patient is a 76-year-old left-handed female who came to the hospital with an acute stroke with right hemiplegia. Per patient's son, he talked to her on Monday silo worker at 2:30 AM on 01/29/2022 and she was fine. At 8 AM he saw her and she was asleep. At 10 AM when patient did not wake, he noticed something was wrong and called ambulance. Patient was brought to the hospital at 11:21 AM. Patient was not a candidate for TPA, as she came outside the window. Patient was mute, completely aphasic only moving her left side. Right ICA is completely occluded, whereas there is a left is > 70% stenosis involving the left ICA. Vascular surgery has seen the patient and her any intervention declined by the family. Patient has history of atrial fibrillation, currently on Eliquis 2.5 mg twice a day. Patient was not taking any antiplatelet medication at home. Cardiology also on board. Patient at present and on aspirin 300 mg suppository because she is nothing by mouth. Objective - Vital Signs Vital signs: Vital Signs Temp 98.1 F 02/03/22 04:00 Pulse 100 02/03/22 08:21 Resp 16 02/03/22 08:00 BP 174/79 02/03/22 08:00 Pulse Ox 93 L 02/03/22 08:00 Intake & Output 02/02/22 02/03/22 02/03/22 18:59 06:59 18:59 Intake Total 787.814 7461 Output Total 400 1350 Balance -199.996 230 Weight 46.5 kg 46.7 kg Intake: Intake, IV Titration 200.004 Amount Amiodarone 450 mg In 200.004 Dextrose 5% in Water 250 ml @ 0.5 MG/MIN 16.667 mls/hr IV .Q15H [facility] Rx#: [id number] Oral 1580 Output: Urine 400 1350 Other: Voiding Method Indwelling Catheter Indwelling Catheter - Exam Not performed. Patient is laying comfortably in the bed, sleeping. - Labs CBC & Chem 7: 02/01/22 08:20 02/02/22 08:01 Labs: Abnormal Lab Results - Last 24 Hours (Table) 02/02/22 02/02/22 02/03/22 Range/Units 11:34 16:33 00:09 POC Glucose (mg/dL) 142 H 263 H 321 H (75-99) mg/dL 02/03/22 Range/Units 05:25 POC Glucose (mg/dL) 244 H (75-99) mg/dL Assessment and Plan Assessment: Acute ischemic stroke (left frontal region involving the left CURT territory). Patient has severe expressive aphasia and right hemiparesis. Patient did not receive IV TPA since the patient is on anticoagulationant, and came outside window for TPA. Seems embolic possible from atrial fibrillation, as the MRI of brain reveals involvement of bilateral hemispheric region, the largest involving the left frontal region in the CURT territory. 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 Hypertension History of Right visual defect Hyperlipidemia Systolic congestive heart failure Severe mitral regurgitation COPD on nasal oxygen Ex-tobacco use (stopped 5 years and smoked for about 50 years) Plan: * Patient's family is now very much inclined towards comfort care only. Hospice has been consulted. They want her mother to be comfortable. No other workup indicated. I discussed with patient's sons at length, and also with patient case manager Ingrid. All of their questions were answered. Spent 15-20 minutes in counseling. (Previous plan) * Patient has passed swallow studies yesterday and was started on aspirin 325 mg orally. However today she is not swallowing. Patient will be switched back to rectal aspirin 300 mg daily. Patient denying PEG tube placement. Discussed with patient's son about her advanced directives. Patient is DO NOT RESUSCITATE at this time. * MRI of the brain without contrast revealed large area measuring approximately 6.8 cm of acute ischemia left parietal lobe. On my review, it appears to involve the left CURT territory. There are additional multifocal 5 mm or less areas of acute ischemia scattered throughout both cerebral hemispheres. This can occasionally be associated with embolic phenomenon correlate clinically. A one small area of ischemia also involves the left lateral cerebellar region, therefore the strokes are likely cardioembolic in nature. * Continue to hold off on Eliquis for 5 days, and then may resume Eliquis 5 mg 1 tablet twice a day for atrial fibrillation to avoid further strokes. I would also suggest starting aspirin 81 mg daily indefinitely for stroke prevention related to carotid atherosclerotic disease. Cardiology also on board. * 2-D echo revealed atrial fibrillation. Left-ventricular size is normal. Mild concentric LVH. Left ventricle systolic function is moderately impaired with EF between 35-40%. Aortic valve is trileaflet and is mildly thickened. The mitral valve leaflets are mildly thickened. * Patient was on Lipitor 20 mg daily. The dose has been increased to Lipitor 80 mg daily at bedtime (when able to take by mouth). Lipid panel with cholesterol 108, LDL 65, HDL 27 and triglycerides 75. * Hemoglobin A1c 8.5, indicating of not well controlled diabetes. Suggest optimizing diabetes controlled to target A1c < 7.0. * Continue neuro checks, also on cardiac monitoring * Maintain BP between 150-180 systolic and 80-110 diastolic. Avoid excessive HTN or hypotension. * Vascular surgery team is consulted and they evaluated patient and discussed with family member and family does not want to pursue with left ICA surgery and pursue medical management.
[2022-02-03 11:35] LABS: Glucose,Whole Blood 250 mg/dL (75-99)
[2022-02-03] MEDS: MORPHINE SULFATE 2 MG/ML SYRINGE IVP PRN ×2 (11:58→16:24)
--- NOTE | 2022-02-03 20:38 | P.DS ---
Providers Date of admission: 01/29/22 12:35 Attending physician: Arleen Ribera MD Consults: 01/29/22 12:34 Consult Physician Urgent Consulting Provider: Anderson Connor Consult Reason/Comments: cva Do you want consulting provider notified?: Yes 01/29/22 16:50 Consult Physician Routine Consulting Provider: Yong Zacarias Consult Reason/Comments: eliquis modification Do you want consulting provider notified?: Yes 02/01/22 09:29 Consult Physician Urgent Consulting Provider: Eros Bowling Consult Reason/Comments: stroke Do you want consulting provider notified?: Yes Primary care physician: [facility] Course: Diagnoses: Left parietal acute stroke with large ischemia area 6.8 cm with multiple bilateral smaller ischemic area less than 5 mm, most likely showing embolic phenomena secondary to occluded left ICA Severe dysphagia secondary to above. Family refusing PEG tube placement and states they chose hospice care for the patient End of life care, hospice care, patient was accepted to go home on hospice. Bilateral ICA occlusion, 100% on the right side, more than 70% of the left side which is most likely the cause of stroke, family declined surgery, continue with medical management. SVT, on amiodarone, refractory mixer on the case Acute pulmonary congestion with acute hypoxic respiratory failure, oxygen requirement stable at 6 L/m Diabetes mellitus with hyperglycemia on admission secondary to decreased oral intake. Currently glucose is controlled. Cardiomyopathy with possible pulmonary congestion with acute combined systolic and diastolic CHF with ejection fraction 35-40% with moderate mitral regurgitation. A. fib on Eliquis, currently on hold Hypertension Hospital course: 6 years old female who presents with altered mental status and right hemiplegia and global aphasia secondary to large left parietal stroke about 6.8 cm in diameter associated with bilateral internal carotid artery stenosis, 100% on the right side and more than 70% on the left side, of course, located by SVT with elevated troponin, diabetes mellitus with hyperglycemia, cardiomyopathy with ejection fraction 35-40% with moderate mitral regurgitation and A. fib on Eliquis which is held due to her stroke. Several consultants from the case including neurologist, refractory mixer and vascular surgery Patient failed swallow evaluation and PEG tube was recommended for the patient however the family including both sounds Mr. Thomas and Hiram declined PEG tube placement and said they want her to be evaluated by hospice, the Adriana spoke with hospice team and she got accepted. Today I called Mr. Thomas and he confirms these information or me that he wanted her to go home on hospice. Also I discussed the case with Zeb the case liner. This looks appropriate and definitely patient cannot survive without feeding tube. Besides her prognosis is very poor given her extensive stroke and other complex medical issues. Her life expectancy is expected to be less than 6 months. Patient is DO NOT RESUSCITATE Prognosis is extremely poor Physical exam -Gen: patient is awake but aphasic and does not follow commands, no distress CVS: S1-S2, RRR, no murmur Lungs: B/L CTA, no wheezing, mild tachypnea on 6 L/m of oxygen Abdomen: soft, no distention, no tenderness, positive bowel sounds Extremity: no leg edema or induration -Neurology: Patient is with global aphasia, she does not follow command, she has severe right hemiplegia. Time spent more than 35 minutes Plan - Discharge Summary Discharge Rx Participant: No New Discharge Prescriptions: No Action ALPRAZolam [Xanax] 0.5 mg PO BID PRN PRN Reason: Anxiety Potassium Chloride [Klor-Con 10 ER] 10 meq PO TID Tiotropium 18 Mcg/Puff [Spiriva] 1 cap INHALATION RT-DAILY Atorvastatin [Lipitor] 20 mg PO HS Apixaban [Eliquis] 2.5 mg PO BID #60 tablet Metoprolol Tartrate [Lopressor] 25 mg PO TID #90 tab Spironolactone [Aldactone] 25 mg PO DAILY Ketorolac 0.5% Ophth Soln [Acular 0.5%] 1 drop LEFT EYE QID Insulin Aspart [NovoLOG Flexpen] See Protocol SQ AC-TID Escitalopram Oxalate [Lexapro] 10 mg PO DAILY Famotidine [Pepcid] 20 mg PO BID Albuterol Inhaler [Ventolin Hfa Inhaler] 1 puff INHALATION RT-QID #8 gm Montelukast [Singulair] 10 mg PO DAILY Insulin Glargine,Hum.rec.anlog [Lantus Solostar Pen] 30 unit SQ DAILY Dorzolamide 2% [Trusopt 2%] 1 drop RIGHT EYE BID Discharge Medication List ALPRAZolam [Xanax] 0.5 mg PO BID PRN 11/04/17 [History] Potassium Chloride [Klor-Con 10 ER] 10 meq PO TID 11/04/17 [History] Tiotropium 18 Mcg/Puff [Spiriva] 1 cap INHALATION RT-DAILY 11/04/17 [History] Atorvastatin [Lipitor] 20 mg PO HS 06/04/20 [History] Apixaban [Eliquis] 2.5 mg PO BID #60 tablet 06/12/20 [Rx] Metoprolol Tartrate [Lopressor] 25 mg PO TID #90 tab 06/12/20 [Rx] Ketorolac 0.5% Ophth Soln [Acular 0.5%] 1 drop LEFT EYE QID 12/22/20 [History] Spironolactone [Aldactone] 25 mg PO DAILY 12/22/20 [History] Albuterol Inhaler [Ventolin Hfa Inhaler] 1 puff INHALATION RT-QID #8 gm 01/10/22 [Rx] Escitalopram Oxalate [Lexapro] 10 mg PO DAILY 01/10/22 [History] Famotidine [Pepcid] 20 mg PO BID 01/10/22 [History] Insulin Aspart [NovoLOG Flexpen] See Protocol SQ AC-TID 01/10/22 [History] Insulin Glargine,Hum.rec.anlog [Lantus Solostar Pen] 30 unit SQ DAILY 01/10/22 [History] Montelukast [Singulair] 10 mg PO DAILY 01/10/22 [History] Dorzolamide 2% [Trusopt 2%] 1 drop RIGHT EYE BID 01/29/22 [History] Follow up Appointment(s)/Referral(s): Mariposa Frank DO [STAFF PHYSICIAN] - As Needed Bebeto Aparicio MD [STAFF PHYSICIAN] - 1 Week Asa Kang DO [Primary Care Provider] - 1-2 days Milad Wayne MD [STAFF PHYSICIAN] - 1 Week (urologist , kidney doctor for your right kidney cyst) Discharge Disposition: HOME WITH HOSPICE
== END 2022-02-03 16:34 | disposition hospice, home (50) | DRG 64 ==
LOC: EC 11:21 → 3SCARD 12:35
PROVIDERS: ADMIT Internal Medicine; ATTEND Internal Medicine
DX: I63.422 Cerebral infarction due to embolism of left anterior cerebral artery (principal); J96.01 Acute respiratory failure with hypoxia; I50.43 Acute on chronic combined systolic (congestive) and diastolic (congestive) heart failure; G81.91 Hemiplegia, unspecified affecting right dominant side; I13.0 Hypertensive heart and chronic kidney disease with heart failure and stage 1 through stage 4 chronic kidney disease, or unspecified chronic kidney disease; I42.0 Dilated cardiomyopathy; I47.1 Supraventricular tachycardia; J44.1 Chronic obstructive pulmonary disease with (acute) exacerbation; Z51.5 Encounter for palliative care; Z66 Do not resuscitate; I48.0 Paroxysmal atrial fibrillation; N18.9 Chronic kidney disease, unspecified; R13.10 Dysphagia, unspecified; R47.01 Aphasia; I25.10 Atherosclerotic heart disease of native coronary artery without angina pectoris; I65.23 Occlusion and stenosis of bilateral carotid arteries; E11.22 Type 2 diabetes mellitus with diabetic chronic kidney disease; I08.1 Rheumatic disorders of both mitral and tricuspid valves; I69.398 Other sequelae of cerebral infarction; E11.649 Type 2 diabetes mellitus with hypoglycemia without coma; H53.8 Other visual disturbances; E11.40 Type 2 diabetes mellitus with diabetic neuropathy, unspecified; M19.90 Unspecified osteoarthritis, unspecified site; E11.65 Type 2 diabetes mellitus with hyperglycemia; E78.5 Hyperlipidemia, unspecified; F41.1 Generalized anxiety disorder; H54.61 Unqualified visual loss, right eye, normal vision left eye; Z79.01 Long term (current) use of anticoagulants; Z79.4 Long term (current) use of insulin; Z79.82 Long term (current) use of aspirin; Z79.899 Other long term (current) drug therapy; Z85.828 Personal history of other malignant neoplasm of skin; Z86.16 Personal history of COVID-19; Z87.442 Personal history of urinary calculi; Z87.891 Personal history of nicotine dependence; Z90.710 Acquired absence of both cervix and uterus; Z96.653 Presence of artificial knee joint, bilateral; Z98.42 Cataract extraction status, left eye; Z98.41 Cataract extraction status, right eye; Z91.012 Allergy to eggs
CPT/HCPCS: 36415; 36600; 70450; 70496; 70498; 70551; 71045; 74230; 80048; 80053; 80061; 80306; 80320; 81001; 82805; 83036; 83735; 83880; 84132; 84145; 84484; 85025; 85610; 85730; 87086; 93005; 93306; 93880; 94640; 99285